=== PATIENT | male | born 1960 | race African-American/Black ===

== ENCOUNTER 2024-06-22 15:53 | Emergency (ER) | payer MEDICARE, SELFPAY ==
--- NOTE | ~2024-06-22 | XR_ITS ---
EXAMINATION: XR knee RT 3V DATE: 06/22/2024 18:17 INDICATION: Right knee swelling. TECHNIQUE: 3 views of right knee were obtained. COMPARISON: None. FINDINGS: Bone alignment is normal. No acute fracture. There is an old healed fracture of the fibular neck. There is moderate osteoarthritis of lateral compartment and mild osteoarthritis of medial and patellofemoral compartments. There is a small knee joint effusion with loose bodies. There are loose bodies in a Merino's cyst. IMPRESSION: 1. Moderate right knee osteoarthritis. 2. Small right knee joint effusion with loose bodies. Reviewed, dictated and finalized at location A.
[2024-06-22 15:56] VITALS: BP 150/95; PULSE 90; RESP 16; TEMP 36.6; O2SAT 100
--- NOTE | 2024-06-22 16:23 | ECG_ITS ---
Test Date: 2024-06-22 16:50:17 Measurements Intervals [place] Rate: 86 P: 36 OR: 234 QRS: -8 QRSD: 109 T: 77 QT: 363 QTc: 434 Interpretive Statements SINUS RHYTHM WITH FIRST DEGREE AV BLOCK NONSPECIFIC T-WAVE ABNORMALITY No previous ECG available for comparison Electronically Signed On 06-23-2024 10:07:57 CDT by Juan Jose Holguin M.D.
--- NOTE | 2024-06-22 16:45 | ED.PSYCH ---
HPI - Psych General Chief Complaint: Psychiatric Symptoms <Williams Walters APRN - Last Filed: 06/22/24 16:46> Stated Complaint: psych eval <Williams Walters APRN - Last Filed: 06/22/24 16:46> Time Seen by Provider: 06/22/24 17:18 <Williams Walters APRN - Last Filed: 06/22/24 16:46> 63-year-old male presents with increased depression and suicidal ideations. Patient states she has also his brother and his mother of this year. Patient has a history of schizophrenia. Patient has a plan to jump off a parking garage. <Williams Walters APRN - Last Filed: 06/22/24 16:46> History of Present Illness HPI Narrative: I agree with the assessment and note written by Williams Juarez NP. <Roxana Diaz APRN - Last Filed: 06/23/24 01:58> Review of Systems Review of Systems: All systems reviewed & are unremarkable except as noted in HPI and below <Roxana Diaz APRN - Last Filed: 06/23/24 01:58> PMFSH Social History Social History: Social History Substance use type: marijuana and crack/cocaine <Williams Walters APRN - Last Filed: 06/22/24 16:46> Exam Narrative: GENERAL: Well appearing, well-nourished, non-toxic, in no acute distress. HEAD: Normocephalic, atraumatic. NECK: Supple. No adenopathy, no masses. RESPIRATORY: Airway patent, respirations nonlabored. Clear to auscultation bilaterally, no rales, rhonchi, wheezing. CARDIOVASCULAR: Regular rate and rhythm without murmurs, rubs, or gallops. Peripheral pulses 2+ and equal bilaterally. Mild bilateral lower extremity edema. ABDOMINAL: Soft, nontender, nondistended, no hepatosplenomegaly. Normoactive BS. MUSCULOSKELETAL: Moves all extremities. Strength/ROM intact without gross deformities. SKIN: Warm, dry, normal color. No rashes. NEURO: A&O X3. Speech clear. Cranial nerves II-XII grossly intact. Steady gait. No ataxic movements. PSYCHIATRIC: Appropriate mood and flat affect. Normal interaction. <Roxana Diaz APRN - Last Filed: 06/23/24 01:58> Course Course Emergency Course: patient was signed out to me at 7:00 a.m. I am aware that patient has been accepted at a psychiatric facility and is awaiting EMS transportation which is anticipated at approximately 1:00 p.m.. Patient was calm and appropriate throughout the morning and early afternoon. I did assess him from the door he was resting comfortably. He did not require any medications. EMS arrived to transport patient. Patient ate meal without emesis or complication. <Sahara Mendoza MD - Last Filed: 06/23/24 13:20> DESKTOP SUPPORT TECHNICIAN/PA Physician Supervision For this patient encounter, I reviewed the DESKTOP SUPPORT TECHNICIAN or PA documentation, treatment plan, and medical decision making and had ifdg-ln-uewn time with this patient. I performed all aspects of the MDM as documented. <Adryan Caballero MD - Last Filed: 06/23/24 05:07> Vital Signs Vital signs: Vital Signs Temperature 97.9 F 06/22/24 15:56 Pulse Rate 90 06/22/24 15:56 Respiratory Rate 16 06/22/24 15:56 Blood Pressure 150/95 H 06/22/24 15:56 Pulse Oximetry 100 06/22/24 15:56 Oxygen Delivery Room Air 06/22/24 15:56 Temperature 97.9 F 06/23/24 01:03 Pulse Rate 80 06/23/24 01:03 Respiratory Rate 16 06/23/24 01:03 Blood Pressure 138/97 H 06/23/24 01:03 Pulse Oximetry 99 06/23/24 01:03 Oxygen Delivery Room Air 06/22/24 15:56 <Williams Walters APRN - Last Filed: 06/22/24 16:46> Vital Signs Temperature 97.9 F 06/22/24 15:56 Pulse Rate 90 06/22/24 15:56 Respiratory Rate 16 06/22/24 15:56 Blood Pressure 150/95 H 06/22/24 15:56 Pulse Oximetry 100 06/22/24 15:56 Oxygen Delivery Room Air 06/22/24 15:56 Temperature 97.9 F 06/23/24 01:03 Pulse Rate 80 06/23/24 01:03 Respiratory Rate 16 06/23/24 01:03 Blood Pressure 138/97 H 06/23/24 01:03 Pulse Oximetry 99 06/23/24 01:03 Oxygen Delivery Room Air 10
[2024-06-22 17:06] LABS: Basophils Percent Auto 0.3 % (0.2-1.2); Eosinophils Absolute Auto 0.4 K/mm3 (0-0.3); Eosinophils Percent Auto 3.9 % (0-4.4); Hematocrit 33.4 % (42.0-52.0); Hemoglobin 10.3 g/dL (14.0-18.0); Immature Granulocyte Absolute 0.02 K/mm3 (0.00-0.031); Immature Granulocyte Percent A 0.2 % (0-0.5); Lymphocytes Absolute Auto 1.62 K/mm3 (0.9-3.2); Lymphocytes Percent Auto 15.2 % (18.3-44.2); Mean Corpuscular HGB Conc 30.8 g/dl (32-36); Mean Corpuscular Hemoglobin 25.6 pg (26-34); Mean Corpuscular Volume 83.1 fl (80-100); Monocytes Absolute Auto 0.5 K/mm3 (0.1-0.6); Monocytes Percent Auto 4.6 % (2.6-8.5); Neutrophils Absolute Auto 8.1 K/mm3 (1.3-6.7); Neutrophils Percent Auto 75.8 % (45.5-73.1); Platelet Count Result 267 k/mm3 (150-375); Red Blood Count 4.02 M/mm3 (4.6-6.20); Red Cell Distribution Width 21.7 % (11.5-14.5); White Blood Count 10.6 K/mm3 (4.5-10.0)
[2024-06-22 17:07] LABS: Add Urine Microscopic? NO; Appearance Urine Clear (Clear); Bilirubin Urine Negative (Negative); Blood Urine Negative (Negative); Color Urine Yellow (Yellow); Glucose Urine UA Negative (Negative); Ketones Urine Trace mg/dL (Negative); Leukocyte Esterase Ur Negative LEU/UL (Negative); Nitrate Urine Negative (Negative); Protein Urine Negative (Negative); Specific Grav Ur 1.024 (1.001-1.035)
[2024-06-22 17:16] LABS: Acetaminophen < 10 ug/mL (10-30); Ethanol < 10 mg/dL (<10); Salicylate < 1.0 mg/dL (2-20)
[2024-06-22 17:17] LABS: Alanine Aminotransferase 13 U/L (6-50); Albumin Level 4.5 g/dL (3.5-5.1); Alkaline Phosphatase 114 U/L (38-126); Anion Gap 11 mmol/L (4-12); Aspartate Amino Transferase 25 U/L (17-59); Bilirubin,Total 0.3 mg/dL (0.2-1.3); Blood Urea Nitrogen 16 mg/dL (9-20); Calcium 9.7 mg/dL (8.4-10.2); Carbon Dioxide 27 mmol/L (22-30); Chloride 103 mmol/L (98-107); Estimated CRCL calculation 73 ml/min; Estimated Glomerular Filt Rate > 60; Glucose 166 mg/dL (65-110); Potassium 3.5 mmol/L (3.4-5.0); Sodium 141 mmol/L (137-145)
[2024-06-22 18:12] LABS: Barbiturate Screen Urine Negative (Negative); Benzodiazepines Screen Urine Negative (Negative)
[2024-06-22 18:14] LABS: Amphetamine Screen Urine Negative (Negative); Cannabinoid Screen Urine Negative (Negative); Cocaine Screen Urine Positive (Negative); Methadone Screen Urine Negative (Negative); Opiate Screen Urine Negative (Negative); Phencyclidine Screen Urine Negative (Negative)
[2024-06-22 18:18] LABS: SARS-CoV-2 RNA PCR Negative (Negative)
--- NOTE | 2024-06-22 22:58 | PC.NURSE ---
spoke with Mariam with [facility] transfer center, they are going to run information by the psychiatrist and call back with an answer about acceptance.
--- NOTE | 2024-06-22 23:44 | PC.NURSE ---
Pt has been accepted at [facility] in [place]. They will call back with a bed number and for report.
[2024-06-23 00:56] VITALS: BP 138/97; PULSE 80; RESP 16; TEMP 36.6; O2SAT 99
--- NOTE | 2024-06-23 01:00 | PC.NURSE ---
RN to [facility]ON[facility] Moya for report [facility] . This rn verified address [address] [place] [address] room 112 bed 1
[2024-06-23 01:03] VITALS: BP 138/97; PULSE 80; RESP 16; TEMP 36.6; O2SAT 99
[2024-06-23 08:00] VITALS: BP 138/80; PULSE 80; RESP 16; TEMP 36.4; O2SAT 97
[2024-06-23 12:00] VITALS: BP 142/88; PULSE 80; RESP 16; TEMP 36.6; O2SAT 98
--- NOTE | 2024-06-23 13:27 | PC.NURSE ---
leaving ED with Contreras at this time
== END 2024-06-23 13:28 ==
PROVIDERS: Nurse Practitioner Family; Emergency Provider Registered Nurse
DX: R45.851 Suicidal ideations (principal); Z11.52 Encounter for screening for COVID-19; I10 Essential (primary) hypertension; E11.9 Type 2 diabetes mellitus without complications; F20.9 Schizophrenia, unspecified; M17.11 Unilateral primary osteoarthritis, right knee; I44.0 Atrioventricular block, first degree; R94.31 Abnormal electrocardiogram [ECG] [EKG]
CPT/HCPCS: 36415; 73562; 80053; 80143; 80179; 80307; 81003; 82077; 84443; 85025; 87635; 93005; 99285

== ENCOUNTER 2025-03-22 22:38 | Emergency (ER) | payer OTHER, SELFPAY ==
[2025-03-22 22:50] VITALS: BP 108/78; PULSE 83; RESP 14; TEMP 36.6; O2SAT 100
[2025-03-22 23:23] LABS: Hematocrit 34.2 % (42.0-52.0); Hemoglobin 10.7 g/dL (14.0-18.0); Immature Granulocyte Percent A 0.3 % (0-0.5); Lymphocytes Absolute Auto 1.98 K/mm3 (0.9-3.2); Mean Corpuscular HGB Conc 31.3 g/dl (32-36); Mean Corpuscular Hemoglobin 25.7 pg (26-34); Mean Corpuscular Volume 82.2 fl (80-100); Nucleated Red Blood Cells Absolute Auto 0.000 K/mm3 (0.0-0.012); Nucleated Red Blood Cells Perc 0.0 % (0.0-0.2); Platelet Count Result 251 k/mm3 (150-375); Red Blood Count 4.16 M/mm3 (4.6-6.20); White Blood Count 9.4 K/mm3 (4.5-10.0)
[2025-03-22 23:27] LABS: Add Urine Microscopic? YES; Appearance Urine Clear (Clear); Glucose Urine UA Negative (Negative); Leukocyte Esterase Ur Negative LEU/UL (Negative); Nitrate Urine Negative (Negative); Non Pathogenic Casts 0-2; Specific Grav Ur 1.026 (1.001-1.035)
[2025-03-22 23:36] LABS: Alanine Aminotransferase 13 U/L (6-50); Albumin Level 4.5 g/dL (3.5-5.1); Alkaline Phosphatase 92 U/L (38-126); Anion Gap 11 mmol/L (4-12); Aspartate Amino Transferase 28 U/L (17-59); Bilirubin,Total 0.3 mg/dL (0.2-1.3); Blood Urea Nitrogen 23 mg/dL (9-20); Calcium 9.8 mg/dL (8.4-10.2); Carbon Dioxide 23 mmol/L (22-30); Chloride 108 mmol/L (98-107); Estimated CRCL calculation 66 ml/min; Estimated Glomerular Filt Rate > 60; Glucose 82 mg/dL (65-110); Potassium 4.0 mmol/L (3.4-5.0); Sodium 142 mmol/L (137-145); Total Protein 8.1 g/dL (6.3-8.2)
--- OUTSIDE RECORDS SUMMARY | 2025-03-22 23:48 | XMS_ITS ---
Author Organization [facility] Address [address] [place], [place] [phone] Care Team Providers Care Hr Recruiter Name Role Phone Fadia Lyle Primary Care Provider [phone] DIANE PERERA [phone] REASON FOR VISIT anxiety with stress disorders Social History Sex Assigned At : Social History Observation Description Sex Assigned At Female Encounters Encounter Location Date Provider Diagnosis [facility] [address] [place], [place] [phone] 12/14/2024 DIANE PERERA Plan Of Treatment No Information Progress Notes * Bob HOLLIS JrDOB:[birth year] (64 yo M)Acc No.[id number]:12/14/2024 Health & Behavioral Intake Patient: Kameron WINCHESTERBob Jr Provider: Lee PERERA LPC :1960 A ge:64 Y S ex:Male Date:12/14/2024 Address:[address] [place] [address], [address], [place], [phone] Pcp:Fadia Lyle Subjective: * Chief Complaints: * 1 . Anxiety with stress disorders. * Medical History: Objective: * Vitals: Assessment: Plan: * Treatment: * Billing Information: * Visit Code: * Procedure Codes: Care Plan Details* * Electronic signature of SARITA PERERA LPC on 03/22/2025 at 11:48 PM CDT Sign off status: Pending * Provider: Lee PERERA LPC Date: 0 12/14/2024 Generated for Rajendra juares/Valentina/Rosemarie on: 0 03/22/2025 11:48 PM CDT
--- OUTSIDE RECORDS SUMMARY | 2025-03-22 23:48 | XMS_ITS | Encounter Summary ---
Author Organization [facility] Address [address] [place] [address] Care Team Providers Care Day Care Attendant Name Role Phone Rory Moore MD Unavailable Fadia Lyle MD Primary Care Provid er Reason for Visit * Reason Comments SUICIDAL PT BIBEMS for SI, to EMS he thought about jumping off a building. PT recently lost his brother. PT states he tried calling a friend to bring him a firearm to kill himself * Auth/Cert (Routine) Specialty Diagnoses / Procedures Referred By Ruddy forrester Referred To Contact Referral ID Status Reason Start Date Expiration Date Visits Re quested Visits Authorized [id number] 1 1 Encounter Details Date Type Department Care Team (Late st Contact Info) Description 03/21/2025 2:41 AM CDT - 03/21/2025 8:03 AM CDT Emergency ER at [facility] [address] [place] [id number] Sondra Mays DO [address] [place] [phone] Anton Radford MD [address] [place] [id number] Adjustment disorder, unspecified type (Primary Dx); Current severe episode of major depressive disorder without psychotic features, unspecified whether recurrent (HCC); Substance abuse (HCC) Discharge Disposition: Home or Self Care Social History Tobacco Use Types Packs/Day Years Used Date Smoking Tobacco: Former Cigarettes Smokeless Tobacco: Never Comments:Patient states he h as never smoked Alcohol Use Standard Drinks/Week Comments Not Currently 0 (1 standard drink = 0.6 oz pur e alcohol) never was much on alcohol AUDIT-C Answer Date Recorded Q1: How often do you have a drink containing alcohol? Never 03/21/2025 Q2: How many drinks containi ng alcohol do you have on a typical day when you are drinking? Patient does not drink Q3: How often do you have si x or more drinks on one occasion? Never 03/21/2025 Overall Financial Resource Strain (CARDIA) Answe r Date Recorded How hard is it for you to pa y for the very basics like food, housing, medical care, and heating? Not hard at all 02/23/2025 PHQ-2 Answer Date Recorded Patient Health Questionnaire-2 Score 1 03/21/2025 [facility] - Occupational Stress Questionnaire Answer Date Recorded Do you feel stress - tense, restless, nervous, or anxious, or unable to sleep at night because your mind is troubled all the time - these days? Not at all 02/23/2025 Hunger Vital Sign Answer Date Recorded Within the past 12 months, y ou worried that your food would run out before you got the money to buy more. Never true 02/24/20 25 Within the past 12 months, t he food you bought just didn't last and you didn't have money to get more. Never true 02/23/2025 PRAPARE - Transportation Answer Date Re corded In the past 12 months, has l ack of transportation kept you from medical appointments or from getting medications? No 02/05 In the past 12 months, has l ack of transportation kept you from meetings, work, or from getting things needed for daily living? No 02/23/2025 Housing Stability Vital Sign Answer Chuck e Recorded In the last 12 months, was t here a time when you were not able to pay the mortgage or rent on time? Yes 12/23/2023 In the last 12 months, how many places have you lived? 5 12/23/2023 In the last 12 months, was t here a time when you did not have a steady place to sleep or slept in a fdc (including now)? No 12/23/2023 Housing Stability Vital Sign Answer Chuck e Recorded In the last 12 months, was t here a time when you were not able to pay the mortgage or rent on time? No 02/23/2025 In the past 12 months, how m any times have you moved where you were living? 0 02/23/2025 At any time in the past 12 m [facility], were you homeless or living in a fdc (including now)? 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 SAL[employer] Sexual Orientation Not on file Occupation Industry Job Start Date Job End Date retired [employer] Not on file Not on file Not on file documented as of this encounter Last Filed Vital Signs Vital Sign Reading Time Taken Comments Blood Pressure 135/83 03/21/2025 2:58 AM CDT Pulse 83 03/21/2025 2:58 AM CDT Temperature 36.4 C (97.5 F) 03/21/2025 2:58 AM CDT Respiratory Rate 19 03/21/2025 2:58 AM CDT Oxygen Saturation 100% 03/21/2025 2:58 AM CDT Inhaled Oxygen Concentration - - Weight - - Height - - Body Mass Index - - documented in this encounter Functional Status * Question Answer Date of Assessment Author Q1: How often do you have a drink containing alcohol? Never 03/21/2025 3:58 AM CDT Kiarra Nuñez Q2: How many drinks containing alcohol do you have on a typical day when you are drinking? Patient does not drink 03/21/2025 3:58 AM CDT Estella Nuñez Q3: How often do you have six or more drinks on one occasion? Never 03/21/2025 3:58 AM CDT Kiarra Nuñez * Audit-C Score Answer Date of Assessment Author 0 03/21/2025 3:58 AM CDT Estella Nuñez * Is person deaf or have serious hearing difficulty? Answer Date of Assessment Author No 02/23/2025 3:38 PM CDT Antoni Brown RN * Is person blind or have serious difficulty seeing? Answer Date of Assessment Author No 02/23/2025 3:38 PM CDT Antoni Brown RN * Does person have serious difficulty walking/climbing stairs? Answer Date of Assessment Author No 02/23/2025 3:38 PM CDT Antoni Brown, RN * Does person have difficulty dressing/bathing? Answer Date of Assessment Author No 02/23/2025 3:38 PM CDT Antoni Brown, RN * Does person have difficulty doing errands alone? Answer Date of Assessment Author No 02/23/2025 3:38 PM CDT Antoni Brown, RN * Over the past 2 weeks, how often have you been bothered by any of the following problems? Question Answer Date of Assessment Author Little interest or pleasure in doing things Not at all 03/21/2025 4:15 AM Kiarra [place] Feeling down, depressed, or hopeless Several days 03/21/2025 4:15 AM Kiarra [place] Patient Health Questionnaire-2 Score 1 03/21/2025 4:15 AM Fuad [place] * Question Answer Date of Assessment Author Trouble falling or staying asleep, or sleeping too much Not at all 03/21/2025 4:15 AM Estella [place] Feeling tired or having little energy Not at all 03/21/2025 4:15 AM Kiarra [place] Poor appetite or overeating Not at all 03/21/2025 4: 15 AM Estella [place] Feeling bad about yourself - or that you are a failure or have let yourself or your family down Not at all 03/21/2025 4:15 AM Kiarra [place] Trouble concentrating on things, such as reading the newspaper or watching television Not at all 03/21/2025 4:15 AM Kiarra [place] Moving or speaking so slowly that other people could have noticed? Or the opposite - being so fidgety or restless that you have been moving around a lot more than usual. Not at all 03/21/2025 4:15 AM Kiarra [place] Thoughts that you would be better off or hurting yourself in some way Several days 03/21/2025 4:15 AM Geno [place] Patient Health Questionnaire-9 Score 2 03/21/2025 4:15 AM CDFuad Laurent * Actual/Potential Lethality (Most Lethal Attempt) Question Answer Date of Assessment Author Actual Lethality/Medical Dam age Code (Most Lethal Attempt) 3 03/21/2025 3:39 AM CDT Moses Nuñez hrsevena Ching Potential Lethality Code (Mo st Lethal Attempt) 2 03/21/2025 3:39 AM CDT Kiarra Nuñez R * Actual/Potential Lethality (Most Recent Attempt) Question Answer Date of Assessment Author Actual Lethality/Medical Dam age Code (Most Recent Attempt) 3 03/21/2025 3:39 AM CDT Moses Nuñez hristina Ching Potential Lethality Code (Mo st Recent Attempt) 0 03/21/2025 3:39 AM CDT Kiarra Nuñez R * Actual/Potential Lethality (Initial/First Attempt) Question Answer Date of Assessment Author Actual Lethality/Medical Dam age Code (Initial/First Attempt) 3 03/21/2025 3:39 AM Estella [place] Potential Lethality Code (Initial/First Attempt) 1 03/21/2025 3:39 AM CDT Yehuda Nuñez R * Calculated C-SSRS Risk Score (Lifetime/Recent) Answer Date of Assessment Author High Risk 03/21/2025 3:39 AM Estella [place] * How difficult have these problems made it for you to do your work, take care of things at home, or get along with other people? Answer Date of Assessment Author Not difficult at all 03/21/2025 4:15 AM CDT Estella Macias * Suicidal Ideation Question Answer Date of Assessment Author 1. Wish to be (Lifetime) No 03/21/2025 3:39 AM Estella [place] 2. Non-Specific Active Suici jodi Thoughts (Lifetime) Yes 03/21/2025 3:39 AM CDT Kiarra Nuñez R 3. Active Suicidal Ideation with any Methods (Not Plan) Without Intent to Act (Lifetime) No 03/21/2025 3:39 AM CDT Nuñez, Chr istina R 4. Active Suicidal Ideation with Some Intent to Act, Without Specific Plan (Lifetime) No 03/21/2025 3:39 AM CDT Nuñez, Chr istina R 5. Active Suicidal Ideation with Specific Plan and Intent (Lifetime) No 03/21/2025 3:39 AM CDT Fuad Nuñezin a R 2. Non-Specific Active Suici jodi Thoughts (Past 1 Month) Yes 03/21/2025 3:39 AM CDT Nuñez, Chri humera R 3. Active Suicidal Ideation with any Methods (Not Plan) Without Intent to Act (Past 1 Month) Yes 03/21/2025 3:39 AM CDT Fuad Nuñezina R 4. Active Suicidal Ideation with Some Intent to Act, Without Specific Plan (Past 1 Month) Yes 03/21/2025 3:39 AM CDT Joaquin Estella R 5. Active Suicidal Ideation with Specific Plan and Intent (Past 1 Month) Yes 03/21/2025 3:39 AM CDT Fuad Nuñezin a R * Intensity of Ideation Question Answer Date of Assessment Author Frequency (Lifetime) 1 03/21/2025 3:39 AM CDT Estella Nuñez R Reasons for Ideation (Lifetime) 0 03/21/2025 3:39 AM CDT Joaquin Estella R Description of Most Severe Ideation (Past 1 Month) Sister moved out of town to follow her job, 03/21/2025 3:39 AM CDT Joaquin Estella R Frequency (Past 1 Month) 4 025 3:39 AM CDT Joaquin Estella R Duration (Past 1 Month) 5 03/21/20 25 3:39 AM CDT Fuad Nuñezina R Controllability (Past 1 Month) 2 03/21/2025 3:39 AM CDT Joaquin Estella R Deterrents (Past 1 Month) 3 2024 3:39 AM CDT Joaquin Estella R Reasons for Ideation (Past 1 Month) 5 03/21/2025 3:39 AM CDT Joaquin Estella R * Suicidal Behavior Question Answer Date of Assessment Author Actual Attempt (Lifetime) Yes 03/21/2025 3:39 AM CDT Joaquin Estella R Has subject engaged in non-suicidal self-injurious behavior? (Lifetime) No 03/21/2025 3:39 AM CDT Geno Nuñez na R Interrupted Attempts (Lifetime) No 3:39 AM CDT Estella Nuñez R Aborted or Self-Interrupted Attempt (Lifetime) No 03/21/2025 3:39 AM CDT Kiarra Nuñez a R Preparatory Acts or Behavior (Lifetime) Yes 03/21/2025 3:39 AM CDT Fuad Nuñezin a R Total Number of Preparatory Acts (Lifetime) 1 03/21/2025 3:39 AM CDT Kiarra Nuñez a R Actual Attempt (Past 3 Months) No 03/21/2025 3:39 AM CDT Estella Nuñez R Preparatory Acts or Behavior (Past 3 Months) No 03/21/2025 3:39 AM CDT Kiarra Nuñez documented as of this encounter Mental Status * Does person have difficulty concentrating/remembering/making decisions? Answer Entry Date Author No 02/23/2025 3:38 PM CDT Antoni Brown RN documented in this encounter Discharge Instructions * Discharge Instructions* Anton Radford MD - 03/21/2025 7:48 AM CDT DRUG AND ALCOHOL REFERRALS Inpatient [facility] [phone] Inpatient Medical Detox, Residential, Outpatient Services, Anti-Craving Medications, Aftercare (Adult and Adolescent Programs) Locations: [facility], [facility] Insurance(s): Most major insurances, Medicaid, State-Funding [facility] [phone] Inpatient Medical Detox, Residential, Outpatient Services, Anti-Craving Medications, Aftercare (Adults 18+) Main Location: [facility] Locations: [facility], [facility], [place], [place] Insurance(s): Most major insurances (no , Medicare, or Medicaid) [facility] [phone] Residential, Outpatient Services, Anti-Craving Medications, Aftercare (Adult and Adolescent Programs) Locations: [place] ([facility], [place], [place], [place]) Insurance(s): Most major insurances, [place] Medicaid, [place] State-Funding (no [place] Medicaid or Medicare) Tang Tebbetts [phone] Inpatient Medical Detox, Short/Long-Term Residential, Outpatient Services, Transitional Housing (Adults 18+) Location: [facility] Insurance(s): [place], Anastasia, BCBS, [place], Joaquina, [employer] [phone] Inpatient Medical Detox, Short-Term Hospitalization, Typically 3 Day, 4 Night detox (Adults 18+) Locations: [place] ([place], [place], [place]); [place] ([place]) Insurance(s): Most major insurances, Medicare and Medicaid [facility] * [phone] Residential Services, Outpatient Services, Early Intervention (Adolescents; Adult Programs) Locations: [facility] Insurance(s): Most major insurances, Medicare and Medicaid [facility] [phone] Inpatient Medical Detox, Residential, Outpatient Services, Aftercare (Adult and Adolescent Programs) Locations: [place], [place], [place], [facility], [facility], [facility], [place] (more online) Insurance(s): Most major insurances, Medicare and Medicaid [facility] (Women Only) [phone] Residential, Outpatient Services, [employer] Services Location: [facility] Insurance(s): State-Funding, Medicare and Medicaid [facility] (Men Only) [phone] Inpatient Medical Detox, Short-Term Residential, Outpatient Services, Transitional Housing Location: [facility] Insurance(s): State-Funding [facility] Stabilization Service [phone] Inpatient Medical Detox, Short-Term Hospitalization, Typically 3 Day, 4 Night detox (Adults 18+) Locations: [place] Insurance(s): Most major insurances, Medicare and Medicaid [facility] ([facility]) * [phone] Inpatient Medical Detox, Residential, Outpatient Services, Anti-Craving Medications, Community Supports (Adult and Adolescents) Locations: [place], [place], [place], [place], [place], [place], [place], [place], [place], [place], [place] (more online) Insurance(s): Most major insurances, Medicare and Medicaid, [place], State-Funding [facility] [phone] Inpatient Medical Detox, Residential, Outpatient Services, Anti-Craving Medications, Aftercare, Family Program (Ages 16+) Inpatient Location: [place] Outpatient Location: Florentino Andrews Insurance(s): Most major insurances (No Medicare or Medicaid) [facility] Mgr Cathryn: [phone] Inpatient Medical Detox, Residential, Partial Hospitalization, Intensive Outpatient Programming, Locations: [place], [place]; [place], [place]; [facility]; [place], [place] Insurance(s): Most major insurances [facility] [phone] Outpatient Detox, Aftercare, Anti-Craving Medications (Adult and Adolescent Programs) Location: [place] Insurance(s): Most major insurances and Managed Medicaids (No Medicare) [facility] ([facility]isted [facility]) [phone] Residential, Outpatient Services, Anti-Craving Medications, Transitional Housing, Aftercare (Dknvkt18+) Locations: [facility] Insurance(s): Most major insurances (no Medicare, Medicaid, or HealthCare [place]) Monique [phone] Outpatient Services, Day Treatment Program, Counseling Services (Adult and Adolescent Programs) Locations: Yusuf Tobar Insurance(s): Most major insurances, including Medicare and Medicaid [facility] on Alcoholism and Drug Abuse [facility] [phone] Substance Abuse assessments (9:30am - 3pm Thursday - Thursday; Appointment Only), Referrals, General Substance Abuse Help/Information Line (9am - 5pm Thursday - Thursday); Adult and Adolescent Assessments Location: [place] Insurance(s): None, Adult Appointments: $50, Adolescent (19 and under): Free [facility] * [phone] Outpatient Services, Day Treatment Program, Short/Long-Term Residential (Adults Only) Location: [facility] Insurance(s): Medicaid Only [place] [facility], [facility] [phone] Outpatient Services, Individual/Family/Group Counseling (Adults Only) Location: [place] Insurance(s): Self pay, Private Insurance [facility] [phone] Intensive Outpatient Programming (Adults Only) Location: [place] Insurance(s): Self pay, Private Insurance [facility] [phone] Assessments, Individual Counseling, Intensive Outpatient Program, After-Care, Support Groups (Ages 13-25 Only) Location: [place] Insurance(s): Self pay, Private Insurance Suicide Prevention/Crisis Hotlines [facility] ([place]) - Behavioral Health Intake Department: [phone] [facility] Behavioral Health Intake Department is professionally staffed and offers free, confidential evaluations for anyone needing assistance with psychiatric and behavioral issues. Evaluations are available 24 hours a day, 7 days a week. [facility]: 638-414-IZMA (6446) [facility] is one of the nation's oldest suicide prevention and crisis hotlines. [facility] operates 24 hours a day Behavioral Health Response: [phone] or 835-765-5990 [facility] Response ([facility]) is a professionally staffed crisis response service. R provides expert behavioral health, crisis response, and outreach services /[facility] Suicide Hotline: 2-588-173-TALK (9145) Press 1 National Suicide Prevention Hotline: 9-262-592-TALK (8193) 30/03 hotline available to anyone in suicidal crisis or emotional distress. Call's will be routed [facility] to you National Hope-Line Network: 9-382-KZYUAVC (922-0912) 30/03 hotline that connects people who are depressed or suicidal, or those who are concerned about someone they love, automatically to a [facility] or [facility] certified crisis center. Crisis Text Line: Just send a text message to 108421 Live, trained crisis counselors available 30/03 via text message; You'll receive an automated text asking you what your crisis is and within minutes , a live trained crisis counselor will answer your text. They will help you out of a moment of crisis and work with you to create a plan to continue tofeel better. documented in this encounter Medications at Time of Discharge amLODIPine (Norvasc) 10 MG tabletIndicatio ns:Hypertension Take 1 (one) tablet by mouth once daily Reasons: High Blood Pressure 15 tablet 1 5 aspirin (Aspirin) 81 MG chew tabletIndicatio ns:Atherosclero tic Disease Take 1 (one) tablet by mouth once daily Reasons: Disease involving Lipid Deposits in the Arteries 15 tablet 1 5 buPROPion SR 12hr (Wellbutrin-SR) 150 MG tabletIndicatio ns:Major Depressive Disorder Take 1 (one) tablet by mouth once daily Reasons: Major Depressive Disorder 15 tablet 1 5 ferrous sulfate 325 (65 FE) MG tabletIndicatio ns:Iron Deficiency Anemia Take 1 (one) tablet by mouth 2 times daily with morning and evening meal Reasons: Anemia From Inadequate Iron in the Body 15 tablet 5 FLUoxetine (PROzac) 20 MG capsuleIndicati ons:Major Depressive Disorder Take 1 (one) capsule by mouth once daily Reasons: Major Depressive Disorder 15 capsule 1 5 hydrOXYzine HCl (Atarax) 25 MG tabletIndicatio ns:Anxiety Take 1 (one) tablet by mouth every 6 hours as needed Reasons: Feeling Anxious 30 tablet 1 5 losartan (Cozaar) 25 MG tabletIndicatio ns:Hypertension Take 3 (three) tablets by mouth every evening Reasons: High Blood Pressure 45 tablet 5 metFORMIN (Glucophage) 500 MG tabletIndicatio ns:Type 2 Diabetes Mellitus Take 1 (one) tablet by mouth 2 times daily with morning and evening meal Reasons: Type 2 Diabetes 30 tablet 5 OLANZapine, disintegrating, (ZyPREXA Zydis) 5 MG tabletIndicatio ns:Major Depressive Disorder,Psycho tic Depression Take 1 (one) tablet by mouth at bedtime Reasons: Major Depressive Disorder, Psychotic Depressive Illness 15 tablet 5 pantoprazole EC (Protonix) 40 MG tabletIndicatio ns:Gastroesopha geal Reflux Disease Take 1 (one) tablet by mouth once daily Reasons: Gastroesophageal Reflux Disease 15 tablet 1 5 pregabalin (Lyrica) 50 MG capsuleIndicati ons:Neuropathic Pain Take 1 (one) capsule by mouth 2 times daily Reasons: Neuropathic Pain 30 capsule 1 5 documented as of this encounter Progress Notes * Laxmi Fong, TOMÁS - 03/21/2025 7:44 AM CDT Behavioral Health Referrals The patient was evaluated by Dr. Sanderson, (Psychiatric Provider) and it was determined that patient does not meet criteria for Inpatient psychiatric treatment. The following referrals are recommended for outpatient treatment and follow up care: follow up withestablished provider(s) and CI resources. Adult Substance Use Outpatient Name Number [facility] [phone] Tang Tebbetts [phone] [facility] [phone] [facility] [phone] [facility]) [phone] [facility]isted [facility] ([facility]) [phone] [facility] [phone] [facility] ([facility]) [phone] [employer] Directory List Mir[facility] [place] [phone] Inpatient Substance Use Treatment Name Number [facility] (detox) [phone] [facility] (age 18 and up) [phone] [facility] (age 18 and up) [phone] [facility] (Detox & Residential) [phone] [facility] [phone] [facility] [phone] [facility] (adults and adolescents) [phone] [facility] [phone] [facility] (Detox) (age 18 and up) [phone] [place] ([facility]) [phone] [facility] [phone] Behavioral Health Clinics Name Number [facility] Behavioral Health Urgent Care [phone] Psych[facility] at [facility] [phone] [facility] Psychiatric Clinic [phone] Community Mental Health Centers Name Number [facility] ([facility]) [phone] [facility] ([facility]) [phone] [facility] ([facility]) [phone] [facility] [phone] [facility] [phone] [facility] [phone] [facility] [phone] Adult Psychiatric Hospitals Name Number [facility] [phone] [facility] [phone] [facility] [phone] [facility] [phone] [facility] [phone] [facility] [phone] [facility] [phone] [facility]) [phone] [facility] [phone] [facility] [phone] [facility] ([facility]) [phone] Radford, Medical Provider at 0751. * Laxmi Fong LMSW - 03/21/2025 7:39 AM CDT Received disposition from Dr. Sanderson at 0731, 03/21/25 that patient is to be discharged with Dx of Adjustment disorder (F43.2) and Cocaine Use Disorder (F14.10). The patient is to receive substance use resources prior to discharge. Spoke with Dr. Radford at 0751, providing new disposition, CSSRS and PHQ-2 and PHQ-9 numbers. CI will provide resources as requested. * Estella Nuñez - 03/21/2025 5:17 AM CDT Patient Consent Status for Behavioral Health Admission Verbal consent for admission obtained from the patient by Estella and witnessed by Laxmi PATIÑO. thepatient consented for admission at the following [facility] [facility] location(s): [facility] ([place]). If beds are located outside of [facility] they have provided consent for transfer to the following locations: NONE * Yandy Toro APRN-[employer] OPERATOR - 03/21/2025 4:37 AM CDT Admission Recommendation Bob Hollis Jr. chart was reviewed and discussed case with MOE Soria; MOE assessment note incomplete and unavailable in Epic to be reviewed at this time. Based on information relayed to this provider by MOE, patient does meet the following criteria for IP admission- suicide ideation Admit once patient is medically cleared and appropriate bed placement becomes available. Please see below for disposition; if status change and/or discharge needs to be discussed, please reach out to on-call psychiatric provider (see Tara). Affidavit: no Criteria for involuntary met? N/a Diagnosis: Major depressive disorder, recurrent, severe, without psychosis (F33.2) Legal Status: voluntary Medication/Treatment Recommendations: Contact psychiatry for admission orders - please provide your ascom phone number Admit to psychiatry Electronically signed by: FREDDY Rollins March 21, 2025 4:38 AM Cosigned by Reji James MD at 03/21/2025 2:29 PM CDT * New Giraldo RN - 03/21/2025 2:52 AM CDT Pt presents to ER wanting to kill himself. He stated he had a family member recently passed and he's been feeling upset and depressed. He stated he went onto his roof with a gun and heard his neighbor to which he dropped is gun so his neighbor would find it. He's currently alert, oriented, and cooperative. There is no affidavit. Will continue to monitor. documented in this encounter Consult Notes * Rory Sanderson MD - 03/21/2025 7:44 AM CDT [facility] ER Initial Evaluation/Consultation Note PATIENT NAME: BOB HOLLIS MR#: [id number] AGE: 64 CSN: [id number] DATE OF ADMISSION: 03/21/2025 : 1960 DATE OF CONSULTATION: 03/21/2025 ROOM#: [id number] CHIEF COMPLAINT/HISTORY OF PRESENT ILLNESS: Bob Hollis is a 64-year-old gentleman, very well known to me, who presented with a vague complaint of wanting to jump off a fixed structure. The patient states that he is upset because his brother several days ago and he has been feeling very depressed. He said that he has had thoughts of wanting to either jump off a building or shoot himself though he admits he does not have access to a firearm. I tried to borrow from a friend, but he would not lend it to me. The patient's symptoms come within the context of dozens of emergency room visits throughout the area over the last few months over virtually identical circumstances. I myself saw him in December and February of this year at which time he also noted that he had lost various family members. MENTAL STATUS EXAM: The patient was alert and oriented to person, place, and time. His mood is fair. His affect is somewhat irritable. His speech is elicitable, directable, though somewhat limited. He denied current hallucinations or delusions. He admitted to vague suicidal ideations though no real plan. He denied current drug use, but he again became quite defensive when asked about it admitting to intermittent cocaine use later. He denied current feelings of hopelessness, helplessness, or guilt. There were no suicidal or homicidal ideations at this time and he talks convincingly of future plans. ASSESSMENT: 1. Polysubstance use disorder (cocaine predominant). 2. Rule out personality disorder; antisocial. 3. Adjustment disorder with mixed emotional features. 4. Malingering RECOMMENDATIONS: 1. At this time, the patient does not in our opinion meet inpatient psychiatric criteria and can be discharged to outpatient care. 2. I have again advised the patient in no uncertain terms that he needs to desist from the use of alcoholic spirits or illicit narcotics. I have also advised as have multiple other people here that he needs to follow up with the mental health provider of his choice. He has been provided with resources. 3. I have advised the patient that he needs to return to the emergency room or call 911 should his symptoms truly worsen. 4. A dynamic suicide risk assessment including [place] suicide scale score was done and is noted in the chart. NAME: BOB HOLLIS DICTATOR: RORY SANDERSON M.D. DICTATED FOR: SUZANNE/JUVENTINO JOB ID: [id number] Consultation Note * Rory Sanderson MD - 03/21/2025 7:31 AM CDT Patient seen, chart reviewed, full note dictated, to follow. [id number]. Diagnosis consistent with: Adjustment Disorder, Cocaine Use Disorder, R/O Personality Disorder Recommendations: Does not meet inpt acuity criteria, may transition to out-pt care Discussed with ER MD, Central Intake, and ER staff. Suicide Risk Assessment: Dynamic risk factors were addressed as above. The acute crisis and symptoms leading to ER presentation have adequately resolved. Chronic and non-modifiable risk factors (with inpatient admission) arelimited coping skills, ongoing psychosocial stressors, male gender. General protective factors are female gender, good reality testing, denial of feeling hopeless or helpless, denial of thoughts of self harm or violence toward others, denial of feeling like a burden to others, stated sense of belonging, social support, presence of community mental health resources, and lack of access to highly lethal means of suicide. The patients overall lifetime risk of suicide or violence toward others is moises vated due to chronic non-modifiable risk factors, though the patient is felt to be at low risk in the near future. The patient can continue to mitigate risk by adhering to medications, remaining sober from illicit drugs and alcoholic spirits and engaging with outpatient community mental health resources. [place] Suicide Scale Risk Score is Low Will follow with you while the patient is here in ER. Thank you, AJS * Estella Nuñez - 03/21/2025 4:48 AM CDTAssociated Order(s): IP CONSULT TO TELE PSYCH CENTRAL INTAKE [facility] Health - Behavioral Health Intake Evaluation: Guardian and Contact Information: Current Residence of Patient:[address] [place] [address] Guardian name and relationship: Patient is their own guardian. Was guardianship verified Yes If so how? Patient (Adult/Senior Only) ([place] Patients only) Patient name reviewed in [place] Case Net Yes Guardianship found and reviewed in [place] Case Net? No Affidavit completed: No Is the patient a current victim of violence? No REASON FOR ASSESSMENT: Bob Hollis Jr. is a 64 year old male who presents to the ED with the initial chief complaint(s) per triage note of: Chief Complaint Patient presents with SUICIDAL PT BIBEMS for SI, told EMS he thought about jumping off a building. PT recently lost his brother. PT states he tried calling a friend to bring him a firearm to kill himself The above was entered during triage and not by author of this note. The following information was provided by: The patient PRESENTING PROBLEM: The patient is a 64 year old male presenting to the Emergency Department via EMS with a complaint (s) of SI. The precipitating event is PT suicidal. Attempting to jump off building Pt has 13 prior IP admission with last dates 02/22/25-03/02/25. Chart reflect hx oif depression dx. Pt does not currently follow a psychiatrist or community counselor. Pt is currently prescribed Zyprexa, Wellbutrin, and Prozac and report medication compliance. Pt denies alcohol/substance usage. Pthas diabetes and high blood pressure as medical conditions,but no special needs. Pt denies hx of any type of abuse. Pt denies hx SI,SA, and SIB. Pt presented to ED with complaints of SI. Pt stated these complaints are current and ongoing. Pt reported SI with plan and intent to jump off building to break his neck or shoot himself with a firearm. Pt denied Hi, paranoia, delusions, and hallucinations. Pt currently stressed about the of his brother who 3 days ago. Pt denied depressive symptoms. Pt is currently retired, he lives [place], never been and reports God as his support system. Pt reported leisure as outdoor sports and recreations. Pt A&Ox2 with no orientation to time or place. He had fair insight and calm butguarded. During the assessment the pt was cooperative with good eye contact. The patient is not able to contract for safety outside of the hospital, and plans to harm himself The patient is not able to show forward thinking by Not thinking or looking forward to anything TAL I/TAL II: No FYI record: Yes Elopement and High Risk Behavior Intellectual disability/autism/DD: none indicated Suicidal Ideation 1. Wish to be (Lifetime): No 2. Non-Specific Active Suicidal Thoughts (Lifetime): Yes Non-Specific Active Suicidal Thought Description (Lifetime): Just wanting to ( Close family members) 2. Non-Specific Active Suicidal Thoughts (Past 1 Month): Yes Non-Specific Active Suicidal Thought Description (Past 1 Month): dont want to live anymore ( [facility]) 3. Active Suicidal Ideation with any Methods (Not Plan) Without Intent to Act (Lifetime): No 3. Active Suicidal Ideation with any Methods (Not Plan) Without Intent to Act (Past 1 Month): Yes Active Suicidal Ideation with any Methods (Not Plan) Description (Past 1 Month): jumpping off building or using firearm 4. Active Suicidal Ideation with Some Intent to Act, Without Specific Plan (Lifetime): No 4. Active Suicidal Ideation with Some Intent to Act, Without Specific Plan (Past 1 Month): Yes 5. Active Suicidal Ideation with Specific Plan and Intent (Lifetime): No 5. Active Suicidal Ideation with Specific Plan and Intent (Past 1 Month): Yes Active Suicidal Ideation with Specific Plan and Intent Description (Past 1 Month): Yes wanted to jump off building onto his neck Intensity of Ideation Most Severe Ideation Rating (Lifetime): (Does not apply) Description of Most Severe Ideation (Past 1 Month): Sister moved out of town to follow her job, Frequency (Lifetime): Less than once a week Frequency (Past 1 Month): Daily or almost daily Duration (Lifetime): (Does not apply) Duration (Past 1 Month): More than 8 hours/persistent or continuous Controllability (Past 1 Month): Can control thoughts with little difficulty Deterrents (Past 1 Month): Uncertain that deterrents stopped you Reasons for Ideation (Lifetime): Does not apply Reasons for Ideation (Past 1 Month): Completely to end or stop the pain (You couldn't go on living with the pain or how you were feeling) Suicidal Behavior Actual Attempt (Lifetime): Yes Actual Attempt (Past 3 Months): No Has subject engaged in non-suicidal self-injurious behavior? (Lifetime): No Interrupted Attempts (Lifetime): No Aborted or Self-Interrupted Attempt (Lifetime): No Preparatory Acts or Behavior (Lifetime): Yes Total Number of Preparatory Acts (Lifetime): 1 Preparatory Acts or Behavior Description (Lifetime): trying to get agun from a friend Preparatory Acts or Behavior (Past 3 Months): No Actual/Potential Lethality (Most Recent Attempt) Actual Lethality/Medical Damage Code (Most Recent Attempt): Moderately severe physical damage, medical hospitalization and likely intensive care required Potential Lethality Code (Most Recent Attempt): Behavior not likely to result in injury Actual/Potential Lethality (Most Lethal Attempt) Actual Lethality/Medical Damage Code (Most Lethal Attempt): Moderately severe physical damage, medical hospitalization and likely intensive care required Potential Lethality Code (Most Lethal Attempt): Behavior likely to result in despite available medical care Actual/Potential Lethality (Initial/First Attempt) Actual Lethality/Medical Damage Code (Initial/First Attempt): Moderately severe physical damage, medical hospitalization and likely intensive care required Potential Lethality Code (Initial/First Attempt): Behavior likely to result in injury but not likely to cause C-SSRS Risk (Lifetime/Recent) Calculated C-SSRS Risk Score (Lifetime/Recent): High Risk Aggressive Behaviors Physical aggression: No Verbal aggression: No Homicidal Thoughts or Behaviors Thoughts of harming or killing others?: No Have you acted on these thoughts in the past?: No Have you worked out details on how you would harm others?: No Mental Status Symptoms Delusions: Denies Hallucinations: Denies Alcohol Use Screening: Alcohol Use Screening (AUDIT-C) Q1: How often do you have a drink containing alcohol?: Never Q2: How many drinks containing alcohol do you have on a typical day when you are drinking?: Patientdoes not drink Q3: How often do you have six or more drinks on one occasion?: Never Total Score: 0 Substance Use Screening: Substance Use Drug/Alcohol History in the last 12 months?: None Addictive Behaviors: None List family member relationship and addictive behaviors : None What impact does spirituality and/or jew have on your life including recovery?: Believes in God Past Addiction Treatment: Past Addiction Treatment Past Addiction Treatment: No Mental Status Exam: Mental Status Orientation: Not oriented to time;Not oriented to place Insight: Fair Mood/Affect: Guarded;Calm Behavior: Cooperative;Good eye contact Mental Health: Mental Health Stressors: Recent Loss Symptoms most bothersome to patient:: Low Moods;Anxiety;Loneliness Past psychiatric hospitalizations: Yes Most recent discharge?: 03/03/25 Trauma History: Abuse/Neglect/Safety Assessment Do you feel safe at home?: Yes, feel safe Have you ever been hit/hurt or feel threatened by someone? : No, have not been hit/hurt or feel threatened Abuse History: None Are there signs/clinical indicators of abuse/neglect?: No signs of abuse/neglect Perpetrator of physical or sexual abuse?: Denies Do you have a history of self-injury?: No Are you currently having thoughts of self-injury?: No Do you have guns/weapons available to you?: No [facility] assessment of medications, sleep, appetite, and treatment: [facility] Work Assessment meds, sleep, appetite, tx Do you currently have an outpatient psychiatric provider?: No Have you been prescribed medication for mental health in the past?: No Are you currently being prescribed medication for mental health?: Yes If yes, what current medications?: Wellbutrin, Prozac, Zyprexa Are you taking your mental health medications as prescribed?: Yes Do you have any concerns about your medications?: No Is it hard to get a good night's sleep, are you tired and sleeping too much?: Not at all Have you lost your appetite or do you overeat compulsively?: Not at all Social Support: Social Support Marriages or other committed relationships:: Never Who is the primary acute care clinical nurse specialist?: Self Is the patient currently caring for or responsible for the care of someone else?: No Pets: None Cultural and Orthodoxy Beliefs Impacting Healthcare: Cultural and Orthodoxy Beliefs Impacting Healthcare Are there cultural, yazdanism, spiritual, emotional, financial and/or special needs that may affectyour care?: No Does anyone help support you in making healthcare decisions?: No Housing & Transportation: Housing/Transportation Type of Residence: Private Residence Residence/Facility Name: [address] [place] [address] Living arrangement: Alone Prior to Admission Requires assistance with:: None Prior to Admission Physical Limitations:: None Community Resources: Community Resources Community Resources currently in use?: No Leisure Activities: Leisure Activities What type of leisure activity do you engage in &/or enjoy?: Outdoor recreation activities What is the duration of your leisure activities?: 1 hour What is the frequency of your leisure activites?: 2-3 times per week Employment, Finances, and Insurance: Employment/Finances/Insurance Employment Status: Retired Source of income/Benefits?: Alf Benefits;Social Security PHQ-2: Over the past 2 weeks, how often have you been bothered by any of the following problems? Little interest or pleasure in doing things: Not at all Feeling down, depressed, or hopeless: Several days Patient Health Questionnaire-2 Score: 1 PHQ-9: (If applicable) Over the past 2 weeks, how often have you been bothered by any of the following problems? Trouble falling or staying asleep, or sleeping too much: Not at all Feeling tired or having little energy: Not at all Poor appetite or overeating: Not at all Feeling bad about yourself - or that you are a failure or have let yourself or your family down: Not at all Trouble concentrating on things, such as reading the newspaper or watching television: Not at all Moving or speaking so slowly that other people could have noticed? Or the opposite - being so fidgety or restless that you have been moving around a lot more than usual.: Not at all Thoughts that you would be better off or hurting yourself in some way: Several days Patient Health Questionnaire-9 Score: 2 Provisional Diagnosis:Major depressive disorder, recurrent, severe, without psychosis (F33.2) Patient was evaluated by Estella Britt Behavioral Health Intake Therapist via [employer]. TheBehavioral Health Evaluation and the C-SSRS Score of High Risk, and most recent Behavioral Health Emergency Department visit or admission on 02/22/25-03/02/25 at [facility], was presented to Yandy Toro NP (Psychiatric Provider) at 0428(time). The disposition, Guardianship Status, and C-SSRS Risk Score waspresented to Dr. Mays via [employer] (ED Provider) at 0440(time). Yandy Toro NP (Psychiatric Provider) determined the patient does meet Inpatient criteria for [facility], due toSuicidal Ideation Yandy Toro NP (Psychiatric Provider) recommends that the patient be admitted voluntarily pending medical clearance. Notes: Time of Initial contact attempt with Psychiatric Provider: [phone] Time disposition was received from Psychiatric Provider: [phone] documented in this encounter ED Notes * Anton Radford MD - 03/21/2025 7:47 AM CDT OBSERVATION DISCHARGE SUMMARY The patient has been discharged from the ED Observation at: 03/21/25 7:47 AM. Admit Date: 03/21/25 Admitting Physician: Davon Discharge Physician: Prabhakar Consultations: Psychiatry Procedures: Time spent during discharge: More than 30 minutes was spent on discussing the discharge and upcoming plan of care with nursing staff, behavioral health navigator, physician consultants, and the patient. Admitting Diagnosis: Major depressive disorder Discharge Diagnosis: 1. Adjustment disorder, unspecified type 2. Current severe episode of major depressive disorder without psychotic features, unspecified whether recurrent (HCC) 3. Substance abuse (HCC) DISPO: Patient re-evaluated by Dr. Sanderson, recommended transitioned to outpatient behavioral health treatment. Anton Radford MD * Sondra Mays DO - 03/21/2025 2:34 AM CDT Chief Complaint Patient presents with SUICIDAL PT BIBEMS for SI, told EMS he thought about jumping off a building. PT recently lost his brother. PT states he tried calling a friend to bring him a firearm to kill himself S History Provided by: patient Bob Hollis Jr. is a 64 year old male with h/o PSUD, etoh abuse, here for SI with plan to jump offa building. Brother 3 days ago. Denies smoking, etoh or drugs. No physical complaints. ROS All other systems reviewed and are negative except as noted in the HPI O BP 121/85 Pulse 78 Temp 97 ??F (36.1 ??C) Resp 16 SpO2 98% Physical Exam GEN: Alert, well-developed, well-nourished, no distress. HENT: NCAT. Moist mucous membranes. EYES: PERRLA. EOMI. NECK: Supple. FROM. CV: RRR. No murmurs. RESP: Effort normal. No respiratory distress. Clear to ausc bilat. ABD: Soft, non-distended, non-tender. /RECTAL: deferred MSK: No peripheral edema. Moving all present extremities. NEURO: A&Ox3. Speech clear. SKIN: Warm, dry, cap refill <2 seconds. PSYCH: Normal mood and affect. Calm and cooperative. A DDX: KATHERINE, MDD, bipolar d/o, schizophrenia/schizoaffective d/o, and substance induced mood d/o P Central intake consult MDM EKG ED Course as of 03/21/253 Tue Mar 21, 2025 044 Psychiatry recommends admission MDD without Psychosi [SH] ED Course User Index [SH] Sondra Mays DO Clinical Impressions as of 03/21/25442 Current severe episode of major depressive disorder without psychotic features, unspecified whetherrecurrent (HCC) . Disposition ED observation, stable PRESCRIPTIONS New Prescriptions No medications on file FOLLOW UP/REFERRALS No follow-up provider specified. Patient Vitals for the past 24 hrs: Temp Pulse Resp BP SpO2 03/21/25 0258 97.5 ??F (36.4 ??C) 83 19 135/83 100 % 03/21/25 0234 97 ??F (36.1 ??C) 78 16 121/85 98 % - Critical Care: n/a PROCEDURES None ORDERS & RESULTS Orders Placed This Encounter IP CONSULT TO TELE PSYCH CENTRAL INTAKE Medications - No data to display No results found for this visit on 03/21/25. Imaging Studies: Imaging studies were ordered. Radiologist's interpretation includes: No orders to display Dictation was used creating this document. Please excuse any typos related to dictation error. BEHAVIORAL HEALTH OBSERVATION START The patient has been transitioned to observation status at: 03/21/25 4:43 AM for the evaluation andmanagement of below. Patient is medically appropriate for behavioral care at this time. Admitting Diagnosis: 1. Current severe episode of major depressive disorder without psychotic features, unspecified whether recurrent (HCC) VS: Q Shift Diet: No orders of the defined types were placed in this encounter. Medications: Medications - No data to display Consultations: Psychiatry Direct Observation: [Sitter] yes Restraints: no documented in this encounter Plan of Treatment Not on file documented as of this encounter Visit Diagnoses Diagnosis Adjustment disorder, unspecified type- Primary Current severe episode of major depressive disorder without psychotic features, unspecified whether recurrent (HCC) Substance abuse (HCC) Other, mixed, or unspecified nondependent drug abuse, unspecified documented in this encounter Care Teams Day Care Attendant Relationship Specialty Start Date End Date Fadia Lyle MD [address] [place] [id number] PCP - General Family Medicine 01/12/24 [place] [id number] [address] [facility] 10/14/16 documented as of this encounter
--- OUTSIDE RECORDS SUMMARY | 2025-03-22 23:48 | XMS_ITS | Patient Health Record ---
Author Organization [facility] Address [address] [place] [address] Care Team Providers Care Cnc Operator Programmer Name Role Phone Viji Zhang Unavailable [phone] Reason For Referral No Information Medications Medication SIG (Take, Route, Frequency, Duration) Notes Start Date End Date Status Glucose 40 % 30 gm Orally as needed Active Norvasc 10 MG 1 tablet Orally Once a day Active Insulin Lispro 100 UNIT/ML as directed I njection sliding scale Active Losartan Potassium 25 MG 1 tablet Orally at bedtime Active Tamsulosin HCl 0.4 MG 1 capsule Orally a fter dinner Active Acetaminophen 325 MG 2 tablet as needed Orally every 4 hours Active Alum & Mag Hydroxide-Simeth 200-200-20 MG/5ML 30 mL Orally every 4 hours as needed Active Magnesium Hydroxide 2400 MG/10ML 30 mL as needed Orally at bedtime Active Glucagon (rDNA) 1 MG as directed Injecti on 1 mg as needed Active Dextrose 50 % 12.5 GM inj prefill 25 gm/50mL as needed Active Dextrose 50 % 25 gm inj prefill 25gm/50mL as needed Active Glucose 40 % 15 gm oral as needed Active metFORMIN HCl 500 MG 1 tablet with a oliver l Orally twice a day Active Encounters Encounter Location Date Provider Diagnosis [address] [place] [address] 12/01/2024 Zhang Hallman Plan Of Treatment No Information
--- OUTSIDE RECORDS SUMMARY | 2025-03-22 23:49 | XMS_ITS | Clinical Summary ---
Author Organization [facility] Address [address] [place] [address] Phone Care Team Providers Care Countersinker Balance Screw Hole Name Role Phone Unavailable Primary Care Provider Unavailabl e Social History Tobacco Use Types Packs/Day Years Used Date Smoking Tobacco: Never Assessed Sex and Gender Information Value Date Recorded Sex Assigned at Not on file Legal Sex Male 1:47 PM CDT Gender Identity Not on file Sexual Orientation Not on file Plan of Treatment Not on file Insurance [address] [place] [address] MEDICARE C [employer]IG[employer]
--- OUTSIDE RECORDS SUMMARY | 2025-03-22 23:49 | XMS_ITS | Encounter Summary ---
Author Organization [facility] Address [address] [place] [address] Care Team Providers Care Candy Waffle Assembler Name Role Phone Rory Moore MD Unavailable Fadia Lyle MD Primary Care Provid er Reason for Visit * Auth/Cert (Routine) Specialty Diagnoses / Procedures Referred By Ruddy t Referred To Contact Diagnoses Unspecified Mood Disorder Referral ID Status Reason Start Date Expiration Date Visits Re quested Visits Authorized [id number] 1 1 Encounter Details Date Type Department Care Team (Late st Contact Info) Description 06/22/2024 11:53 PM CDT Hospital Encounter [facility] [address] [place] [address] Ranjan Seaman DO [address] [place] [address] Rayray Cespedes MD [address] [place] [id number] Behavioral Health Social History Tobacco Use Types Packs/Day Years Used Date Smoking Tobacco: Never Assessed AUDIT-C Answer Date Recorded Q1: How often [...] Recorded Patient Health Questionnaire-2 Score 1 03/21/2025 [facility] [place] [facility] - Occupational Stress [...] place to sleep or slept in a prison (including now)? No 12/23/2023 Housing Stability Vital Sign Answer Chuck e Recorded In the last 12 months, was t here a time when you were not able to pay the mortgage or rent on time? No 02/23/2025 In the past 12 months, how m any times have you moved where you were living? 0 02/23/2025 At any time in the past 12 m [facility], were you homeless or living in a prison (including now)? 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 Never 03/21/2025 3:58 AM CDT Kiarra Nuñez Q2: How many drinks containing alcohol do you have on a typical day when you are drinking? Patient does not drink 03/21/2025 3:58 AM Estella Atkinson Q3: How often do you have six or more drinks on one occasion? Never 03/21/2025 3:58 AM Kiarra Atkinson * Audit-C Score Answer Date of Assessment Author 0 03/21/2025 3:58 AM MARLYNT Estella Nuñez * Is person deaf or have serious hearing difficulty? Answer Date of Assessment Author No 06/23/2024 2:55 PM CDT Genevieve Muller RN * Is person blind or have serious difficulty seeing? Answer Date of Assessment Author No 06/23/2024 2:55 PM CDT Genevieve Muller RN * Does person have serious difficulty walking/climbing stairs? Answer Date of Assessment Author No 06/23/2024 2:55 PM CDT Genevieve Muller RN * Does person have difficulty dressing/bathing? Answer Date of Assessment Author No 06/23/2024 2:55 PM T Genevieve Muller RN * Does person have difficulty doing errands alone? Answer Date of Assessment Author No 06/23/2024 2:55 PM CDT Genevieve Muller RN * Over the past 2 weeks, [...] Health Questionnaire-9 Score 2 03/21/2025 4:15 AM Fuad Atkinson R * Actual/Potential Lethality (Most Lethal Attempt) Question Answer Date of Assessment Author Actual Lethality/Medical Dam age Code (Most Lethal Attempt) 3 03/21/2025 3:39 AM Moses Atkinsona Ching Potential Lethality Code (Mo st Lethal Attempt) 2 03/21/2025 3:39 AM Kiarra Atkinson R * Actual/Potential Lethality (Most Recent Attempt) Question Answer Date of Assessment Author Actual Lethality/Medical Dam age Code (Most Recent Attempt) 3 03/21/2025 3:39 AM Moses Atkinsona Ching Potential Lethality Code (Mo st Recent Attempt) 0 03/21/2025 3:39 AM Kiarar Atkinson * Actual/Potential Lethality (Initial/First Attempt) Question Answer Date of Assessment Author Actual Lethality/Medical Dam age Code (Initial/First Attempt) 3 03/21/2025 3:39 AM Estella Atkinson Potential Lethality Code (Initial/First Attempt) 1 03/21/2025 3:39 AM Yehuda Atkinson R * Calculated C-SSRS Risk Score (Lifetime/Recent) Answer Date of Assessment Author High Risk 03/21/2025 3:39 AM CDT Estella Nuñez R * If you checked off any problems on this questionnaire so far, Question Answer Date of Assessment Author How difficult have these problems made it for you to do your work, take care of things at home, or get along with other people? Very difficult 03/02/2025 10:00 PM CDT Blessing Siddiqui * How difficult have these problems made it for you to do your work, take care of things at home, or get along with other people? Answer Date of Assessment Author Not difficult at all 03/21/2025 4:15 AM CDT Estella Macias * Suicidal Ideation Question Answer Date of Assessment Author 1. Wish to be (Lifetime) No 03/21/2025 3:39 AM CDT Estella Nuñez R 2. Non-Specific Active Suici jodi Thoughts (Lifetime) Yes 03/21/2025 3:39 AM CDT Fuad Nuñezin a R 3. Active Suicidal Ideation with any Methods (Not Plan) Without Intent to Act (Lifetime) No 03/21/2025 3:39 AM CDT Joaquin, Chr istina R 4. Active Suicidal Ideation with Some Intent to Act, Without Specific Plan (Lifetime) No 03/21/2025 3:39 AM CDT Joaquin Chr istina R 5. Active Suicidal Ideation with Specific Plan and Intent (Lifetime) No 03/21/2025 3:39 AM CDT Fuad Nuñezin a R 1. Wish to be (Past 1 Month) Yes 025 9:29 PM CDT Blessing Siddiqui 2. Non-Specific Active Suici jodi Thoughts (Past 1 Month) Yes 03/21/2025 3:39 AM CDT Eder Nuñezi humera R 3. Active Suicidal Ideation with any Methods (Not Plan) Without Intent to Act (Past 1 Month) Yes 03/21/2025 3:39 AM CDT Estella Nuñez R 4. Active Suicidal Ideation with Some Intent to Act, Without Specific Plan (Past 1 Month) Yes 03/21/2025 3:39 AM CDT Estella Nuñez R 5. Active Suicidal Ideation with Specific Plan and Intent (Past 1 Month) Yes 03/21/2025 3:39 AM CDT Kiarra Nuñez R * Intensity of Ideation Question Answer Date of Assessment Author Most Severe Ideation Rating (Lifetime) 5 03/02/2025 9:29 PM CDT Blessing Siddiqui A Description of Most Severe Ideation (Lifetime) PT admits to having continued, on-going SI throughtout his life with ED visits since 2019. PT has had SI thoughts with plans to jump off a high building, jump off a bridge, or shoot himself. Claims he has attempted (initerrupted) before by going to jump off a roof-top w/in this past year but someone stopped him & records noted an attempted hanging that was unsuccessful. 03/02/2025 9:29 PM MARLYNT Blessing Siddiqui Frequency (Lifetime) 1 03/21/2025 3:39 AM CDT Estella Nuñez Duration (Lifetime) 4 03/02/2025 9 :29 PM CDT Blessing Siddiqui Controllability (Lifetime) 4 03/02/2025 9:29 PM CDT Blessing Siddiqui Deterrents (Lifetime) 2 03/02/2025 9:29 PM MARLYNT Blessing Siddiqui Reasons for Ideation (Lifetime) 0 03/21/2025 3:39 AM CDT Estella Nuñez Most Severe Ideation Rating (Past 1 Month) 5 03/02/2025 9:29 PM CDT Blessing Siddiqui Description of Most Severe Ideation (Past 1 Month) Sister moved out of town to follow her job, 03/21/2025 3:39 AM CDT Fuad Nuñezina R Frequency (Past 1 Month) 4 025 3:39 AM CDT Joaquin Estella R Duration (Past 1 Month) 5 03/21/20 3:39 AM CDT Fuad Nuñezina R Controllability (Past 1 Month) 2 03/21/2025 3:39 AM CDT Joaquin Estella R Deterrents (Past 1 Month) 3 2024 3:39 AM CDT Joaquin Estella R Reasons for Ideation (Past 1 Month) 5 03/21/2025 3:39 AM CDT Nuñez, Estella R * Suicidal Behavior Question Answer Date of Assessment Author Actual Attempt (Lifetime) Yes 03/21/2025 3:39 AM CDT Estella Nuñez Total Number of Actual Attem pts (Lifetime) 2 03/02/2025 9:29 PM CDT Blessing Siddiqui Has subject engaged in non-suicidal self-injurious behavior? (Lifetime) No 03/21/2025 3:39 AM CDT Geno Nuñez R Interrupted Attempts (Lifetime) No 3:39 AM CDT Estella Nuñez Total Number of Interrupted Attempts (Lifetime) 1 03/02/2025 9:29 PM CDT Blessing Siddiqui Aborted or Self-Interrupted Attempt (Lifetime) No 03/21/2025 3:39 AM CDT Kiarra Nuñez Preparatory Acts or Behavior (Lifetime) Yes 03/21/2025 3:39 AM CDT Kiarra Nuñez R Total Number of Preparatory Acts (Lifetime) 1 03/21/2025 3:39 AM CDT Kiarra Nuñez Actual Attempt (Past 3 Months) No 03/21/2025 3:39 AM CDT Estella Nuñez Interrupted Attempts (Past 3 Months) No 03/02/2025 9:29 PM CDT Blessing Siddiqui Preparatory Acts or Behavior (Past 3 Months) No 03/21/2025 3:39 AM CDT Kiarra Nuñez documented as of this encounter Mental Status * Does person have difficulty concentrating/remembering/making decisions? 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 This patient request must be documented in the MAR. If both oral and IV options are ordered for the same pain severity, give oral first unless patient cannot tolerate oral intake $ Given 06/24/2024 9:08 AM CDT 650 mg documented in this encounter Additional Health Concerns Infection Onset Date Last Indicated Resolved Time COVID-19 Under Investigation 03/03/2025 03/03/2025 03/05/2025 3:24 AM CDT documented as of this encounter Care Teams Candy Waffle Assembler Relationship Specialty Start Date End Date Fadia Lyle MD [address] [place] [address] PCP - General Family Medicine 01/12/24 [place] [id number] [address] [id number] [address] Light Repairer Rheumatology 10/14/16 documented as of this encounter
--- OUTSIDE RECORDS SUMMARY | 2025-03-22 23:49 | XMS_ITS | Clinical Summary ---
Author Organization [facility] [employer] Address [address] [place] [address] Care Team Providers Care Orthotic Fitter Name Role Phone Rory Moore MD [facility] Fadia Lyle MD Primary Care Provid er Source Comments [facility] [employer],non-owned Affiliates and Associated Physician Practices is amultiple site organization consisting of ambulatory clinics and hospital sitesin [place], [place], [place] and [place]. This disclosure is being madepursuant to the Care Everywhere program and may not contain all information available regarding this patient. Last updated 18.[facility] [employer] Allergies No known active allergies Medications * This document contains information received from the source organization and may not represent a complete record from that organization. * Be aware that medications may not be up to date on this document. Alwaysverify current medications with the patient. aspirin (Aspirin) 81 MG chew tabletIndicati ons:Atheroscle rotic Disease Take 1 (one) tablet by mouth once daily Reasons: Disease involving Lipid Deposits in the Arteries 15 tablet 1 025 Active hydrOXYzine HCl (Atarax) 25 MG tabletIndicati ons:Anxiety Take 1 (one) tablet by mouth every 6 hours as needed Reasons: Feeling Anxious 30 tablet 1 025 Active pregabalin (Lyrica) 50 MG capsuleIndicat ions:Neuropath ic Pain Take 1 (one) capsule by mouth 2 times daily Reasons: Neuropathic Pain 30 capsule 1 025 Active buPROPion SR 12hr (Wellbutrin-SR ) 150 MG tabletIndicati ons:Major Depressive Disorder Take 1 (one) tablet by mouth once daily Reasons: Major Depressive Disorder 15 tablet 1 025 Active FLUoxetine (PROzac) 20 MG capsuleIndicat ions:Major Depressive Disorder Take 1 (one) capsule by mouth once daily Reasons: Major Depressive Disorder 15 capsule 1 025 Active metFORMIN (Glucophage) 500 MG tabletIndicati ons:Type 2 Diabetes Mellitus Take 1 (one) tablet by mouth 2 times daily with morning and evening meal Reasons: Type 2 Diabetes 30 tablet 1 025 Active losartan (Cozaar) 25 MG tabletIndicati ons:Hypertensi on Take 3 (three) tablets by mouth every evening Reasons: High Blood Pressure 45 tablet 1 025 Active OLANZapine, disintegrating , (ZyPREXA Zydis) 5 MG tabletIndicati ons:Major Depressive Disorder,Psych otic Depression Take 1 (one) tablet by mouth at bedtime Reasons: Major Depressive Disorder, Psychotic Depressive Illness 15 tablet 1 025 Active amLODIPine (Norvasc) 10 MG tabletIndicati ons:Hypertensi on Take 1 (one) tablet by mouth once daily Reasons: High Blood Pressure 15 tablet 1 025 Active ferrous sulfate 325 (65 FE) MG tabletIndicati ons:Iron Deficiency Anemia Take 1 (one) tablet by mouth 2 times daily with morning and evening meal Reasons: Anemia From Inadequate Iron in the Body 15 tablet 1 025 Active pantoprazole EC (Protonix) 40 MG tabletIndicati ons:Gastroesop hageal Reflux Disease Take 1 (one) tablet by mouth once daily Reasons: Gastroesophageal Reflux Disease 15 tablet 1 025 Active aspirin (Aspirin) 81 MG chew tabletIndicati ons:Atheroscle rotic Disease Take 1 (one) tablet by mouth once daily Reasons: Disease involving Lipid Deposits in the Arteries 30 tablet 2024 Discontinued pregabalin (Lyrica) 50 MG capsuleIndicat ions:Neuropath ic Pain Take 1 (one) capsule by mouth 2 times daily Reasons: Neuropathic Pain 60 capsule 2024 Discontinued citalopram (CeleXA) 10 MG tabletIndicati ons:Major Depressive Disorder Take 1 (one) tablet by mouth at bedtime Reasons: Major Depressive Disorder 30 tablet 2024 Discontinued(L ist Clean-Up) metFORMIN (Glucophage) 500 MG tabletIndicati ons:Type 2 Diabetes Mellitus Take 1 (one) tablet by mouth 2 times daily with morning and evening meal Reasons: Type 2 Diabetes 60 tablet 024 2024 Discontinued losartan (Cozaar) 50 MG tabletIndicati ons:Hypertensi on Take 1 (one) tablet by mouth every evening Reasons: High Blood Pressure 30 tablet 2024 Discontinued(L ist Clean-Up) amLODIPine (Norvasc) 10 MG tabletIndicati ons:Hypertensi on Take 1 (one) tablet by mouth once daily Reasons: High Blood Pressure 30 tablet 2024 Discontinued ferrous sulfate 325 (65 FE) MG tabletIndicati ons:Iron Deficiency Anemia Take 1 (one) tablet by mouth 2 times daily with morning and evening meal Reasons: Anemia From Inadequate Iron in the Body 60 tablet 024 2024 Discontinued(L ist Clean-Up) pantoprazole EC (Protonix) 40 MG tabletIndicati ons:Gastroesop hageal Reflux Disease Take 1 (one) tablet by mouth once daily Reasons: Gastroesophageal Reflux Disease 30 tablet 2024 Discontinued tolterodine ER 24hr (Detrol LA) 2 MG capsuleIndicat ions:Urinary Incontinence Take 1 (one) capsule by mouth once daily Reasons: Urinary Incontinence 30 capsule 2024 Discontinued(L ist Clean-Up) Active Problems Problem Noted Date Diagnosed Date Severe episode of recurrent major depressive disorder, without psychotic features 06/24/2024 Sciatic leg pain 06/24/2024 Vitamin D deficiency 06/24/2024 Pain of left hip 12/11/2023 Antisocial personality disorder 12/08/2023 Malingering 12/08/2023 Type 2 diabetes mellitus 11/22/2023 Substance induced mood disorder 08/29/2020 COVID-19 08/19/2020 Alcohol dependence with withdrawal 03/31/2018 Cocaine use disorder, severe, dependence 018 Benign essential HTN 09/19/2016 Arthritis 09/19/2016 Resolved Problems Problem Noted Date Diagnosed Date Resolved Date Substance-induced psychotic disorder 03/31/2018 06/24/2024 Encounters * This document contains information received from the source organization and may not represent a complete record from that organization. Date Type Department Care Team Description 03/21/2025 2:41 AM CDT - 03/21/2025 8:03 AM CDT Emergency ER at [facility] [address] [place] [id number] Sondra Mays, Anton Romero MD Adjustment disorder, unspecified type (Primary Dx); Current severe episode of major depressive disorder without psychotic features, unspecified whether recurrent (HCC); Substance abuse (HCC) Discharge Disposition: Home or Self Care 03/03/2025 4:45 PM CDT - 03/03/2025 5:15 PM CDT Emergency ER at [facility] [address] [place] [address] Unhoused person Discharge Disposition: Home or Self Care 03/03/2025 3:24 PM CDT - 03/03/2025 4:37 PM CDT Emergency ER at [address] [address] Magdalena Lopez MD Substance induced mood disorder (HCC); Malingering Discharge Disposition: Home or Self Care 03/03/2025 11:23 AM CDT - 03/03/2025 1:40 PM CDT Emergency ER at [address] [address] Rei Rodriguez MD Substance induced mood disorder (HCC) Discharge Disposition: Home or Self Care 03/02/2025 8:25 PM CDT - 03/03/2025 10:49 AM CDT Emergency ER at [address] [address] Jazlyn Mata, Rei Niño MD Severe episode of recurrent major depressive disorder, with psychotic features (HCC); Malingering Discharge Disposition: Home or Self Care 03/02/2025 Travel 02/22/2025 Travel 01/17/2025 1:36 PM CDT - 01/17/2025 2:37 PM CDT Emergency ER at [facility] [address] [address] Ed Pérez MD Suicidal ideation Discharge Disposition: Home or Self Care 01/17/2025 Travel from Last 3 Months Immunizations Immunization Administration Dates Next Due COVID VITOR PRIMARY 18+YR 01/17/2021 COVID MODERNA BIVALENT 12Y+ 50MCG/0.5ML 10/28/19 COVID PFIZER 12+YR 30MCG/0.3mL 07/17/2023 INFLUENZA VACCINE 06/09/2016 INFLUENZA VACCINE, CELL CULT URE, QUADR. (FLUCELVAX QUADRIVALENT; 6MO+) (CCIIV4) 07/17/2023 INFLUENZA VACCINE, HIGH-DOSE , TRIV. (FLUZONE HIGH-DOSE TRIVALENT; 65Y+) (HD-IIV3) 12/03/2024 INFLUENZA VACCINE, QUADR. (F LUZONE; FLULAVAL; FLUARIX; AFLURIA QUADRIVALENT; 6MO+), 0.5 ML (IIV4) 10/28/2022,08/27/2020,08/23/2020 Family History Medical History Relation Name Comments Arthritis Mother Relation Name Status Comments Mother Social History Tobacco Use Types Packs/Day Years Used Date Smoking Tobacco: Former Cigarettes Smokeless Tobacco: Never Tobacco Cessation:Counseling Given: Not Answered Comments:Patient states he has never smoked Alcohol Use Standard Drinks/Week Comments [...] Recorded Patient Health Questionnaire-2 Score 1 03/21/2025 [facility] Occupat ional Health - Occupational Stress [...] place to sleep or slept in a half-way (including now)? No 12/23/2023 Housing Stability Vital Sign Answer Chuck e Recorded In the last 12 months, was t here a time when you were not able to pay the mortgage or rent on time? No 02/23/2025 In the past 12 months, how m any times have you moved where you were living? 0 02/23/2025 At any time in the past [facility], were you homeless or living in a half-way (including now)? 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 Not on file Not on file Last Filed Vital Signs Vital Sign Reading Time Taken Comments Blood Pressure 135/83 03/21/2025 2:58 AM CDT Pulse 83 03/21/2025 2:58 AM CDT Temperature 36.4 C (97.5 F) 03/21/2025 2:58 AM CDT Respiratory Rate 19 03/21/2025 2:58 AM CDT Oxygen Saturation 100% 03/21/2025 2:58 AM CDT Inhaled Oxygen Concentration - - Weight 90.7 kg (200 lb) 02/27/2025 9:20 PM CDT Height 177.8 cm (5' 10) 02/22/2025 7:00 PM CDT Body Mass Index 28.7 02/22/2025 7:00 PM CDT Plan of Treatment Health Maintenance Due Date Last Done Comments ZECHARIAHUARD (AGES 45-75) - COLON CA SCREENING 1959 COLON MONITORING 1959 COLONOSCOPY - COLON CA SCREENING 1959 CT COLONOGRAPHY - COLON CA SCREENING 1959 FLEX SIG - COLON CA SCREENING 1959 DTAP/TDAP/TD VACCINES (1 - Tdap) 1978 PNEUMOCOCCAL VACCINE 50+ (1 of 2 - PCV) 1978 DIABETES-STATIN 1999 ZOSTER VACCINE (1 of 2) 2009 Colorectal Cancer Screening 04/03/2023 FIT - COLON CA SCREENING 04/03/2023 04/03/2022 COVID-19 VACCINE ( season) 2024 07/17/2023, 12/05/2022, 10/28/2022, Additional history exists DIABETES RETINOPATHY SCREENING 06/24/2024 DIABETES-FOOT EXAM WITH MONOFILAMENT 06/24/2024 DEPRESSION SCREENING 09/07/2024 01/12/2024, 06/04/2022, 10/21/2021 DIABETES - URINE PROTEIN SCREENING 09/07/2024 MEDICARE AWV CALENDAR YEAR 2024 AAA SCREENING 2024 INFLUENZA VACCINE (#1) 2025 , 07/17/2023, 10/28/2022, Additional history exists DIABETES-HGB A1C 06/06/2025 12/04/2024, , 12/09/2023, Additional history exists DIABETES-SERUM CREATININE 03/03/20262024, 12/28/2024, 12/28/2024, Additional history exists Respiratory Syncytial Virus (RSV) Vaccine Pt: or over 60 yrs (1 - 1-dose 75+ series) 2034 HEPATITIS C SCREENING Completed 11/05/2018 HIV SCREENING Completed 08/19/2020 HEPATITIS B VACCINE Aged Out No longe r eligible based on patient's age to complete this topic HIB VACCINE Aged Out No longer eligi ble based on patient's age to complete this topic HPV VACCINE Aged Out No longer eligi ble based on patient's age to complete this topic MENINGOCOCCAL (Group B) VACCINE SHARED DECISION-MAKING Aged Out No longer eligible based on patient's age to complete this topic MENINGOCOCCAL GROUPS A/C/Y/W VACCINE Aged Out No longer eligible based on patient's age to complete this topic Procedures Procedure Name Priority Date/Time Associated Diagnosis Comments DRUG SCREEN TOX LIMITED BLD PNL 3 INHOUSE STAT 03/03/2025 12:27 AM CDT BASIC METABOLIC PANEL (CALCIUM TOTAL) STAT 03/03/2025 12:27 AM CDT CBC W AUTO DIFFERENTIAL STAT 03/03/2025 12:27 AM CDT GLUCOSE - POINT OF CARE Routine 03/02/2025 7:43 AM CDT GLUCOSE - POINT OF CARE Routine 03/01/2025 7:27 AM CDT GLUCOSE - POINT OF CARE Routine 02/28/2025 7:55 AM CDT GLUCOSE - POINT OF CARE Routine 02/27/2025 7:53 AM CDT GLUCOSE - POINT OF CARE Routine 02/26/2025 7:48 AM CDT GLUCOSE - POINT OF CARE Routine 02/25/2025 4:51 PM CDT GLUCOSE - POINT OF CARE Routine 02/24/2025 12:08 PM CDT GLUCOSE - POINT OF CARE Routine 02/23/2025 9:22 AM CDT HEMOGLOBIN A1C Routine 06/25/2024 6:25 AM CDT OCCULT BLOOD FECES FIT SCREEN 04/03/2022 HIV-1 HIV-2 ANTIBODY + HIV P24 AG PANEL STAT 08/19/2020 4:29 PM ENGRAVING OPERATOR COVID-19 HEPATITIS C ANTIBODY Routine 11/05/2018 1:58 PM ENGRAVING OPERATOR Wellness examination from Last 3 Months or Most Recently Relevant to Health Maintenance Results * (ABNORMAL) DRUG SCREEN TOX LIMITED BLD PNL 3 INHOUSE (03/03/2025 12:27 AM CDT) Acetaminophen <3.0(L) 10.0 - 30.0 ug/mL 03/03/2025 12:50 AM CDT [facility] Ethanol <10.0 <10 mg/dL 03/03/2025 12:50 AM CDT [facility] Salicylate <5.0(L) 15.0 - 30.0 mg/dL 03/03/2025 12:50 AM CDT [facility] Blood BLOOD SPECIMEN / Unknown Venipuncture / Unknown 03/03/2025 12:27 AM CDT 03/03/2025 12:33 AM CDT Narrative [facility] - 03/03/2025 12:50 AM CDT [facility] ACETAMINOPHEN COMMENT Critical values: 4 Hours Post Ingestion: Critical value > 200 g/mL 12 Hours Post Ingestion: Critical value > 50 g/mL For acute ingestion, please refer to Acetaminophen nomogram to determine the risk of toxicity based on time since ingestion and acetaminophen level (see link provided). Note the nomogram disclaimer. WARNING: Assessing the potential toxicity of an acetaminophen level on a standard risk nomogram must take into consideration many factors including any uncertainty of the time since ingestion or the possibility of other medications that may alter the peak level. Contact the [place] [facility] at or reserved for healthcare professionals to assist you in evaluating potentially toxic acetaminophen levels. Anish Cooley MD LAB - CHEMISTRY ORDERABLES Fi nal Result [facility] [address] [id number] * (ABNORMAL) CBC W AUTO DIFFERENTIAL (03/03/2025 12:27 AM CDT) WBC 6.7 4.0 - 10.7 x10E9/L 03/03/2025 12:37 AM CDT [facility] RBC Count 4.49 4.30 - 5.80 x10E12/L 03/03/2025 12:37 AM CDT [facility] Hemoglobin 11.5(L) 13.3 - 17.5 g/dL 03/03/2025 12:37 AM CDT [facility] Hematocrit 36.7(L) 38.7 - 51.1 % 03/03/2025 12:37 AM CDT [facility] MCV 81.7 80.0 - 98.0 fL 03/03/2025 12:37 AM CDT [facility] MCH 25.6(L) 26.7 - 33.6 pg 03/03/2025 12:37 AM CDT [facility] MCHC 31.3(L) 31.7 - 36.3 g/dL 03/03/2025 12:37 AM CDT [facility] RDW-CV 16.2(H) 11.3 - 14.8 % 03/03/2025 12:37 AM CDT [facility] Platelet Count 354 150 - 420 x10E9/L 03/03/2025 12:37 AM CDT [facility] MPV 9.8 7.8 - 11.4 fL 03/03/2025 12:37 AM CDT [facility] Neutrophil % 59.1 41.0 - 74.0 % 03/03/2025 12:37 AM CDT [facility] Lymphocyte % 28.5 17.0 - 47.0 % 03/03/2025 12:37 AM CDT [facility] Monocyte % 9.3 3.0 - 11.0 % 03/03/2025 12:37 AM CDT [facility] Eosinophil % 2.1 0.0 - 7.0 % 03/03/2025 12:37 AM CDT [facility] Basophil % 0.8 0.0 - 1.6 % 03/03/2025 12:37 AM CDT [facility] Immature Granulocytes % 0.2 0.0 - 1.0 % 03/03/2025 12:37 AM CDT [facility] Neutrophil Absolute 3.94 1.60 - 7.50 x10E9/L 03/03/2025 12:37 AM CDT [facility] Lymphocyte Absolute 1.90 1.00 - 4.40 x10E9/L 03/03/2025 12:37 AM CDT [facility] Monocyte Absolute 0.62 0.15 - 1.00 x10E9/L 03/03/2025 12:37 AM CDT [facility] Eosinophil Absolute 0.14 0.00 - 0.60 x10E9/L 03/03/2025 12:37 AM CDT [facility] Basophil Absolute 0.05 0.00 - 0.13 x10E9/L 03/03/2025 12:37 AM CDT [facility] Blood BLOOD SPECIMEN / Unknown Venipuncture / Unknown 03/03/2025 12:27 AM CDT 03/03/2025 12:33 AM CDT us Anish Cooley MD LAB - HEMATOLOGY ORDERABLES F inal Result [facility] [address] [place] [address] * (ABNORMAL) BASIC METABOLIC PANEL (CALCIUM TOTAL) (03/03/2025 12:27 AM CDT) Glucose 107(H) 70 - 99 mg/dL 03/03/2025 12:50 AM CDT [facility] Sodium 141 136 - 145 mmol/L 03/03/2025 12:50 AM CDT [facility] Potassium 4.4 3.5 - 5.1 mmol/L 03/03/2025 12:50 AM CDT [facility] Chloride 106 98 - 107 mmol/L 03/03/2025 12:50 AM CDT [facility] CO2 25 22 - 29 mmol/L 03/03/2025 12:50 AM CDT [facility] Calcium 9.7 8.4 - 10.4 mg/dL 03/03/2025 12:50 AM CDT [facility] Anion Gap 10 6 - 16 mmol/L 03/03/2025 12:50 AM CDT [facility] BUN 21 7 - 26 mg/dL 03/03/2025 12:50 AM CDT [facility] Creatinine 0.91 0.72 - 1.25 mg/dL 03/03/2025 12:50 AM CDT [facility] eGFR by CKD-EPI >90 >=90 mL/min/1.7 3 m2 03/03/2025 12:50 AM CDT [facility] Blood BLOOD SPECIMEN / Unknown Venipuncture / Unknown 03/03/2025 12:27 AM CDT 03/03/2025 12:33 AM CDT Anish Cooley MD LAB - CHEMISTRY ORDERABLES Fi nal Result [facility] [address] [place] [address] * (ABNORMAL) GLUCOSE - POINT OF CARE (03/02/2025 7:43 AM CDT) Only the most recent of8 resultswithin the time period is included. Glucose WB/POC 110(H) 70 - 99 mg/dL 03/02/2025 8:09 PM CDT [facility] Specimen Type Arterial/C apillary 03/02/2025 8:09 PM CDT [facility] Blood BLOOD SPECIMEN / Unknown 03/02/2025 7:43 AM CDT 03/02/2025 8:09 PM CDT us Bob Holguin MD LAB - POINT OF CARE ORDERABL ES Final Result [facility] [address] [place] [address] * (ABNORMAL) HEMOGLOBIN A1C (06/25/2024 6:25 AM CDT) Hemoglobin A1c 6.3(H) 4.2 - 5.6 % 06/25/2024 7:01 AM CDT [facility] Estimated Average Glucose 134 mg/dL 06/25/2024 7:01 AM CDT [facility] Blood BLOOD SPECIMEN / Unknown Lab Venipuncture / Unknown 06/25/2024 6:25 AM CDT 06/25/2024 6:31 AM CDT Narrative [facility] - 06/25/2024 7:01 AM CDT HbA1c Interpretation: Normal: < 5.7% Pre-diabetes: 5.7-6.4% Diabetes: Equal to or greater than 6.5% Test results diagnostic of diabetes should be repeated for confirmation. Treatment target values recommended by ADA and other clinical organizations should be used to evaluate metabolic control in patients. This test should not replace glucose testing for patients with Type 1 diabetes, pediatric patients, or women. Falsely low HbA1c results may be observed in patients with clinical conditions that shorten erythrocyte life span or decrease mean erythrocyte age such as the presence of unstable hemoglobin variants, elevated hemoglobin F level or other causes of hemolytic anemia. HbA1c may not accurately reflect glycemic control when clinical conditions that affect erythrocyte survival are present. Severe Iron deficiency anemia may yield falsely high results. Hemoglobin A1c assay should not be used to diagnose or monitor diabetes in patients with malignancy, recent blood transfusion, chronic kidney or liver disease. This method may yield falsely low results when hemoglobin (HbF) exceeds 5% in the specimen. The Contreras Alinity assay for the measurement of HbA1c is a National Glycohemoglobin Standardization Program (NGSP) certified method. us Racquel Lewis ATOMIC FUEL ASSEMBLER-BUILDING CONTRACTOR LAB - CHEMISTRY ORD ERABLES Final Result Performing Organization Address City/State/[facility] Co de Phone Number [facility] [address] * OCCULT BLOOD FECES FIT SCREEN (04/03/2022) 04/03/2022 Narrative 04/03/2022 Ordered by an unspecified provider. us Scanned Document LAB - BODY FLUID ORDERABLES Fin al Result * HIV-1 HIV-2 ANTIBODY + HIV P24 AG PANEL (08/19/2020 4:29 PM ENGRAVING OPERATOR) [facility] HIV1/2 Ab + P24 Ag Non Reactive Non Reactive 08/19/2020 5:32 PM ENGRAVING OPERATOR [facility] Blood BLOOD SPECIMEN / Unknown Venipuncture / Unknown 08/19/2020 4:29 PM ENGRAVING OPERATOR 08/19/2020 4:38 PM ENGRAVING OPERATOR Narrative [facility] - 08/19/2020 5:32 PM ENGRAVING OPERATOR No Laboratory evidence of HIV infection. Samm Gregg MD LAB - CHEMISTRY ORDERABLES Final Result [facility] [address] [id number] * HEPATITIS C ANTIBODY (11/05/2018 1:58 PM ENGRAVING OPERATOR) Hepatitis C Antibody Non Reactive Non Reactive [facility] INSURANCE BILL Comment: Non Reactive - Antibodies to Hepatitis C virus (HCV) were no t detected, result does not exclude early acute HCV infection. Blood BLOOD SPECIMEN / Unknown 11/05/2018 1:58 PM ENGRAVING OPERATOR 11/05/2018 Narrative Resulting Agency Comment [facility] [address] [facility] [phone] us Gerri Newsome MD LAB - CHEMISTRY ORDERABLES F inal Result [facility] INSURANCE BILL [address] [place] [address] from Last 3 Months or Most Recently Relevant to Health Maintenance Insurance MEDICARE ADVANTAGE [employer] MEDICARE ADVANTAGE Advance Directives * Full Code (Latest Code Status on File) Date Activated Date Inactivated Comments 02/23/2025 4:20 PM 03/02/2025 2:32 PM * Full Code Date Activated Date Inactivated Comments 06/24/2024 9:08 AM 12/11/2024 4:46 AM * Full Code Date Activated Date Inactivated Comments 06/23/2024 4:40 PM 07/04/2024 11:53 AM * Full Code Date Activated Date Inactivated Comments 12/23/2023 6:06 PM 01/01/2024 10:13 AM * Full Code Date Activated Date Inactivated Comments 12/08/2023 4:33 PM 12/16/2023 2:06 PM Care Teams Orthotic Fitter Relationship Specialty Start Date End Date Fadia Lyle MD [address] [place] [address] PCP - General Family Medicine 01/12/24 [place] [address] [place] [id number] Sustainable Development Policy Analyst Rheumatology 10/14/16
--- OUTSIDE RECORDS SUMMARY | 2025-03-22 23:49 | XMS_ITS ---
Author Organization [facility] Address [address] [place], [place] [id number] Care Team Providers Care Clay Press Operator Name Role Phone Fadia Lyle Primary Care Provider REASON FOR VISIT routine check up Social History Sex Assigned At : Social History Observation Description Sex Assigned At Female Encounters Encounter Location Date Provider Diagnosis [facility] [address] [place], [place] [id number] 02/08/2025 Fadia Lyle Plan Of Treatment No Information Progress Notes * Bob HOLLIS JrDOB:[birth year] (64 yo M)Acc No.[id number]:02/08/2025 Progress Notes Patient: Bob XAVIER Provider: Sudha Lyle MD :1960 A ge:64 Y S ex:Male Date:02/08/2025 Address:[address] [place] [address], [address], [place], [id number] Subjective: * Chief Complaints: * 1 . Routine check up. * Medical History: * Ocular Surgical History: Objective: * Vitals: Vision: Spectacle Rx: Contact Lens: Eye Examination: Special Tests: Assessment: Plan: * Treatment: Care Plan: * Problems: * Billing Information: * Visit Code: * Procedure Codes: * Electronic signature of Ara Lyle MD on 03/22/2025 at 11:49 PM CDT Sign off status: Pending * Provider: Sudha Lyle MD Date: 0 02/08/2025 Generated for Rajendra juares/Valentina/Rosemarie on: 0 03/22/2025 11:49 PM CDT
--- OUTSIDE RECORDS SUMMARY | 2025-03-22 23:49 | XMS_ITS | Encounter Summary ---
Author Organization [facility] Healthcare Address [address] [place] [address] Care Team Providers Care Stunt Person Name Role Phone Fadia Lyle MD Primary Care Provid er No, Physician Primary Care Provider [phone] Encounter Details Date Type Department Care Team (Latest Contact Info) Description 11/27/2023 Documentation Psychiatry Jhonny Lopez Social History Tobacco Use Types Packs/Day Years Used Date Smoking Tobacco: Former Smokeless Tobacco: Never Alcohol Use Standard Drinks/Week Comments No 0 (1 standard drink = 0.6 oz pur e alcohol) [facility] Utilities Answer Date Recorded In the past 12 months has e electric, gas, oil, or water company threatened to shut off services in your home? No 11/23/2023 Humiliation, Afraid, Rape, and Kick questionnair e Answer Date Recorded Within the last year, have y ou been afraid of your partner or ex-partner? No 11/23/2023 Within the last year, have y ou been humiliated or emotionally abused in other ways by your partner or ex-partner? No Within the last year, have y ou been kicked, hit, slapped, or otherwise physically hurt by your partner or ex-partner? No 11/23/2023 Within the last year, have y ou been raped or forced to have any kind of sexual activity by your partner or ex-partner? No 11/23/2023 Social Connection and Isolation Panel [NHANES] A nswer Date Recorded In a typical week, how many times do you talk on the phone with family, friends, or neighbors? Once a week 11/23/19 How often do you get togethe r with friends or relatives? Never 11/23/2023 How often do you attend chur ch or pentecostal services? 1 to 4 times per year 11/23/2023 Do you belong to any clubs o r organizations such as sabianist groups, unions, fraternal or athletic groups, or school groups? No 11/23/2023 How often do you attend meet ings of the clubs or organizations you belong to? Never 11/23/2023 Are you , , di vorced, , never , or living with a partner? Never 11/23/2023 AUDIT-C Answer Date Recorded Q1: How often do you have a drink containing alc ohol? Monthly or less 11/23/2023 Q2: How many drinks containi ng alcohol do you have on a typical day when you are drinking? 1 or 2 11/23/2023 Q3: How often do you have si x or more drinks on one occasion? Never 11/23/2023 Overall Financial Resource Strain (CARDIA) Answe r Date Recorded How hard is it for you to pa y for the very basics like food, housing, medical care, and heating? Hard 11/23/2023 PHQ-2 Answer Date Recorded PHQ-2 Total Score 3 10/24/2021 [facility] - Occupational Stress Questionnaire Answer Date Recorded Do you feel stress - tense, restless, nervous, or anxious, or unable to sleep at night because your mind is troubled all the time - these days? To some extent 11/23/2023 Exercise Vital Sign Answer Date Recorde d On average, how many days pe r week do you engage in moderate to strenuous exercise (like a brisk walk)? 0 days 11/23/2023 On average, how many minutes do you engage in exercise at this level? 0 min 11/23/2023 Hunger Vital Sign Answer Date Recorded Within the past 12 months, y ou worried that your food would run out before you got the money to buy more. Never true 11/23/19 24 Within the past 12 months, t he food you bought just didn't last and you didn't have money to get more. Never true 11/23/2023 PRAPARE - Transportation Answer Date Re corded In the past 12 months, has l ack of transportation kept you from medical appointments or from getting medications? No 11/05 In the past 12 months, has l ack of transportation kept you from meetings, work, or from getting things needed for daily living? No 11/23/2023 Housing Stability Vital Sign Answer Chuck e Recorded In the last 12 months, was t here a time when you were not able to pay the mortgage or rent on time? Yes 11/23/2023 In the last 12 months, how many places have you lived? 1 11/23/2023 In the last 12 months, was t here a time when you did not have a steady place to sleep or slept in a long term (including now)? Yes 11/23/2023 Housing Stability Vital Sign Answer Chuck e Recorded In the last 12 months, was t here a time when you were not able to pay the mortgage or rent on time? Yes 11/23/2023 Number of Times Moved in the Last Year Not on fi le 11/23/2023 Homeless in the Last Year Not on file 2023 Personal Safety Answer Date Recorded Have you ever been in or are you currently in a harmful physical or emotional relationship or is someone making you feel afraid or unsafe? Denies 11/22/2023 Education Answer Date Recorded What is the highest level of school you have completed or the highest degree you have received? Some college, no degree 11/23/2023 Sex and Gender Information Value Date Recorded Sex Assigned at Not on file Legal Sex Male 9:36 AM FINGERER Gender Identity Not on file Sexual Orientation Not on file documented as of this encounter Functional Status * Are you deaf or do you have serious difficulty hearing? Answer Date of Assessment Author No 11/23/2023 3:08 PM Joe Buitrago LCSW * Are you blind or do you have serious difficulty seeing, even when wearing glasses? Answer Date of Assessment Author No 11/23/2023 3:08 PM Joe Buitrago LCSW * Do you have serious difficulty walking or climbing stairs? Answer Date of Assessment Author Yes 11/23/2023 3:08 PM Joe Buitrago LCSW * Do you have serious difficulty dressing or bathing? Answer Date of Assessment Author No 11/23/2023 3:08 PM CDT Naidu, J effrey, SHUTTLE DRIVER * Because of a physical, mental, or emotional condition, do you have serious difficulty doing errandsalone such as visiting the doctor? Answer Date of Assessment Author Yes 11/23/2023 3:08 PM Joe Buitrago LCSW documented as of this encounter Mental Status * Because of a physical, mental, or emotional condition, do you have serious difficulty concentrating, remembering, or making decisions? (5 years old or older) Answer Entry Date Author Yes 11/23/2023 3:08 PM Joe Buitrago LCSW documented in this encounter Plan of Treatment Scheduled Procedures Name Priority Associated Diagnoses Date/Ti me COLONOSCOPY Open Access Healthcare maintenance documented as of this encounter Visit Diagnoses Not on filedocumented in this encounter Care Teams Stunt Person Relationship Specialty Start Date End Date Fadia Lyle MD [facility] [place] [address] PCP - General Family Medicine 02/25/23 03/02/25 No, Physician PCP - General 03/03/25 documented as of this encounter
--- OUTSIDE RECORDS SUMMARY | 2025-03-22 23:49 | XMS_ITS | Patient Health Record ---
Author Organization [facility] Address [address] [place], [place] [id number] Care Team Providers Care German Tutor Name Role Phone ChristianoFadia Zhou Primary Care Provider Patricio Kyle Unavailable [phone] DIANE PERERA Unavailable [phone] Allergies No Known Allergies Reason For Referral No Information Medications Medication SIG (Take, Route, Frequency, Duration) Notes Start Date End Date Status Losartan Potassium 50 MG 1 tablet Orally Once a day; Duration: 30 day(s) STOP LISINOPRIL 03/17/2023 Unknown metFORMIN HCl 500 MG 1 tablet with a meal orally once a day; Duration: 90 days Unknown Lyrica 50 MG 1 capsule Orally Twice a day; Duration: 30 days 02/09/2023 Unknown metFORMIN HCl 500 MG TAKE 1 TABLET ONE TIME DAILY WITH A MEAL; Duration: 90 Unknown Pregabalin 100 MG 1 capsule Orally twice a day. STOP 50 mg dosing; Duration: 30 days 02/20/2023 Unknown amLODIPine Besylate 10 MG TAKE 1 TABLET ONE TIME DAILY FOR BLOOD PRESSURE; Duration: 90 Active Lisinopril 20 MG Oral; Duration: 60 Unknown Atorvastatin Calcium 10 MG TAKE 1 TABLET EVERY DAY AT BEDTIME; Duration: 90 Unknown Sildenafil Citrate 100 MG TAKE 1 TABLET ONE TIME DAILY NEEDED. NO MORE THAN 1 TABLET IN 24 HOURS; Duration: 90 Unknown Immunizations Vaccine Route Administration Date Status Comme nts COVID VAC BOOSTER - MODERNA IM Intramuscular 02/20/2022 Administered Influenza, seasonal, injectable (split), for 3 yrs and up IM Intramuscular 06/26/2021 Administered SARS-COV-2 (COVID-19) Vaccine 100mcg/0.5mL IM Intramuscular 07/01/2021 Administered Social History Tobacco Use: Social History Observation Description Date Details (start date - stop date) Current Smoker 09/07/1984 - NA Sex Assigned At : Social History Observation Description Sex Assigned At Female Tobacco Use/Smoking Question Answer Notes Are you a: current smoker When did you start smoking? 09/07/1984 How often do you smoke cigarettes? some days, bu t not every day How many cigarettes a day do you smoke? 5 or les s How soon after you wake up d o you smoke your first cigarette? after 60 minutes Are you interested in quitting? Not ready to constantino t Alcohol Screen (Audit-C) Question Answer Notes Did you have a drink containing alcohol in the p ast year? No Points 0 Interpretation Negative SBIRT (2018 Edition) Question Answer Notes Patient refused/declined SBIRT screening at this time? No 1. How often do you have a drink containing alco hol? Monthly or less 3. How often do you have five or more drinks on one occasion? Less than monthly SCORE 2 Interpretation Negative How many times in the past y ear have you used an illegal drug or used a prescription medication for non-medical reasons? 0 Total Count 0 Interpretation Negative Problems Problem Type SNOMED Code ICD Code Onset Dates Problem Status W/U Status Risk Notes Problem Diabetic peripheral neuropathy associated with type 2 diabetes mellitus (9327445985693) Type 2 diabetes mellitus with diabetic neuropathy, unspecified (E11.40) Active confirmed Problem Disorder due to type 2 diabetes mellitus (972198973) Type 2 diabetes mellitus with unspecified complications (E11.8) Active confirmed Problem Obesity due to excess calories (403259904) Other obesity due to excess calories (E66.09) Active confirmed Problem Mixed hyperlipidemia (625535413) Mixed hyperlipidemia (E78.2) Active confirmed Problem Male erectile disorder (310266352) Male erectile disorder (F52.21) Active confirmed Problem Essential hypertension (58044225) Essential (primary) hypertension (I10) Active confirmed Problem Onychogryphosis (28083326) Onychogryphosis (L60.2) Active confirmed Problem Acquired hallux valgus (03959845) Hallux valgus (acquired), left foot (M20.12) Active confirmed Problem Pes planus (74798908) Flat foot [pes planus] (acquired), unspecified foot (M21.40) Active confirmed Problem Sciatica (01376214) Sciatic leg pain (M54.30) Active confirmed Problem Sciatica (72904852) Sciatica of left side (M54.32) Active confirmed Problem Vitamin D deficiency (87207692) Vitamin D deficiency (E55.9) Active confirmed Encounters Encounter Location Date Provider Diagnosis [facility] [address] [place], [place] [id number] [facility] [address] [place] [id number] [facility] [facility] [address] [place], [place] [id number] 01/10/2025 Fadia AlvaradoCharisse Plan Of Treatment Pending Test Test Name Order Date Fecal Globin by Immunochemistry (IFOBT) [id number] 01/31/2021 Fecal Globin by Immunochemistry (IFOBT) [id number] 07/29/2021 CBC W/AUTO DIFF 01/31/2021 CMP 01/31/2021 Hemoglobin A1C 01/31/2021 Gonorrhoea /Chlamydia 02/20/2022 MICROALBUMIN, RANDOM URINE (W/CREA) 01/06 Lipid Profile 01/31/2021 PSA, TOTAL 01/31/2021 CBC (H/H, RBC, INDICES, WBC, PLT) 2021 URINALYSIS MICROSCOPIC 02/20/2022 Hemoglobin A1C 12/25/2022 Lipid Panel 02/20/2022 Insurance Providers Payer Name Payer Address Payer Phone Subscriber Number Group Number Insured Name Patient Relationship to Insured Coverage Start Date Coverage End Date [employer] [address] [address] [place] [address] [id number] Bob Frank Self - patient is the insured NOT ACCEPTED DENTAL [employer] [address] [address] [place] [address] [phone] [id number] Bob Frank Self - patient is the insured Medicare Part A NGS [address] [place] [phone] [id number] Bob Frank Self - patient is the insured Slide Fee C $80 Medical/ $90 Dental Bob Frank Self - patient is the insured Medical (General) History Medical History History ICD Code hypertension Surgical History Surgery Date(Month/Year) right hip replacement 2002 Hospitalization History Reason Date(Month/Year) hip replacement 2002
--- OUTSIDE RECORDS SUMMARY | 2025-03-22 23:49 | XMS_ITS | Encounter Summary ---
Author Organization [facility] Healthcare Address [address] [place] [address] Care Team Providers Care Campaign Associate Name Role Phone No, Physician Primary Care Provider [phone] Reason for Visit * Reason Comments Abdominal Pain Encounter Details Date Type Department Care Team (Late st Contact Info) Description 03/21/2025 9:22 AM CDT - 03/21/2025 2:47 PM CDT Emergency [facility] Emergency Department [address] [place] [address] Zhang Lang MD [address] [place] [address] Depression, unspecified depression type (Primary Dx); Malingering Discharge Disposition: Discharge to home or self care Social History Tobacco Use Types Packs/Day Years Used Date Smoking Tobacco: Former Smokeless Tobacco: Never Alcohol Use Standard Drinks/Week Comments No 0 (1 standard drink = 0.6 oz pur e alcohol) [facility] Utilities Answer Date Recorded In the past 12 months has [facility] [place]in, oil, or water [employer] threatened to shut off services in your home? No 03/04/2025 Humiliation, Afraid, Rape, and Kick questionnair e Answer Date Recorded Within the last year, have y ou been afraid of your partner or ex-partner? No 02/29/2024 Within the last year, have y ou been humiliated or emotionally abused in other ways by your partner or ex-partner? No Within the last year, have y ou been kicked, hit, slapped, or otherwise physically hurt by your partner or ex-partner? No 02/29/2024 Within the last year, have y ou been raped or forced to have any kind of sexual activity by your partner or ex-partner? No 02/29/2024 Social Connection and Isolation Panel [NHANES] A nswer Date Recorded In a typical week, how many times do you talk on the phone with family, friends, or neighbors? Twice a week 03/04/20 How often do you get togethe r with friends or relatives? Twice a week 03/04/2025 How often do you attend chur or [place] services? 1 to 4 times per year 03/04/2025 Do you belong to any clubs o r organizations such as amish groups, unions, fraternal or athletic groups, or school groups? No 03/04/2025 How often do you attend meet ings of the clubs or organizations you belong to? Never 03/04/2025 Are you , , di vorced, , never , or living with a partner? Never 03/04/2025 AUDIT-C Answer Date Recorded Q1: How often do you have a drink containing alc ohol? 2-4 times a month 02/29/2024 Q2: How many drinks containi ng alcohol do you have on a typical day when you are drinking? 1 or 2 02/29/2024 Q3: How often do you have si x or more drinks on one occasion? Monthly 02/29/2024 Overall Financial Resource Strain (CARDIA) Answe r Date Recorded How hard is it for you to pa y for the very basics like food, housing, medical care, and heating? Not very hard 03/04/2025 PHQ-2 Answer Date Recorded PHQ-2 Total Score (If total score is 3 or more points, staff should administer the PHQ-9) 2 03/04/2025 [facility] - Occupational Stress Questionnaire Answer Date Recorded Do you feel stress - tense, restless, nervous, or anxious, or unable to sleep at night because your mind is troubled all the time - these days? Very much 02/29/2024 Exercise Vital Sign Answer Date Recorde d On average, how many days pe r week do you engage in moderate to strenuous exercise (like a brisk walk)? 0 days 02/29/2024 On average, how many minutes do you engage in exercise at this level? 0 min 02/29/2024 Hunger Vital Sign Answer Date Recorded Within the past 12 months, y ou worried that your food would run out before you got the money to buy more. Never true 03/04/20 25 Within the past 12 months, t he food you bought just didn't last and you didn't have money to get more. Never true 03/04/2025 PRAPARE - Transportation Answer Date Re corded In the past 12 months, has l ack of transportation kept you from medical appointments or from getting medications? No 02/06 In the past 12 months, has l ack of transportation kept you from meetings, work, or from getting things needed for daily living? No 03/04/2025 Housing Stability Vital Sign Answer Chuck e [...] place to sleep or slept in a senior living (including now)? Yes 11/23/2023 PHQ-9 Answer Date Recorded PHQ-9 Total Score 3 03/04/2025 Housing Stability Vital Sign Answer Chuck e Recorded In the last 12 months, was t here a time when you were not able to pay the mortgage or rent on time? No 03/04/2025 Number of Times Moved in the Last Year Not on fi le 03/04/2025 At any time in the past 12 [facility], were you homeless or living in a senior living (including now)? No 03/04/2025 Personal Safety Answer Date Recorded Have you ever been in or are you currently in a harmful physical or emotional relationship or is someone making you feel afraid or unsafe? Denies 03/21/2025 Education Answer Date Recorded What is the highest level of school you have completed or the highest degree you have received? Some college, no degree 11/23/2023 Sex and Gender Information Value Date Recorded Sex Assigned at Not on file Legal Sex Male 9:36 AM [employer]IE [employer] Gender Identity Not on file Sexual Orientation Not on file documented as of this encounter Last Filed Vital Signs Vital Sign Reading Time Taken Comments Blood Pressure 139/85 03/21/2025 2:05 PM CDT Pulse 96 03/21/2025 2:05 PM CDT Temperature 36.6 C (97.9 F) 03/21/2025 2:05 PM CDT Respiratory Rate 20 03/21/2025 2:05 PM CDT Oxygen Saturation 100% 03/21/2025 2:05 PM CDT Inhaled Oxygen Concentration - - Weight - - Height - - Body Mass Index - - documented in this encounter Functional Status * Are you deaf or do you have serious difficulty hearing? Answer Date of Assessment Author No 03/04/2025 9:09 AM CDT Kerrie Morales LCSW * Are you blind or do you have serious difficulty seeing, even when wearing glasses? Answer Date of Assessment Author No 03/04/2025 9:09 AM CDT Kerrie Morales LCSW * Do you have serious difficulty walking or climbing stairs? Answer Date of Assessment Author No 03/04/2025 9:09 AM CDT Kerrie Morales LCSW * Do you have serious difficulty dressing or bathing? Answer Date of Assessment Author No 03/04/2025 9:09 AM CDT Kerrie Morales LCSW * Because of a physical, mental, or emotional condition, do you have serious difficulty doing errandsalone such as visiting the doctor? Answer Date of Assessment Author No 03/04/2025 9:09 AM CDT Kerrie Morales LCSW documented as of this encounter Mental Status * Because of a physical, mental, or emotional condition, do you have serious difficulty concentrating, remembering, or making decisions? (5 years old or older) Answer Entry Date Author No 03/04/2025 9:09 AM CDT Kerrie Morales LCSW documented in this encounter Discharge Instructions * Discharge Instructions* Mary Lou Toro, MANAGER GROCERY - 03/21/2025 1:43 PM CDT MENTAL HEALTH CRISIS/URGENT CARE SERVICES National Suicide Prevention Hotline (Available by calling or texting 988 to speak with a counselor for support or additional resources) Behavioral Health Response [phone] or [phone] (Crisis hotline or additional resources) [facility] [phone] (Crisis hotline) [facility] Behavioral Health Urgent Care [phone] ([facility]) (walk in urgent care for mental health) [address], [address], [place] [address] Thursday - Thursday 9am- 7 pm [facility] Behavioral Health Urgent Care [phone] ([facility]) [address] [facility] [place] [address] Thursday- Thursday 9 am- 7 pm [facility] [phone] [place] [address] [facility] [address] [place] [address] OPEN 30/03 (Can stay at the Crisis Center for up to 23 hours and receive crisis assessments and referrals and links to services including tele health . Also clothes, shower and other ERE services [facility] Walk in services for adults. [facility] M-F 9am- 11am and 1pm-3pm [address] [place] [address] for info call [phone] [facility] TO ASSIST IN LOCATING OUTPATIENT CARE FOR MENTAL HEALTH Behavioral Health Response [phone] (Contact and request a mobile outreach to establish community mental health care for [facility] and [facility]) Disaster Hotline (Contact to request assistance in establishing community mental health care in [facility]) COMMUN[facility] CENTERS FOR UNINSURED OR MEDICAID [facility] Behavioral Health [phone] ([facility], [facility], [facility], [facility], and [facility]) [facility]'s [facility] [phone] ([facility]) [facility] [phone] ([facility]) [facility] [phone] ([facility]) [place] [phone] ([place] [facility]) SUBSTANCE USE TREATMENT [facility] [phone] (opioid response project for [facility] residents)- contact to get connected to treatment services [facility] (drug and alcohol treatment) [facility] [phone] (inpatient and outpatient rehabilitation services) [place] ([place] option for treatment) [facility] ([place] option for treatment) [facility] Off- [phone]- ([place] option for assistance in locating treatment) [facility] - [phone] ([place] option for treatment) A WORD ABOUT RECOVERY Recovery from substance use disorders is hard, but it is possible. Many people find it difficult toget through detox and become stabilized before they can begin to maintain a durable recovery. This is where treatment comes into the picture. Treatment can be extremely beneficial in helping someone get sober. However, at best, treatment is the means by which one can receive the detoxification and counseling services necessary to achieve the initial stability that allows for ongoing, sustained recovery. While many who suffer from substance use disorders will find treatment necessary to achieve detoxification and stabilization, others are able to achieve this via participation in support groups. For these individuals, treatment may not be necessary; sometimes, self-help is enough. Of all the support groups available, Alcoholics Anonymous (A. A.) is the oldest and best known. For A. A. the only requirement for membership is ???a desire to stop drinking.?? In meetings, A. A. members share their ???experience, strength and hope.?? By engaging in this fellowship, countlessnumbers of individuals have found the help they needed without having to obtain professional or medically- based care. There are several hundred A. A. meetings available weekly in the [facility] area. Information regarding these meetings can be found by accessing the Alcoholics Anonymous [place] [facility] website www.aastl.org. When attending a meeting, there are generally Where & When listings available to newcomers that show the day, time, and location of local meetings. In addition to A. A., there are numerous other twelve-step groups. These groups include: Narcotics Anonymous, Cocaine Anonymous, Marijuana Anonymous, Heroin Anonymous, Nicotine Anonymous, etc. Additionally, there are other support groups that are not ahwtzt-pfjh-ldwvl but still employ a model of mutual help. SIGNS OF SUBSTANCE USE DISORDERS This self-test is designed to help determine if you may have a substance use disorder: Yes No ___ ___ Do you lose time from work due to your substance use? ___ ___ Is substance use making your home life unhappy? ___ ___ Do you use drugs or alcohol because you are shy with other people? ___ ___ Is substance use affecting your reputation? ___ ___ Have you ever felt remorse after substance use? ___ ___ Have you gotten into financial trouble as a result of substance use? ___ ___ Do you turn to lower companions & inferior environment when using substances? ___ ___ Does your substance use make you careless of your family's welfare? ___ ___ Has your ambition decreased since beginning your substance use? ___ ___ Do you crave drugs or alcohol at a definite time daily? ___ ___ Do you want a drugs or alcohol the next morning? ___ ___ Does substance use cause you to have difficulty in sleeping? ___ ___ Has your efficiency decreased since beginning your substance use? ___ ___ Is substance use jeopardizing your job or business? ___ ___ Do you use substances to escape from worries or troubles? ___ ___ Do you use substances alone? ___ ___ Have you ever had a complete memory loss as a result of substance use? ___ ___ Has your physician ever treated you for substance use? ___ ___ Do you use drugs or alcohol to build up your self-confidence? ___ ___ Have you ever been to a hospital or institution on account of substance use? Scoring: If you answered yes to any 2, it is likely you have a substance use disorder. If you answered yes to 3 or more, indications are you do have a substance use disorder. This self-test is designed to help determine if a substance use disorder is in your family: Yes No ___ ___ Does someone in your family undergo personality changes when s/he uses substances? ___ ___ Do you feel that substance use is more important to this person than you are? ___ ___ Has excessive substance use ruined special occasions? ___ ___ Do you cover up for someone else's substance use? ___ ___ Have you ever tried to control the amount consumed by the user by joining in the substance use? ___ ___ Is your family having financial or legal difficulties due to substance use? ___ ___ Have you ever tried to control the substance user's behavior by hiding car keys, pouring the liquor down the drain, throwing out the drugs, etc? ___ ___ Do you find yourself doing things that are out of character for you? Scoring: A yes to any one question indicates a strong possibility of a substance use disorder in your family. * Attachments The following attachments cannot be sent through Care Everywhere. * Depression (AfterCare(R) Instructions(ER/ED)) (Faroese) documented in this encounter Medications at Time of Discharge amLODIPine (NORVASC) 10 mg tabletIndications :hypertension Take 1 tablet (10 mg total) by mouth daily 30 tablet 03/06/2025 04/05/2025 atorvastatin (LIPITOR) 20 mg tabletIndications :hyperlipidemia Take 1 tablet (20 mg total) by mouth nightly 30 tablet 03/06/2025 04/05/2025 losartan (COZAAR) 50 mg tabletIndications :hypertension Take 1 tablet (50 mg total) by mouth daily 30 tablet 03/06/2025 04/05/2025 metFORMIN (GLUCOPHAGE) 500 mg tabletIndications :type 2 diabetes mellitus Take 1 tablet (500 mg total) by mouth 2 (two) times a day with meals 60 tablet 03/06/2025 04/05/2025 oxyBUTYnin XL (DITROPAN-XL) 5 mg 24 hr tabletIndications :Increased Urinary Frequency Take 1 tablet (5 mg total) by mouth daily 30 tablet 03/06/2025 04/05/2025 pregabalin (LYRICA) 50 mg capsuleIndication s:neuropathy Take 1 capsule (50 mg total) by mouth 2 (two) times a day 60 capsule 03/06/2025 04/05/2025 documented as of this encounter Discharge Disposition Disposition Code Departure Means Destination Comment s Discharge to home or self care documented in this encounter Consult Notes * Max Richmond MD - 03/21/2025 1:41 PM CDTAssociated Order(s): IP CONSULT TO PSYCHIATRY Images from the original note were not included. Telepsychiatry Consult Note Note entered at: 1:41 PM Patient Name: Bob Frank Date of : 1960 Medical Record: [id number] PSYCHIATRY CONSULT NOTE: INITIAL EVALUATION Date/Time: 03/21/2025 2:41:01 PM Name: Bob Frank : 1960 Location of the patient: [facility] ED Consulting Array Clinician: Max Richmond Location of the clinician: [facility] Length of Consult: 35 Minutes SUMMARY 64-year-old male, with history of mood disorder, cluster B personality disorder, antisocial personality disorder, malingering, current cocaine use, history of suicidal ideation, history of psychiatric hospitalization, with no history of violent behavior, arrived via EMS for suicidal ideation. Patient has presented for SI in context of depression and grief for several years. Of note, mother passed in 2002 but often will report she recently passed. Has had multiple inpatient hospitalizations, without following up with outpatient care, and shifting inconsistent narrative. He was dischargedon 03/06 without psychotropics. Discussed with patient about establishing with outpatient care, or if he is interested in longer term care, can follow-up for rehab/residential care. I asked if he needed refills for his psychotropics and he stated he already has his medications. Patient presentation consistent with malingering and personality disorder. He has not benefited from inpatient psychiatric admission. He would be appropriate for discharge with outpatient resources. Working Diagnoses: F14.10 Cocaine abuse, uncomplicated; F39 Unspecified mood [affective] disorder; Z76.5 Malingering CPT Codes: 89879 - Psychiatric Diagnostic Evaluation with Medical Services PLAN Disposition: Discharge type: Discharge to community resource Safety planning: Agencies/Help lines provided Resource information to be provided by site: senior living resources, outpatient mental health treatment,outpatient drug/alcohol treatment, information about patient's diagnosis, treatment recommendations, including dosage and side effects of any prescribed medications Observation level - Psychiatric 1:1 needed? No psych 1:1 needed Pharmacological: No psychiatric medication recommendations at this time Is patient psychotic? - No; Follow up needed while in the hospital? As needed for management of behavior or change in mental status Other: If questions arise about the psychiatric care of this patient, please call the [facility] to request a follow-up consult. Please do not contact me individually through the EMR chat as I am not regularly logged on to this system. The psychiatrist for the follow-up visit may be a different psychiatrist Discussed plan with onsite grocery team member: Yes - Spoke with Zhang Lang MD and Mary Lou Toro [facility] HISTORY This evaluation was conducted remotely with the assistance of onsite staff via HIPAA-compliant video call. Patient consented to proceed with the telehealth visit. Requested by: Zhang Lang MD Sources of information: Patient, medical record History of Present Illness: 64-year-old male, living alone, single, with history of mood disorder, cluster B personality disorder, antisocial personality disorder, malingering, current cocaine use, history of suicidal ideation,history of psychiatric hospitalization, with no history of violent behavior, arrived via EMS for isa cidal ideation. Patient has past high utilization of hospital services and has demonstrated signs of seeking secondary gain. UDS positive for cocaine, Alcohol undetectable. In the hospital, patient has been in behavioral control with no reported issues. Depressed mood. Endorses ongoing suicidal ideations with plan to jump off building. States he was discharged on 03/06 with psychotropics (discharge summary states antidepressants were stopped). He states he does not follow-up with outpatient care because he just needs to stay longer at inpatient facilities. Asked about how inpatient would be different this time, and he became defensive and stated again he needs to stay longer and that he never stays more than 2-3 days. I discussed he has had psychiatric hospitalizations in the past that have been over a week, but he states that did not happen.. Collateral Contacted No-- . PSYCHIATRIC REVIEW OF SYSTEMS (symptoms in past two weeks) Pertinent Positives: depressed mood/anhedonia/hopelessness/negative ruminations/insomnia/irritability/anxiety/impulsivity Pertinent Negatives: no aggressive behavior/no agitation/no command hallucinations/no panic attacks PSYCHIATRIC HISTORY Past Psychiatric Diagnoses/Problems: mood disorder, cluster B personality disorder, antisocial personality disorder, malingering Psychiatric Treatment: Hospitalizations: recent discharge from psychiatric hospital Current excessive drug/alcohol use: cocaine Past excessive drug/alcohol use: none UDS results: UDS positive for cocaine BAL results: undetectable Stressors: social isolation HEALTH HISTORY Patient Active Problem List Diagnosis Superficial foreign body of right upper arm Malingering HTN (hypertension) Lumbar radiculopathy Unspecified depressive disorder Abnormal finding on imaging NAHID (acute kidney injury) T2DM (type 2 diabetes mellitus) (HCC) Microcytic anemia Cocaine use disorder, moderate, dependence (HCC) Depression with suicidal ideation Healthcare maintenance Overweight (BMI 25.0-29.9) 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 Current Outpatient Medications Medication Sig Dispense Refill amLODIPine (NORVASC) 10 mg tablet Take 1 tablet (10 mg total) by mouth daily 30 tablet 0 atorvastatin (LIPITOR) 20 mg tablet Take 1 tablet (20 mg total) by mouth nightly 30 tablet 0 losartan (COZAAR) 50 mg tablet Take 1 tablet (50 mg total) by mouth daily 30 tablet 0 metFORMIN (GLUCOPHAGE) 500 mg tablet Take 1 tablet (500 mg total) by mouth 2 (two) times a day withmeals 60 tablet 0 oxyBUTYnin XL (DITROPAN-XL) 5 mg 24 hr tablet Take 1 tablet (5 mg total) by mouth daily 30 tablet 0 pregabalin (LYRICA) 50 mg capsule Take 1 capsule (50 mg total) by mouth 2 (two) times a day 60 capsule 0 Allergies: Patient has no known allergies. DEMOGRAPHICS/SOCIAL HISTORY Gender: male Living Situation: living alone, or may be unhoused Relationship Status: single RISK EVALUATION Suicidality/self-injury: Yes suicidal ideation No suicide attempts Primary Suicide Screening (PSS-3) 1. In the past two weeks, have you felt down, depressed, or hopeless? YES 2. In the past two weeks, have you had thoughts of killing yourself? YES 3. In your lifetime, have you ever attempted to kill yourself? NO 3a. Within the past 6 months? NO ESS-6 Secondary Screen ( If #2 is yes or #3a is yes within the past 6 months, then complete secondary screen) 1. Positive on PSS-3 questions 2 & 3 - active suicidal ideation with a past attempt? NO 2. Have you been thinking about how you might kill yourself? YES 3. Have you had some intention of acting on your thoughts? YES 4. Lifetime psychiatric hospitalization? YES 5. Has drinking or substance abuse ever been a problem for you? YES 6. Current irritability, agitation, or aggression? YES PSS-3/ESS-6 Secondary Screen Scoring: Severe PSS-3/ESS-6 Scoring Interpretation Legend PSS-3 screen incomplete [Blank PSS-3 questions #2 OR #3a] PSS-3 screen unable to assess [Unable to Assess responses on PSS-3 questions #2 AND #3a] Mild [No current attempt AND No suicide plan or intent AND Score (0-2)] Moderate [No current attempt AND Active suicidal ideation with plan or intent (not both) OR Score (3-4)] Severe [Current attempt OR Suicide plan and intent OR Score (5-6)] HI/Violence/Property Destruction: no history of violent/aggressive behavior Access to Firearms: none Grave disability/Poor self-care: Psychosis: No Protective Factors: High Utilization Criteria: >=3 inpatient psych admissions in the past 12 months, >=10 ED visits in the past 12 months Signs of Secondary Gain: documented history of secondary gain stated or implied need for senior living, food, avoidance of legal/other serious consequences, or other secondary benefit multiple short inpatient psychiatric hospitalizations without mental health follow-up vague, inconsistent, or shifting reports MENTAL STATUS EXAM Appearance and Attire: Good eye contact Psychomotor agitation: No abnormality Attitude and behavior: Uncooperative, Guarded Speech: No abnormality Mood: Euthymic Affect: Full range of affect Thought Process: Linear, Vague Thought content: Suicidal ideation Perception: No hallucinations Sensorium: Normal Knowledge: Appropriate for education and socioeconomic status Insight: Appropriate Judgment: Appropriate SUMMARY RISK ASSESSMENT Current Suicide Risk Elevated? PSS-3/ESS-6 Scoring: Severe Current Violence Risk Elevated? No Issues with ability to care for self. No SAFE-T Risk Factors Suicidal Behavior: [] History of prior suicide attempts [] Aborted suicide attempt [x] History of prior SI [] Self-injurious behavior Current/Past Psychiatric Disorders: [x]Mood disorders [] Psychotic Disorders [x] History of inpatient hospitalization [] ADHD [] TBI [] PTSD [] Cluster B personality disorders [] Conduct disorders [] Medical comorbidity [] Recent onset of illness Current/Past Substance Use: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 Gastrointestinal: Positive for abdominal pain (Since resolved). Negative for diarrhea, nausea and vomiting. Genitourinary: Negative. Musculoskeletal: Negative. Negative for back pain. Skin: Negative. Neurological: Negative. Negative for dizziness, weakness, light-headedness and headaches. Psychiatric/Behavioral: Positive for dysphoric mood and suicidal ideas. Negative for agitation, confusion, decreased concentration and self-injury. All other systems reviewed and are negative. Physical Exam ED Triage Vitals Temp Pulse Resp BP SpO2 03/21/25 1036 03/21/25 0927 03/21/25 0927 03/21/25 1000 03/21/25 0927 36.6 ??C (97.8 ??F) 81 16 (!) 132/104 98 % Temp src Heart Rate Source Patient Position BP Location FiO2 (%) 03/21/25 1036 03/21/25 1405 03/21/25 1405 03/21/25 1405 -- Oral Pulse Oximetry Sitting Right arm Height Height Method Weight Weight Method -- -- -- -- Physical Exam Vitals and nursing note reviewed. Constitutional: General: He is not in acute distress. Appearance: He is well-developed and normal weight. He is not ill-appearing, toxic-appearing or diaphoretic. HENT: Head: Normocephalic and atraumatic. Eyes: Extraocular Movements: Extraocular movements intact. Pupils: Pupils are equal, round, and reactive to light. Cardiovascular: Rate and Rhythm: Normal rate and regular rhythm. Heart sounds: Normal heart sounds. No murmur heard. Abdominal: General: Abdomen is flat. Bowel sounds are normal. Palpations: Abdomen is soft. Tenderness: There is no abdominal tenderness (No significant tenderness to palpation). Skin: General: Skin is warm and dry. Neurological: General: No focal deficit present. Mental Status: He is alert and oriented to person, place, and time. Psychiatric: Mood and Affect: Mood normal. Behavior: Behavior normal. MDM Results for orders placed or performed during the hospital encounter of 03/21/25 CBC with auto differential Collection Time: 03/21/25 9:32 AM Result Value Ref Range WBC 8.77 3.80 - 9.90 K/cumm Hgb 11.5 (L) 13.0 - 17.5 g/dL Hct 35.9 (L) 38.9 - 50.3 % Plt 274 150 - 400 K/cumm MPV 10.1 9.1 - 12.3 fL RBC 4.34 4.30 - 5.80 M/cumm MCV 82.7 81.3 - 96.4 fL MCH 26.5 (L) 27.1 - 33.3 pg MCHC 32.0 (L) 32.3 - 35.7 g/dL RDW CV 16.7 (H) 11.1 - 14.9 % RDW SD 50.3 (H) 35.7 - 48.1 fL NRBC abs 0.02 (H) 0.00 - 0.01 K/cumm Comprehensive metabolic panel Collection Time: 03/21/25 9:32 AM Result Value Ref Range Sodium 141 135 - 145 mmol/L Potassium, pl 4.4 3.3 - 4.9 mmol/L Chloride 105 97 - 110 mmol/L CO2 23 22 - 32 mmol/L Anion gap 13 2 - 15 mmol/L BUN 12 6 - 25 mg/dL Creatinine 0.90 0.80 - 1.30 mg/dL Glucose 136 70 - 199 mg/dL Calcium 9.4 8.5 - 10.3 mg/dL Bilirubin, total 0.2 0.1 - 1.2 mg/dL Protein, pl 7.1 6.5 - 8.5 g/dL Albumin 4.1 3.5 - 5.0 g/dL Alk phos 109 40 - 130 Units/L ALT 9 7 - 55 Units/L AST 19 10 - 50 Units/L Lipase Collection Time: 03/21/25 9:32 AM Result Value Ref Range Lipase 47 10 - 99 Units/L Troponin T high-sensitivity series (baseline, 2hr, 4hr, 6hr) Collection Time: 03/21/25 9:32 AM Result Value Ref Range Trop T hs 13 <=22 ng/L Differential, auto Collection Time: 03/21/25 9:32 AM Result Value Ref Range Neutrophil abs 6.26 1.50 - 6.50 K/cumm Imm gran abs 0.02 0.00 - 0.10 K/cumm Lymphocyte abs 1.68 0.80 - 3.30 K/cumm Monocyte abs 0.62 0.20 - 0.80 K/cumm Eosinophil abs 0.13 0.00 - 0.50 K/cumm Basophil abs 0.06 0.00 - 0.10 K/cumm Neutrophil pct 71.3 % Imm gran pct 0.2 % Lymphocyte pct 19.2 % Monocyte pct 7.1 % Eosinophil pct 1.5 % Basophil pct 0.7 % eGFR Collection Time: 03/21/25 9:32 AM Result Value Ref Range eGFR >90 >=60 mL/min/1.73 m2 Ethanol Collection Time: 03/21/25 9:44 AM Result Value Ref Range Ethanol <10 <=10 mg/dL Urinalysis reflex to microscopic and culture Urine Collection Time: 03/21/25 9:47 AM Specimen: Urine Result Value Ref Range Color, ur Yellow Yellow Clarity, ur Clear Clear Specific gravity, ur 1.024 1.003 - 1.030 pH, urine 7.0 Protein, ur ql Trace Negative Glucose, ur ql Negative Negative Ketones, ur Negative Negative Bilirubin, ur Negative Negative Blood, ur Negative Negative Urobilinogen, ur <2.0 <2.0 mg/dL Nitrite, ur Negative Negative Leukocyte esterase, ur Negative Negative UA reflex comment Reflex conditions for microscopic UA and culture not met. Drugs of Abuse Screen, Urine without Confirmation Collection Time: 03/21/25 9:47 AM Result Value Ref Range Amphetamine, ur Not Detected CutOff 500ng/mL Barbiturates, ur Not Detected CutOff 200ng/mL Benzodiazepines, ur Not Detected CutOff 100ng/mL Cannabinoids, ur Not Detected CutOff 50 ng/mL Cocaine, ur Screen Positive, presumptive (A) CutOff 150ng/mL Fentanyl, Ur Not Detected CutOff 5 ng/mL Methadone, ur Not Detected CutOff 300ng/mL Opiates, ur Not Detected CutOff 300ng/mL Oxycodone, ur Not Detected CutOff 100ng/mL Phencyclidine, ur Not Detected CutOff 25 ng/mL Urine Creatinine 154 mg/dL Influenza A/B, RSV, and COVID-19 PCR Nasopharyngeal Collection Time: 03/21/25 12:10 PM Specimen: Nasopharyngeal Result Value Ref Range COVID-19 RNA Negative Negative Influenza A RNA Negative Negative Influenza B RNA Negative Negative RSV RNA Negative Negative Medical Decision Making Differential diagnosis includes biliary disease, pancreatitis, UTI, pyelonephritis, dehydration, electrolyte disorder, suicidal ideation, homicidal ideation, malingering The patient was comfortable in the emergency department. I have personally reviewed and interpretedthe patient's EKG and labs. I do not find anything that appears medically significant or that needsany intervention. His abdomen is benign and nontender. No need for imaging at this time. The patient did voice depression and potential suicidal ideation. He was subsequently evaluated by the psychiatrist, Dr. Richmond via video consultation. Dr. Richmond has reviewed the patient's numerous other presentations to various emergency departments, and he does not feel that admission is warranted at this time. I feel that this is reasonable. The patient has a long history of malingering. Plan for discharge home with return precautions. Amount and/or Complexity of Data Reviewed Labs: ordered. ECG/medicine tests: ordered. ED Course as of 03/21/251753 Time: 03/21 105 Comment: The patient is medically cleared for psychiatric evaluation. By: Zhang Lang MD Final diagnoses: Depression, unspecified depression type Malingering Zhang Lang MD 03/21/251753 * Ranjan Kate III, RN - 03/21/2025 9:23 AM CDT Pt to ED via EMS c/o upper mid abdominal pain x 2030 last night. * Melinda Parks RN - 03/21/2025 9:22 AM CDT Bed: [id number] Expected date: Expected time: Means of arrival: Comments: [id number] Melinda Parks RN 03/21/25 09 documented in this encounter Plan of Treatment Scheduled Procedures Name Priority Associated Diagnoses Date/Ti me COLONOSCOPY Open Access Healthcare maintenance documented as of this encounter Procedures Procedure Name Priority Date/Time Associated Diagnosis Comments INFLUENZA A/B, RSV, AND COVID-19 PCR STAT 03/21/2025 12:10 PM CDT URINALYSIS AND REFLEX TO MICROSCOPIC AND CULTURE STAT 03/21/2025 9:47 AM CDT DRUGS OF ABUSE SCREEN, URINE WITHOUT CONFIRMATION STAT 03/21/2025 9:47 AM CDT ETHANOL STAT 03/21/2025 9:44 AM CDT TROPONIN T HIGH-SENSITIVITY SERIES (BASELINE, 2HR, 4HR, 6HR) STAT 03/21/2025 9:32 AM CDT EGFR STAT 03/21/2025 9:32 AM CDT DIFFERENTIAL AUTO STAT 03/21/2025 9:3 2 AM CDT CBC WITH AUTO DIFFERENTIAL STAT 03/21/2025 9:32 AM CDT LIPASE STAT 03/21/2025 9:32 AM CDT COMPREHENSIVE METABOLIC PANEL STAT 03/21/2025 9:32 AM CDT ECG 12-LEAD STAT 03/21/2025 9:29 AM CDT documented in this encounter Results * Influenza A/B, RSV, and COVID-19 PCR Nasopharyngeal (03/21/2025 12:10 PM CDT) Pathologist [facility], [place] COVID-19 RNA Negative Negative Influenza A RNA Negative Negative [facility] Influenza B RNA Negative Negative [facility] RSV RNA Negative Negative [facility] Comment: Interpretive data: Testing performed by [facility]. This test is performed using the Senexx Xpert Xpress CoV-2/Flu/RSV plus assay. This is a multiplex, real-time reverse transcriptase PCR assay intended for the qualitative detection of nucleic acid from SARS-CoV-2, influenza A, influenza B, and respiratory syncytial virus. This assay has been cleared by the [place] Food and Drug administration. The performance characteristics have been verified by the [facility]. Results must be considered in the clinical context, and a negative result does not rule out infection. Interpretive Data last revised 2023 Nasopharyngeal 03/21/2025 12 :10 PM CDT 03/21/2025 1:01 PM CDT Narrative [facility] - 03/21/2025 1:44 PM CDT Is the Patient experiencing symptoms consistent with COVID?->No Zhang Lang MD LAB MICROBIOLOGY - GENERAL ORDERABLES Final Result [facility] [address] [place] [address] * (ABNORMAL) Drugs of Abuse Screen, Urine without Confirmation (03/21/2025 9:47 AM CDT) Pathologist [facility] [place] Amphetamine, ur Not Detected CutOff 500ng/mL Comment: Interpretive Data - Amphetamines: Samples containing greater than 500 ng/mL d-methamphetamine or other cross-reacting amphetamine compounds are reported as positive. Amphetamine immunoassays are subject to significant false positive rates due to cross-reactivity of non-amphetamine drugs. Confirmatory testing required for definitive results. Current Interpretive Data was last reviewed 2023. Barbiturates, ur Not Detected CutOff 200ng/mL [facility] Comment: Interpretive Data - Barbiturates: Samples containing greater than 200 ng/mL secobarbital or other cross-reacting barbiturate compounds are reported as positive. False positive and false negative results are possible. Confirmatory testing required for definitive results. Current Interpretive Data was last reviewed 2023. Benzodiazepines, ur Not Detected CutOff 100ng/mL [facility] Comment: Interpretive Data - Benzodiazepines: Samples containing greater than 100 ng/mL nordiazepam or other cross-reacting compounds are reported as positive. False positive and false negative results are possible. Confirmatory testing required for definitive results. Current Interpretive Data was last reviewed 2023. Cannabinoids, ur Not Detected CutOff 50 ng/mL [facility] Comment: Interpretive Data - Cannabinoids: Samples containing greater than 50 ng/mL delta-9 THC -COOH or other cross- reacting compounds are reported as positive. False positive and false negative results are possible. Confirmatory testing required for definitive results. Current Interpretive Data was last reviewed 2023. Cocaine, ur Screen Positive, presumptive (A) CutOff 150ng/mL [facility] Comment: Interpretive Data - Cocaine: Samples containing greater than 150 ng/mL benzoylecgonine or other cross- reacting compounds are reported as positive. False positive and false negative results are possible. Confirmatory testing required for definitive results. Current Interpretive Data was last reviewed 2023. Fentanyl, Ur Not Detected CutOff 5 ng/mL [facility] Comment: Interpretive Data - Fentanyl: Samples containing greater than 5 ng/mL norfentanyl, fentanyl, or other cross-reacting fentanyl compounds are reported as positive. False positive and false negative results are possible. Confirmatory testing required for definitive results. Current Interpretive Data was last reviewed 2023. Methadone, ur Not Detected CutOff 300ng/mL [facility] Comment: Interpretive Data - Methadone: Samples containing greater than 300 ng/mL d,l-methadone or other cross-reacting compounds are reported as positive. False positive and false negative results are possible. Confirmatory testing required for definitive results. Current Interpretive Data was last reviewed 2023. Opiates, ur Not Detected CutOff 300ng/mL [facility] Comment: Interpretive Data - Opiates: Samples containing greater than 300 ng/mL morphine or other cross-reacting compounds are reported as positive. False positive and false negative results are possible. Confirmatory testing required for definitive results. Current Interpretive Data was last reviewed 2023. Oxycodone, ur Not Detected CutOff 100ng/mL [facility] Comment: Interpretive Data - Oxycodone: Samples containing greater than 100 ng/mL oxycodone or other cross-reacting compounds are reported as positive. False positive and false negative results are possible. Confirmatory testing required for definitive results. Current Interpretive Data was last reviewed 2023. Phencyclidine, ur Not Detected CutOff 25 ng/mL [facility] Comment: Interpretive Data - Phencyclidine: Samples containing greater than 25 ng/mL phencyclidine or other cross-reacting compounds are reported as positive. False positive and false negative results are possible. Confirmatory testing required for definitive results. Current Interpretive Data was last reviewed 2023. Urine Creatinine 154 mg/dL [facility] Comment: Interpretive Data Urine Creatinine: < 10 mg/dL is extremely dilute = or > 10 but < 20 mg/dL is dilute = or > 20 mg/dL is normal Current Interpretive Data was last revised on 2017. Urine 03/21/2025 9:47 AM CDT 03/21/2025 10:23 AM CDT Narrative [facility] - 03/21/2025 10:54 AM CDT Drug of Abuse screening is performed by immunoassay for medical purposes only. This is not to be used for Pain Management purposes. Zhang Lang MD LAB URINE ORDERABLES Final Result [facility] [address] [place] [address] * Urinalysis reflex to microscopic and culture Urine (03/21/2025 9:47 AM CDT) Color, ur Yellow Yellow Clarity, ur Clear Clear [facility] Specific gravity, ur 1.024 1.003 - 1.030 [facility] pH, urine 7.0 [facility] Comment: Interpretive Data U rine pH is affected by diet, medications, systemic acid-base disturbances, and renal tubular function. pH may affect urinary stone formation. For example, urine pH below 6.0 may help reduce the tendency for calcium phosphate stones and pH greater than 6.0 may reduce the tendency for uric acid stone formation. Source: [facility] Current Interpretive Data was last revised on 2017 Protein, ur ql Trace Negative [facility] Glucose, ur ql Negative Negative [facility] Ketones, ur Negative Negative [facility] Bilirubin, ur Negative Negative [facility] Blood, ur Negative Negative [facility] Urobilinogen, ur <2.0 <2.0 mg/dL [facility] Nitrite, ur Negative Negative [facility] Leukocyte esterase, ur Negative Negative [facility] UA reflex comment Reflex conditions for microscopic UA and culture not met. [facility] Urine 03/21/2025 9:47 AM CDT 03/21/2025 9:47 AM CDT Zhang Lang MD LAB MICROBIOLOGY - GENERAL ORDERABLES Final Result Performing Organization Address [facility] Co de Phone Number [facility] [address] [employer] [place], [place] [id number] * Ethanol (03/21/2025 9:44 AM CDT) Ethanol <10 <=10 mg/dL Comment: Interpretive Data Legal limit of intoxication > or = 80 mg/dL Levels > or = 400 mg/dL are potentially TOXIC. Current interpretive data was last revised on 2018. Blood 03/21/2025 9:44 AM CDT 03/21/2025 10:08 AM CDT Zhang Lang MD LAB BLOOD ORDERABLES Final Result Performing Organization Address [facility] Co de Phone Number [facility] [address] [facility] [place] [address] * eGFR (03/21/2025 9:32 AM CDT) eGFR >90 >=60 mL/min/1. 73 m2 Comment: Interpretive Data Reference Interval Normal >/= 90 mL/min/1.73m2 Mildly decreased* 60 - 89 mL/min/1.73m2 Mildly to moderately decreased 45 - 59 mL/min/1.73m2 Moderately to severely decreased 30 - 44 mL/min/1.73m2 Severely decreased 15 - 29 mL/min/1.73m2 Kidney Failure < 15 mL/min/1.73m2 *Relative to young adult level Estimated glomerular filtration rate is determined by the 2020 CKD-EPI equation recommended by the National Kidney [employer] (A Unifying Approach to GFR Estimation: Recommendations of the NKF-ASK Task Force on Reassessing the Inclusion of Race in Diagnosing Kidney Disease, JASN 2020). The CKD-EPI equation should not be used for patients with unstable renal function and has not been validated in children and those over 70. Current interpretive data was last reviewed 2021. Blood 03/21/2025 9:32 AM CDT 03/21/2025 9:42 AM CDT Zhang Lang MD LAB BLOOD ORDERABLES Final Result [facility] [address] [place] [address] * Differential, auto (03/21/2025 9:32 AM CDT) Neutrophil abs 6.26 1.50 - 6.50 K/cumm Imm gran abs 0.02 0.00 - 0.10 K/cumm [facility] Lymphocyte abs 1.68 0.80 - 3.30 K/cumm [facility] Monocyte abs 0.62 0.20 - 0.80 K/cumm [facility] Eosinophil abs 0.13 0.00 - 0.50 K/cumm [facility] Basophil abs 0.06 0.00 - 0.10 K/cumm [facility] Neutrophil pct 71.3 % [facility] Comment: Interpretive Data Percent cell count reference ranges are not reported, since discordance with absolute values may lead to misinterpretation of CBC data. Current Interpretive Data was last revised on 2017. Imm gran pct 0.2 % [facility] Comment: Interpretive Data Percent cell count reference ranges are not reported, since discordance with absolute values may lead to misinterpretation of CBC data. Current Interpretive Data was last revised on 2017. Lymphocyte pct 19.2 % [facility] Comment: Interpretive Data Percent cell count reference ranges are not reported, since discordance with absolute values may lead to misinterpretation of CBC data. Current Interpretive Data was last revised on 2017. Monocyte pct 7.1 % [facility] Comment: Interpretive Data Percent cell count reference ranges are not reported, since discordance with absolute values may lead to misinterpretation of CBC data. Current Interpretive Data was last revised on 2017. Eosinophil pct 1.5 % [facility] Comment: Interpretive Data Percent cell count reference ranges are not reported, since discordance with absolute values may lead to misinterpretation of CBC data. Current Interpretive Data was last revised on 2017. Basophil pct 0.7 % [facility] Comment: Interpretive Data Percent cell count reference ranges are not reported, since discordance with absolute values may lead to misinterpretation of CBC data. Current Interpretive Data was last revised on 2017. Blood 03/21/2025 9:32 AM CDT 03/21/2025 9:42 AM CDT Zhang Lang MD LAB BLOOD ORDERABLES Final Result [facility] [address] [place] [address] * Troponin T high-sensitivity series (baseline, 2hr, 4hr, 6hr) (03/21/2025 9:32 AM CDT) Trop T hs 13 <=22 ng/L Comment: Interpretive Data For further hscTnT resources including the diagnostic algorithm and an aid in interpretation, copy and paste this link: [email or web address].testcatalog.org/[email or web address] Current Interpretive Data last revised 2020. Blood 03/21/2025 9:32 AM CDT 03/21/2025 9:42 AM CDT us Zhang Lang MD LAB BLOOD ORDERABLES Final Result Performing Organization Address City/[facility]/ZIP Co de Phone Number [facility] [address] [facility] [place] [employer] [place] [address] * Lipase (03/21/2025 9:32 AM CDT) [facility] Lipase 47 10 - 99 Units/L Blood Venous blood specimen / Unknown 03/21/2025 9:32 AM CDT 03/21/2025 9:42 AM CDT Zhang Lang MD LAB BLOOD ORDERABLES Final Result Performing Organization Address [facility] de Phone Number [facility] [address] [place] [place] [address] * Comprehensive metabolic panel (03/21/2025 9:32 AM CDT) [facility] Sodium 141 135 - 145 mmol/L Potassium, pl 4.4 3.3 - 4.9 mmol/L [facility] Chloride 105 97 - 110 mmol/L [facility] CO2 23 22 - 32 mmol/L [facility] Anion gap 13 2 - 15 mmol/L [facility] BUN 12 6 - 25 mg/dL [facility] Creatinine 0.90 0.80 - 1.30 mg/dL [facility] Glucose 136 70 - 199 mg/dL [facility] Comment: Interpretive Data Fasting glucose >/= 126 mg/dl is diagnostic for diabetes. Fasting is defined as no caloric intake for at least 8 hours. Fasting glucose between 100 mg/dl to 125 mg/dl is diagnostic of prediabetes. In a patient with classic symptoms of hyperglycemia or hyperglycemic crisis, a random glucose >/= 200 mg/dl is diagnostic for diabetes. In the absence of unequivocal hyperglycemia, results should be confirmed by repeat testing. The classification and Diagnosis of Diabetes Diabetes Care 2021; 46: S19-S40. Current interpretive data was last revised 2022. Calcium 9.4 8.5 - 10.3 mg/dL [facility] Bilirubin, total 0.2 0.1 - 1.2 mg/dL [facility] Protein, pl 7.1 6.5 - 8.5 g/dL [facility] Albumin 4.1 3.5 - 5.0 g/dL [facility] Alk phos 109 40 - 130 Units/L [facility] ALT 9 7 - 55 Units/L [facility] AST 19 10 - 50 Units/L [facility] Blood 03/21/2025 9:32 AM CDT 03/21/2025 9:42 AM CDT Zhang Lang MD LAB BLOOD ORDERABLES Final Result [facility] [address] [place] [place] [address] * (ABNORMAL) CBC with auto differential (03/21/2025 9:32 AM CDT) WBC 8.77 3.80 - 9.90 K/cumm Hgb 11.5(L) 13.0 - 17.5 g/dL [facility] Hct 35.9(L) 38.9 - 50.3 % [facility] Plt 274 150 - 400 K/cumm [facility] MPV 10.1 9.1 - 12.3 fL [facility] RBC 4.34 4.30 - 5.80 M/cumm [facility] MCV 82.7 81.3 - 96.4 fL [facility] MCH 26.5(L) 27.1 - 33.3 pg [facility] MCHC 32.0(L) 32.3 - 35.7 g/dL [facility] RDW CV 16.7(H) 11.1 - 14.9 % [facility] RDW SD 50.3(H) 35.7 - 48.1 fL [facility] NRBC abs 0.02(H) 0.00 - 0.01 K/cumm [facility] Blood Venous blood specimen / Unknown 03/21/2025 9:32 AM CDT 03/21/2025 9:42 AM CDT Zhang Lang MD LAB BLOOD ORDERABLES Final Result Performing Organization Address [facility] Co de Phone Number [facility] [address] [place] [address] * ECG 12 lead (03/21/2025 9:29 AM CDT) 03/21/2025 9:29 AM CDT Narrative [facility] - 03/21/2025 8:40 PM CDT Vent Rate: 77 bpm RR Interval: 773 msec OK Interval: 241 msec QRS Duration: 96 msec QT Interval: 364 msec QTC Interval: 396 msec P-R-T [place]: 28 - -11 - 54 degrees IMPRESSION: SINUS RHYTHM WITH FIRST DEGREE AV BLOCK Possible SEPTAL MYOCARDIAL INFARCTION , PROBABLY OLD [40+ ms Q WAVE IN V1/V2] ABNORMAL ECG Electronically Signed By: Ed Sutton MD us Zhang Lang MD ECG ORDERABLES Final Resu lt Performing Organization Address [facility] Co de Phone Number [facility] Resident Research [facility] documented in this encounter Visit Diagnoses Diagnosis Depression, unspecified depression type- Primary Malingering Person feigning illness documented in this encounter Orders Consult Count Last Ordered Date First Orde red Date CONSULT TO BEHAVIORAL HEALTH QMHP 025 IP CONSULT TO PSYCHIATRY 1 03/21/2025 IV Count Last Ordered Date First Orde red Date SALINE LOCK IV 1 03/21/2025 documented in this encounter Care Teams Campaign Associate Relationship Specialty Start Date End Date No, Physician PCP - General 03/03/25 documented as of this encounter
--- OUTSIDE RECORDS SUMMARY | 2025-03-22 23:49 | XMS_ITS | Encounter Summary ---
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 normal. Behavior: Behavior normal. Behavior is not agitated, slowed, aggressive, withdrawn, hyperactive or combative. Behavior is cooperative. Thought Content: Thought content includes suicidal ideation. Thought content includes suicidal plan. Cognition and Memory: Cognition normal. Judgment: Judgment normal. MDM Medical Decision Making SI appears chronic, ddx includes malingering, depression, anxiety, personality disorder. Amount and/or Complexity of Data Reviewed Labs: ordered. ED Course as of 03/22/25216 Time: 03/20 2313 Comment: Attending signout: 64 yo M with hx of depression, recent dc from psych service 2 weeks ago. Dx with malingering after his stay. Persistent sx with recent psychosocial stressors, plan to shoot himself. Psych consultation. By: Cathryn Starr MD Time: 03/21 50 Comment: I have reviewed the psychiatry note and have reassessed the patient. Based on prior ED visits, patient continues to make threats of suicide without acting on the plan - including a visit to an outside ED on 03/04 with a similar history and patient was discharged then with dx of malingering and did not engage in care. Psychiatry does not believe patient would benefit from inpatient admission given his documented history and pattern of presentation. Will prepare discharge and SW constultation. By: Cathryn Starr MD Final diagnoses: Suicidal thoughts Malingering Francis Kruger MD 03/22/25218 * Maggi Wright RN - 03/20/2025 6:51 PM CDT Pt BIBEMS with SI and plan to jump off bridge or use a gun to shoot himself. Pt mother recently which has led to these thoughts. GCS 15. VSS. Pt ambulatory. documented in this encounter Miscellaneous Notes * ED Pre-Arrival Note - Nelly Fink RN - 03/20/2025 5:55 PM CDT Pre-Arrival Note Pt BIBEMS SI with plans to jump off bridge or buy a gun to shoot himself in the head. Pt calm and cooperative. Nelly Fink RN documented in this encounter Plan of Treatment Scheduled Procedures Name Priority Associated Diagnoses Date/Ti me COLONOSCOPY Open Access Healthcare maintenance documented as of this encounter Procedures Procedure Name Priority Date/Time Associated Diagnosis Comments POCT RAPID HIV ANTIBODY COMMUNITY SCREENING-ZAC ELIGIBLE Routine 03/20/2025 7:19 PM CDT URINALYSIS AND REFLEX TO MICROSCOPIC STAT 03/20/2025 7:16 PM CDT DRUGS OF ABUSE SCREEN, URINE WITHOUT CONFIRMATION STAT 03/20/2025 7:16 PM CDT EGFR STAT 03/20/2025 7:02 PM CDT DIFFERENTIAL AUTO STAT 03/20/2025 7:0 2 PM CDT THYROID FUNCTION CASCADE STAT 03/20/2025 7:02 PM CDT CBC WITH AUTO DIFFERENTIAL STAT 03/20/2025 7:02 PM CDT ETHANOL STAT 03/20/2025 7:02 PM CDT COMPREHENSIVE METABOLIC PANEL STAT 03/20/2025 7:02 PM CDT documented in this encounter Results * POCT Rapid HIV Antibody Community Screening-Zac Eligible (03/20/2025 7:19 PM CDT) Rapid HIV, POC Negative Negative Lot Number [id number] QC Control Line Acceptable Blood 03/20/2025 7:19 PM CDT Francis Kruger MD POINT OF CARE TEST ORD ERABLES Final Result * Urinalysis reflex to microscopic (03/20/2025 7:16 PM CDT) Color, ur Straw Yellow Clarity, ur Clear Clear [facility] Specific gravity, ur 1.017 1.003 - 1.030 [facility] pH, urine 7.0 [facility] Comment: Interpretive Data U rine pH is affected by diet, medications, systemic acid-base disturbances, and renal tubular function. pH may affect urinary stone formation. For example, urine pH below 6.0 may help reduce the tendency for calcium phosphate stones and pH greater than 6.0 may reduce the tendency for uric acid stone formation. Source: [facility] [employer] Current Interpretive Data was last revised on 2017 Protein, ur ql Negative Negative [facility] Glucose, ur ql Negative Negative [facility] Ketones, ur Negative Negative [facility] Bilirubin, ur Negative Negative [facility] Blood, ur Negative Negative [facility] Urobilinogen, ur <2.0 <2.0 mg/dL [facility] Nitrite, ur Negative Negative [facility] Leukocyte esterase, ur Negative Negative [facility] UA reflex comment Reflex conditions for microscopic UA not met. [facility] Urine 03/20/2025 7:16 PM CDT 03/20/2025 7:21 PM CDT Francis Kruger MD LAB URINE ORDERABLES F inal Result [facility] Department [place] [address] * (ABNORMAL) Drugs of Abuse Screen, Urine without Confirmation (03/20/2025 7:16 PM CDT) Amphetamine, ur Not Detected CutOff 500ng/mL Comment: Interpretive Data - Amphetamines: Samples containing greater than 500 ng/mL d-methamphetamine or other cross-reacting amphetamine compounds are reported as positive. Amphetamine immunoassays are subject to significant false positive rates due to cross-reactivity of non-amphetamine drugs. Confirmatory testing required for definitive results. Current Interpretive Data was last reviewed 2023. Barbiturates, ur Not Detected CutOff 200ng/mL [facility] Comment: Interpretive Data - Barbiturates: Samples containing greater than 200 ng/mL secobarbital or other cross-reacting barbiturate compounds are reported as positive. False positive and false negative results are possible. Confirmatory testing required for definitive results. Current Interpretive Data was last reviewed 2023. Benzodiazepines, ur Not Detected CutOff 100ng/mL [facility] Comment: Interpretive Data - Benzodiazepines: Samples containing greater than 100 ng/mL nordiazepam or other cross-reacting compounds are reported as positive. False positive and false negative results are possible. Confirmatory testing required for definitive results. Current Interpretive Data was last reviewed 2023. Cannabinoids, ur Not Detected CutOff 50 ng/mL [facility] Comment: Interpretive Data - Cannabinoids: Samples containing greater than 50 ng/mL delta-9 THC -COOH or other cross- reacting compounds are reported as positive. False positive and false negative results are possible. Confirmatory testing required for definitive results. Current Interpretive Data was last reviewed 2023. Cocaine, ur Screen Positive, presumptive (A) CutOff 150ng/mL [facility] Comment: Interpretive Data - Cocaine: Samples containing greater than 150 ng/mL benzoylecgonine or other cross- reacting compounds are reported as positive. False positive and false negative results are possible. Confirmatory testing required for definitive results. Current Interpretive Data was last reviewed 2023. Fentanyl, Ur Not Detected CutOff 5 ng/mL [facility] Comment: Interpretive Data - Fentanyl: Samples containing greater than 5 ng/mL norfentanyl, fentanyl, or other cross-reacting fentanyl compounds are reported as positive. False positive and false negative results are possible. Confirmatory testing required for definitive results. Current Interpretive Data was last reviewed 2023. Methadone, ur Not Detected CutOff 300ng/mL [facility] Comment: Interpretive Data - Methadone: Samples containing greater than 300 ng/mL d,l-methadone or other cross-reacting compounds are reported as positive. False positive and false negative results are possible. Confirmatory testing required for definitive results. Current Interpretive Data was last reviewed 2023. Opiates, ur Not Detected CutOff 300ng/mL [facility] Comment: Interpretive Data - Opiates: Samples containing greater than 300 ng/mL morphine or other cross-reacting compounds are reported as positive. False positive and false negative results are possible. Confirmatory testing required for definitive results. Current Interpretive Data was last reviewed 2023. Oxycodone, ur Not Detected CutOff 100ng/mL [facility] Comment: Interpretive Data - Oxycodone: Samples containing greater than 100 ng/mL oxycodone or other cross-reacting compounds are reported as positive. False positive and false negative results are possible. Confirmatory testing required for definitive results. Current Interpretive Data was last reviewed 2023. Phencyclidine, ur Not Detected CutOff 25 ng/mL [facility] Comment: Interpretive Data - Phencyclidine: Samples containing greater than 25 ng/mL phencyclidine or other cross-reacting compounds are reported as positive. False positive and false negative results are possible. Confirmatory testing required for definitive results. Current Interpretive Data was last reviewed 2023. Urine Creatinine 91 mg/dL [facility] Comment: Interpretive Data Urine Creatinine: < 10 mg/dL is extremely dilute = or > 10 but < 20 mg/dL is dilute = or > 20 mg/dL is normal Current Interpretive Data was last revised on 2017. Urine 03/20/2025 7:16 PM CDT 03/20/2025 7:30 PM CDT Narrative [facility] - 03/20/2025 8:00 PM CDT Drug of Abuse screening is performed by immunoassay for medical purposes only. This is not to be used for Pain Management purposes. Francis Kruger MD LAB URINE ORDERABLES F inal Result [facility] Department [place] [address] * eGFR (03/20/2025 7:02 PM CDT) eGFR 83 >=60 mL/min/1. 73 m2 Comment: Interpretive Data [...] of Race in Diagnosing Kidney Disease, JASN 202). The CKD-EPI equation should not be used for patients with unstable renal function and has not been validated in children and those over 70. Current interpretive data was last reviewed 2021. Blood 03/20/2025 7:02 PM CDT 03/20/2025 7:29 PM CDT us Francis Kruger MD LAB BLOOD ORDERABLES F inal Result [facility] Department [place] [address] * Differential, auto (03/20/2025 7:02 PM CDT) Neutrophil abs 5.92 1.50 - 6.50 K/cumm Imm gran abs 0.03 0.00 - 0.10 K/cumm [facility] Lymphocyte abs 1.55 0.80 - 3.30 K/cumm [facility] Monocyte abs 0.52 0.20 - 0.80 K/cumm [facility] Eosinophil abs 0.09 0.00 - 0.50 K/cumm [facility] Basophil abs 0.08 0.00 - 0.10 K/cumm [facility] Neutrophil pct 72.3 % [facility] Comment: Interpretive Data Percent cell count reference ranges are not reported, since discordance with absolute values may lead to misinterpretation of CBC data. Current Interpretive Data was last revised on 2017. Imm gran pct 0.4 % [facility] Comment: Interpretive Data Percent cell count reference ranges are not reported, since discordance with absolute values may lead to misinterpretation of CBC data. Current Interpretive Data was last revised on 2017. Lymphocyte pct 18.9 % [facility] Comment: Interpretive Data Percent cell count reference ranges are not reported, since discordance with absolute values may lead to misinterpretation of CBC data. Current Interpretive Data was last revised on 2017. Monocyte pct 6.3 % [facility] Comment: Interpretive Data Percent cell count reference ranges are not reported, since discordance with absolute values may lead to misinterpretation of CBC data. Current Interpretive Data was last revised on 2017. Eosinophil pct 1.1 % [facility] Comment: Interpretive Data Percent cell count reference ranges are not reported, since discordance with absolute values may lead to misinterpretation of CBC data. Current Interpretive Data was last revised on 2017. Basophil pct 1.0 % [facility] Comment: Interpretive Data Percent cell count reference ranges are not reported, since discordance with absolute values may lead to misinterpretation of CBC data. Current Interpretive Data was last revised on 2017. Blood 03/20/2025 7:02 PM CDT 03/20/2025 7:29 PM CDT Francis Kruger MD LAB BLOOD ORDERABLES F inal Result [facility] Department [place] [address] * Ethanol (03/20/2025 7:02 PM CDT) Ethanol <10 <=10 mg/dL Comment: Interpretive Data Legal limit of intoxication > or = 80 mg/dL Levels > or = 400 mg/dL are potentially TOXIC. Current interpretive data was last revised on 2018. Blood 03/20/2025 7:02 PM CDT 03/20/2025 7:29 PM CDT Francis Kruger MD LAB BLOOD ORDERABLES F inal Result Performing Organization Address City/[facility]/ZIP Co de Phone Number [facility] Jani [facility] Department [place] [address] * Thyroid Function [place] (03/20/2025 7:02 PM CDT) [facility] TSH 1.51 0.30 - 4.20 mcIUnit/mL Blood 03/20/2025 7:02 PM CDT 03/20/2025 7:29 PM CDT Francis Kruger MD LAB BLOOD ORDERABLES F inal Result Performing Organization Address [facility] Co de Phone Number [facility] Jan[facility] Department [place] [address] * (ABNORMAL) Comprehensive metabolic panel (03/20/2025 7:02 PM CDT) [facility] Sodium 141 135 - 145 mmol/L Potassium, pl 4.8 3.3 - 4.9 mmol/L [facility] Chloride 105 97 - 110 mmol/L [facility] CO2 28 22 - 32 mmol/L [facility] Anion gap 8 2 - 15 mmol/L [facility] BUN 11 6 - 25 mg/dL [facility] Creatinine 1.01 0.80 - 1.30 mg/dL [facility] Glucose 105 70 - 199 mg/dL [facility] Comment: Interpretive Data Fasting glucose >/= 126 [...] interpretive data was last revised 2022. Calcium 10.4(H) 8.5 - 10.3 mg/dL [facility] Bilirubin, total <0.2 0.1 - 1.2 mg/dL [facility] Protein, pl 8.2 6.5 - 8.5 g/dL [facility] Albumin 4.5 3.5 - 5.0 g/dL [facility] Alk phos 113 40 - 130 Units/L [facility] ALT 10 7 - 55 Units/L [facility] AST 22 10 - 50 Units/L [facility] Blood 03/20/2025 7:02 PM CDT 03/20/2025 7:29 PM CDT us Francis Kruger MD LAB BLOOD ORDERABLES F inal Result [facility] Department [place] [address] * (ABNORMAL) CBC with auto differential (03/20/2025 7:02 PM CDT) Pathologist [facility] WBC 8.19 3.80 - 9.90 K/cumm Hgb 11.5(L) 13.0 - 17.5 g/dL [facility] Hct 36.7(L) 38.9 - 50.3 % [facility] Plt 289 150 - 400 K/cumm [facility] MPV 10.9 9.1 - 12.3 fL [facility] RBC 4.49 4.30 - 5.80 M/cumm [facility] MCV 81.7 81.3 - 96.4 fL [facility] MCH 25.6(L) 27.1 - 33.3 pg [facility] MCHC 31.3(L) 32.3 - 35.7 g/dL [facility] RDW CV 17.1(H) 11.1 - 14.9 % [facility] RDW SD 50.2(H) 35.7 - 48.1 fL [facility] NRBC abs 0.00 0.00 - 0.01 K/cumm [facility] Blood Venous blood specimen / Unknown 03/20/2025 7:02 PM CDT 03/20/2025 7:29 PM CDT us Francis Kruger MD LAB BLOOD ORDERABLES F inal Result [facility] Department [place] [address] documented in this encounter Visit Diagnoses Diagnosis Suicidal thoughts- Primary Suicidal ideation Malingering Person feigning illness documented in this encounter Orders Consult Count Last Ordered Date First Orde red Date IP CONSULT TO PSYCHIATRY 1 03/20/2025 documented in this encounter Care Teams Seal Mix[employer] Operator Relationship Specialty Start Date End Date No, Physician PCP - General 03/03/25 documented as of this encounter
--- OUTSIDE RECORDS SUMMARY | 2025-03-22 23:50 | XMS_ITS | Clinical Summary ---
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 delirium/dementia given otherwise intact sensorium and cognition, less likely Korsakoff syndrome given no ophthalmoplegia/gait impairment. - start seroquel 100 mg qhs - patient declined to offer collateral names/contacts - continue to monitor for depressive signs or signs of psychosis Sprain of tarsal ligament of left foot 04/22/2018 11/22/2023 Assessment & Plan (04/22/2018 3:18 PM CDT): Patient has a sprain of the dorsal tarsal metatarsal ligaments. He is nontender the plantar aspect of the foot and would likely be sufficiently protected with a postop shoe were hard thick soled boot. Closed nondisplaced fracture of head of right radius 04/22/2018 11/22/2023 Assessment & Plan (04/22/2018 3:18 PM CDT): Patient has a nondisplaced fracture of the radial head. A long-arm cast should protect the ulna as well as a radial head but would ideally like to get him out of a long-arm immobilization as soon as possible to prevent ankylosis at the elbow Closed displaced comminuted fracture of shaft of right ulna 04/22/2018 11/22/2023 Assessment & Plan (04/22/2018 3:19 PM CDT): Patient has a displaced comminuted fracture of the ulnar shaft that appears to be healing with some angulation and displacement. Closed reduction in the unlikely be successful. Patient would be increased risks of wound healing problems with multiple skin disruptions AC separation, right, initial encounter 04/22/2018 11/22/2023 Assessment & Plan (04/22/2018 5:45 PM CDT): Patient has grade 2 AC separation. He should avoid heavy lifting pushing or pulling with the arm. We will be in a cast for the lower arm injuries Encounters Date Type Department Care Team Description 03/21/2025 9:22 AM CDT - 03/21/2025 2:47 PM CDT Emergency [facility] [address] [place] [address] Zhang Lang MD Depression, unspecified depression type (Primary Dx); Malingering Discharge Disposition: Discharge to home or self care 03/20/2025 6:48 PM CDT - 03/21/2025 1:46 AM CDT Emergency [facility] Emergency Department [address] [place] [address] Francis Kruger MD Suicidal thoughts (Primary Dx); Malingering Discharge Disposition: Discharge to home or self care 03/04/2025 5:50 AM CDT - 03/06/2025 6:45 PM CDT Hospital Encounter [facility] [address] [place] [id number] Jarred Bernal MD de Leon, Victoria Carmen, MD Healthcare maintenance (Primary Dx); Malingering [Z76.5] Discharge Disposition: Discharge to home or self care 03/03/2025 6:09 PM CDT - 03/04/2025 5:24 AM CDT Emergency [facility] Emergency Department [address] [place] [address] Les Colorado MD Severe episode of recurrent major depressive disorder, without psychotic features (HCC) (Primary Dx); Suicidal thoughts Discharge Disposition: Discharge to a residential care hospital 01/17/2025 8:31 AM CDT - 01/17/2025 11:00 AM CDT Emergency [facility] Emergency Department [address] [place] [address] Ashley Coreas MD Suicidal ideation (Primary Dx); History of depression Discharge Disposition: Discharge to home or self care 01/17/2025 1:42 AM CDT - 01/17/2025 4:16 AM CDT Emergency [facility] Emergency Department [address] [place] [address] Acosta Tomlinson MD Acute right ankle pain (Primary Dx) Discharge Disposition: Discharge to home or self care 01/17/2025 Results Follow-Up [facility] Emergency Department [address] [place] [address] Keegan Bah RN CBC with auto differential, Comprehensive metabolic panel, Urinalysis reflex to microscopic, Additional followed-up results: 3 from Last 3 Months Immunizations Immunization Administration Dates Next Due Influenza, Trivalent, High D ose, Split, Preservative Free, Intramuscular 12/03/2024 Moodlerooms SARS-CoV-2 Monovalent Vaccination (12+ Yrs) FINE-READY TO USE 12/05/2022 Surgical History Surgery Date Site/Laterality Comments HIP SURGERY JOINT REPLACEMENT Medical History Medical History Date Comments Suicidal behavior with attempted self-injury (HC C) Pre-diabetes Hypertension Closed displaced comminuted fracture of shaft of right ulna 04/22/2018 Closed nondisplaced fracture of head of right ra dius 04/22/2018 Concussion with loss of consciousness 03/28/2022 Chalazion left upper eyelid 04/06/2022 AC separation, right, initial encounter 8 Sprain of tarsal ligament of left foot 04/22/2018 Malingering 10/09/2020 Manipulative behavior 11/29/2022 Family History Medical History Relation Name Comments Heart disease Father Family history of cardiac disorder - (Added by TW Conv) Arthritis Mother Family history of arthritis - (Added by TW Conv) Relation Name Status Comments Father Mother Social History Tobacco Use Types Packs/Day Years Used Date Smoking Tobacco: Former Smokeless Tobacco: Never Alcohol Use Standard Drinks/Week Comments No 0 (1 standard drink = 0.6 oz pur e alcohol) [facility] Utilities Answer Date Recorded In [...] 03/04/2025 How often do you attend chur ch or sabianist services? 1 to 4 times per year [...] staff should administer the PHQ-9) 2 03/04/2025 [facility] of Occupat ional [facility] - Occupational Stress Questionnaire Answer Date [...] place to sleep or slept in a group home (including now)? Yes 11/23/2023 PHQ-9 Answer Date [...] any time in the past 12 m [facility], were you homeless or living in a group home (including now)? 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 Gender Identity Not on file Sexual Orientation Not on file Obstetrics History Last Filed Vital Signs Vital Sign Reading [...] Mass Index 30.85 03/20/2025 6:52 PM CDT Plan of Treatment Scheduled Procedures Name Priority Associated Diagnoses Date/Ti me COLONOSCOPY Open Access Healthcare maintenance Health Maintenance Due Date Last Done Comments Albumin Creatinine Ratio, Urine 1959 Colon Cancer Screening-Colonoscopy 1959 Hepatitis C Screening 1959 Dilated Eye Exam 1959 DTaP/Tdap/Td Vaccine (1 - Tdap) 1970 Hepatitis B Screening 1977 Pneumococcal vaccine 65+ (1 of 2 - PCV) 1978 Zoster Vaccine (1 of 2) 2009 Covid-19 Vaccine (3 - 2023-2 5 season) 2024 12/05/2022, 01/17/2021 Abdominal Aortic Aneurysm (A AA) Screen 2024 04/20/2020, 03/28/2018 Well Visit 65+ 2024 Influenza Vaccine (#1) 2025 , 07/17/2023, 10/28/2022, Additional history exists Hemoglobin A1C 06/06/2025 12/04/2024, 06/07, 12/09/2023, Additional history exists Prostate Cancer Screening-PSA 07/14/2025, 11/25/2022, 08/06/2017 Foot Exam 12/03/2025 12/03/2024 Lipid Panel 12/04/2025 12/04/2024, 06/07, 12/09/2023, Additional history exists Depression Screening 03/04/2026 03/04/2025, 03/04/2025, 12/08/2024, Additional history exists Fall Risk Assessment 03/06/2026 03/06/2025 eGFR 03/21/2026 03/21/2025, 03/07, 03/03/2025, Additional history exists Procedures Procedure Name Priority Date/Time Associated Diagnosis Comments INFLUENZA A/B, RSV, AND COVID-19 PCR STAT 03/21/2025 12:10 PM CDT DRUGS OF ABUSE SCREEN, URINE WITHOUT CONFIRMATION STAT 03/21/2025 9:47 AM CDT URINALYSIS AND REFLEX TO MICROSCOPIC AND CULTURE STAT 03/21/2025 9:47 AM CDT ETHANOL STAT 03/21/2025 9:44 AM CDT EGFR STAT 03/21/2025 9:32 AM CDT DIFFERENTIAL AUTO STAT 03/21/2025 9:3 2 AM CDT TROPONIN T HIGH-SENSITIVITY SERIES (BASELINE, 2HR, 4HR, 6HR) STAT 03/21/2025 9:32 AM CDT LIPASE STAT 03/21/2025 9:32 AM CDT COMPREHENSIVE METABOLIC PANEL STAT 03/21/2025 9:32 AM CDT CBC WITH AUTO DIFFERENTIAL STAT 03/21/2025 9:32 AM CDT ECG 12-LEAD STAT 03/21/2025 9:29 AM CDT POCT RAPID HIV ANTIBODY COMMUNITY SCREENING-ZAC ELIGIBLE Routine 03/20/2025 7:19 PM CDT URINALYSIS AND REFLEX TO MICROSCOPIC STAT 03/20/2025 7:16 PM CDT DRUGS OF ABUSE SCREEN, URINE WITHOUT CONFIRMATION STAT 03/20/2025 7:16 PM CDT EGFR STAT 03/20/2025 7:02 PM CDT DIFFERENTIAL AUTO STAT 03/20/2025 7:0 2 PM CDT ETHANOL STAT 03/20/2025 7:02 PM CDT THYROID FUNCTION CASCADE STAT 03/20/2025 7:02 PM CDT COMPREHENSIVE METABOLIC PANEL STAT 03/20/2025 7:02 PM CDT CBC WITH AUTO DIFFERENTIAL STAT 03/20/2025 7:02 PM CDT ECG 12-LEAD STAT 03/03/2025 8:12 PM CDT DRUGS OF ABUSE SCREEN, URINE WITHOUT CONFIRMATION STAT 03/03/2025 8:11 PM CDT EGFR STAT 03/03/2025 8:08 PM CDT DIFFERENTIAL AUTO STAT 03/03/2025 8:0 8 PM CDT SALICYLATE LEVEL STAT 03/03/2025 8:08 PM CDT ETHANOL STAT 03/03/2025 8:08 PM CDT COMPREHENSIVE METABOLIC PANEL STAT 03/03/2025 8:08 PM CDT CBC WITH AUTO DIFFERENTIAL STAT 03/03/2025 8:08 PM CDT ACETAMINOPHEN LEVEL STAT 03/03/2025 8 :08 PM CDT COVID-19 CORONAVIRUS RNA STAT 03/03/2025 8:08 PM CDT URINALYSIS AND REFLEX TO MICROSCOPIC AND CULTURE STAT 03/03/2025 8:08 PM CDT EGFR STAT 01/17/2025 8:50 AM CDT URINALYSIS, MICROSCOPIC ONLY STAT 01/17/2025 8:50 AM CDT DIFFERENTIAL AUTO STAT 01/17/2025 8:5 0 AM CDT THYROID FUNCTION CASCADE STAT 01/17/2025 8:50 AM CDT DRUGS OF ABUSE SCREEN, URINE WITHOUT CONFIRMATION STAT 01/17/2025 8:50 AM CDT URINALYSIS AND REFLEX TO MICROSCOPIC STAT 01/17/2025 8:50 AM CDT ETHANOL STAT 01/17/2025 8:50 AM CDT COMPREHENSIVE METABOLIC PANEL STAT 01/17/2025 8:50 AM CDT CBC WITH AUTO DIFFERENTIAL STAT 01/17/2025 8:50 AM CDT XR ANKLE RIGHT 3 OR MORE VIEWS ED 01/17/2025 1:18 AM CDT XR ANKLE LEFT 3 OR MORE VIEWS ED 01/17/2025 1:18 AM CDT XR KNEE RIGHT 4 OR MORE VIEWS ED 01/17/2025 1:18 AM CDT XR KNEE LEFT 1 OR 2 VIEWS ED 01/17/2025 1:18 AM CDT HEMOGLOBIN A1C Routine 12/04/2024 6:18 AM CDT LIPID PANEL Routine 12/04/2024 6:18 AM CDT PSA SCREEN Routine 07/14/2023 12:18 PM 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 This test is performed using the [employer] Xpert Xpress CoV-2/Flu/RSV plus assay. This is a multiplex, real-time reverse transcriptase PCR assay intended for the qualitative detection of nucleic acid from SARS-CoV-2, influenza A, influenza B, and respiratory syncytial virus. This assay has been cleared by the [place] Food and Drug administration. The performance characteristics have been verified by the [facility]. Results must be considered in the clinical context, and a negative result does not rule out infection. Interpretive Data last revised 2023 Nasopharyngeal 03/21/2025 12 :10 PM CDT 03/21/2025 1:01 PM CDT Narrative [facility] - 03/21/2025 1:44 PM CDT Is the Patient experiencing symptoms consistent with COVID?->No us Zhang Lang MD LAB MICROBIOLOGY - GENERAL ORDERABLES Final Result [facility] [address] [place] [address] * Urinalysis reflex to microscopic and culture Urine (03/21/2025 9:47 AM CDT) Color, ur Yellow Yellow Clarity, ur Clear Clear [facility] Specific gravity, ur 1.024 1.003 - 1.030 [facility] pH, urine 7.0 [facility] Comment: Interpretive Data U rine pH is affected by diet, medications, systemic acid-base disturbances, and renal tubular function. pH may affect urinary stone formation. For example, urine pH below 6.0 may help reduce the tendency for calcium phosphate stones and pH greater than 6.0 may reduce the tendency for uric acid stone formation. Source: [facility] Current Interpretive Data was last revised on 2017 Protein, ur ql Trace Negative [facility] Glucose, ur ql Negative Negative [facility] Ketones, ur Negative Negative [facility] Bilirubin, ur Negative Negative [facility] Blood, ur Negative Negative [facility] Urobilinogen, ur <2.0 <2.0 mg/dL [facility] Nitrite, ur Negative Negative [facility] Leukocyte esterase, ur Negative Negative [facility] UA reflex comment Reflex conditions for microscopic UA and culture not met. [facility] Urine 03/21/2025 9:47 AM CDT 03/21/2025 9:47 AM CDT Zhang Lang MD LAB MICROBIOLOGY - GENERAL ORDERABLES Final Result [facility] [address] [place] [address] * (ABNORMAL) Drugs of Abuse Screen, Urine without Confirmation (03/21/2025 9:47 AM CDT) Pathologist [facility] Amphetamine, ur Not Detected CutOff 500ng/mL Comment: Interpretive Data - Amphetamines: Samples containing greater than 500 ng/mL d-methamphetamine or other cross-reacting amphetamine compounds are reported as positive. Amphetamine immunoassays are subject to significant false positive rates due to cross-reactivity of non-amphetamine drugs. Confirmatory testing required for definitive results. Current Interpretive Data was last reviewed 2023. Barbiturates, ur Not Detected CutOff 200ng/mL [facility] Comment: Interpretive Data - Barbiturates: Samples containing greater than 200 ng/mL secobarbital or other cross-reacting barbiturate compounds are reported as positive. False positive and false negative results are possible. Confirmatory testing required for definitive results. Current Interpretive Data was last reviewed 2023. Benzodiazepines, ur Not Detected CutOff 100ng/mL [facility] Comment: Interpretive Data - Benzodiazepines: Samples containing greater than 100 ng/mL nordiazepam or other cross-reacting compounds are reported as positive. False positive and false negative results are possible. Confirmatory testing required for definitive results. Current Interpretive Data was last reviewed 2023. Cannabinoids, ur Not Detected CutOff 50 ng/mL [facility] Comment: Interpretive Data - Cannabinoids: Samples containing greater than 50 ng/mL delta-9 THC -COOH or other cross- reacting compounds are reported as positive. False positive and false negative results are possible. Confirmatory testing required for definitive results. Current Interpretive Data was last reviewed 2023. Cocaine, ur Screen Positive, presumptive (A) CutOff 150ng/mL [facility] Comment: Interpretive Data - Cocaine: Samples containing greater than 150 ng/mL benzoylecgonine or other cross- reacting compounds are reported as positive. False positive and false negative results are possible. Confirmatory testing required for definitive results. Current Interpretive Data was last reviewed 2023. Fentanyl, Ur Not Detected CutOff 5 ng/mL [facility] Comment: Interpretive Data - Fentanyl: Samples containing greater than 5 ng/mL norfentanyl, fentanyl, or other cross-reacting fentanyl compounds are reported as positive. False positive and false negative results are possible. Confirmatory testing required for definitive results. Current Interpretive Data was last reviewed 2023. Methadone, ur Not Detected CutOff 300ng/mL [facility] Comment: Interpretive Data - Methadone: Samples containing greater than 300 ng/mL d,l-methadone or other cross-reacting compounds are reported as positive. False positive and false negative results are possible. Confirmatory testing required for definitive results. Current Interpretive Data was last reviewed 2023. Opiates, ur Not Detected CutOff 300ng/mL [facility] Comment: Interpretive Data - Opiates: Samples containing greater than 300 ng/mL morphine or other cross-reacting compounds are reported as positive. False positive and false negative results are possible. Confirmatory testing required for definitive results. Current Interpretive Data was last reviewed 2023. Oxycodone, ur Not Detected CutOff 100ng/mL [facility] Comment: Interpretive Data - Oxycodone: Samples containing greater than 100 ng/mL oxycodone or other cross-reacting compounds are reported as positive. False positive and false negative results are possible. Confirmatory testing required for definitive results. Current Interpretive Data was last reviewed 2023. Phencyclidine, ur Not Detected CutOff 25 ng/mL [facility] Comment: Interpretive Data - Phencyclidine: Samples containing greater than 25 ng/mL phencyclidine or other cross-reacting compounds are reported as positive. False positive and false negative results are possible. Confirmatory testing required for definitive results. Current Interpretive Data was last reviewed 2023. Urine Creatinine 154 mg/dL [facility] Comment: Interpretive Data Urine Creatinine: < 10 mg/dL is extremely dilute = or > 10 but < 20 mg/dL is dilute = or > 20 mg/dL is normal Current Interpretive Data was last revised on 2017. Urine 03/21/2025 9:47 AM CDT 03/21/2025 10:23 AM CDT Narrative [facility] - 03/21/2025 10:54 AM CDT Drug of Abuse screening is performed by immunoassay for medical purposes only. This is not to be used for Pain Management purposes. Zhang Lang MD LAB URINE ORDERABLES Final Result [facility] [address] [place] [address] * Ethanol (03/21/2025 9:44 AM CDT) Ethanol <10 <=10 mg/dL Comment: Interpretive Data Legal limit of intoxication > or = 80 mg/dL Levels > or = 400 mg/dL are potentially TOXIC. Current interpretive data was last revised on 2018. Blood 03/21/2025 9:44 AM CDT 03/21/2025 10:08 AM CDT Zhang Lang MD LAB BLOOD ORDERABLES Final Result Performing Organization Address [facility] Co de Phone Number [facility] [address] Department of Laboratories [place], [place] [phone] * Troponin T high-sensitivity series (baseline, 2hr, [...] BLOOD ORDERABLES Final Result Performing Organization Address [facility]/ZIP Co de Phone Number [facility] [address] Department of [place] [place], [place] [id number] * eGFR (03/21/2025 9:32 AM CDT) eGFR [...] Lang MD LAB BLOOD ORDERABLES Final Result [facility] [address] [place] [address] * Differential, auto (03/21/2025 9:32 AM CDT) Neutrophil abs 6.26 1.50 - 6.50 K/cumm Imm gran abs 0.02 0.00 - 0.10 K/cumm [facility] Lymphocyte abs 1.68 0.80 - 3.30 K/cumm [facility] Monocyte abs 0.62 0.20 - 0.80 K/cumm [facility] Eosinophil abs 0.13 0.00 - 0.50 K/cumm [facility] Basophil abs 0.06 0.00 - 0.10 K/cumm [facility] Neutrophil pct 71.3 % [facility] Comment: Interpretive Data Percent cell count reference ranges are not reported, since discordance with absolute values may lead to misinterpretation of CBC data. Current Interpretive Data was last revised on 2017. Imm gran pct 0.2 % [facility] Comment: Interpretive Data Percent cell count reference ranges are not reported, since discordance with absolute values may lead to misinterpretation of CBC data. Current Interpretive Data was last revised on 2017. Lymphocyte pct 19.2 % [facility] Comment: Interpretive Data Percent cell count reference ranges are not reported, since discordance with absolute values may lead to misinterpretation of CBC data. Current Interpretive Data was last revised on 2017. Monocyte pct 7.1 % [facility] Comment: Interpretive Data Percent cell count reference ranges are not reported, since discordance with absolute values may lead to misinterpretation of CBC data. Current Interpretive Data was last revised on 2017. Eosinophil pct 1.5 % [facility] Comment: Interpretive Data Percent cell count reference ranges are not reported, since discordance with absolute values may lead to misinterpretation of CBC data. Current Interpretive Data was last revised on 2017. Basophil pct 0.7 % [facility] Comment: Interpretive Data Percent cell count reference ranges are not reported, since discordance with absolute values may lead to misinterpretation of CBC data. Current Interpretive Data was last revised on 2017. Blood 03/21/2025 9:32 AM CDT 03/21/2025 9:42 AM CDT us Zhang Lang MD LAB BLOOD ORDERABLES Final Result [facility] [address] Department [place] [address] * (ABNORMAL) CBC with auto differential (03/21/2025 9:32 AM CDT) WBC 8.77 3.80 - 9.90 K/cumm Hgb 11.5(L) 13.0 - 17.5 g/dL [facility] Hct 35.9(L) 38.9 - 50.3 % [facility] Plt 274 150 - 400 K/cumm [facility] MPV 10.1 9.1 - 12.3 fL [facility] RBC 4.34 4.30 - 5.80 M/cumm [facility] MCV 82.7 81.3 - 96.4 fL [facility] MCH 26.5(L) 27.1 - 33.3 pg [facility] MCHC 32.0(L) 32.3 - 35.7 g/dL [facility] RDW CV 16.7(H) 11.1 - 14.9 % [facility] RDW SD 50.3(H) 35.7 - 48.1 fL [facility] NRBC abs 0.02(H) 0.00 - 0.01 K/cumm [facility] Blood Venous blood specimen / Unknown 03/21/2025 9:32 AM CDT 03/21/2025 9:42 AM CDT us Zhang Lang MD LAB BLOOD ORDERABLES Final Result [facility] [address] [place] [address] * Lipase (03/21/2025 9:32 AM CDT) [facility] Lipase 47 10 - 99 Units/L Blood Venous blood specimen / Unknown 03/21/2025 9:32 AM CDT 03/21/2025 9:42 AM CDT Zhang Lang MD LAB BLOOD ORDERABLES Final Result Performing Organization Address [facility] de Phone Number [facility] [address] [place] [address] * Comprehensive metabolic panel (03/21/2025 9:32 AM CDT) [facility] Sodium 141 135 - 145 mmol/L Potassium, pl 4.4 3.3 - 4.9 mmol/L [facility] Chloride 105 97 - 110 mmol/L [facility] CO2 23 22 - 32 mmol/L [facility] Anion gap 13 2 - 15 mmol/L [facility] BUN 12 6 - 25 mg/dL [facility] Creatinine 0.90 0.80 - 1.30 mg/dL [facility] Glucose 136 70 - 199 mg/dL [facility] Comment: Interpretive Data Fasting glucose [...] 2022. Calcium 9.4 8.5 - 10.3 mg/dL [facility] Bilirubin, total 0.2 0.1 - 1.2 mg/dL [facility] Protein, pl 7.1 6.5 - 8.5 g/dL [facility] Albumin 4.1 3.5 - 5.0 g/dL [facility] Alk phos 109 40 - 130 Units/L [facility] ALT 9 7 - 55 Units/L [facility] AST 19 10 - 50 Units/L [facility] Blood 03/21/2025 9:32 AM CDT 03/21/2025 9:42 AM CDT Zhang Lang MD LAB BLOOD ORDERABLES Final Result Performing Organization Address [facility] Co de Phone Number [facility] [address] [place] [address] * ECG 12 lead (03/21/2025 9:29 AM CDT) 03/21/2025 9:29 AM CDT Narrative [facility] - 03/21/2025 8:40 PM CDT Vent Rate: 77 bpm RR Interval: 773 msec [place] Interval: 241 msec QRS Duration: 96 msec QT Interval: 364 msec QTC Interval: 396 msec P-R-T Huger: 28 - -11 - 54 degrees IMPRESSION: SINUS RHYTHM WITH FIRST DEGREE AV BLOCK Possible SEPTAL MYOCARDIAL INFARCTION , PROBABLY OLD [40+ ms Q WAVE IN V1/V2] ABNORMAL ECG Electronically Signed By: Ed Sutton MD Zhang Lang MD ECG ORDERABLES Final Resu lt [facility] [employer] [facility] * POCT Rapid HIV Antibody Community Screening-Zac Eligible (03/20/2025 7:19 PM CDT) [facility] Rapid HIV, POC Negative Negative Lot Number [id number] QC Control Line Acceptable Blood 03/20/2025 7:19 PM CDT Francis Kruger MD POINT OF CARE TEST ORD ERABLES Final Result * Urinalysis reflex to microscopic (03/20/2025 7:16 PM CDT) Color, ur Straw Yellow Clarity, ur Clear Clear [facility] [facility] Specific gravity, ur 1.017 1.003 - 1.030 [facility] pH, urine 7.0 [facility] Comment: Interpretive Data U rine pH is affected by diet, medications, systemic acid-base disturbances, and renal tubular function. pH may affect urinary stone formation. For example, urine pH below 6.0 may help reduce the tendency for calcium phosphate stones and pH greater than 6.0 may reduce the tendency for uric acid stone formation. Source: [facility] Pfenex Current Interpretive Data was last revised on 2017 Protein, ur ql Negative Negative [facility] Glucose, ur ql Negative Negative [facility] Ketones, ur Negative Negative [facility] Bilirubin, ur Negative Negative [facility] Blood, ur Negative Negative [facility] Urobilinogen, ur <2.0 <2.0 mg/dL [facility] Nitrite, ur Negative Negative [facility] Leukocyte esterase, ur Negative Negative [facility] UA reflex comment Reflex conditions for microscopic UA not met. [facility] Urine 03/20/2025 7:16 PM CDT 03/20/2025 7:21 PM CDT Francis Kruger MD LAB URINE ORDERABLES F inal Result [facility] [place] [address] * (ABNORMAL) Drugs of Abuse Screen, Urine [...] Barbiturates, ur Not Detected CutOff 200ng/mL [facility] Comment: Interpretive Data - Barbiturates: Samples containing greater than 200 ng/mL secobarbital or other cross-reacting barbiturate compounds are reported as positive. False positive and false negative results are possible. Confirmatory testing required for definitive results. Current Interpretive Data was last reviewed 2023. Benzodiazepines, ur Not Detected CutOff 100ng/mL [facility] Comment: Interpretive Data - Benzodiazepines: Samples containing greater than 100 ng/mL nordiazepam or other cross-reacting compounds are reported as positive. False positive and false negative results are possible. Confirmatory testing required for definitive results. Current Interpretive Data was last reviewed 2023. Cannabinoids, ur Not Detected CutOff 50 ng/mL [facility] Comment: Interpretive Data - Cannabinoids: Samples containing greater than 50 ng/mL delta-9 THC -COOH or other cross- reacting compounds are reported as positive. False positive and false negative results are possible. Confirmatory testing required for definitive results. Current Interpretive Data was last reviewed 2023. Cocaine, ur Screen Positive, presumptive (A) CutOff 150ng/mL [facility] Comment: Interpretive Data - Cocaine: Samples containing greater than 150 ng/mL benzoylecgonine or other cross- reacting compounds are reported as positive. False positive and false negative results are possible. Confirmatory testing required for definitive results. Current Interpretive Data was last reviewed 2023. Fentanyl, Ur Not Detected CutOff 5 ng/mL [facility] Comment: Interpretive Data - Fentanyl: Samples containing greater than 5 ng/mL norfentanyl, fentanyl, or other cross-reacting fentanyl compounds are reported as positive. False positive and false negative results are possible. Confirmatory testing required for definitive results. Current Interpretive Data was last reviewed 2023. Methadone, ur Not Detected CutOff 300ng/mL [facility] Comment: Interpretive Data - Methadone: Samples containing greater than 300 ng/mL d,l-methadone or other cross-reacting compounds are reported as positive. False positive and false negative results are possible. Confirmatory testing required for definitive results. Current Interpretive Data was last reviewed 2023. Opiates, ur Not Detected CutOff 300ng/mL [facility] Comment: Interpretive Data - Opiates: Samples containing greater than 300 ng/mL morphine or other cross-reacting compounds are reported as positive. False positive and false negative results are possible. Confirmatory testing required for definitive results. Current Interpretive Data was last reviewed 2023. Oxycodone, ur Not Detected CutOff 100ng/mL [facility] Comment: Interpretive Data - Oxycodone: Samples containing greater than 100 ng/mL oxycodone or other cross-reacting compounds are reported as positive. False positive and false negative results are possible. Confirmatory testing required for definitive results. Current Interpretive Data was last reviewed 2023. Phencyclidine, ur Not Detected CutOff 25 ng/mL [facility] Comment: Interpretive Data - Phencyclidine: Samples containing greater than 25 ng/mL phencyclidine or other cross-reacting compounds are reported as positive. False positive and false negative results are possible. Confirmatory testing required for definitive results. Current Interpretive Data was last reviewed 2023. Urine Creatinine 91 mg/dL [facility] Comment: Interpretive Data Urine Creatinine: < 10 mg/dL is extremely dilute = or > 10 but < 20 mg/dL is dilute = or > 20 mg/dL is normal Current Interpretive Data was last revised on 2017. Urine 03/20/2025 7:16 PM CDT 03/20/2025 7:30 PM CDT [facility]ative [facility] - 03/20/2025 8:00 PM CDT Drug of Abuse screening is performed by immunoassay for medical purposes only. This is not to be used for Pain Management purposes. Francis Kruger MD LAB URINE ORDERABLES F inal Result [facility] [place] [address] * eGFR (03/20/2025 7:02 PM CDT) eGFR [...] MD LAB BLOOD ORDERABLES F inal Result [facility] [place] [address] * Differential, auto (03/20/2025 7:02 PM CDT) Neutrophil abs 5.92 1.50 - 6.50 K/cumm Imm gran abs 0.03 0.00 - 0.10 K/cumm [facility] Lymphocyte abs 1.55 0.80 - 3.30 K/cumm [facility] Monocyte abs 0.52 0.20 - 0.80 K/cumm [facility] Eosinophil abs 0.09 0.00 - 0.50 K/cumm [facility] Basophil abs 0.08 0.00 - 0.10 K/cumm [facility] Neutrophil pct 72.3 % [facility] Comment: Interpretive Data Percent cell count reference ranges are not reported, since discordance with absolute values may lead to misinterpretation of CBC data. Current Interpretive Data was last revised on 2017. Imm gran pct 0.4 % [facility] Comment: Interpretive Data Percent cell count reference ranges are not reported, since discordance with absolute values may lead to misinterpretation of CBC data. Current Interpretive Data was last revised on 2017. Lymphocyte pct 18.9 % [facility] Comment: Interpretive Data Percent cell count reference ranges are not reported, since discordance with absolute values may lead to misinterpretation of CBC data. Current Interpretive Data was last revised on 2017. Monocyte pct 6.3 % [facility] Comment: Interpretive Data Percent cell count reference ranges are not reported, since discordance with absolute values may lead to misinterpretation of CBC data. Current Interpretive Data was last revised on 2017. Eosinophil pct 1.1 % [facility] Comment: Interpretive Data Percent cell count reference ranges are not reported, since discordance with absolute values may lead to misinterpretation of CBC data. Current Interpretive Data was last revised on 2017. Basophil pct 1.0 % [facility] Comment: Interpretive Data Percent cell count reference ranges are not reported, since discordance with absolute values may lead to misinterpretation of CBC data. Current Interpretive Data was last revised on 2017. Blood 03/20/2025 7:02 PM CDT 03/20/2025 7:29 PM CDT Francis Kruger MD LAB BLOOD ORDERABLES F inal Result Performing Organization Address [facility] Co de Phone Number [facility] [place] [address] * Thyroid Function Coles (03/20/2025 7:02 PM CDT) TSH 1.51 0.30 - 4.20 mcIUnit/mL Blood 03/20/2025 7:02 PM CDT 03/20/2025 7:29 PM CDT Francis Kruger MD LAB BLOOD ORDERABLES F inal Result Performing Organization Address [facility] Co de Phone Number [facility] Department [place] [address] * (ABNORMAL) CBC with auto differential (03/20/2025 7:02 PM CDT) Pathologist [facility] WBC 8.19 3.80 - 9.90 K/cumm Hgb 11.5(L) 13.0 - 17.5 g/dL [facility] Hct 36.7(L) 38.9 - 50.3 % [facility] Plt 289 150 - 400 K/cumm [facility] MPV 10.9 9.1 - 12.3 fL [facility] RBC 4.49 4.30 - 5.80 M/cumm [facility] MCV 81.7 81.3 - 96.4 fL [facility] MCH 25.6(L) 27.1 - 33.3 pg [facility] MCHC 31.3(L) 32.3 - 35.7 g/dL [facility] RDW CV 17.1(H) 11.1 - 14.9 % [facility] RDW SD 50.2(H) 35.7 - 48.1 fL [facility] NRBC abs 0.00 0.00 - 0.01 K/cumm [facility] Blood Venous blood specimen / Unknown 03/20/2025 7:02 PM CDT 03/20/2025 7:29 PM CDT us Francis Kruger MD LAB BLOOD ORDERABLES F inal Result [facility] [place] [address] * Ethanol (03/20/2025 7:02 PM CDT) Pathologist [facility] Ethanol <10 <=10 mg/dL Comment: Interpretive Data Legal limit of intoxication > or = 80 mg/dL Levels > or = 400 mg/dL are potentially TOXIC. Current interpretive data was last revised on 2018. Blood 03/20/2025 7:02 PM CDT 03/20/2025 7:29 PM CDT us Francis Kruger MD LAB BLOOD ORDERABLES F inal Result [facility] [place] [address] * (ABNORMAL) Comprehensive metabolic panel (03/20/2025 7:02 PM CDT) Sodium 141 135 - 145 mmol/L Potassium, pl 4.8 3.3 - 4.9 mmol/L [facility] Chloride 105 97 - 110 mmol/L [facility] CO2 28 22 - 32 mmol/L [facility] Anion gap 8 2 - 15 mmol/L [facility] BUN 11 6 - 25 mg/dL [facility] Creatinine 1.01 0.80 - 1.30 mg/dL [facility] Glucose 105 70 - 199 mg/dL [facility] Comment: Interpretive Data Fasting glucose >/= [...] classification and Diagnosis of Diabetes Diabetes Care 202; 46: S19-S40. Current interpretive data was last revised 2022. Calcium 10.4(H) 8.5 - 10.3 mg/dL [facility] Bilirubin, total <0.2 0.1 - 1.2 mg/dL [facility] Protein, pl 8.2 6.5 - 8.5 g/dL [facility] Albumin 4.5 3.5 - 5.0 g/dL [facility] Alk phos 113 40 - 130 Units/L [facility] ALT 10 7 - 55 Units/L [facility] AST 22 10 - 50 Units/L [facility] Blood 03/20/2025 7:02 PM CDT 03/20/2025 7:29 PM CDT Francis Kruger MD LAB BLOOD ORDERABLES F inal Result Performing Organization Address City/[facility] Co de Phone Number [facility] [place] [address] * ECG 12 lead (03/03/2025 8:12 PM CDT) 03/03/2025 8:12 PM CDT Narrative [facility] - 03/05/2025 6:51 PM CDT Vent Rate: 79 bpm RR Interval: 751 msec [place] Interval: 213 msec QRS Duration: 91 msec QT Interval: 365 msec QTC Interval: 400 msec P-R-T Huger: 232 - -30 - 46 degrees IMPRESSION: SINUS RHYTHM WITH FIRST DEGREE AV BLOCK POSSIBLE LEFT ATRIAL ENLARGEMENT [-0.1mV P-WAVE IN V1/V2] POSSIBLE ANTERIOR MYOCARDIAL INFARCTION , OF INDETERMINATE AGE [30 ms Q WAVE IN V3/V4, OR R < 0.2 mV IN V4] ABNORMAL ECG Electronically Signed By: Kevyn Gramajo DO, [facility] us Les Colorado MD ECG ORDERABLES Final Resul t Performing Organization Address [facility] Co de Phone Number [facility] * Drugs of Abuse Screen, Urine without Confirmation (03/03/2025 8:11 PM CDT) Pathologist [facility] Amphetamine, ur Not Detected CutOff 500ng/mL Comment: Interpretive Data - Amphetamines: Samples containing greater than 500 ng/mL d-methamphetamine or other cross-reacting amphetamine compounds are reported as positive. Amphetamine immunoassays are subject to significant false positive rates due to cross-reactivity of non-amphetamine drugs. Confirmatory testing required for definitive results. Current Interpretive Data was last reviewed 2023. Barbiturates, ur Not Detected CutOff 200ng/mL [facility] Comment: Interpretive Data - Barbiturates: Samples containing greater than 200 ng/mL secobarbital or other cross-reacting barbiturate compounds are reported as positive. False positive and false negative results are possible. Confirmatory testing required for definitive results. Current Interpretive Data was last reviewed 2023. Benzodiazepines, ur Not Detected CutOff 100ng/mL [facility] Comment: Interpretive Data - Benzodiazepines: Samples containing greater than 100 ng/mL nordiazepam or other cross-reacting compounds are reported as positive. False positive and false negative results are possible. Confirmatory testing required for definitive results. Current Interpretive Data was last reviewed 2023. Cannabinoids, ur Not Detected CutOff 50 ng/mL [facility] Comment: Interpretive Data - Cannabinoids: Samples containing greater than 50 ng/mL delta-9 THC -COOH or other cross- reacting compounds are reported as positive. False positive and false negative results are possible. Confirmatory testing required for definitive results. Current Interpretive Data was last reviewed 2023. Cocaine, ur Not Detected CutOff 150ng/mL [facility] Comment: Interpretive Data - Cocaine: Samples containing greater than 150 ng/mL benzoylecgonine or other cross- reacting compounds are reported as positive. False positive and false negative results are possible. Confirmatory testing required for definitive results. Current Interpretive Data was last reviewed 2023. Fentanyl, Ur Not Detected Cutoff 1 ng/mL [facility] Comment: Interpretive Data - Fentanyl: Samples containing greater than 1 ng/mL fentanyl or other cross-reacting fentanyl compounds are reported as positive. False positive and false negative results are possible. Confirmatory testing required for definitive results. Current Interpretive Data was last reviewed 2023. Methadone, ur Not Detected CutOff 300ng/mL [facility] Comment: Interpretive Data - Methadone: Samples containing greater than 300 ng/mL d,l-methadone or other cross-reacting compounds are reported as positive. False positive and false negative results are possible. Confirmatory testing required for definitive results. Current Interpretive Data was last reviewed 2023. Opiates, ur Not Detected CutOff 300ng/mL [facility] Comment: Interpretive Data - Opiates: Samples containing greater than 300 ng/mL morphine or other cross-reacting compounds are reported as positive. False positive and false negative results are possible. Confirmatory testing required for definitive results. Current Interpretive Data was last reviewed 2023. Oxycodone, ur Not Detected CutOff 100ng/mL [facility] Comment: Interpretive Data - Oxycodone: Samples containing greater than 100 ng/mL oxycodone or other cross-reacting compounds are reported as positive. False positive and false negative results are possible. Confirmatory testing required for definitive results. Current Interpretive Data was last reviewed 2023. Phencyclidine, ur Not Detected CutOff 25 ng/mL [facility] Comment: Interpretive Data - Phencyclidine: Samples containing greater than 25 ng/mL phencyclidine or other cross-reacting compounds are reported as positive. False positive and false negative results are possible. Confirmatory testing required for definitive results. Current Interpretive Data was last reviewed 2023. Urine Creatinine 115 mg/dL [facility] Comment: Interpretive Data Urine Creatinine: < 10 mg/dL is extremely dilute = or > 10 but < 20 mg/dL is dilute = or > 20 mg/dL is normal Current Interpretive Data was last revised on 2017. Urine 03/03/2025 8:11 PM CDT 03/03/2025 8:25 PM CDT Narrative [facility] - 03/03/2025 9:05 PM CDT Drug of Abuse screening is performed by immunoassay for medical purposes only. This is not to be used for Pain Management purposes. Les Colorado MD LAB URINE ORDERABLES Final Result [facility] [address] [facility] Department [place] [address] * COVID-19 Coronavirus RNA Nasopharyngeal (03/03/2025 8:08 PM CDT) Pathologist [facility] COVID-19 RNA Negative Negative Nasopharyngeal 03/03/2025 8: 08 PM CDT 03/03/2025 8:25 PM CDT Narrative [facility] - 03/03/2025 9:36 PM CDT Is the patient experiencing any symptoms consistent with COVID (eg. Fever, cough, shortness of breath)?->No What is the reason for testing?->Screening prior to Behavioral health admission Interpretive data Testing performed by [facility]. This test is performed using the [employer] Xpert Xpress CoV-2 plus assay. This is a real-time RT-PCR test intended for the qualitative detection of nucleic acid from the SARS-CoV-2. This assay has been cleared by the [place] Food and Drug administration. The performance characteristics have been verified by the [facility]. Results must be considered in the clinical context, and a negative result does not rule out infection. Interpretive data last revised 2024. Interpretive data Testing performed by [facility]. This test is performed using the [employer] Xpert Xpress CoV-2 plus assay. This is a real-time RT-PCR test intended for the qualitative detection of nucleic acid from the SARS-CoV-2. This assay has been cleared by the [place] Food and Drug administration. The performance characteristics have been verified by the [facility]. Results must be considered in the clinical context, and a negative result does not rule out infection. Interpretive data last revised 2024. Les Colorado MD LAB MICROBIOLOGY - GENERAL ORDERABLES Final Result Performing Organization Address City/State/[facility] Co de Phone Number [address] Department [place] [address] * eGFR (03/03/2025 8:08 PM CDT) eGFR 74 >=60 mL/min/1. 73 m2 Comment: Interpretive Data [...] interpretive data was last reviewed 2021. Blood 03/03/2025 8:08 PM CDT 03/03/2025 8:25 PM CDT us Les Colorado MD LAB BLOOD ORDERABLES Final Result [address] Department [place] [address] * Differential, auto (03/03/2025 8:08 PM CDT) Pathologist [facility] Neutrophil abs 4.45 1.50 - 6.50 K/cumm Imm gran abs 0.01 0.00 - 0.10 K/cumm [facility] Lymphocyte abs 1.23 0.80 - 3.30 K/cumm [facility] Monocyte abs 0.43 0.20 - 0.80 K/cumm [facility] Eosinophil abs 0.14 0.00 - 0.50 K/cumm [facility] Basophil abs 0.05 0.00 - 0.10 K/cumm [facility] Neutrophil pct 70.5 % [facility] Comment: Interpretive Data Percent cell count reference ranges are not reported, since discordance with absolute values may lead to misinterpretation of CBC data. Current Interpretive Data was last revised on 2017. Imm gran pct 0.2 % [facility] Comment: Interpretive Data Percent cell count reference ranges are not reported, since discordance with absolute values may lead to misinterpretation of CBC data. Current Interpretive Data was last revised on 2017. Lymphocyte pct 19.5 % [facility] Comment: Interpretive Data Percent cell count reference ranges are not reported, since discordance with absolute values may lead to misinterpretation of CBC data. Current Interpretive Data was last revised on 2017. Monocyte pct 6.8 % [facility] Comment: Interpretive Data Percent cell count reference ranges are not reported, since discordance with absolute values may lead to misinterpretation of CBC data. Current Interpretive Data was last revised on 2017. Eosinophil pct 2.2 % [facility] Comment: Interpretive Data Percent cell count reference ranges are not reported, since discordance with absolute values may lead to misinterpretation of CBC data. Current Interpretive Data was last revised on 2017. Basophil pct 0.8 % [facility] Comment: Interpretive Data Percent cell count reference ranges are not reported, since discordance with absolute values may lead to misinterpretation of CBC data. Current Interpretive Data was last revised on 2017. Blood 03/03/2025 8:08 PM CDT 03/03/2025 8:25 PM CDT us Les Colorado MD LAB BLOOD ORDERABLES Final Result [address] Department of Laboratories [place] [id number] * Urinalysis reflex to microscopic and culture Urine (03/03/2025 8:08 PM CDT) Color, ur Yellow Yellow Clarity, ur Clear Clear [facility] Specific gravity, ur 1.019 1.003 - 1.030 [facility] pH, urine 7.0 [facility] Comment: Interpretive Data U rine pH is affected by diet, medications, systemic acid-base disturbances, and renal tubular function. pH may affect urinary stone formation. For example, urine pH below 6.0 may help reduce the tendency for calcium phosphate stones and pH greater than 6.0 may reduce the tendency for uric acid stone formation. Source: [facility] Current Interpretive Data was last revised on 2017 Protein, ur ql Negative Negative [facility] Glucose, ur ql Negative Negative [facility] Ketones, ur Negative Negative [facility] Bilirubin, ur Negative Negative [facility] Blood, ur Negative Negative [facility] Urobilinogen, ur <2.0 <2.0 mg/dL [facility] Nitrite, ur Negative Negative [facility] Leukocyte esterase, ur Negative Negative [facility] UA reflex comment Reflex conditions for microscopic UA and culture not met. [facility] Urine 03/03/2025 8:08 PM CDT 03/03/2025 8:25 PM CDT us Les Colorado MD LAB MICROBIOLOGY - GENERAL ORDERABLES Final Result [facility] Department [place] [address] * (ABNORMAL) CBC with auto differential (03/03/2025 8:08 PM CDT) Pathologist [facility] WBC 6.31 3.80 - 9.90 K/cumm Hgb 11.3(L) 13.0 - 17.5 g/dL [facility] Hct 37.2(L) 38.9 - 50.3 % [facility] Plt 384 150 - 400 K/cumm [facility] MPV 10.1 9.1 - 12.3 fL [facility] RBC 4.36 4.30 - 5.80 M/cumm [facility] MCV 85.3 81.3 - 96.4 fL [facility] MCH 25.9(L) 27.1 - 33.3 pg [facility] MCHC 30.4(L) 32.3 - 35.7 g/dL [facility] RDW CV 16.2(H) 11.1 - 14.9 % [facility] RDW SD 50.3(H) 35.7 - 48.1 fL [facility] NRBC abs 0.00 0.00 - 0.01 K/cumm [facility] Blood 03/03/2025 8:08 PM CDT 03/03/2025 8:25 PM CDT Les Colorado MD LAB BLOOD ORDERABLES Final Result [facility] [address] [place] [address] * Ethanol (03/03/2025 8:08 PM CDT) Pathologist [facility] Ethanol <10 <=10 mg/dL Comment: Interpretive Data Legal limit of intoxication > or = 80 mg/dL Levels > or = 400 mg/dL are potentially TOXIC. Current interpretive data was last revised on 2018. Blood 03/03/2025 8:08 PM CDT 03/03/2025 8:25 PM CDT Les Colorado MD LAB BLOOD ORDERABLES Final Result Performing Organization Address [facility] Co de Phone Number [id number] [address] * Acetaminophen level (03/03/2025 8:08 PM CDT) Acetaminophen <5 <=5 mcg/mL Comment: Interpretive Data Significant hepatic injury may occur and treatment with n-acetyl cysteine is generally recommended if the acetaminophen level exceeds: 150 mcg/mL at 4 hours after ingestion 75 mcg/mL at 8 hours after ingestion 38 mcg/mL at 12 hours after ingestion 19 mcg/mL at 16 hours after ingestion Consult toxicology or poison control ([phone]) for unknown ingestion time. Current interpretive data was last revised 2023. Blood 03/03/2025 8:08 PM CDT 03/03/2025 8:25 PM CDT Les Colorado MD LAB BLOOD ORDERABLES Final Result Performing Organization Address [facility] Co de Phone Number [address] [address] * Salicylate level (03/03/2025 8:08 PM CDT) Salicylate <0.5 <=0.5 mg/dL Comment: Interpretive Data Toxic: 30 mg/dL or greater. Current interpretive data was last revised 2023. Blood 03/03/2025 8:08 PM CDT 03/03/2025 8:25 PM CDT Les Colorado MD LAB BLOOD ORDERABLES Final Result Performing Organization Address City/[facility] Co de Phone Number [address] [address] * (ABNORMAL) Comprehensive metabolic panel (03/03/2025 8:08 PM CDT) Sodium 141 135 - 145 mmol/L Potassium, pl 4.7 3.3 - 4.9 mmol/L [facility] Chloride 104 97 - 110 mmol/L [facility] CO2 24 22 - 32 mmol/L [facility] Anion gap 13 2 - 15 mmol/L [facility] BUN 20 6 - 25 mg/dL [facility] Creatinine 1.11 0.80 - 1.30 mg/dL [facility] Glucose 105 70 - 199 mg/dL [facility] Comment: Interpretive Data Fasting glucose >/= 126 [...] classification and Diagnosis of Diabetes Diabetes Care 202; 46: S19-S40. Current interpretive data was last revised 2022. Calcium 9.6 8.5 - 10.3 mg/dL [facility] Bilirubin, total <0.1 0.1 - 1.2 mg/dL [facility] Protein, pl 7.8 6.5 - 8.5 g/dL [facility] Albumin 4.5 3.5 - 5.0 g/dL [facility] Alk phos 114 40 - 130 Units/L [facility] ALT 6(L) 7 - 55 Units/L [facility] AST <5(L) 10 - 50 Units/L [facility] Blood 03/03/2025 8:08 PM CDT 03/03/2025 8:25 PM CDT us Les Colorado MD LAB BLOOD ORDERABLES Final Result [facility] [address] [facility] [place] [address] * eGFR (01/17/2025 8:50 AM CDT) eGFR 79 >=60 mL/min/1. 73 m2 Comment: Interpretive Data [...] interpretive data was last reviewed 2021. Blood 01/17/2025 8:50 AM CDT 01/17/2025 9:49 AM CDT us Ashley Coreas MD LAB BLOOD ORDERABLES Brenda albarran Result [facility] Department [place] [address] * (ABNORMAL) Differential, auto (01/17/2025 8:50 AM CDT) Neutrophil abs 7.08(H) 1.50 - 6.50 K/cumm Imm gran abs 0.03 0.00 - 0.10 K/cumm [facility] Lymphocyte abs 1.56 0.80 - 3.30 K/cumm [facility] Monocyte abs 0.72 0.20 - 0.80 K/cumm [facility] Eosinophil abs 0.09 0.00 - 0.50 K/cumm [facility] Basophil abs 0.04 0.00 - 0.10 K/cumm [facility] Neutrophil pct 74.4 % [facility] Comment: Interpretive Data Percent cell count reference ranges are not reported, since discordance with absolute values may lead to misinterpretation of CBC data. Current Interpretive Data was last revised on 2017. Imm gran pct 0.3 % [facility] Comment: Interpretive Data Percent cell count reference ranges are not reported, since discordance with absolute values may lead to misinterpretation of CBC data. Current Interpretive Data was last revised on 2017. Lymphocyte pct 16.4 % [facility] Comment: Interpretive Data Percent cell count reference ranges are not reported, since discordance with absolute values may lead to misinterpretation of CBC data. Current Interpretive Data was last revised on 2017. Monocyte pct 7.6 % [facility] Comment: Interpretive Data Percent cell count reference ranges are not reported, since discordance with absolute values may lead to misinterpretation of CBC data. Current Interpretive Data was last revised on 2017. Eosinophil pct 0.9 % [facility] Comment: Interpretive Data Percent cell count reference ranges are not reported, since discordance with absolute values may lead to misinterpretation of CBC data. Current Interpretive Data was last revised on 2017. Basophil pct 0.4 % [facility] Comment: Interpretive Data Percent cell count reference ranges are not reported, since discordance with absolute values may lead to misinterpretation of CBC data. Current Interpretive Data was last revised on 2017. Blood 01/17/2025 8:50 AM CDT 01/17/2025 9:51 AM CDT us Ashley Coreas MD LAB BLOOD ORDERABLES Brenda l Result [facility] [place] [address] * Thyroid Function Coles (01/17/2025 8:50 AM CDT) TSH 0.85 0.30 - 4.20 mcIUnit/mL Blood 01/17/2025 8:50 AM CDT 01/17/2025 9:49 AM CDT Ashley Coreas MD LAB BLOOD ORDERABLES Brenda l Result Performing Organization Address City/[facility]/ZIP Co de Phone Number [facility] Department [place] [address] * (ABNORMAL) Urinalysis reflex to microscopic (01/17/2025 8:50 AM CDT) Color, ur Yellow Yellow Clarity, ur Clear Clear [facility] Specific gravity, ur 1.036(H) 1.003 - 1.030 [facility] pH, urine 6.0 [facility] Comment: Interpretive Data U rine pH is affected by diet, medications, systemic acid-base disturbances, and renal tubular function. pH may affect urinary stone formation. For example, urine pH below 6.0 may help reduce the tendency for calcium phosphate stones and pH greater than 6.0 may reduce the tendency for uric acid stone formation. Source: [facility] Current Interpretive Data was last revised on 2017 Protein, ur ql 1+(A) Negative [facility] Glucose, ur ql Negative Negative [facility] Ketones, ur 1+(A) Negative [facility] Bilirubin, ur 1+(A) Negative [facility] Blood, ur Negative Negative [facility] Urobilinogen, ur 4.0(A) <2.0 mg/dL [facility] Nitrite, ur Negative Negative [facility] Leukocyte esterase, ur Negative Negative [facility] UA reflex comment Reflex to microscopic UA will be performed. [facility] Urine 01/17/2025 8:50 AM CDT 01/17/2025 9:43 AM CDT Ashley Coreas MD LAB URINE ORDERABLES Brenda l Result Performing Organization Address City/[facility]/ZIP Co de Phone Number [facility] Department [place] [address] * (ABNORMAL) CBC with auto differential (01/17/2025 8:50 AM CDT) WBC 9.52 3.80 - 9.90 K/cumm Hgb 10.9(L) 13.0 - 17.5 g/dL [facility] Hct 33.7(L) 38.9 - 50.3 % [facility] Plt 217 150 - 400 K/cumm [facility] MPV 11.1 9.1 - 12.3 fL [facility] RBC 4.10(L) 4.30 - 5.80 M/cumm [facility] MCV 82.2 81.3 - 96.4 fL [facility] MCH 26.6(L) 27.1 - 33.3 pg [facility] MCHC 32.3 32.3 - 35.7 g/dL [facility] RDW CV 15.7(H) 11.1 - 14.9 % [facility] RDW SD 46.7 35.7 - 48.1 fL [facility] NRBC abs 0.00 0.00 - 0.01 K/cumm [facility] Blood 01/17/2025 8:50 AM CDT 01/17/2025 9:51 AM CDT us Ashley Coreas MD LAB BLOOD ORDERABLES Brenda albarran Result [facility] [place] [address] * (ABNORMAL) Drugs of Abuse Screen, Urine without Confirmation (01/17/2025 8:50 AM CDT) [facility] Amphetamine, ur Not Detected CutOff 500ng/mL Comment: Interpretive Data - Amphetamines: Samples containing greater than 500 ng/mL d-methamphetamine or other cross-reacting amphetamine compounds are reported as positive. Amphetamine immunoassays are subject to significant false positive rates due to cross-reactivity of non-amphetamine drugs. Confirmatory testing required for definitive results. Current Interpretive Data was last reviewed 2023. Barbiturates, ur Not Detected CutOff 200ng/mL [facility] Comment: Interpretive Data - Barbiturates: Samples containing greater than 200 ng/mL secobarbital or other cross-reacting barbiturate compounds are reported as positive. False positive and false negative results are possible. Confirmatory testing required for definitive results. Current Interpretive Data was last reviewed 2023. Benzodiazepines, ur Not Detected CutOff 100ng/mL [facility] Comment: Interpretive Data - Benzodiazepines: Samples containing greater than 100 ng/mL nordiazepam or other cross-reacting compounds are reported as positive. False positive and false negative results are possible. Confirmatory testing required for definitive results. Current Interpretive Data was last reviewed 2023. Cannabinoids, ur Not Detected CutOff 50 ng/mL [facility] Comment: Interpretive Data - Cannabinoids: Samples containing greater than 50 ng/mL delta-9 THC -COOH or other cross- reacting compounds are reported as positive. False positive and false negative results are possible. Confirmatory testing required for definitive results. Current Interpretive Data was last reviewed 2023. Cocaine, ur Screen Positive, presumptive (A) CutOff 150ng/mL [facility] Comment: Interpretive Data - Cocaine: Samples containing greater than 150 ng/mL benzoylecgonine or other cross- reacting compounds are reported as positive. False positive and false negative results are possible. Confirmatory testing required for definitive results. Current Interpretive Data was last reviewed 2023. Fentanyl, Ur Not Detected CutOff 5 ng/mL [facility] Comment: Interpretive Data - Fentanyl: Samples containing greater than 5 ng/mL norfentanyl, fentanyl, or other cross-reacting fentanyl compounds are reported as positive. False positive and false negative results are possible. Confirmatory testing required for definitive results. Current Interpretive Data was last reviewed 2023. Methadone, ur Not Detected CutOff 300ng/mL [facility] Comment: Interpretive Data - Methadone: Samples containing greater than 300 ng/mL d,l-methadone or other cross-reacting compounds are reported as positive. False positive and false negative results are possible. Confirmatory testing required for definitive results. Current Interpretive Data was last reviewed 2023. Opiates, ur Not Detected CutOff 300ng/mL [facility] Comment: Interpretive Data - Opiates: Samples containing greater than 300 ng/mL morphine or other cross-reacting compounds are reported as positive. False positive and false negative results are possible. Confirmatory testing required for definitive results. Current Interpretive Data was last reviewed 2023. Oxycodone, ur Not Detected CutOff 100ng/mL [facility] Comment: Interpretive Data - Oxycodone: Samples containing greater than 100 ng/mL oxycodone or other cross-reacting compounds are reported as positive. False positive and false negative results are possible. Confirmatory testing required for definitive results. Current Interpretive Data was last reviewed 2023. Phencyclidine, ur Not Detected CutOff 25 ng/mL [facility] Comment: Interpretive Data - Phencyclidine: Samples containing greater than 25 ng/mL phencyclidine or other cross-reacting compounds are reported as positive. False positive and false negative results are possible. Confirmatory testing required for definitive results. Current Interpretive Data was last reviewed 2023. Urine Creatinine 304 mg/dL [facility] Comment: Interpretive Data Urine Creatinine: < 10 mg/dL is extremely dilute = or > 10 but < 20 mg/dL is dilute = or > 20 mg/dL is normal Current Interpretive Data was last revised on 2017. Urine 01/17/2025 8:50 AM CDT 01/17/2025 9:49 AM CDT Narrative [facility] - 01/17/2025 10:18 AM CDT Drug of Abuse screening is performed by immunoassay for medical purposes only. This is not to be used for Pain Management purposes. Ashley Coreas MD LAB URINE ORDERABLES Brenda albarran Result [facility] [place] [address] * (ABNORMAL) Urinalysis, microscopic only (01/17/2025 8:50 AM CDT) WBC, ur 0-5 0 - 5 /HPF RBC, ur 6-10(A) 0 - 2 /HPF [facility] Epithelial cells, squamous, ur 1-5 0 - 5 /HPF [facility] Bacteria, ur Trace(A) [facility] Mucous, ur Present(A) [facility] Hyaline casts, ur 6-10 0 - 10 /LPF [facility] Urine 01/17/2025 8:50 AM CDT 01/17/2025 9:43 AM CDT Ashley Coreas MD LAB URINE ORDERABLES Brenda l Result Performing Organization Address [facility] de Phone Number [facility] Department [place] [address] * Ethanol (01/17/2025 8:50 AM CDT) Pathologist [facility] Ethanol <10 <=10 mg/dL Comment: Interpretive Data Legal limit of intoxication > or = 80 mg/dL Levels > or = 400 mg/dL are potentially TOXIC. Current interpretive data was last revised on 2018. Blood 01/17/2025 8:50 AM CDT 01/17/2025 9:49 AM CDT Ashley Coreas MD LAB BLOOD ORDERABLES Brenda l Result Performing Organization Address [facility] de Phone Number [facility] Department [place] [address] * (ABNORMAL) Comprehensive metabolic panel (01/17/2025 8:50 AM CDT) [facility] Sodium 146(H) 135 - 145 mmol/L Potassium, pl 3.4 3.3 - 4.9 mmol/L [facility] Chloride 107 97 - 110 mmol/L [facility] CO2 27 22 - 32 mmol/L [facility] Anion gap 12 2 - 15 mmol/L [facility] BUN 19 6 - 25 mg/dL [facility] Creatinine 1.05 0.80 - 1.30 mg/dL [facility] Glucose 106 70 - 199 mg/dL [facility] Comment: Interpretive Data Fasting glucose >/= [...] interpretive data was last revised 2022. Calcium 9.6 8.5 - 10.3 mg/dL [facility] Bilirubin, total 0.3 0.1 - 1.2 mg/dL [facility] Protein, pl 8.1 6.5 - 8.5 g/dL [facility] Albumin 4.2 3.5 - 5.0 g/dL [facility] Alk phos 133(H) 40 - 130 Units/L [facility] ALT 13 7 - 55 Units/L [facility] AST 36 10 - 50 Units/L [facility] Blood 01/17/2025 8:50 AM CDT 01/17/2025 9:49 AM CDT us Ashley Coreas MD LAB BLOOD ORDERABLES Brenda l Result [facility] [place] [address] * XR Ankle Right 3 or More Views (01/17/2025 1:18 AM CDT) Anatomical Region Laterality Modality Lower Extremities, Ankle Right Compute d Radiography 01/17/2025 1:27 AM CDT Impressions 01/18/2025 10:48 AM CDT Right knee: No acute fracture. There is a healed proximal fibular fracture. There is moderate to severe tricompartmental knee osteoarthritis. 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 There are vascular calcifications. Small knee joint effusion. Left knee: No acute fracture. Moderate medial compartment and patellofemoral compartment osteoarthritis. Small knee joint effusion. Right ankle: No acute fracture. The talar dome is intact. Ankle mortise is congruent. 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 Vascular calcifications are noted. Soft tissue swelling. Left ankle: Old distal fibular fracture. No acute fracture. The ankle mortise is congruent. The talar dome is intact. There is mild hindfoot osteoarthritis. Vascular calcifications are noted. Dictated by: Dhaval Yang MD The radiology attending physician has personally reviewed this study, and had reviewed and/or edited this written report and agrees with it. Electronically signed by: Tanvir Crowe M.D. Narrative 01/18/2025 10:48 AM CDT EXAMINATION: XR KNEE LEFT 1 OR 2 VIEWS, XR ANKLE LEFT 3 OR MORE VIEWS, XR ANKLE RIGHT 3 OR MORE VIEWS, XR KNEE RIGHT 4 OR MORE VIEWS HISTORY: Bilateral knee and ankle pain Procedure Note Tanvir Crowe MD - 01/18/2025 EXAMINATION: XR KNEE LEFT 1 OR 2 VIEWS, XR ANKLE LEFT 3 OR MORE VIEWS, XR ANKLE RIGHT 3 OR MORE VIEWS, XR KNEE RIGHT 4 OR MORE VIEWS HISTORY: Bilateral knee and ankle pain IMPRESSION: Right knee: No acute fracture. There is a healed proximal fibular fracture. There is moderate to severe tricompartmental knee osteoarthritis. 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 There are vascular calcifications. Small knee joint effusion. Left knee: No acute fracture. Moderate medial compartment and patellofemoral compartment osteoarthritis. Small knee joint effusion. Right ankle: No acute fracture. The talar dome is intact. Ankle mortise is congruent. 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 Vascular calcifications are noted. Soft tissue swelling. Left ankle: Old distal fibular fracture. No acute fracture. The ankle mortise is congruent. The talar dome is intact. There is mild hindfoot osteoarthritis. Vascular calcifications are noted. Dictated by: Dhaval Yang MD The radiology attending physician has personally reviewed this study, and had reviewed and/or edited this written report and agrees with it. Electronically signed by: Tanvir Crowe M.D. us Acosta Tomlinson MD IMG XR PROCEDURES Fin al Result * XR Ankle Left 3 or More Views (01/17/2025 1:18 AM CDT) Anatomical Region Laterality Modality Lower Extremities, Ankle Left Compute d Radiography 01/17/2025 1:27 AM CDT Impressions 01/18/2025 10:48 AM CDT Right knee: No acute fracture. There is a healed proximal fibular fracture. There is moderate to severe tricompartmental knee osteoarthritis. 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 There are vascular calcifications. Small knee joint effusion. Left knee: No acute fracture. Moderate medial compartment and patellofemoral compartment osteoarthritis. Small knee joint effusion. Right ankle: No acute fracture. The talar dome is intact. Ankle mortise is congruent. 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 Vascular calcifications are noted. Soft tissue swelling. Left ankle: Old distal fibular fracture. No acute fracture. The ankle mortise is congruent. The talar dome is intact. There is mild hindfoot osteoarthritis. Vascular calcifications are noted. Dictated by: Dhaval Yang MD The radiology attending physician has personally reviewed this study, and had reviewed and/or edited this written report and agrees with it. Electronically signed by: Tanvir Crowe M.D. Narrative 01/18/2025 10:48 AM CDT EXAMINATION: XR KNEE LEFT 1 OR 2 VIEWS, XR ANKLE LEFT 3 OR MORE VIEWS, XR ANKLE RIGHT 3 OR MORE VIEWS, XR KNEE RIGHT 4 OR MORE VIEWS HISTORY: Bilateral knee and ankle pain Procedure Note Tanvir Crowe MD - 01/18/2025 EXAMINATION: XR KNEE LEFT 1 OR 2 VIEWS, XR ANKLE LEFT 3 OR MORE VIEWS, XR ANKLE RIGHT 3 OR MORE VIEWS, XR KNEE RIGHT 4 OR MORE VIEWS HISTORY: Bilateral knee and ankle pain IMPRESSION: Right knee: No acute fracture. There is a healed proximal fibular fracture. There is moderate to severe tricompartmental knee osteoarthritis. 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 There are vascular calcifications. Small knee joint effusion. Left knee: No acute fracture. Moderate medial compartment and patellofemoral compartment osteoarthritis. Small knee joint effusion. Right ankle: No acute fracture. The talar dome is intact. Ankle mortise is congruent. 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 Vascular calcifications are noted. Soft tissue swelling. Left ankle: Old distal fibular fracture. No acute fracture. The ankle mortise is congruent. The talar dome is intact. There is mild hindfoot osteoarthritis. Vascular calcifications are noted. Dictated by: Dhaval Yang MD The radiology attending physician has personally reviewed this study, and had reviewed and/or edited this written report and agrees with it. Electronically signed by: Tanvir Crowe M.D. Acosta Tomlinson MD IMG XR PROCEDURES Fin al Result * XR Knee Right 4 or More Views (01/17/2025 1:18 AM CDT) Anatomical Region Laterality Modality Lower Extremities, Knee Right Computed Radiography 01/17/2025 1:27 AM CDT Impressions 01/18/2025 10:48 AM CDT Right knee: No acute fracture. There is a healed proximal fibular fracture. There is moderate to severe tricompartmental knee osteoarthritis. 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 There are vascular calcifications. Small knee joint effusion. Left knee: No acute fracture. Moderate medial compartment and patellofemoral compartment osteoarthritis. Small knee joint effusion. Right ankle: No acute fracture. The talar dome is intact. Ankle mortise is congruent. 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 Vascular calcifications are noted. Soft tissue swelling. Left ankle: Old distal fibular fracture. No acute fracture. The ankle mortise is congruent. The talar dome is intact. There is mild hindfoot osteoarthritis. Vascular calcifications are noted. Dictated by: Dhaval Yang MD The radiology attending physician has personally reviewed this study, and had reviewed and/or edited this written report and agrees with it. Electronically signed by: Tanvir Crowe M.D. Narrative 01/18/2025 10:48 AM CDT EXAMINATION: XR KNEE LEFT 1 OR 2 VIEWS, XR ANKLE LEFT 3 OR MORE VIEWS, XR ANKLE RIGHT 3 OR MORE VIEWS, XR KNEE RIGHT 4 OR MORE VIEWS HISTORY: Bilateral knee and ankle pain Procedure Note Tanvir Crowe MD - 01/18/2025 EXAMINATION: XR KNEE LEFT 1 OR 2 VIEWS, XR ANKLE LEFT 3 OR MORE VIEWS, XR ANKLE RIGHT 3 OR MORE VIEWS, XR KNEE RIGHT 4 OR MORE VIEWS HISTORY: Bilateral knee and ankle pain IMPRESSION: Right knee: No acute fracture. There is a healed proximal fibular fracture. There is moderate to severe tricompartmental knee osteoarthritis. 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 There are vascular calcifications. Small knee joint effusion. Left knee: No acute fracture. Moderate medial compartment and patellofemoral compartment osteoarthritis. Small knee joint effusion. Right ankle: No acute fracture. The talar dome is intact. Ankle mortise is congruent. 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 Vascular calcifications are noted. Soft tissue swelling. Left ankle: Old distal fibular fracture. No acute fracture. The ankle mortise is congruent. The talar dome is intact. There is mild hindfoot osteoarthritis. Vascular calcifications are noted. Dictated by: Dhaval Yang MD The radiology attending physician has personally reviewed this study, and had reviewed and/or edited this written report and agrees with it. Electronically signed by: Tanvir Crowe M.D. us Acosta Tomlinson MD IMG XR PROCEDURES Fin al Result * XR Knee Left 1 or 2 Views (01/17/2025 1:18 AM CDT) Anatomical Region Laterality Modality Lower Extremities, Knee Left Computed Radiography 01/17/2025 1:27 AM CDT Impressions 01/18/2025 10:48 AM CDT Right knee: No acute fracture. There is a healed proximal fibular fracture. There is moderate to severe tricompartmental knee osteoarthritis. 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 There are vascular calcifications. Small knee joint effusion. Left knee: No acute fracture. Moderate medial compartment and patellofemoral compartment osteoarthritis. Small knee joint effusion. Right ankle: No acute fracture. The talar dome is intact. Ankle mortise is congruent. 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 Vascular calcifications are noted. Soft tissue swelling. Left ankle: Old distal fibular fracture. No acute fracture. The ankle mortise is congruent. The talar dome is intact. There is mild hindfoot osteoarthritis. Vascular calcifications are noted. Dictated by: Dhaval Yang MD The radiology attending physician has personally reviewed this study, and had reviewed and/or edited this written report and agrees with it. Electronically signed by: Tanvir Crowe M.D. Narrative 01/18/2025 10:48 AM CDT EXAMINATION: XR KNEE LEFT 1 OR 2 VIEWS, XR ANKLE LEFT 3 OR MORE VIEWS, XR ANKLE RIGHT 3 OR MORE VIEWS, XR KNEE RIGHT 4 OR MORE VIEWS HISTORY: Bilateral knee and ankle pain Procedure Note Tanvir Crowe MD - 01/18/2025 EXAMINATION: XR KNEE LEFT 1 OR 2 VIEWS, XR ANKLE LEFT 3 OR MORE VIEWS, XR ANKLE RIGHT 3 OR MORE VIEWS, XR KNEE RIGHT 4 OR MORE VIEWS HISTORY: Bilateral knee and ankle pain IMPRESSION: Right knee: No acute fracture. There is a healed proximal fibular fracture. There is moderate to severe tricompartmental knee osteoarthritis. 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 There are vascular calcifications. Small knee joint effusion. Left knee: No acute fracture. Moderate medial compartment and patellofemoral compartment osteoarthritis. Small knee joint effusion. Right ankle: No acute fracture. The talar dome is intact. Ankle mortise is congruent. 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 Vascular calcifications are noted. Soft tissue swelling. Left ankle: Old distal fibular fracture. No acute fracture. The ankle mortise is congruent. The talar dome is intact. There is mild hindfoot osteoarthritis. Vascular calcifications are noted. Dictated by: Dhaval Yang MD The radiology attending physician has personally reviewed this study, and had reviewed and/or edited this written report and agrees with it. Electronically signed by: Tanvir Crowe M.D. [facility] Kevyn Tomlinson MD IMG XR PROCEDURES Fin al Result * (ABNORMAL) Hemoglobin A1c (12/04/2024 6:18 AM CDT) Hgb A1C 6.5(H) 4.0 - 5.6 % Estimated Average Glucose 140 mg/dL [facility] Comment: The ADA recommends reporting an estimated Average Glucose (eAG) with all Hemoglobin A1c results using the equation derived from a study of 507 normal and diabetic adults. Minority populations were underrepresented and children were not included. (Diabetes Care 31:9550-3205, 2008). The eAG is not equivalent to a fasting glucose. Blood 12/04/2024 6:18 AM CDT 12/04/2024 6:27 AM CDT Zack Adam MD LAB BLOOD ORDERABLES F inal Result [facility] ([place]) [address] Department of Laboratories [place] [address] * Lipid panel (12/04/2024 6:18 AM CDT) Cholesterol 182 30 - 199 mg/dL Comment: Interpretive Data Ages < or = 19 years Acceptable: <170 mg/dL Borderline high: 170-199 mg/dL High: >or= 200 mg/dL Ages > or = 20 years Desirable: <200 mg/dL Borderline high: 200-239 mg/dL High: >or= 240 mg/dL Literature References: 1. Expert Panel on Integrated Guidelines for Cardiovascular Health and Risk Reduction in Children and Adolescents. Pediatrics 2011;128:S213 2. NCEP Expert Panel. Circulation 2004;110:227 Current Interpretive Data was last revised on 2018. Triglycerides 83 <=149 mg/dL [facility]) Comment: Interpretive Data Ages < or = 9 years Acceptable: <75 mg/dL Borderline high: 75-99 mg/dL High: >or= 100 mg/dL Ages 10 to 20 years Acceptable: <90 mg/dL Borderline high: 90-129 mg/dL High: >or= 130 mg/dL Ages > or = 20 years Desirable: <150 mg/dL Borderline high: 150-199 mg/dL High: 200-499 mg/dL Very high: >or= 499 mg/dL Literature References: 1. Expert Panel on Integrated Guidelines for Cardiovascular Health and Risk Reduction in Children and Adolescents. Pediatrics 2011;128:S213 2. NCEP Expert Panel. Circulation 2004;110:227 Current Interpretive Data was last revised on 2018. HDL 61 >=40 mg/dL [facility] ([place]) Comment: Interpretive Data Ages < or = 19 years Acceptable: >45 mg/dL Borderline low: 40-45 mg/dL Low: <40 mg/dL Ages > or = 20 years Desirable: >or= 60 mg/dL Low: <40 mg/dL Literature References: 1. Expert Panel on Integrated Guidelines for Cardiovascular Health and Risk Reduction in Children and Adolescents. Pediatrics 2011;128:S213 2. NCEP Expert Panel. Circulation 2004;110:227 Current Interpretive Data was last revised on 2018. LDL, calculated 106 <=129 mg/dL [facility] ([place]) Comment: Interpretive Data Ages < or = 19 years Acceptable: <110 mg/dL Borderline high: 110-129 mg/dL High: >or= 130 mg/dL Ages > or = 20 years Optimal: <100 mg/dL Near optimal: 100-129 mg/dL Borderline high: 130-159 mg/dL High: >160 mg/dL Calculated using the Gino LDL-C estimating equation. This equation was implemented on 2024. Prior to this date LDL-C was estimated using the Friedewald equation. Literature References: 1. Expert Panel on Integrated Guidelines for Cardiovascular Health and Risk Reduction in Children and Adolescents. Pediatrics 2011;128:S213 2. NCEP Expert Panel. Circulation 2004;110:227 3. Gino Melo et al. SOTO Cardiol. 2020 January 05;5(5):540-548. doi: 10.1001/[email or web address] Current Interpretive Data was last revised on 2024. Non-HDL Cholesterol 121 mg/dL [facility] ([place]) Comment: Interpretive Data Ages < or = 19 years Acceptable: <120 mg/dL Borderline high: 120-144 mg/dL High: >145 mg/dL Ages > or = 20 years When triglycerides are >200 mg/dL, Non-HDL cholesterol is a secondary target of therapy with treatment goals that are 30 mg/dL greater than the LDL cholesterol target. Literature References: 1. Expert Panel on Integrated Guidelines for Cardiovascular Health and Risk Reduction in Children and Adolescents. Pediatrics 2011;128:S213 2. NCEP Expert Panel. Circulation 2004;110:227 Current Interpretive Data was last revised on 2018. Chol/HDL ratio 3 JOHN PAUL [facility] [place]) Blood 12/04/2024 6:18 AM CDT 12/04/2024 6:27 AM CDT Zack Adam MD LAB BLOOD ORDERABLES F inal Result [facility] ([place]) [address] [place] [address] * PSA screen (07/14/2023 12:18 PM STOCKROOM COORDINATOR) PSA-Total 4.92 <=5.40 ng/mL [facility] Comment: Interpretive Data AGE SEX REFERENCE INTERVAL 0 minutes-150 years Female None 0 minutes-49 years Male None 50-59 years Male 0-3.90 60-69 years Male 0-5.40 70-79 years Male 0-6.20 80-150 years Male 0-6.20 The Reji PSA Total assay procedure was used. Results from different manufacturers or methods may not be comparable. Serial testing should be performed using the same method. Current interpretive data last revised 22. Blood 07/14/2023 12:1 8 PM STOCKROOM COORDINATOR 07/14/2023 12:55 PM STOCKROOM COORDINATOR Magdiel Marin NP LAB BLOOD ORDERABLES F inal Result Performing Organization Address City/[facility] Co de Phone Number [facility] Department [place] [address] from Last 3 Months or Most Recently Relevant to Health Maintenance Insurance [employer] MEDICARE ADV C[employer] MEDICARE ADV Advance Directives For more information, please contact: [phone] * Full Code (Latest Code Status on File) Date Activated Date Inactivated Comments 03/04/2025 6:03 AM 03/06/2025 10:59 PM * Full Code Date Activated Date Inactivated Comments 12/03/2024 11:46 AM 12/08/2024 5:51 PM * Full Code Date Activated Date Inactivated Comments 02/29/2024 12:17 AM 03/04/2024 6:19 PM * Full Code Date Activated Date Inactivated Comments 11/22/2023 4:20 PM 11/26/2023 8:21 PM * Full Code Date Activated Date Inactivated Comments 11/25/2022 9:58 AM 12/07/2022 5:47 PM Care Teams Bartacker Relationship Specialty Start Date End Date No, Physician PCP - General 03/03/25
--- OUTSIDE RECORDS SUMMARY | 2025-03-22 23:50 | XMS_ITS | Referral Summary ---
Author Organization [facility] Physician Office Building [address] [place] [id number] Care Team Providers Care Fund Accountant Name Role Phone No, Physician Primary Care Provider [phone] Encounters Date Type Department Care Team Description 03/21/2025 9:22 AM CDT - 03/21/2025 2:47 PM CDT Emergency [facility] Emergency Department [address] [place] [address] Zhang Lang MD Depression, unspecified depression type (Primary Dx); Malingering Discharge Disposition: Discharge to home or self care 03/20/2025 6:48 PM CDT - 03/21/2025 1:46 AM CDT Emergency [facility] Emergency Department [address] [place] [address] Francis Kruger MD Suicidal thoughts (Primary Dx); Malingering Discharge Disposition: Discharge to home or self care 03/04/2025 5:50 AM CDT - 03/06/2025 6:45 PM CDT Hospital Encounter [facility] [address] [place] [phone] Jarred Bernal MD de Leon, Victoria Carmen, MD Healthcare maintenance (Primary Dx); Malingering [Z76.5] Discharge Disposition: Discharge to home or self care 03/03/2025 6:09 PM CDT - 03/04/2025 5:24 AM CDT Emergency [facility] Emergency Department [address] [place] [address] Les Colorado MD Severe episode of recurrent major depressive disorder, without psychotic features (HCC) (Primary Dx); Suicidal thoughts Discharge Disposition: Discharge to a group home care hospital 01/17/2025 Results Follow-Up [facility] Emergency Department [address] [place] [address] Keegan Bah RN CBC with auto differential, Comprehensive metabolic panel, Urinalysis reflex to microscopic, Additional followed-up results: 3 01/17/2025 8:31 AM CDT - 01/17/2025 11:00 AM CDT Emergency [facility] Emergency Department [address] [place] [address] Ashley Coreas MD Suicidal ideation (Primary Dx); History of depression Discharge Disposition: Discharge to home or self care 01/17/2025 1:42 AM CDT - 01/17/2025 4:16 AM CDT Emergency [facility] Emergency Department [address] [place] [phone] Acosta Tomlinson MD Acute right ankle pain (Primary Dx) Discharge Disposition: Discharge to home or self care from Last 3 Months Allergies No known active allergies Medications amLODIPine [...] 30 tablet 1 03/03/20 24 025 Discontinued atorvastatin (LIPITOR) 20 mg tabletIndicati ons:hyperlipid emia Take 1 tablet (20 mg total) by mouth nightly 30 tablet 1 03/03/20 24 025 Discontinued losartan (COZAAR) 50 mg tabletIndicati ons:hypertensi on Take 1 tablet (50 mg total) by mouth daily 30 tablet 1 03/03/20 24 025 Discontinued metFORMIN (GLUCOPHAGE) 500 mg tabletIndicati ons:type 2 diabetes mellitus Take 1 tablet (500 mg total) by mouth 2 (two) times a day with meals 60 tablet 1 03/03/20 24 025 Discontinued pregabalin (LYRICA) 50 mg capsuleIndicat ions:neuropath y Take 1 capsule (50 mg total) by mouth 2 (two) times a day 60 capsule 1 03/03/20 24 025 Discontinued oxyBUTYnin XL (DITROPAN-XL) 5 mg 24 hr tabletIndicati ons:Increased Urinary Frequency Take 1 tablet (5 mg total) by mouth daily 30 tablet 1 03/04/20 24 025 Discontinued traZODone (DESYREL) 100 mg tabletIndicati ons:insomnia associated with depression Take 1 tablet (100 mg total) by mouth nightly as needed for sleep 30 tablet 03/03/20 24 025 Discontinued(St op Taking at Discharge) diclofenac sodium (VOLTAREN) 1 % gel Apply 2 g topically 3 (three) times a day as needed (117) 117 g 12/09/19 025 Discontinued(St op Taking at Discharge) lidocaine (LIDODERM) 5 % Place 1 patch on the skin daily for 12 hours Remove & discard patch within 12 hours or as directed by MD. 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 - resources for substance use cessation Assessment & Plan (11/25/2023 9:46 AM CDT): UDS +cocaine on admission. Previously documented group home use of cocaine and alcohol w/ unclear [...] work on dispo for today, possibly to snf. Plan: - continue sertraline 50 mg daily [...] Most recent iron profile revealed Iron 25, [id number], TIBC 311, and iron saturation of 8%and [...] daily Assessment & Plan (10/28/2021 9:38 AM RESERVATION AGENT): BP 168/114 on admission. Given lisinopril 20 mg in ED (on home meds list). Gave an additional 10 mg hydralazine for spot control of high DBP. Loose amlodipine tablets found in patients belongings (appear to be 10 mg). - c/w amlodipine 10 mg daily Assessment & Plan (10/24/2021 2:08 PM RESERVATION AGENT): BP 168/114 on admission. Given lisinopril 20 mg in ED (on home meds list). Gave an additional 10 mg hydralazine for spot control of high DBP. Loose amlodipine tablets found in patients belongings (appear to be 10 mg). - start amlodipine 10 mg daily Malingering 10/09/2020 Assessment & Plan (10/09/2020 7:59 AM RESERVATION AGENT): 59 y.o. single, Black or , disabled, [...] which he has had 3 in the [facility] system since mid August. There is high [...] future planning, social support (family and children), evangelical/spirituality and abstinence from alcohol, cocaine and narcotics [...] 2. Swer to help with dispo 3. [facility] recs apprec Assessment & Plan (12/02/2022 9:42 AM [...] 3. Med recs apprec Assessment & Plan (12/01/2022 1:27 PM [...] apprec Assessment & Plan (10/31/2021 8:02 AM RESERVATION AGENT): Pt was accepting of discharge and seems [...] psychiatry Assessment & Plan (10/24/2021 2:09 PM RESERVATION AGENT): Mr. Bob Hollsi is a 61-year-old man with a reported [...] a cast for the lower arm injuries Immunizations Immunization Administration Dates Next Due Influenza, Trivalent, High D ose, Split, Preservative Free, Intramuscular 12/03/2024 Pfizer SARS-CoV-2 Monovalent Vaccination (12+ Yrs) FINE-READY TO USE 12/05/2022 Social History Tobacco Use Types Packs/Day Years Used Date Smoking Tobacco: Former Smokeless Tobacco: Never Alcohol Use Standard Drinks/Week Comments No 0 (1 standard drink = 0.6 oz pur e alcohol) [facility] Utilities Answer Date Recorded In the past 12 months has e [employer], or water [employer] threatened to shut off services in your [...] often do you attend chur ch or mosque services? 1 to 4 times per year 03/04/2025 Do you belong to any clubs o r organizations such as judaism groups, unions, fraternal or athletic groups, or [...] staff should administer the PHQ-9) 2 03/04/2025 [facility] [employer] of Occupat ional Health - Occupational Stress [...] place to sleep or slept in a snf (including now)? Yes 11/23/2023 PHQ-9 Answer Date [...] any time in the past 12 m [facility], were you homeless or living in a snf (including now)? No 03/04/2025 Personal Safety Answer [...] on file Legal Sex Male 9:36 AM RESERVATION AGENT Gender Identity Not on file Sexual Orientation Not on file Last Filed Vital Signs [...] Mass Index 30.85 03/20/2025 6:52 PM CDT Functional Status * Are you deaf or [...] 03/04/2025 9:09 AM CDT Kerrie Morales LCSW Mental Status * Because of a physical, mental, or emotional condition, do you have serious difficulty concentrating, remembering, or making decisions? (5 years old or older) Answer Entry Date Author No 03/04/2025 9:09 AM CDT Kerrie Morales LCSW Plan of Treatment Scheduled Procedures Name Priority Associated Diagnoses Date/Ti me COLONOSCOPY Open Access Healthcare maintenance Procedures Procedure Name Priority Date/Time Associated Diagnosis [...] CDT PSA SCREEN Routine 07/14/2023 12:18 PM RESERVATION AGENT Urinary incontinence, unspecified type from Last 3 Months or Most Recently Relevant to Health Maintenance Results * Influenza A/B, RSV, and COVID-19 PCR Nasopharyngeal (03/21/2025 12:10 PM CDT) COVID-19 RNA Negative Negative Influenza A RNA Negative Negative [facility] Influenza B RNA Negative Negative [facility] RSV RNA Negative Negative [facility] Comment: Interpretive data: Testing performed by [facility]. This test is performed using the Cepheid Xpert Xpress CoV-2/Flu/RSV plus assay. This is a multiplex, real-time reverse transcriptase PCR assay intended for the qualitative detection of nucleic acid from SARS-CoV-2, influenza A, influenza B, and respiratory syncytial virus. This assay has been cleared by the [place] Food and Drug administration. The performance characteristics have been verified by the [facility]. Results must be considered in [...] GENERAL ORDERABLES Final Result [facility] [address] [place] [address] * Urinalysis reflex to microscopic and culture [...] tendency for uric acid stone formation. Source: [facility] Current Interpretive Data was last revised on [...] HOSPITAL [address] [place] [address] * (ABNORMAL) Drugs of Abuse Screen, Urine without Confirmation (03/21/2025 9:47 AM CDT) Amphetamine, ur Not Detected CutOff 500ng/mL [...] Lang MD LAB URINE ORDERABLES Final Result Performing Organization Address [facility] Co de Phone Number [facility] [address] [place] [address] * Ethanol (03/21/2025 9:44 AM CDT) Pathologist [facility] Ethanol <10 <=10 mg/dL Comment: Interpretive Data Legal limit of intoxication > or = 80 mg/dL Levels > or = 400 mg/dL are potentially TOXIC. Current interpretive data was last revised on 2018. Blood 03/21/2025 9:44 AM CDT 03/21/2025 10:08 AM CDT Zhang Lang MD LAB BLOOD ORDERABLES Final Result Performing Organization Address [facility] Co de Phone Number [facility] [address] [facility] [place] [address] * Troponin T high-sensitivity series (baseline, 2hr, 4hr, 6hr) (03/21/2025 9:32 AM CDT) Pathologist [facility] Trop T hs 13 <=22 ng/L Comment: Interpretive Data For further hscTnT resources including the diagnostic algorithm and an aid in interpretation, copy and paste this link: https://nrl.testcatalog.org/show/hsTrop Current Interpretive Data last revised 2020. Blood 03/21/2025 9:32 AM CDT 03/21/2025 9:42 AM CDT Zhang Lang MD LAB BLOOD ORDERABLES Final Result Performing Organization Address City/[facility]/ZIP Co de Phone Number [facility] [address] [place] [address] * eGFR (03/21/2025 9:32 AM CDT) eGFR [...] BLOOD ORDERABLES Final Result Performing Organization Address City/[facility]/ZIP Co de Phone Number [facility] [address] [place] [address] * Differential, auto (03/21/2025 9:32 AM CDT) Pathologist [facility] Neutrophil abs 6.26 1.50 - 6.50 K/cumm [...] BLOOD ORDERABLES Final Result [facility] [address] [place] [address] * (ABNORMAL) CBC with auto [...] BLOOD ORDERABLES Final Result Performing Organization Address City/[facility]/ZIP Co de Phone Number [facility] [address] [employer] [place], [place] [id number] * Lipase (03/21/2025 9:32 AM CDT) Pathologist [facility] Lipase 47 10 - 99 Units/L Blood Venous blood specimen / Unknown 03/21/2025 9:32 AM CDT 03/21/2025 9:42 AM CDT Zhang Lang MD LAB BLOOD ORDERABLES Final Result Performing Organization Address City/[facility]/ZIP Co de Phone Number [facility] [address] Department [place] [address] * Comprehensive metabolic panel (03/21/2025 9:32 AM CDT) Pathologist [facility] Sodium 141 135 - 145 mmol/L Potassium, [...] BLOOD ORDERABLES Final Result [facility] [address] Department [place] [address] * ECG 12 lead (03/21/2025 9:29 AM CDT) 03/21/2025 9:[address] [facility] - 03/21/2025 8:40 PM CDT Vent Rate: 77 bpm RR Interval: 773 msec [place] Interval: 241 msec QRS Duration: 96 msec QT Interval: 364 msec QTC Interval: 396 msec P-R-T [place]: 28 - -11 - 54 degrees IMPRESSION: SINUS RHYTHM WITH FIRST DEGREE AV BLOCK Possible SEPTAL MYOCARDIAL INFARCTION , PROBABLY OLD [40+ ms Q WAVE IN V1/V2] ABNORMAL ECG Electronically Signed By: Ed Sutton MD Zhang Lang MD ECG ORDERABLES Final Resu lt [facility] * POCT Rapid HIV Antibody Community Screening-Zac Eligible (03/20/2025 7:19 PM CDT) Pathologist [facility] Rapid HIV, POC Negative Negative Lot Number [id number] QC Control Line Acceptable Blood 03/20/2025 7:19 PM CDT Francis Kruger MD POINT OF CARE TEST ORD ERABLES Final Result * Urinalysis reflex to microscopic (03/20/2025 7:16 PM CDT) Color, ur Straw Yellow Clarity, ur Clear Clear [facility] Specific gravity, ur 1.017 1.003 - 1.030 [facility] pH, urine 7.0 [facility] Comment: Interpretive Data U rine pH is affected by diet, medications, systemic acid-base disturbances, and renal tubular function. pH may affect urinary stone formation. For example, urine pH below 6.0 may help reduce the tendency for calcium phosphate stones and pH greater than 6.0 may reduce the tendency for uric acid stone formation. Source: [employer] Current Interpretive Data was last revised on 2017 Protein, ur ql Negative Negative [facility] Glucose, ur ql Negative Negative [facility] Ketones, ur Negative Negative [facility] Bilirubin, ur Negative Negative [facility] Blood, ur Negative Negative [facility] Urobilinogen, ur <2.0 <2.0 mg/dL [facility] Nitrite, ur Negative Negative [facility] Leukocyte esterase, ur Negative Negative [facility] UA reflex comment Reflex conditions for microscopic UA not met. [facility] Urine 03/20/2025 7:16 PM CDT 03/20/2025 7:21 PM CDT Francis Kruger MD LAB URINE ORDERABLES F inal Result [facility] [place] [address] * (ABNORMAL) Drugs of Abuse Screen, Urine [...] Barbiturates, ur Not Detected CutOff 200ng/mL [facility] Comment: Interpretive Data - Barbiturates: Samples containing greater than 200 ng/mL secobarbital or other cross-reacting barbiturate compounds are reported as positive. False positive and false negative results are possible. Confirmatory testing required for definitive results. Current Interpretive Data was last reviewed 2023. Benzodiazepines, ur Not Detected CutOff 100ng/mL [facility] Comment: Interpretive Data - Benzodiazepines: Samples containing greater than 100 ng/mL nordiazepam or other cross-reacting compounds are reported as positive. False positive and false negative results are possible. Confirmatory testing required for definitive results. Current Interpretive Data was last reviewed 2023. Cannabinoids, ur Not Detected CutOff 50 ng/mL [facility] Comment: Interpretive Data - Cannabinoids: Samples containing greater than 50 ng/mL delta-9 THC -COOH or other cross- reacting compounds are reported as positive. False positive and false negative results are possible. Confirmatory testing required for definitive results. Current Interpretive Data was last reviewed 2023. Cocaine, ur Screen Positive, presumptive (A) CutOff 150ng/mL [facility] Comment: Interpretive Data - Cocaine: Samples containing greater than 150 ng/mL benzoylecgonine or other cross- reacting compounds are reported as positive. False positive and false negative results are possible. Confirmatory testing required for definitive results. Current Interpretive Data was last reviewed 2023. Fentanyl, Ur Not Detected CutOff 5 ng/mL [facility] Comment: Interpretive Data - Fentanyl: Samples containing greater than 5 ng/mL norfentanyl, fentanyl, or other cross-reacting fentanyl compounds are reported as positive. False positive and false negative results are possible. Confirmatory testing required for definitive results. Current Interpretive Data was last reviewed 2023. Methadone, ur Not Detected CutOff 300ng/mL [facility] Comment: Interpretive Data - Methadone: Samples containing greater than 300 ng/mL d,l-methadone or other cross-reacting compounds are reported as positive. False positive and false negative results are possible. Confirmatory testing required for definitive results. Current Interpretive Data was last reviewed 2023. Opiates, ur Not Detected CutOff 300ng/mL [facility] Comment: Interpretive Data - Opiates: Samples containing greater than 300 ng/mL morphine or other cross-reacting compounds are reported as positive. False positive and false negative results are possible. Confirmatory testing required for definitive results. Current Interpretive Data was last reviewed 2023. Oxycodone, ur Not Detected CutOff 100ng/mL [facility] Comment: Interpretive Data - Oxycodone: Samples containing greater than 100 ng/mL oxycodone or other cross-reacting compounds are reported as positive. False positive and false negative results are possible. Confirmatory testing required for definitive results. Current Interpretive Data was last reviewed 2023. Phencyclidine, ur Not Detected CutOff 25 ng/mL [facility] Comment: Interpretive Data - Phencyclidine: Samples containing greater than 25 ng/mL phencyclidine or other cross-reacting compounds are reported as positive. False positive and false negative results are possible. Confirmatory testing required for definitive results. Current Interpretive Data was last reviewed 2023. Urine Creatinine 91 mg/dL [facility] Comment: Interpretive Data Urine Creatinine: < 10 mg/dL is extremely dilute = or > 10 but < 20 mg/dL is dilute = or > 20 mg/dL is normal Current Interpretive Data was last revised on 2017. Urine 03/20/2025 7:16 PM CDT 03/20/2025 7:30 PM CDT Narrative [facility] - 03/20/2025 8:00 PM CDT Drug of Abuse screening is performed by immunoassay for medical purposes only. This is not to be used for Pain Management purposes. Francis Kruger MD LAB URINE ORDERABLES F inal Result Performing Organization Address [facility] Co de Phone Number [facility] [place] [address] * eGFR (03/20/2025 7:02 PM CDT) eGFR [...] ORDERABLES F inal Result Performing Organization Address [facility] Co de Phone Number [facility] Department [place] [address] * Differential, auto (03/20/2025 7:02 PM CDT) Neutrophil abs 5.92 1.50 - 6.50 K/cumm Imm gran abs 0.03 0.00 - 0.10 K/cumm [facility] Lymphocyte abs 1.55 0.80 - 3.30 K/cumm [facility] Monocyte abs 0.52 0.20 - 0.80 K/cumm [facility] Eosinophil abs 0.09 0.00 - 0.50 K/cumm [facility] Basophil abs 0.08 0.00 - 0.10 K/cumm [facility] Neutrophil pct 72.3 % [facility] Comment: Interpretive Data Percent cell count reference ranges are not reported, since discordance with absolute values may lead to misinterpretation of CBC data. Current Interpretive Data was last revised on 2017. Imm gran pct 0.4 % [facility] Comment: Interpretive Data Percent cell count reference ranges are not reported, since discordance with absolute values may lead to misinterpretation of CBC data. Current Interpretive Data was last revised on 2017. Lymphocyte pct 18.9 % [facility] Comment: Interpretive Data Percent cell count reference ranges are not reported, since discordance with absolute values may lead to misinterpretation of CBC data. Current Interpretive Data was last revised on 2017. Monocyte pct 6.3 % [facility] Comment: Interpretive Data Percent cell count reference ranges are not reported, since discordance with absolute values may lead to misinterpretation of CBC data. Current Interpretive Data was last revised on 2017. Eosinophil pct 1.1 % [facility] Comment: Interpretive Data Percent cell count reference ranges are not reported, since discordance with absolute values may lead to misinterpretation of CBC data. Current Interpretive Data was last revised on 2017. Basophil pct 1.0 % [facility] Comment: Interpretive Data Percent cell count reference ranges are not reported, since discordance with absolute values may lead to misinterpretation of CBC data. Current Interpretive Data was last revised on 2017. Blood 03/20/2025 7:02 PM CDT 03/20/2025 7:29 PM CDT Francis Kruger MD LAB BLOOD ORDERABLES F inal Result [facility] [place] [address] * Thyroid Function [place] (03/20/2025 7:02 PM CDT) [facility] TSH 1.51 0.30 - 4.20 mcIUnit/mL Blood 03/20/2025 7:02 PM CDT 03/20/2025 7:29 PM CDT Francis Kruger MD LAB BLOOD ORDERABLES F inal Result Performing Organization Address [facility] Co de Phone Number [facility] Department [place] [address] * (ABNORMAL) CBC with auto differential (03/20/2025 7:02 PM CDT) [facility] WBC 8.19 3.80 - 9.90 K/cumm Hgb 11.5(L) 13.0 - 17.5 g/dL [facility] Hct 36.7(L) 38.9 - 50.3 % [facility] Plt 289 150 - 400 K/cumm [facility] MPV 10.9 9.1 - 12.3 fL [facility] RBC 4.49 4.30 - 5.80 M/cumm [facility] MCV 81.7 81.3 - 96.4 fL [facility] MCH 25.6(L) 27.1 - 33.3 pg [facility] MCHC 31.3(L) 32.3 - 35.7 g/dL [facility] RDW CV 17.1(H) 11.1 - 14.9 % [facility] RDW SD 50.2(H) 35.7 - 48.1 fL [facility] NRBC abs 0.00 0.00 - 0.01 K/cumm [facility] Blood Venous blood specimen / Unknown 03/20/2025 7:02 PM CDT 03/20/2025 7:29 PM CDT Francis Kruger MD LAB BLOOD ORDERABLES F inal Result Performing Organization Address [facility] de Phone Number [facility] [place] [address] * Ethanol (03/20/2025 7:02 PM CDT) Pathologist [facility] Ethanol <10 <=10 mg/dL Comment: Interpretive Data Legal limit of intoxication > or = 80 mg/dL Levels > or = 400 mg/dL are potentially TOXIC. Current interpretive data was last revised on 2018. Blood 03/20/2025 7:02 PM CDT 03/20/2025 7:29 PM CDT Francis Kruger MD LAB BLOOD ORDERABLES F inal Result Performing Organization Address [facility] de Phone Number [facility] [place] [address] * (ABNORMAL) Comprehensive metabolic panel (03/20/2025 7:02 PM CDT) [facility] Sodium 141 135 - 145 mmol/L Potassium, pl 4.8 3.3 - 4.9 mmol/L [facility] Chloride 105 97 - 110 mmol/L [facility] CO2 28 22 - 32 mmol/L [facility] Anion gap 8 2 - 15 mmol/L [facility] BUN 11 6 - 25 mg/dL [facility] Creatinine 1.01 0.80 - 1.30 mg/dL [facility] Glucose 105 70 - 199 mg/dL [facility] Comment: Interpretive Data Fasting glucose [...] Calcium 10.4(H) 8.5 - 10.3 mg/dL [facility] Bilirubin, total <0.2 0.1 - 1.2 mg/dL [facility] Protein, pl 8.2 6.5 - 8.5 g/dL [facility] Albumin 4.5 3.5 - 5.0 g/dL [facility] Alk phos 113 40 - 130 Units/L [facility] ALT 10 7 - 55 Units/L [facility] AST 22 10 - 50 Units/L [facility] Blood 03/20/2025 7:02 PM CDT 03/20/2025 7:29 PM CDT Francis Kruger MD LAB BLOOD ORDERABLES F inal Result Performing Organization Address [facility] de Phone Number [facility] [place] [address] * ECG 12 lead (03/03/2025 8:12 PM CDT) 03/03/2025 8:12 PM CDT Narrative [facility] - 03/05/2025 6:51 PM CDT Vent Rate: 79 bpm RR Interval: 751 msec [place] Interval: 213 msec QRS Duration: 91 msec QT Interval: 365 msec QTC Interval: 400 msec P-R-T [place]: 232 - -30 - 46 degrees IMPRESSION: SINUS RHYTHM WITH FIRST DEGREE AV BLOCK POSSIBLE LEFT ATRIAL ENLARGEMENT [-0.1mV P-WAVE IN V1/V2] POSSIBLE ANTERIOR MYOCARDIAL INFARCTION , OF INDETERMINATE AGE [30 ms Q WAVE IN V3/V4, OR R < 0.2 mV IN V4] ABNORMAL ECG Electronically Signed By: Kevyn Gramajo DO, [facility] Les Colordao MD ECG ORDERABLES Final Resul t Performing Organization Address [facility] Co de Phone Number [facility] * Drugs of Abuse Screen, Urine without Confirmation (03/03/2025 8:11 PM CDT) Pathologist [facility] Amphetamine, ur Not Detected CutOff 500ng/mL Comment: Interpretive Data - Amphetamines: Samples containing greater than 500 ng/mL d-methamphetamine or other cross-reacting amphetamine compounds are reported as positive. Amphetamine immunoassays are subject to significant false positive rates due to cross-reactivity of non-amphetamine drugs. Confirmatory testing required for definitive results. Current Interpretive Data was last reviewed 2023. Barbiturates, ur Not Detected CutOff 200ng/mL [facility] Comment: Interpretive Data - Barbiturates: Samples containing greater than 200 ng/mL secobarbital or other cross-reacting barbiturate compounds are reported as positive. False positive and false negative results are possible. Confirmatory testing required for definitive results. Current Interpretive Data was last reviewed 2023. Benzodiazepines, ur Not Detected CutOff 100ng/mL [facility] Comment: Interpretive Data - Benzodiazepines: Samples containing greater than 100 ng/mL nordiazepam or other cross-reacting compounds are reported as positive. False positive and false negative results are possible. Confirmatory testing required for definitive results. Current Interpretive Data was last reviewed 2023. Cannabinoids, ur Not Detected CutOff 50 ng/mL [facility] Comment: Interpretive Data - Cannabinoids: Samples containing greater than 50 ng/mL delta-9 THC -COOH or other cross- reacting compounds are reported as positive. False positive and false negative results are possible. Confirmatory testing required for definitive results. Current Interpretive Data was last reviewed 2023. Cocaine, ur Not Detected CutOff 150ng/mL [facility] Comment: Interpretive Data - Cocaine: Samples containing greater than 150 ng/mL benzoylecgonine or other cross- reacting compounds are reported as positive. False positive and false negative results are possible. Confirmatory testing required for definitive results. Current Interpretive Data was last reviewed 2023. Fentanyl, Ur Not Detected Cutoff 1 ng/mL [facility] Comment: Interpretive Data - Fentanyl: Samples containing greater than 1 ng/mL fentanyl or other cross-reacting fentanyl compounds are reported as positive. False positive and false negative results are possible. Confirmatory testing required for definitive results. Current Interpretive Data was last reviewed 2023. Methadone, ur Not Detected CutOff 300ng/mL [facility] Comment: Interpretive Data - Methadone: Samples containing greater than 300 ng/mL d,l-methadone or other cross-reacting compounds are reported as positive. False positive and false negative results are possible. Confirmatory testing required for definitive results. Current Interpretive Data was last reviewed 2023. Opiates, ur Not Detected CutOff 300ng/mL [facility] Comment: Interpretive Data - Opiates: Samples containing greater than 300 ng/mL morphine or other cross-reacting compounds are reported as positive. False positive and false negative results are possible. Confirmatory testing required for definitive results. Current Interpretive Data was last reviewed 2023. Oxycodone, ur Not Detected CutOff 100ng/mL [facility] Comment: Interpretive Data - Oxycodone: Samples containing greater than 100 ng/mL oxycodone or other cross-reacting compounds are reported as positive. False positive and false negative results are possible. Confirmatory testing required for definitive results. Current Interpretive Data was last reviewed 2023. Phencyclidine, ur Not Detected CutOff 25 ng/mL [facility] Comment: Interpretive Data - Phencyclidine: Samples containing greater than 25 ng/mL phencyclidine or other cross-reacting compounds are reported as positive. False positive and false negative results are possible. Confirmatory testing required for definitive results. Current Interpretive Data was last reviewed 2023. Urine Creatinine 115 mg/dL [facility] Comment: Interpretive Data Urine Creatinine: < 10 mg/dL is extremely dilute = or > 10 but < 20 mg/dL is dilute = or > 20 mg/dL is normal Current Interpretive Data was last revised on 2017. Urine 03/03/2025 8:11 PM CDT 03/03/2025 8:25 PM CDT Narrative [facility] - 03/03/2025 9:05 PM CDT Drug of Abuse screening is performed by immunoassay for medical purposes only. This is not to be used for Pain Management purposes. Les Colorado MD LAB URINE ORDERABLES Final Result [facility] [address] [place] [address] * COVID-19 Coronavirus RNA Nasopharyngeal (03/03/2025 8:08 PM CDT) [facility] COVID-19 RNA Negative Negative Nasopharyngeal 03/03/2025 8: 08 PM CDT 03/03/2025 8:25 PM CDT [facility] 03/03/2025 9:36 PM CDT Is the patient experiencing any symptoms consistent with COVID (eg. Fever, cough, shortness of breath)?->No What is the reason for testing?->Screening prior to Behavioral health admission Interpretive data Testing performed by [facility]. This test is performed using the [employer] Xpert Xpress CoV-2 plus assay. This is a real-time RT-PCR test intended for the qualitative detection of nucleic acid from the SARS-CoV-2. This assay has been cleared by the [place] Food and Drug administration. The performance characteristics have been verified by the [facility]. Results must be considered in the clinical context, and a negative result does not rule out infection. Interpretive data last revised 2024. Interpretive data Testing performed by [facility]. This test is performed using the [employer] Xpert Xpress CoV-2 plus assay. This is a real-time RT-PCR test intended for the qualitative detection of nucleic acid from the SARS-CoV-2. This assay has been cleared by the [place] Food and Drug administration. The performance characteristics have been verified by the [facility]. Results must be considered in the clinical context, and a negative result does not rule out infection. Interpretive data last revised 2024. Les Colorado MD LAB MICROBIOLOGY - GENERAL ORDERABLES Final Result [facility] [address] [place] [address] * eGFR (03/03/2025 8:08 PM CDT) Pathologist [facility] eGFR 74 >=60 mL/min/1. 73 m2 Comment: [...] Colorado MD LAB BLOOD ORDERABLES Final Result [address] Department [place] [address] * Differential, auto (03/03/2025 8:08 PM CDT) Pathologist [facility] Neutrophil abs 4.45 1.50 - 6.50 K/cumm Imm gran abs 0.01 0.00 - 0.10 K/cumm [facility] Lymphocyte abs 1.23 0.80 - 3.30 K/cumm [facility] Monocyte abs 0.43 0.20 - 0.80 K/cumm [facility] Eosinophil abs 0.14 0.00 - 0.50 K/cumm [facility] Basophil abs 0.05 0.00 - 0.10 K/cumm [facility] Neutrophil pct 70.5 % [facility] Comment: Interpretive Data Percent cell count reference ranges are not reported, since discordance with absolute values may lead to misinterpretation of CBC data. Current Interpretive Data was last revised on 2017. Imm gran pct 0.2 % [facility] Comment: Interpretive Data Percent cell count reference ranges are not reported, since discordance with absolute values may lead to misinterpretation of CBC data. Current Interpretive Data was last revised on 2017. Lymphocyte pct 19.5 % [facility] Comment: Interpretive Data Percent cell count reference ranges are not reported, since discordance with absolute values may lead to misinterpretation of CBC data. Current Interpretive Data was last revised on 2017. Monocyte pct 6.8 % [facility] Comment: Interpretive Data Percent cell count reference ranges are not reported, since discordance with absolute values may lead to misinterpretation of CBC data. Current Interpretive Data was last revised on 2017. Eosinophil pct 2.2 % [facility] Comment: Interpretive Data Percent cell count reference ranges are not reported, since discordance with absolute values may lead to misinterpretation of CBC data. Current Interpretive Data was last revised on 2017. Basophil pct 0.8 % [facility] Comment: Interpretive Data Percent cell count reference ranges are not reported, since discordance with absolute values may lead to misinterpretation of CBC data. Current Interpretive Data was last revised on 2017. Blood 03/03/2025 8:08 PM CDT 03/03/2025 8:25 PM CDT Les Colorado MD LAB BLOOD ORDERABLES Final Result [address] Department [place] [address] * Urinalysis reflex to microscopic and culture Urine (03/03/2025 8:08 PM CDT) Color, ur Yellow Yellow Clarity, ur Clear Clear [facility] Specific gravity, ur 1.019 1.003 - 1.030 [facility] pH, urine 7.0 [facility] Comment: Interpretive Data U rine pH is affected by diet, medications, systemic acid-base disturbances, and renal tubular function. pH may affect urinary stone formation. For example, urine pH below 6.0 may help reduce the tendency for calcium phosphate stones and pH greater than 6.0 may reduce the tendency for uric acid stone formation. Source: [facility] Current Interpretive Data was last revised on 2017 Protein, ur ql Negative Negative [facility] Glucose, ur ql Negative Negative [facility] Ketones, ur Negative Negative [facility] Bilirubin, ur Negative Negative [facility] Blood, ur Negative [facility] Urobilinogen, ur <2.0 <2.0 mg/dL [facility] Nitrite, ur Negative Negative [facility] Leukocyte esterase, ur Negative Negative [facility] UA reflex comment Reflex conditions for microscopic UA and culture not met. [facility] Urine 03/03/2025 8:08 PM CDT 03/03/2025 8:25 PM CDT Les Colorado MD LAB MICROBIOLOGY - GENERAL ORDERABLES Final Result [facility] [address] [facility] Department [place] [address] * (ABNORMAL) CBC with auto differential (03/03/2025 8:08 PM CDT) WBC 6.31 3.80 - 9.90 K/cumm Hgb 11.3(L) 13.0 - 17.5 g/dL [facility] Hct 37.2(L) 38.9 - 50.3 % [facility] Plt 384 150 - 400 K/cumm [facility] MPV 10.1 9.1 - 12.3 fL [facility] RBC 4.36 4.30 - 5.80 M/cumm [facility] MCV 85.3 81.3 - 96.4 fL [facility] MCH 25.9(L) 27.1 - 33.3 pg [facility] MCHC 30.4(L) 32.3 - 35.7 g/dL [facility] RDW CV 16.2(H) 11.1 - 14.9 % [facility] RDW SD 50.3(H) 35.7 - 48.1 fL [facility] NRBC abs 0.00 0.00 - 0.01 K/cumm [facility] Blood 03/03/2025 8:08 PM CDT 03/03/2025 8:25 PM CDT Les Colorado MD LAB BLOOD ORDERABLES Final Result Performing Organization Address [facility] Co de Phone Number [address] [address] * Ethanol (03/03/2025 8:08 PM CDT) Ethanol <10 <=10 mg/dL Comment: Interpretive Data Legal limit of intoxication > or = 80 mg/dL Levels > or = 400 mg/dL are potentially TOXIC. Current interpretive data was last revised on 2018. Blood 03/03/2025 8:08 PM CDT 03/03/2025 8:25 PM CDT us Les Colorado MD LAB BLOOD ORDERABLES Final Result Performing Organization Address [facility] de Phone Number [address] [address] * Acetaminophen level (03/03/2025 8:08 PM CDT) [...] after ingestion Consult toxicology or poison control ([phone]) for unknown ingestion time. Current interpretive data was last revised 2023. Blood 03/03/2025 8:08 PM CDT 03/03/2025 8:25 PM CDT Les Colorado MD LAB BLOOD ORDERABLES Final Result Performing Organization Address City/[facility] Co de Phone Number [address] [address] * Salicylate level (03/03/2025 8:08 PM CDT) Salicylate <0.5 <=0.5 mg/dL Comment: Interpretive Data Toxic: 30 mg/dL or greater. Current interpretive data was last revised 2023. Blood 03/03/2025 8:08 PM CDT 03/03/2025 8:25 PM CDT Les Colorado MD LAB BLOOD ORDERABLES Final Result Performing Organization Address [facility] Co de Phone Number [address] [address] * (ABNORMAL) Comprehensive metabolic panel (03/03/2025 8:08 PM CDT) Sodium 141 135 - 145 mmol/L Potassium, pl 4.7 3.3 - 4.9 mmol/L [facility] Chloride 104 97 - 110 mmol/L [facility] CO2 24 22 - 32 mmol/L [facility] Anion gap 13 2 - 15 mmol/L [facility] BUN 20 6 - 25 mg/dL [facility] Creatinine 1.11 0.80 - 1.30 mg/dL [facility] Glucose 105 70 - 199 mg/dL [facility] Comment: Interpretive Data Fasting glucose >/= [...] 2022. Calcium 9.6 8.5 - 10.3 mg/dL [facility] Bilirubin, total <0.1 0.1 - 1.2 mg/dL [facility] Protein, pl 7.8 6.5 - 8.5 g/dL [facility] Albumin 4.5 3.5 - 5.0 g/dL [facility] Alk phos 114 40 - 130 Units/L [facility] ALT 6(L) 7 - 55 Units/L [facility] AST <5(L) 10 - 50 Units/L [facility] Blood 03/03/2025 8:08 PM CDT 03/03/2025 8:25 PM CDT Les Colorado MD LAB BLOOD ORDERABLES Final Result [facility] [address] [facility] Department [place] [address] * eGFR (01/17/2025 8:50 AM CDT) eGFR [...] LAB BLOOD ORDERABLES Brenda albarran Result [facility] [place] [address] * (ABNORMAL) Differential, auto (01/17/2025 8:50 AM CDT) Neutrophil abs 7.08(H) 1.50 - 6.50 K/cumm Imm gran abs 0.03 0.00 - 0.10 K/cumm [facility] Lymphocyte abs 1.56 0.80 - 3.30 K/cumm [facility] Monocyte abs 0.72 0.20 - 0.80 K/cumm [facility] Eosinophil abs 0.09 0.00 - 0.50 K/cumm [facility] Basophil abs 0.04 0.00 - 0.10 K/cumm [facility] Neutrophil pct 74.4 % [facility] Comment: Interpretive Data Percent cell count reference ranges are not reported, since discordance with absolute values may lead to misinterpretation of CBC data. Current Interpretive Data was last revised on 2017. Imm gran pct 0.3 % [facility] Comment: Interpretive Data Percent cell count reference ranges are not reported, since discordance with absolute values may lead to misinterpretation of CBC data. Current Interpretive Data was last revised on 2017. Lymphocyte pct 16.4 % [facility] Comment: Interpretive Data Percent cell count reference ranges are not reported, since discordance with absolute values may lead to misinterpretation of CBC data. Current Interpretive Data was last revised on 2017. Monocyte pct 7.6 % [facility] Comment: Interpretive Data Percent cell count reference ranges are not reported, since discordance with absolute values may lead to misinterpretation of CBC data. Current Interpretive Data was last revised on 2017. Eosinophil pct 0.9 % [facility] Comment: Interpretive Data Percent cell count reference ranges are not reported, since discordance with absolute values may lead to misinterpretation of CBC data. Current Interpretive Data was last revised on 2017. Basophil pct 0.4 % [facility] Comment: Interpretive Data Percent cell count reference ranges are not reported, since discordance with absolute values may lead to misinterpretation of CBC data. Current Interpretive Data was last revised on 2017. Blood 01/17/2025 8:50 AM CDT 01/17/2025 9:51 AM CDT Ashley Coreas MD LAB BLOOD ORDERABLES Brenda l Result Performing Organization Address City/[facility] Co de Phone Number [facility] [place] [address] * Thyroid Function [place] (01/17/2025 8:50 AM CDT) TSH 0.85 0.30 - 4.20 mcIUnit/mL Blood 01/17/2025 8:50 AM CDT 01/17/2025 9:49 AM CDT Ashley Coreas MD LAB BLOOD ORDERABLES Brenda l Result Performing Organization Address [facility] de Phone Number [facility] [place] [address] * (ABNORMAL) Urinalysis reflex to microscopic (01/17/2025 8:50 AM CDT) Color, ur Yellow Yellow Clarity, ur Clear Clear [facility] Specific gravity, ur 1.036(H) 1.003 - 1.030 [facility] pH, urine 6.0 [facility] Comment: Interpretive Data U rine pH is affected by diet, medications, systemic acid-base disturbances, and renal tubular function. pH may affect urinary stone formation. For example, urine pH below 6.0 may help reduce the tendency for calcium phosphate stones and pH greater than 6.0 may reduce the tendency for uric acid stone formation. Source: [facility] Current Interpretive Data was last revised on 2017 Protein, ur ql 1+(A) Negative [facility] Glucose, ur ql Negative Negative [facility] Ketones, ur 1+(A) Negative [facility] Bilirubin, ur 1+(A) Negative [facility] Blood, ur Negative Negative [facility] Urobilinogen, ur 4.0(A) <2.0 mg/dL [facility] Nitrite, ur Negative Negative [facility] Leukocyte esterase, ur Negative Negative [facility] UA reflex comment Reflex to microscopic UA will be performed. [facility] Urine 01/17/2025 8:50 AM CDT 01/17/2025 9:43 AM CDT Ashley Coreas MD LAB URINE ORDERABLES Brenda albarran Result [facility] [address] [facility] [place] [address] * (ABNORMAL) CBC with auto differential (01/17/2025 8:50 AM CDT) WBC 9.52 3.80 - 9.90 K/cumm Hgb 10.9(L) 13.0 - 17.5 g/dL [facility] Hct 33.7(L) 38.9 - 50.3 % [facility] Plt 217 150 - 400 K/cumm [facility] MPV 11.1 9.1 - 12.3 fL [facility] RBC 4.10(L) 4.30 - 5.80 M/cumm [facility] MCV 82.2 81.3 - 96.4 fL [facility] MCH 26.6(L) 27.1 - 33.3 pg [facility] MCHC 32.3 32.3 - 35.7 g/dL [facility] RDW CV 15.7(H) 11.1 - 14.9 % [facility] RDW SD 46.7 35.7 - 48.1 fL [facility] NRBC abs 0.00 0.00 - 0.01 K/cumm [facility] Blood 01/17/2025 8:50 AM CDT 01/17/2025 9:51 AM CDT Ashley Coreas MD LAB BLOOD ORDERABLES Brenda albarran Result [facility] [address] [facility] [place] [address] * (ABNORMAL) Drugs of Abuse Screen, Urine without Confirmation (01/17/2025 8:50 AM CDT) Amphetamine, ur Not Detected CutOff 500ng/mL Comment: Interpretive Data - Amphetamines: Samples containing greater than 500 ng/mL d-methamphetamine or other cross-reacting amphetamine compounds are reported as positive. Amphetamine immunoassays are subject to significant false positive rates due to cross-reactivity of non-amphetamine drugs. Confirmatory testing required for definitive results. Current Interpretive Data was last reviewed 2023. Barbiturates, ur Not Detected CutOff 200ng/mL [facility] Comment: Interpretive Data - Barbiturates: Samples containing greater than 200 ng/mL secobarbital or other cross-reacting barbiturate compounds are reported as positive. False positive and false negative results are possible. Confirmatory testing required for definitive results. Current Interpretive Data was last reviewed 2023. Benzodiazepines, ur Not Detected CutOff 100ng/mL [facility] Comment: Interpretive Data - Benzodiazepines: Samples containing greater than 100 ng/mL nordiazepam or other cross-reacting compounds are reported as positive. False positive and false negative results are possible. Confirmatory testing required for definitive results. Current Interpretive Data was last reviewed 2023. Cannabinoids, ur Not Detected CutOff 50 ng/mL [facility] Comment: Interpretive Data - Cannabinoids: Samples containing greater than 50 ng/mL delta-9 THC -COOH or other cross- reacting compounds are reported as positive. False positive and false negative results are possible. Confirmatory testing required for definitive results. Current Interpretive Data was last reviewed 2023. Cocaine, ur Screen Positive, presumptive (A) CutOff 150ng/mL [facility] Comment: Interpretive Data - Cocaine: Samples containing greater than 150 ng/mL benzoylecgonine or other cross- reacting compounds are reported as positive. False positive and false negative results are possible. Confirmatory testing required for definitive results. Current Interpretive Data was last reviewed 2023. Fentanyl, Ur Not Detected CutOff 5 ng/mL [facility] Comment: Interpretive Data - Fentanyl: Samples containing greater than 5 ng/mL norfentanyl, fentanyl, or other cross-reacting fentanyl compounds are reported as positive. False positive and false negative results are possible. Confirmatory testing required for definitive results. Current Interpretive Data was last reviewed 2023. Methadone, ur Not Detected CutOff 300ng/mL [facility] Comment: Interpretive Data - Methadone: Samples containing greater than 300 ng/mL d,l-methadone or other cross-reacting compounds are reported as positive. False positive and false negative results are possible. Confirmatory testing required for definitive results. Current Interpretive Data was last reviewed 2023. Opiates, ur Not Detected CutOff 300ng/mL [facility] Comment: Interpretive Data - Opiates: Samples containing greater than 300 ng/mL morphine or other cross-reacting compounds are reported as positive. False positive and false negative results are possible. Confirmatory testing required for definitive results. Current Interpretive Data was last reviewed 2023. Oxycodone, ur Not Detected CutOff 100ng/mL [facility] Comment: Interpretive Data - Oxycodone: Samples containing greater than 100 ng/mL oxycodone or other cross-reacting compounds are reported as positive. False positive and false negative results are possible. Confirmatory testing required for definitive results. Current Interpretive Data was last reviewed 2023. Phencyclidine, ur Not Detected CutOff 25 ng/mL [facility] Comment: Interpretive Data - Phencyclidine: Samples containing greater than 25 ng/mL phencyclidine or other cross-reacting compounds are reported as positive. False positive and false negative results are possible. Confirmatory testing required for definitive results. Current Interpretive Data was last reviewed 2023. Urine Creatinine 304 mg/dL [facility] Comment: Interpretive Data Urine Creatinine: < 10 mg/dL is extremely dilute = or > 10 but < 20 mg/dL is dilute = or > 20 mg/dL is normal Current Interpretive Data was last revised on 2017. Urine 01/17/2025 8:50 AM CDT 01/17/2025 9:49 AM CDT Narrative [facility] - 01/17/2025 10:18 AM CDT Drug of Abuse screening is performed by immunoassay for medical purposes only. This is not to be used for Pain Management purposes. us Ashley Coreas MD LAB URINE ORDERABLES Brenda l Result Performing Organization Address [facility] Co de Phone Number [facility] [place] [address] * (ABNORMAL) Urinalysis, microscopic only (01/17/2025 8:50 AM CDT) WBC, ur 0-5 0 - 5 /HPF RBC, ur 6-10(A) 0 - 2 /HPF [facility] Epithelial cells, squamous, ur 1-5 0 - 5 /HPF [facility] Bacteria, ur Trace(A) [facility] Mucous, ur Present(A) [facility] Hyaline casts, ur 6-10 0 - 10 /LPF [facility] Urine 01/17/2025 8:50 AM CDT 01/17/2025 9:43 AM CDT Ashley Coreas MD LAB URINE ORDERABLES Brenda l Result Performing Organization Address [facility] [place] [address] * Ethanol (01/17/2025 8:50 AM CDT) Ethanol <10 <=10 mg/dL Comment: Interpretive Data Legal limit of intoxication > or = 80 mg/dL Levels > or = 400 mg/dL are potentially TOXIC. Current interpretive data was last revised on 2018. Blood 01/17/2025 8:50 AM CDT 01/17/2025 9:49 AM CDT Ashley Coreas MD LAB BLOOD ORDERABLES Brenda l Result Performing Organization Address [facility] Co de Phone Number [facility] [place] [address] * (ABNORMAL) Comprehensive metabolic panel (01/17/2025 8:50 AM CDT) Sodium 146(H) 135 - 145 mmol/L Potassium, pl 3.4 3.3 - 4.9 mmol/L [facility] Chloride 107 97 - 110 mmol/L [facility] CO2 27 22 - 32 mmol/L [facility] Anion gap 12 2 - 15 mmol/L [facility] BUN 19 6 - 25 mg/dL [facility] Creatinine 1.05 0.80 - 1.30 mg/dL [facility] Glucose 106 70 - 199 mg/dL [facility] Comment: Interpretive Data Fasting glucose [...] 2022. Calcium 9.6 8.5 - 10.3 mg/dL [facility] Bilirubin, total 0.3 0.1 - 1.2 mg/dL [facility] Protein, pl 8.1 6.5 - 8.5 g/dL [facility] Albumin 4.2 3.5 - 5.0 g/dL [facility] Alk phos 133(H) 40 - 130 Units/L [facility] ALT 13 7 - 55 Units/L [facility] AST 36 10 - 50 Units/L [facility] Blood 01/17/2025 8:50 AM CDT 01/17/2025 9:49 AM CDT us Ashley Coreas MD LAB BLOOD ORDERABLES Brenda l Result [facility] Department [place] [address] * XR Ankle Right 3 or More [...] 5.6 % Estimated Average Glucose 140 mg/dL [facility] Comment: The ADA recommends reporting an estimated Average Glucose (eAG) with all Hemoglobin A1c results using the equation derived from a study of 507 normal and diabetic adults. Minority populations were underrepresented and children were not included. (Diabetes Care 31:5847-5500, 2008). The eAG is not equivalent to a fasting glucose. Blood 12/04/2024 6:18 AM CDT 12/04/2024 6:27 AM CDT Zack Adam MD LAB BLOOD ORDERABLES F inal Result [facility] [address] [facility] Department [place] [address] * Lipid panel (12/04/2024 6:18 AM CDT) [facility] Cholesterol 182 30 - 199 mg/dL Comment: [...] revised on 2018. Triglycerides 83 <=149 mg/dL [facility] Comment: Interpretive Data Ages < or [...] revised on 2018. HDL 61 >=40 mg/dL [facility] ([place]) Comment: Interpretive Data Ages < or [...] on 2018. LDL, calculated 106 <=129 mg/dL [facility] ([place]) Comment: Interpretive Data Ages < or [...] revised on 2024. Non-HDL Cholesterol 121 mg/dL [facility] ([place]) Comment: Interpretive Data Ages < or = [...] on 2018. Chol/HDL ratio 3 JOHN PAUL Flower [facility] ([place]) Blood 12/04/2024 6:18 AM CDT 12/04/2024 6:27 AM CDT Zack Adam MD LAB BLOOD ORDERABLES F inal Result [facility] [address] [facility] Department of Laboratories [place], [place] [id number] * PSA screen (07/14/2023 12:18 PM RESERVATION AGENT) PSA-Total 4.92 <=5.40 ng/mL [facility] Comment: Interpretive Data AGE SEX REFERENCE INTERVAL [...] revised 22. Blood 07/14/2023 12:1 8 PM RESERVATION AGENT 07/14/2023 12:55 PM RESERVATION AGENT Magdiel Marin DEPUTY ASSESSOR LAB BLOOD ORDERABLES F inal Result [facility] [place] [address] from Last 3 Months or Most Recently Relevant to Health Maintenance Insurance [employer] Advance Directives For more information, please contact: [phone] * Full Code (Latest Code Status on [...] 9:58 AM 12/07/2022 5:47 PM Care Teams Fund Accountant Relationship Specialty Start Date End Date No, Physician PCP - General 03/03/25
[2025-03-23 00:01] LABS: Influenza A QL RT-PCR Negative (Negative); Influenza B QL RT-PCR Negative (Negative); RSV RNA, RT-PCR Negative (Negative); SARS-CoV-2 RNA PCR Negative (Negative)
[2025-03-23 00:07] LABS: Thyroid Stimulating Hormone Reflex 2.160 uIU/mL (0.465-4.68)
[2025-03-23 00:14] LABS: Cannabinoid Screen Urine Negative (Negative)
--- NOTE | 2025-03-23 00:17 | ED_ITS ---
HPI - Psych General Chief Complaint: Psychiatric Symptoms <Roxana Diaz APRN - Last Filed: 03/23/25 03:15> Stated Complaint: SI with plan <Roxana Diaz APRN - Last Filed: 03/23/25 03:15> Time Seen by Provider: 03/22/25 22:43 <Roxana Diaz APRN - Last Filed: 03/23/25 03:15> History of Present Illness HPI Narrative: Patient is a 64-year-old male who presents to the ER with suicidal ideation. He reports ?I go to the hospital, they admit me for a few days, then they discharged me, but the problem is still there. Patient reports he is actively suicidal and plans to use a gun to kill himself. He reports he takes medication for his mental health but he is unsure of his diagnoses. Patient sources a history of high blood pressure, prediabetes, and bilateral lower extremity nerve pain. He denies any chest pain, shortness of breath, recent fevers, abdominal pain, or headaches. <Roxana Diaz APRN - Last Filed: 03/23/25 03:15> Review of Systems 2 Review of Systems: All systems reviewed & are unremarkable except as noted in HPI and below <Roxana Diaz APRN - Last Filed: 03/23/25 03:15> PMFSH Social History Social History: Social History Substance use type: marijuana and crack/cocaine <Roxana Diaz APRN - Last Filed: 03/23/25 03:15> Exam 2 Narrative: GENERAL: Well appearing, well-nourished, non-toxic, in no acute distress. HEAD: Normocephalic, atraumatic. NECK: Supple. No adenopathy, no masses. RESPIRATORY: Airway patent, respirations nonlabored. Clear to auscultation bilaterally, no rales, rhonchi, wheezing. CARDIOVASCULAR: Regular rate and rhythm without murmurs, rubs, or gallops. Peripheral pulses 2+ and equal bilaterally. ABDOMINAL: Soft, nontender, nondistended, no hepatosplenomegaly. Normoactive BS. MUSCULOSKELETAL: Moves all extremities. Strength/ROM intact without gross deformities. SKIN: Warm, dry, normal color. No rashes. NEURO: A&O X3. Speech clear. Cranial nerves II-XII intact. No ataxic movements. PSYCHIATRIC: Appropriate mood and affect. Normal interaction. <Roxana Diaz APRN - Last Filed: 03/23/25 03:15> Course DATA ANALYTICS DEVELOPER/PA Physician Supervision This visit was performed by both a physician and an APC. I performed all aspects of the MDM as documented. Patient is medically cleared for psychiatric evaluation, admission and transportation at this time. Awaiting accepting facility in bed assignment. < Wayne Lang MD - Last Filed: 03/23/25 07:29> Vital Signs Vital signs: Vital Signs Temperature 36.6 C 03/22/25 22:50 Pulse Rate 83 03/22/25 22:50 Respiratory Rate 14 03/22/25 22:50 Blood Pressure 108/78 03/22/25 22:50 Pulse Oximetry 100 03/22/25 22:50 Oxygen Delivery Room Air 03/22/25 22:50 Temperature 36.6 C 03/22/25 22:50 Pulse Rate 83 03/22/25 22:50 Respiratory Rate 14 03/22/25 22:50 Blood Pressure 108/78 03/22/25 22:50 Pulse Oximetry 100 03/22/25 22:50 Oxygen Delivery Room Air 03/22/25 22:50 <Roxana Diaz, LIFE INSURANCE UNDERWRITER - Last Filed: 03/23/25 03:15> Vital Signs Temperature 36.6 C 03/22/25 22:50 Pulse Rate 83 03/22/25 22:50 Respiratory Rate 14 03/22/25 22:50 Blood Pressure 108/78 03/22/25 22:50 Pulse Oximetry 100 03/22/25 22:50 Oxygen Delivery Room Air 03/22/25 22:50 Temperature 36.6 C 03/22/25 22:50 Pulse Rate 83 03/22/25 22:50 Respiratory Rate 14 03/22/25 22:50 Blood Pressure 108/78 03/22/25 22:50 Pulse Oximetry 100 03/22/25 22:50 Oxygen Delivery Room Air 03/22/25 22:50 <Wayne Lang MD - Last Filed: 03/23/25 07:29> MDM - Psych MDM Narrative Medical decision making narrative: Patient is a 64-year-old male who presents to the ER with suicidal ideation. He reports ?I go to the hospital, they admit me for a few days, then they discharged me, but the problem is still there. Patient reports he is actively suicidal and plans to use a gun to kill himself. He reports he takes medication for his mental health but he is unsure of his diagnoses. Patient sources a history of high blood pressure, prediabetes, and bilateral lower extremity nerve pain. He denies any chest pain, shortness of breath, recent fevers, abdominal pain, or headaches. Patient reports he uses cocaine to ?treat my a nerve pain in my legs. Labs Ordered: CBC, CMP, ethanol, UDS, UA, TSH, COVID/flu/RSV swab Imaging Ordered: None necessary Medications Ordered: None necessary Results: Patient's CBC results were consistent with previous blood draw results at this facility. His CMP indicates a chloride of 108, and BUN of 23. Patient's TSH was within normal limits. His urinalysis was unremarkable. Patient's UDS was positive for cocaine. Diagnosis: Suicidal ideation Consults: Psychiatric intake 2415- Pt is medically cleared for psychiatric intake to evaluate pt. Patient Education/Shared MDM: Results of lab work shared with patient. After evaluation by psychiatric intake it was advised patient be admitted to a psychiatric hospital for further evaluation and treatment. Patient verbalized understanding and is in agreement with plan. 0230-Patient is appropriate for psychiatric treatment and stable for transfer to a psychiatric facility. 0315- Care signed out to Dr. Lang. <Roxana Diaz APRN - Last Filed: 03/23/25 03:15> Patient is a 64-year-old male who presents to the ER with suicidal ideation. He reports ?I go to the hospital, they admit me for a few days, then they discharged me, but the problem is still there. Patient reports he is actively suicidal and plans to use a gun to kill himself. He reports he takes medication for his mental health but he is unsure of his diagnoses. Patient sources a history of high blood pressure, prediabetes, and bilateral lower extremity nerve pain. He denies any chest pain, shortness of breath, recent fevers, abdominal pain, or headaches. Patient reports he uses cocaine to ?treat my a nerve pain in my legs. Labs Ordered: CBC, CMP, ethanol, UDS, UA, TSH, COVID/flu/RSV swab Imaging Ordered: None necessary Medications Ordered: None necessary Results: Patient's CBC results were consistent with previous blood draw results at this facility. His CMP indicates a chloride of 108, and BUN of 23. Patient's TSH was within normal limits. His urinalysis was unremarkable. Patient's UDS was positive for cocaine. Diagnosis: Suicidal ideation Consults: Psychiatric intake 2415- Pt is medically cleared for psychiatric intake to evaluate pt. Patient Education/Shared MDM: Results of lab work shared with patient. After evaluation by psychiatric intake it was advised patient be admitted to a psychiatric hospital for further evaluation and treatment. Patient verbalized understanding and is in agreement with plan. 0230-Patient is appropriate for psychiatric treatment and stable for transfer to a psychiatric facility. 0315- Care signed out to Dr. Lang. Patient accepted to psychiatric hospitalization under Dr. Terrazas, transport services arranged and patient care endorsed to oncoming ER physician pending accepting completion of transfer process. <Wayne Lang MD - Last Filed: 03/23/25 07:29> Differential Diagnosis Differential diagnosis: Likely acute psychosis, chronic schizophrenia, suicidal ideation, depression, drug-induced psychotic disorder and acute anxiety <Roxana Diaz APRN - Last Filed: 03/23/25 03:15> Medical Records Attestation: I reviewed the patient's medical records. <Wayne Lang MD - Last Filed: 03/23/25 07:29> Lab Data Attestation: I reviewed the patient's lab results. <Roxana Diaz APRN - Last Filed: 03/23/25 03:15> I reviewed the patient's lab results. <Wayne Lang MD - Last Filed: 03/23/25 07:29> Result diagrams: 03/22/25 23:17 03/22/25 23:17 <Roxana Diaz APRN - Last Filed: 03/23/25 03:15> Labs: Lab Results 03/22/25 03/22/25 Range/Units 23:16 23:17 WBC 9.4 (4.5-10.0) K/mm3 RBC 4.16 L (4.6-6.20) M/mm3 Hgb 10.7 L (14.0-18.0) g/dL Hct 34.2 L (42.0-52.0) % MCV 82.2 (80-100) fl MCH 25.7 L (26-34) pg MCHC 31.3 L (32-36) g/dl RDW 17.2 H (11.5-14.5) % Plt Count 251 (150-375) k/mm3 MPV 9.9 (7.4-10.4) fl Immature Gran % (Auto) 0.3 (0-0.5) % Neut % (Auto) 67.1 (45.5-73.1) % Lymph % (Auto) 21.2 (18.3-44.2) % [place] % (Auto) 9.2 H (2.6-8.5) % Eos % (Auto) 1.6 (0-4.4) % Baso % (Auto) 0.6 (0.2-1.2) % Lymph # (Auto) 1.98 (0.9-3.2) K/mm3 [place] # (Auto) 0.9 H (0.1-0.6) K/mm3 Eos # (Auto) 0.2 (0-0.3) K/mm3 Baso # (Auto) 0.1 (0.0-0.1) K/mm3 Abs Immat Gran (auto) 0.03 (0.00-0.031) K/mm3 Absolute Neuts (auto) 6.3 (1.3-6.7) K/mm3 Absolute Nucleated RBC 0.000 (0.0-0.012) K/mm3 Nucleated RBC % 0.0 (0.0-0.2) % Sodium 142 (137-145) mmol/L Potassium 4.0 (3.4-5.0) mmol/L Chloride 108 H (98-107) mmol/L Carbon Dioxide 23 (22-30) mmol/L Anion Gap 11 (4-12) mmol/L BUN 23 H (9-20) mg/dL Creatinine 1.18 (0.7-1.3) mg/dL Estim Creat Clear Calc 66 ml/min Estimated GFR > 60 (59 - ) Glucose 82 (65-110) mg/dL Calcium 9.8 (8.4-10.2) mg/dL Total Bilirubin 0.3 (0.2-1.3) mg/dL AST 28 (17-59) U/L ALT 13 (6-50) U/L Alkaline Phosphatase 92 (38-126) U/L Total Protein 8.1 (6.3-8.2) g/dL Albumin 4.5 (3.5-5.1) g/dL TSH (Reflex) 2.160 (0.465-4.68) uIU/mL Urine Color Yellow (Yellow) Urine Appearance Clear (Clear) Urine pH 5.5 (5.0-9.0) Ur Specific [place] 1.026 (1.001-1.035) Urine Protein Trace (Negative) mg/dL Urine Glucose (UA) Negative (Negative) mg/dL Urine Ketones Trace H (Negative) mg/dL Ur Blood (Man) Negative (Negative) Urine Nitrate Negative (Negative) Urine Bilirubin Negative (Negative) Urine Urobilinogen 1.0 (<2.0) mg/dL Leukocyte Esterase Rfl Negative (Negative) MARIE/UL Urine RBC 0-2 (0-2) /hpf Urine WBC 0-5 (0-3) /hpf Ur Squamous Epith Cells None seen (Few) /hpf Urine Bacteria None seen /hpf Urine Casts 0-2 Salicylates < 1.0 L (2-20) mg/dL Urine Opiates Screen Negative (Negative) Urine Methadone Screen Negative (Negative) Acetaminophen < 10 L (10-30) ug/mL Ur Barbiturates Screen Negative (Negative) Ur Phencyclidine Scrn Negative (Negative) Ur Amphetamine Screen Negative (Negative) U Benzodiazepines Scrn Negative (Negative) Urine Cocaine Screen Positive A (Negative) U Cannabinoids Screen Negative (Negative) Ethyl Alcohol < 10 (<10) mg/dL Influenza A (RT-PCR) Negative (Negative) Influenza B (RT-PCR) Negative (Negative) RSV (RT-PCR) Negative (Negative) SARS-CoV-2 RNA (RT-PCR) Negative (Negative) <Roxana Diaz, LIFE INSURANCE UNDERWRITER - Last Filed: 03/23/25 03:15> Lab Results 07/16/25 07/16/25 Range/Units 23:16 23:17 WBC 9.4 (4.5-10.0) K/mm3 RBC 4.16 L (4.6-6.20) M/mm3 Hgb 10.7 L (14.0-18.0) g/dL Hct 34.2 L (42.0-52.0) % MCV 82.2 (80-100) fl MCH 25.7 L (26-34) pg MCHC 31.3 L (32-36) g/dl RDW 17.2 H (11.5-14.5) % Plt Count 251 (150-375) k/mm3 MPV 9.9 (7.4-10.4) fl Immature Gran % (Auto) 0.3 (0-0.5) % Neut % (Auto) 67.1 (45.5-73.1) % Lymph % (Auto) 21.2 (18.3-44.2) % [place] % (Auto) 9.2 H (2.6-8.5) % Eos % (Auto) 1.6 (0-4.4) % Baso % (Auto) 0.6 (0.2-1.2) % Lymph # (Auto) 1.98 (0.9-3.2) K/mm3 [place] # (Auto) 0.9 H (0.1-0.6) K/mm3 Eos # (Auto) 0.2 (0-0.3) K/mm3 Baso # (Auto) 0.1 (0.0-0.1) K/mm3 Abs Immat Gran (auto) 0.03 (0.00-0.031) K/mm3 Absolute Neuts (auto) 6.3 (1.3-6.7) K/mm3 Absolute Nucleated RBC 0.000 (0.0-0.012) K/mm3 Nucleated RBC % 0.0 (0.0-0.2) % Sodium 142 (137-145) mmol/L Potassium 4.0 (3.4-5.0) mmol/L Chloride 108 H (98-107) mmol/L Carbon Dioxide 23 (22-30) mmol/L Anion Gap 11 (4-12) mmol/L BUN 23 H (9-20) mg/dL Creatinine 1.18 (0.7-1.3) mg/dL Estim Creat Clear Calc 66 ml/min Estimated GFR > 60 (59 - ) Glucose 82 (65-110) mg/dL Calcium 9.8 (8.4-10.2) mg/dL Total Bilirubin 0.3 (0.2-1.3) mg/dL AST 28 (17-59) U/L ALT 13 (6-50) U/L Alkaline Phosphatase 92 (38-126) U/L Total Protein 8.1 (6.3-8.2) g/dL Albumin 4.5 (3.5-5.1) g/dL TSH (Reflex) 2.160 (0.465-4.68) uIU/mL Urine Color Yellow (Yellow) Urine Appearance Clear (Clear) Urine pH 5.5 (5.0-9.0) Ur Specific [place] 1.026 (1.001-1.035) Urine Protein Trace (Negative) mg/dL Urine Glucose (UA) Negative (Negative) mg/dL Urine Ketones Trace H (Negative) mg/dL Ur Blood (Man) Negative (Negative) Urine Nitrate Negative (Negative) Urine Bilirubin Negative (Negative) Urine Urobilinogen 1.0 (<2.0) mg/dL Leukocyte Esterase Rfl Negative (Negative) MARIE/UL Urine RBC 0-2 (0-2) /hpf Urine WBC 0-5 (0-3) /hpf Ur Squamous Epith Cells None seen (Few) /hpf Urine Bacteria None seen /hpf Urine Casts 0-2 Salicylates < 1.0 L (2-20) mg/dL Urine Opiates Screen Negative (Negative) Urine Methadone Screen Negative (Negative) Acetaminophen < 10 L (10-30) ug/mL Ur Barbiturates Screen Negative (Negative) Ur Phencyclidine Scrn Negative (Negative) Ur Amphetamine Screen Negative (Negative) U Benzodiazepines Scrn Negative (Negative) Urine Cocaine Screen Positive A (Negative) U Cannabinoids Screen Negative (Negative) Ethyl Alcohol < 10 (<10) mg/dL Influenza A (RT-PCR) Negative (Negative) Influenza B (RT-PCR) Negative (Negative) RSV (RT-PCR) Negative (Negative) SARS-CoV-2 RNA (RT-PCR) Negative (Negative) <Wayne Lang MD - Last Filed: 03/23/25 07:29> Discharge Plan Discharge Clinical Impression: Suicidal ideation, Cocaine abuse <Roxana Diaz APRN - Last Filed: 03/23/25 03:15> Patient Disposition: Psychiatric Hosp <Roxana Diaz APRN - Last Filed: 03/23/25 03:15> Condition: Stable <Roxana Diaz APRN - Last Filed: 03/23/25 03:15> Patient Language: Montenegrin <Roxana Diaz APRN - Last Filed: 03/23/25 03:15> Follow-up/Referrals: UNKNOWN,DOCTOR [Primary Care Provider] - <Roxana Diaz APRN - Last Filed: 03/23/25 03:15>
--- NOTE | 2025-03-23 03:23 | PC.NURSE ---
This RN spoke with Grisel LEA at [facility]. RN faxed pts chart
[2025-03-23 04:50] LABS: Acetaminophen < 10 ug/mL (10-30); Salicylate < 1.0 mg/dL (2-20)
[2025-03-23 06:30] VITALS: BP 112/76; PULSE 86; RESP 15; TEMP 36.7; O2SAT 99
--- NOTE | 2025-03-23 08:33 | PC.NURSE ---
[facility] made aware that pts belongings are at bedside.
== END 2025-03-23 08:33 ==
PROVIDERS: Student in an Organized Health Care Education/Training Program; Emergency Provider Registered Nurse
DX: R45.851 Suicidal ideations (principal); F14.10 Cocaine abuse, uncomplicated; Z11.52 Encounter for screening for COVID-19; I10 Essential (primary) hypertension; G62.9 Polyneuropathy, unspecified; R73.03 Prediabetes; Z79.899 Other long term (current) drug therapy
CPT/HCPCS: 36415; 80053; 80143; 80179; 80307; 81001; 82077; 84443; 85025; 87637; 99284

== ENCOUNTER 2025-04-24 15:37 | Emergency (ER) | payer MEDICARE, SELFPAY ==
[2025-04-24 15:41] VITALS: BP 132/91; PULSE 81; RESP 18; TEMP 37.1; O2SAT 100
--- OUTSIDE RECORDS SUMMARY | 2025-04-24 16:05 | XMS_ITS | Clinical Summary ---
Author Organization [facility] Physician Office Building [address] [place] [id number] Care Team Providers Care Personal Injury Paralegal Name Role Phone No, Physician Primary Care Provider [phone] Allergies No known active allergies Medications amLODIPine (NORVASC) 10 mg tabletIndicatio ns:hypertension Take 1 tablet (10 mg total) by mouth daily 30 tablet 03/06/2025 Active atorvastatin (LIPITOR) 20 mg tabletIndicatio ns:hyperlipidem ia Take 1 tablet (20 mg total) by mouth nightly 30 tablet 03/06/2025 Active losartan (COZAAR) 50 mg tabletIndicatio ns:hypertension Take 1 tablet (50 mg total) by mouth daily 30 tablet 03/06/2025 Active metFORMIN (GLUCOPHAGE) 500 mg tabletIndicatio ns:type 2 diabetes mellitus Take 1 tablet (500 mg total) by mouth 2 (two) times a day with meals 60 tablet 03/06/2025 Active oxyBUTYnin XL (DITROPAN-XL) 5 mg 24 hr tabletIndicatio ns:Increased Urinary Frequency Take 1 tablet (5 mg total) by mouth daily 30 tablet 03/06/2025 Active pregabalin (LYRICA) 50 mg capsuleIndicati ons:neuropathy Take 1 capsule (50 mg total) by mouth 2 (two) times a day 60 capsule 03/06/2025 Active Active Problems Problem Noted Date Diagnosed Date [...] 8:47 AM CDT): UDS+ for cocaine - [employer] 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 - SW resources for substance use cessation Assessment & Plan (11/25/2023 9:46 AM CDT): UDS +cocaine on admission. Previously documented director long term care use of cocaine and alcohol w/ unclear [...] work on dispo for today, possibly to chcf. Plan: - continue sertraline 50 mg daily [...] Most recent iron profile revealed Iron 25, [id number], TIBC 311, and iron saturation of 8%and [...] daily Assessment & Plan (10/28/2021 9:38 AM BIGHT MAKER): BP 168/114 on admission. Given lisinopril 20 mg in ED (on home meds list). Gave an additional 10 mg hydralazine for spot control of high DBP. Loose amlodipine tablets found in patients belongings (appear to be 10 mg). - c/w amlodipine 10 mg daily Assessment & Plan (10/24/2021 2:08 PM BIGHT MAKER): BP 168/114 on admission. Given lisinopril 20 mg in ED (on home meds list). Gave an additional 10 mg hydralazine for spot control of high DBP. Loose amlodipine tablets found in patients belongings (appear to be 10 mg). - start amlodipine 10 mg daily Malingering 10/09/2020 Assessment & Plan (10/09/2020 7:59 AM BIGHT MAKER): 59 y.o. single, Black or , disabled, [...] which he has had 3 in the [facility] system since mid August. There is high [...] future planning, social support (family and children), yazidi/spirituality and abstinence from alcohol, cocaine and narcotics [...] 3. Med recs apprec Assessment & Plan (12/02/2022 9:42 [...] 2. Swer to help with dispo 3. [facility] recs apprec Assessment & Plan (12/01/2022 1:27 [...] apprec Assessment & Plan (10/31/2021 8:02 AM BIGHT MAKER): Pt was accepting of discharge and seems [...] to offer collateral names/contacts - resources per SW for housing on d/c; outpatient f/u with psychiatry Assessment & Plan (10/24/2021 2:09 PM BIGHT MAKER): Mr. Bob Hollis is a 61-year-old man [...] Encounters Date Type Department Care Team Description 04/20/[address] [facility] Specialty Services [address] [place] [address] Nita Herrera RN GI Preprocedure 03/21/2025 9:22 AM CDT - 03/21/2025 2:47 PM CDT Emergency [facility] [address] [place] [id number] Zhang Lang MD Depression, unspecified depression type (Primary Dx); Malingering Discharge Disposition: Discharge to home or self care 03/20/2025 6:48 PM CDT - 03/21/2025 1:46 AM CDT Emergency [facility] Emergency Department [address] [place] [address] Francis Kruger MD Suicidal thoughts (Primary Dx); Malingering Discharge Disposition: Discharge to home or self care 03/04/2025 5:50 AM CDT - 03/06/2025 6:45 PM CDT Hospital Encounter [facility] [address] [place] [id number] Jarred Bernal MD de Leon, Victoria Carmen, MD Healthcare maintenance (Primary Dx); Malingering [Z76.5] Discharge Disposition: Discharge to home or self care 03/03/2025 6:09 PM CDT - 03/04/2025 5:24 AM CDT Emergency [facility] Emergency Department [address] [place] [address] Les Colorado MD Severe episode of recurrent major depressive disorder, without psychotic features (HCC) (Primary Dx); Suicidal thoughts Discharge Disposition: Discharge to a director long term care care hospital from Last 3 Months Immunizations Immunization Administration Dates Next Due Influenza, Trivalent, High D ose, Split, Preservative Free, Intramuscular 12/03/2024 [employer] SARS-CoV-2 Monovalent Vaccination (12+ Yrs) FINE-READY TO [...] drink = 0.6 oz pur e alcohol) [facility] Utilities Answer Date Recorded In the past 12 months has e [employer], gas, oil, or water [employer] threatened to shut off services in your [...] No 02/29/2024 Social Connection and Isolation Panel Answer Date Recorded In a typical week, how many times do you talk on the phone with family, friends, or neighbors? Twice a week 03/04/20 25 How often do you get togethe r with friends or relatives? Twice a week 03/04/2025 How often do you attend chur or rastafarian services? 1 to 4 times per year 03/04/2025 Do you belong to any clubs o r organizations such as pentecostalism groups, unions, fraternal or athletic groups, or [...] staff should administer the PHQ-9) 2 03/04/2025 [facility] Occupational Stress Questionnaire Answer Date Recorded [...] place to sleep or slept in a chcf (including now)? Yes 11/23/2023 PHQ-9 Answer Date [...] any time in the past 12 m [facility], were you homeless or living in a chcf (including now)? No 03/04/2025 Personal Safety Answer [...] on file Legal Sex Male 9:36 AM BIGHT MAKER Gender Identity Not on file Sexual Orientation [...] 8:08 PM CDT DIFFERENTIAL AUTO STAT 03/03/2025 8: 08 PM CDT SALICYLATE LEVEL STAT 03/03/2025 8:08 PM CDT ETHANOL STAT 03/03/2025 8:08 PM CDT COMPREHENSIVE METABOLIC PANEL STAT 03/03/2025 8:08 PM CDT CBC WITH AUTO DIFFERENTIAL STAT 03/03/2025 8:08 PM CDT ACETAMINOPHEN LEVEL STAT 03/03/2025 8 :08 PM CDT COVID-19 CORONAVIRUS RNA STAT 03/03/2025 8:08 PM CDT URINALYSIS AND REFLEX TO MICROSCOPIC AND CULTURE STAT 03/03/2025 8:08 PM CDT HEMOGLOBIN A1C Routine 12/04/2024 6:18 AM CDT LIPID PANEL Routine 12/04/2024 6:18 AM CDT PSA SCREEN Routine 07/14/2023 12:18 PM BIGHT MAKER Urinary incontinence, unspecified type from Last 3 Months or Most Recently Relevant to Health Maintenance Results * Influenza A/B, RSV, and COVID-19 PCR Nasopharyngeal (03/21/2025 12:10 PM CDT) Pathologist [facility] COVID-19 RNA Negative Negative Influenza A RNA Negative Negative [facility] Influenza B RNA Negative Negative [facility] RSV RNA Negative Negative [facility] Comment: Interpretive data: Testing performed by [facility]. This test is performed using the [employer] Xpert Xpress CoV-2/Flu/RSV plus assay. This is a multiplex, real-time reverse transcriptase PCR assay intended for the qualitative detection of nucleic acid from SARS-CoV-2, influenza A, influenza B, and respiratory syncytial virus. This assay has been cleared by the [place] Food and Drug administration. The performance characteristics have been verified by the [facility]. Results must be considered in the clinical context, and a negative result does not rule out infection. Interpretive Data last revised 2023 Nasopharyngeal 03/21/2025 12 :10 PM CDT 03/21/2025 1:01 PM CDT Narrative [facility] - 03/21/2025 1:44 PM CDT Is the Patient experiencing symptoms consistent with COVID?->No Zhang Lang MD LAB MICROBIOLOGY - GENERAL ORDERABLES Final Result [facility] [address] Department [place] [address] * Urinalysis reflex to microscopic and culture Urine (03/21/2025 9:47 AM CDT) Color, ur Yellow Yellow Clarity, ur Clear Clear [facility] Specific gravity, ur 1.024 1.003 - 1.030 [facility] pH, urine 7.0 [facility] Comment: Interpretive Data U rine pH is affected by diet, medications, systemic acid-base disturbances, and renal tubular function. pH may affect urinary stone formation. For example, urine pH below 6.0 may help reduce the tendency for calcium phosphate stones and pH greater than 6.0 may reduce the tendency for uric acid stone formation. Source: [facility] Current Interpretive Data was last revised on 2017 Protein, ur ql Trace Negative [facility] Glucose, ur ql Negative Negative [facility] Ketones, ur Negative Negative [facility] Bilirubin, ur Negative Negative [facility] Blood, ur Negative Negative [facility] Urobilinogen, ur <2.0 <2.0 mg/dL [facility] Nitrite, ur Negative Negative [facility] Leukocyte esterase, ur Negative Negative [facility] UA reflex comment Reflex conditions for microscopic UA and culture not met. [facility] Urine 03/21/2025 9:47 AM CDT 03/21/2025 9:47 AM CDT Zhang Lang MD LAB MICROBIOLOGY - GENERAL ORDERABLES Final Result [facility] [address] Department [place] [address] * (ABNORMAL) Drugs of Abuse Screen, Urine [...] 2023. Barbiturates, ur Not Detected CutOff 200ng/mL [facility] Comment: Interpretive Data - Barbiturates: Samples containing greater than 200 ng/mL secobarbital or other cross-reacting barbiturate compounds are reported as positive. False positive and false negative results are possible. Confirmatory testing required for definitive results. Current Interpretive Data was last reviewed 2023. Benzodiazepines, ur Not Detected CutOff 100ng/mL [facility] Comment: Interpretive Data - Benzodiazepines: Samples containing greater than 100 ng/mL nordiazepam or other cross-reacting compounds are reported as positive. False positive and false negative results are possible. Confirmatory testing required for definitive results. Current Interpretive Data was last reviewed 2023. Cannabinoids, ur Not Detected CutOff 50 ng/mL [facility] Comment: Interpretive Data - Cannabinoids: Samples containing greater than 50 ng/mL delta-9 THC -COOH or other cross- reacting compounds are reported as positive. False positive and false negative results are possible. Confirmatory testing required for definitive results. Current Interpretive Data was last reviewed 2023. Cocaine, ur Screen Positive, presumptive (A) CutOff 150ng/mL [facility] Comment: Interpretive Data - Cocaine: Samples containing greater than 150 ng/mL benzoylecgonine or other cross- reacting compounds are reported as positive. False positive and false negative results are possible. Confirmatory testing required for definitive results. Current Interpretive Data was last reviewed 2023. Fentanyl, Ur Not Detected CutOff 5 ng/mL [facility] Comment: Interpretive Data - Fentanyl: Samples containing greater than 5 ng/mL norfentanyl, fentanyl, or other cross-reacting fentanyl compounds are reported as positive. False positive and false negative results are possible. Confirmatory testing required for definitive results. Current Interpretive Data was last reviewed 2023. Methadone, ur Not Detected CutOff 300ng/mL [facility] Comment: Interpretive Data - Methadone: Samples containing greater than 300 ng/mL d,l-methadone or other cross-reacting compounds are reported as positive. False positive and false negative results are possible. Confirmatory testing required for definitive results. Current Interpretive Data was last reviewed 2023. Opiates, ur Not Detected CutOff 300ng/mL [facility] Comment: Interpretive Data - Opiates: Samples containing greater than 300 ng/mL morphine or other cross-reacting compounds are reported as positive. False positive and false negative results are possible. Confirmatory testing required for definitive results. Current Interpretive Data was last reviewed 2023. Oxycodone, ur Not Detected CutOff 100ng/mL [facility] Comment: Interpretive Data - Oxycodone: Samples containing greater than 100 ng/mL oxycodone or other cross-reacting compounds are reported as positive. False positive and false negative results are possible. Confirmatory testing required for definitive results. Current Interpretive Data was last reviewed 2023. Phencyclidine, ur Not Detected CutOff 25 ng/mL [facility] Comment: Interpretive Data - Phencyclidine: Samples containing greater than 25 ng/mL phencyclidine or other cross-reacting compounds are reported as positive. False positive and false negative results are possible. Confirmatory testing required for definitive results. Current Interpretive Data was last reviewed 2023. Urine Creatinine 154 mg/dL [facility] Comment: Interpretive Data Urine Creatinine: < 10 mg/dL is extremely dilute = or > 10 but < 20 mg/dL is dilute = or > 20 mg/dL is normal Current Interpretive Data was last revised on 2017. Urine 03/21/2025 9:47 AM CDT 03/21/2025 10:23 AM CDT Narrative [facility] - 03/21/2025 10:54 AM CDT Drug of Abuse screening is performed by immunoassay for medical purposes only. This is not to be used for Pain Management purposes. Zhang Lang MD LAB URINE ORDERABLES Final Result Performing Organization Address [facility] Co de Phone Number [facility] [address] Department [employer] [place], [place] [id number] * Ethanol (03/21/2025 9:44 AM CDT) Ethanol <10 <=10 mg/dL Comment: Interpretive Data Legal limit of intoxication > or = 80 mg/dL Levels > or = 400 mg/dL are potentially TOXIC. Current interpretive data was last revised on 2018. Blood 03/21/2025 9:44 AM CDT 03/21/2025 10:08 AM CDT Zhang Lang MD LAB BLOOD ORDERABLES Final Result Performing Organization Address [facility] Co de Phone Number [facility] [address] [place] [place] [address] * Troponin T high-sensitivity series (baseline, 2hr, [...] Lang MD LAB BLOOD ORDERABLES Final Result [facility] [address] Department [place] [address] * eGFR (03/21/2025 9:32 AM CDT) eGFR [...] Lang MD LAB BLOOD ORDERABLES Final Result [facility] [address] Department [place] [address] * Differential, auto (03/21/2025 9:32 AM CDT) Neutrophil abs 6.26 1.50 - 6.50 K/cumm Imm gran abs 0.02 0.00 - 0.10 K/cumm [facility] Lymphocyte abs 1.68 0.80 - 3.30 K/cumm [facility] Monocyte abs 0.62 0.20 - 0.80 K/cumm [facility] Eosinophil abs 0.13 0.00 - 0.50 K/cumm [facility] Basophil abs 0.06 0.00 - 0.10 K/cumm [facility] Neutrophil pct 71.3 % [facility] Comment: Interpretive Data Percent cell count reference ranges are not reported, since discordance with absolute values may lead to misinterpretation of CBC data. Current Interpretive Data was last revised on 2017. Imm gran pct 0.2 % [facility] Comment: Interpretive Data Percent cell count reference ranges are not reported, since discordance with absolute values may lead to misinterpretation of CBC data. Current Interpretive Data was last revised on 2017. Lymphocyte pct 19.2 % [facility] Comment: Interpretive Data Percent cell count reference ranges are not reported, since discordance with absolute values may lead to misinterpretation of CBC data. Current Interpretive Data was last revised on 2017. Monocyte pct 7.1 % [facility] Comment: Interpretive Data Percent cell count reference ranges are not reported, since discordance with absolute values may lead to misinterpretation of CBC data. Current Interpretive Data was last revised on 2017. Eosinophil pct 1.5 % [facility] Comment: Interpretive Data Percent cell count reference ranges are not reported, since discordance with absolute values may lead to misinterpretation of CBC data. Current Interpretive Data was last revised on 2017. Basophil pct 0.7 % [facility] Comment: Interpretive Data Percent cell count reference ranges are not reported, since discordance with absolute values may lead to misinterpretation of CBC data. Current Interpretive Data was last revised on 2017. Blood 03/21/2025 9:32 AM CDT 03/21/2025 9:42 AM CDT Zhang Lang MD LAB BLOOD ORDERABLES Final Result Performing Organization Address [facility] Co de Phone Number [facility] [address] [place] [address] * (ABNORMAL) CBC with auto differential (03/21/2025 9:32 AM CDT) Pathologist [facility] WBC 8.77 3.80 - 9.90 K/cumm Hgb 11.5(L) 13.0 - 17.5 g/dL [facility] Hct 35.9(L) 38.9 - 50.3 % [facility] Plt 274 150 - 400 K/cumm [facility] MPV 10.1 9.1 - 12.3 fL [facility] RBC 4.34 4.30 - 5.80 M/cumm [facility] MCV 82.7 81.3 - 96.4 fL [facility] MCH 26.5(L) 27.1 - 33.3 pg [facility] MCHC 32.0(L) 32.3 - 35.7 g/dL [facility] RDW CV 16.7(H) 11.1 - 14.9 % [facility] RDW SD 50.3(H) 35.7 - 48.1 fL [facility] NRBC abs 0.02(H) 0.00 - 0.01 K/cumm [facility] Blood Venous blood specimen / Unknown 03/21/2025 9:32 AM CDT 03/21/2025 9:42 AM CDT Zhang Lang MD LAB BLOOD ORDERABLES Final Result Performing Organization Address City/[facility]/ZIP Co de Phone Number [facility] [address] Department [place] [address] * Lipase (03/21/2025 9:32 AM CDT) Pathologist [facility] Lipase 47 10 - 99 Units/L Blood Venous blood specimen / Unknown 03/21/2025 9:32 AM CDT 03/21/2025 9:42 AM CDT us Zhang Lang MD LAB BLOOD ORDERABLES Final Result [facility] [address] Department [place] [address] * Comprehensive metabolic panel (03/21/2025 9:32 AM CDT) Sodium 141 135 - 145 mmol/L Potassium, pl 4.4 3.3 - 4.9 mmol/L [facility] Chloride 105 97 - 110 mmol/L [facility] CO2 23 22 - 32 mmol/L [facility] Anion gap 13 2 - 15 mmol/L [facility] BUN 12 6 - 25 mg/dL [facility] Creatinine 0.90 0.80 - 1.30 mg/dL [facility] Glucose 136 70 - 199 mg/dL [facility] Comment: Interpretive Data Fasting glucose >/= 126 [...] 2022. Calcium 9.4 8.5 - 10.3 mg/dL [facility] Bilirubin, total 0.2 0.1 - 1.2 mg/dL [facility] Protein, pl 7.1 6.5 - 8.5 g/dL [facility] Albumin 4.1 3.5 - 5.0 g/dL [facility] Alk phos 109 40 - 130 Units/L [facility] ALT 9 7 - 55 Units/L [facility] AST 19 10 - 50 Units/L [facility] Blood 03/21/2025 9:32 AM CDT 03/21/2025 9:42 AM CDT Zhang Lang MD LAB BLOOD ORDERABLES Final Result Performing Organization Address [facility]/ZIP Co de Phone Number [facility] [address] Department [place] [address] * ECG 12 lead (03/21/2025 9:29 AM CDT) 03/21/2025 9:29 AM CDT Narrative [facility] - 03/21/2025 8:40 PM CDT Vent Rate: 77 bpm RR Interval: 773 msec UT Interval: 241 msec QRS Duration: 96 msec QT Interval: 364 msec QTC Interval: 396 msec P-R-T [place]: 28 - -11 - 54 degrees IMPRESSION: SINUS RHYTHM WITH FIRST DEGREE AV BLOCK Possible SEPTAL MYOCARDIAL INFARCTION , PROBABLY OLD [40+ ms Q WAVE IN V1/V2] ABNORMAL ECG Electronically Signed By: Ed Sutton MD Zhang Lang MD ECG ORDERABLES Final Resu lt Performing Organization Address [facility] Co de Phone Number [facility] [employer] [facility] * POCT Rapid HIV Antibody Community Screening-Zac Eligible (03/20/2025 7:19 PM CDT) Pathologist [facility] Rapid HIV, POC Negative Negative Lot Number [id number] QC Control Line Acceptable Blood 03/20/2025 7:19 PM CDT Francis Kruger MD POINT OF CARE TEST ORD ERABLES Final Result * Urinalysis reflex to microscopic (03/20/2025 7:16 PM CDT) Color, ur Straw Yellow Clarity, ur Clear Clear [facility] Specific gravity, ur 1.017 1.003 - 1.030 [facility] pH, urine 7.0 [facility] Comment: Interpretive Data U rine pH is affected by diet, medications, systemic acid-base disturbances, and renal tubular function. pH may affect urinary stone formation. For example, urine pH below 6.0 may help reduce the tendency for calcium phosphate stones and pH greater than 6.0 may reduce the tendency for uric acid stone formation. Source: [facility] Current Interpretive Data was last revised on 2017 Protein, ur ql Negative Negative [facility] Glucose, ur ql Negative Negative [facility] Ketones, ur Negative Negative [facility] Bilirubin, ur Negative Negative [facility] Blood, ur Negative Negative [facility] Urobilinogen, ur <2.0 <2.0 mg/dL [facility] Nitrite, ur Negative Negative [facility] Leukocyte esterase, ur Negative Negative [facility] UA reflex comment Reflex conditions for microscopic UA not met. [facility] Urine 03/20/2025 7:16 PM CDT 03/20/2025 7:21 PM CDT Francis Kruger MD LAB URINE ORDERABLES F inal Result [facility] [address] [facility] Department [place] [address] * (ABNORMAL) Drugs of Abuse Screen, Urine without Confirmation (03/20/2025 7:16 PM CDT) Pathologist [facility] Amphetamine, ur Not Detected CutOff 500ng/mL Comment: Interpretive Data - Amphetamines: Samples containing greater than 500 ng/mL d-methamphetamine or other cross-reacting amphetamine compounds are reported as positive. Amphetamine immunoassays are subject to significant false positive rates due to cross-reactivity of non-amphetamine drugs. Confirmatory testing required for definitive results. Current Interpretive Data was last reviewed 2023. Barbiturates, ur Not Detected CutOff 200ng/mL [facility] Comment: Interpretive Data - Barbiturates: Samples containing greater than 200 ng/mL secobarbital or other cross-reacting barbiturate compounds are reported as positive. False positive and false negative results are possible. Confirmatory testing required for definitive results. Current Interpretive Data was last reviewed 2023. Benzodiazepines, ur Not Detected CutOff 100ng/mL [facility] Comment: Interpretive Data - Benzodiazepines: Samples containing greater than 100 ng/mL nordiazepam or other cross-reacting compounds are reported as positive. False positive and false negative results are possible. Confirmatory testing required for definitive results. Current Interpretive Data was last reviewed 2023. Cannabinoids, ur Not Detected CutOff 50 ng/mL [facility] Comment: Interpretive Data - Cannabinoids: Samples containing greater than 50 ng/mL delta-9 THC -COOH or other cross- reacting compounds are reported as positive. False positive and false negative results are possible. Confirmatory testing required for definitive results. Current Interpretive Data was last reviewed 2023. Cocaine, ur Screen Positive, presumptive (A) CutOff 150ng/mL [facility] Comment: Interpretive Data - Cocaine: Samples containing greater than 150 ng/mL benzoylecgonine or other cross- reacting compounds are reported as positive. False positive and false negative results are possible. Confirmatory testing required for definitive results. Current Interpretive Data was last reviewed 2023. Fentanyl, Ur Not Detected CutOff 5 ng/mL [facility] Comment: Interpretive Data - Fentanyl: Samples containing greater than 5 ng/mL norfentanyl, fentanyl, or other cross-reacting fentanyl compounds are reported as positive. False positive and false negative results are possible. Confirmatory testing required for definitive results. Current Interpretive Data was last reviewed 2023. Methadone, ur Not Detected CutOff 300ng/mL [facility] Comment: Interpretive Data - Methadone: Samples containing greater than 300 ng/mL d,l-methadone or other cross-reacting compounds are reported as positive. False positive and false negative results are possible. Confirmatory testing required for definitive results. Current Interpretive Data was last reviewed 2023. Opiates, ur Not Detected CutOff 300ng/mL [facility] Comment: Interpretive Data - Opiates: Samples containing greater than 300 ng/mL morphine or other cross-reacting compounds are reported as positive. False positive and false negative results are possible. Confirmatory testing required for definitive results. Current Interpretive Data was last reviewed 2023. Oxycodone, ur Not Detected CutOff 100ng/mL [facility] Comment: Interpretive Data - Oxycodone: Samples containing greater than 100 ng/mL oxycodone or other cross-reacting compounds are reported as positive. False positive and false negative results are possible. Confirmatory testing required for definitive results. Current Interpretive Data was last reviewed 2023. Phencyclidine, ur Not Detected CutOff 25 ng/mL [facility] Comment: Interpretive Data - Phencyclidine: Samples containing greater than 25 ng/mL phencyclidine or other cross-reacting compounds are reported as positive. False positive and false negative results are possible. Confirmatory testing required for definitive results. Current Interpretive Data was last reviewed 2023. Urine Creatinine 91 mg/dL [facility] Comment: Interpretive Data Urine Creatinine: < 10 mg/dL is extremely dilute = or > 10 but < 20 mg/dL is dilute = or > 20 mg/dL is normal Current Interpretive Data was last revised on 2017. Urine 03/20/2025 7:16 PM CDT 03/20/2025 7:30 PM CDT Narrative [facility] - 03/20/2025 8:00 PM CDT Drug of Abuse screening is performed by immunoassay for medical purposes only. This is not to be used for Pain Management purposes. Francis Kruger MD LAB URINE ORDERABLES F inal Result [facility] Department [place] [address] * eGFR (03/20/2025 7:02 PM CDT) eGFR [...] MD LAB BLOOD ORDERABLES F inal Result [facility] Department [place] [address] * Differential, auto (03/20/2025 7:02 PM CDT) Pathologist [facility] Neutrophil abs 5.92 1.50 - 6.50 K/cumm Imm gran abs 0.03 0.00 - 0.10 K/cumm [facility] Lymphocyte abs 1.55 0.80 - 3.30 K/cumm [facility] Monocyte abs 0.52 0.20 - 0.80 K/cumm [facility] Eosinophil abs 0.09 0.00 - 0.50 K/cumm [facility] Basophil abs 0.08 0.00 - 0.10 K/cumm [facility] Neutrophil pct 72.3 % [facility] Comment: Interpretive Data Percent cell count reference ranges are not reported, since discordance with absolute values may lead to misinterpretation of CBC data. Current Interpretive Data was last revised on 2017. Imm gran pct 0.4 % [facility] Comment: Interpretive Data Percent cell count reference ranges are not reported, since discordance with absolute values may lead to misinterpretation of CBC data. Current Interpretive Data was last revised on 2017. Lymphocyte pct 18.9 % [facility] Comment: Interpretive Data Percent cell count reference ranges are not reported, since discordance with absolute values may lead to misinterpretation of CBC data. Current Interpretive Data was last revised on 2017. Monocyte pct 6.3 % [facility] Comment: Interpretive Data Percent cell count reference ranges are not reported, since discordance with absolute values may lead to misinterpretation of CBC data. Current Interpretive Data was last revised on 2017. Eosinophil pct 1.1 % [facility] Comment: Interpretive Data Percent cell count reference ranges are not reported, since discordance with absolute values may lead to misinterpretation of CBC data. Current Interpretive Data was last revised on 2017. Basophil pct 1.0 % [facility] Comment: Interpretive Data Percent cell count reference ranges are not reported, since discordance with absolute values may lead to misinterpretation of CBC data. Current Interpretive Data was last revised on 2017. Blood 03/20/2025 7:02 PM CDT 03/20/2025 7:29 PM CDT Francis Kruger MD LAB BLOOD ORDERABLES F inal Result Performing Organization Address City/[facility] Co de Phone Number [facility] Department [place] [address] * Thyroid Function [place] (03/20/2025 7:02 PM CDT) [facility] TSH 1.51 0.30 - 4.20 mcIUnit/mL Blood 03/20/2025 7:02 PM CDT 03/20/2025 7:29 PM CDT Francis Kruger MD LAB BLOOD ORDERABLES F inal Result Performing Organization Address [facility] Co de Phone Number [facility] [place] [address] * (ABNORMAL) CBC with auto differential (03/20/2025 7:02 PM CDT) [facility] WBC 8.19 3.80 - 9.90 K/cumm Hgb 11.5(L) 13.0 - 17.5 g/dL [facility] Hct 36.7(L) 38.9 - 50.3 % [facility] Plt 289 150 - 400 K/cumm [facility] MPV 10.9 9.1 - 12.3 fL [facility] RBC 4.49 4.30 - 5.80 M/cumm [facility] MCV 81.7 81.3 - 96.4 fL [facility] MCH 25.6(L) 27.1 - 33.3 pg [facility] MCHC 31.3(L) 32.3 - 35.7 g/dL [facility] RDW CV 17.1(H) 11.1 - 14.9 % [facility] RDW SD 50.2(H) 35.7 - 48.1 fL [facility] NRBC abs 0.00 0.00 - 0.01 K/cumm [facility] Blood Venous blood specimen / Unknown 03/20/2025 7:02 PM CDT 03/20/2025 7:29 PM CDT Francis Kruger MD LAB BLOOD ORDERABLES F inal Result Performing Organization Address [facility] de Phone Number [facility] [place] [employer] [place] [address] * Ethanol (03/20/2025 7:02 PM CDT) Pathologist [facility] Ethanol <10 <=10 mg/dL Comment: Interpretive Data Legal limit of intoxication > or = 80 mg/dL Levels > or = 400 mg/dL are potentially TOXIC. Current interpretive data was last revised on 2018. Blood 03/20/2025 7:02 PM CDT 03/20/2025 7:29 PM CDT Francis Kruger MD LAB BLOOD ORDERABLES F inal Result Performing Organization Address [facility] Co de Phone Number [facility] [place] [employer] [place] [address] * (ABNORMAL) Comprehensive metabolic panel (03/20/2025 7:02 PM CDT) Pathologist [facility] Sodium 141 135 - 145 mmol/L Potassium, pl 4.8 3.3 - 4.9 mmol/L [facility] Chloride 105 97 - 110 mmol/L [facility] CO2 28 22 - 32 mmol/L [facility] Anion gap 8 2 - 15 mmol/L [facility] BUN 11 6 - 25 mg/dL [facility] Creatinine 1.01 0.80 - 1.30 mg/dL [facility] Glucose 105 70 - 199 mg/dL [facility] Comment: Interpretive Data Fasting glucose [...] 2022. Calcium 10.4(H) 8.5 - 10.3 mg/dL [facility] Bilirubin, total <0.2 0.1 - 1.2 mg/dL [facility] Protein, pl 8.2 6.5 - 8.5 g/dL [facility] Albumin 4.5 3.5 - 5.0 g/dL [facility] Alk phos 113 40 - 130 Units/L [facility] ALT 10 7 - 55 Units/L [facility] AST 22 10 - 50 Units/L [facility] Blood 03/20/2025 7:02 PM CDT 03/20/2025 7:29 PM CDT Francis Kruger MD LAB BLOOD ORDERABLES F inal Result [facility] Department [place] [address] * ECG 12 lead (03/03/2025 8:12 PM CDT) 03/03/2025 8:12 PM CDT Narrative [facility] - 03/05/2025 6:51 PM CDT Vent Rate: 79 bpm RR Interval: 751 msec UT Interval: 213 msec QRS Duration: 91 msec QT Interval: 365 msec QTC Interval: 400 msec P-R-T [place]: 232 - -30 - 46 degrees IMPRESSION: SINUS RHYTHM WITH FIRST DEGREE AV BLOCK POSSIBLE LEFT ATRIAL ENLARGEMENT [-0.1mV P-WAVE IN V1/V2] POSSIBLE ANTERIOR MYOCARDIAL INFARCTION , OF INDETERMINATE AGE [30 ms Q WAVE IN V3/V4, OR R < 0.2 mV IN V4] ABNORMAL ECG Electronically Signed By: Kevyn Gramajo DO, [facility] us Les Colorado MD ECG ORDERABLES Final Resul t [facility] * Drugs of Abuse Screen, Urine without Confirmation (03/03/2025 8:11 PM CDT) Amphetamine, ur Not Detected CutOff 500ng/mL Comment: Interpretive Data - Amphetamines: Samples containing greater than 500 ng/mL d-methamphetamine or other cross-reacting amphetamine compounds are reported as positive. Amphetamine immunoassays are subject to significant false positive rates due to cross-reactivity of non-amphetamine drugs. Confirmatory testing required for definitive results. Current Interpretive Data was last reviewed 2023. Barbiturates, ur Not Detected CutOff 200ng/mL [facility] Comment: Interpretive Data - Barbiturates: Samples containing greater than 200 ng/mL secobarbital or other cross-reacting barbiturate compounds are reported as positive. False positive and false negative results are possible. Confirmatory testing required for definitive results. Current Interpretive Data was last reviewed 2023. Benzodiazepines, ur Not Detected CutOff 100ng/mL [facility] Comment: Interpretive Data - Benzodiazepines: Samples containing greater than 100 ng/mL nordiazepam or other cross-reacting compounds are reported as positive. False positive and false negative results are possible. Confirmatory testing required for definitive results. Current Interpretive Data was last reviewed 2023. Cannabinoids, ur Not Detected CutOff 50 ng/mL [facility] Comment: Interpretive Data - Cannabinoids: Samples containing greater than 50 ng/mL delta-9 THC -COOH or other cross- reacting compounds are reported as positive. False positive and false negative results are possible. Confirmatory testing required for definitive results. Current Interpretive Data was last reviewed 2023. Cocaine, ur Not Detected CutOff 150ng/mL [facility] Comment: Interpretive Data - Cocaine: Samples containing greater than 150 ng/mL benzoylecgonine or other cross- reacting compounds are reported as positive. False positive and false negative results are possible. Confirmatory testing required for definitive results. Current Interpretive Data was last reviewed 2023. Fentanyl, Ur Not Detected Cutoff 1 ng/mL [facility] Comment: Interpretive Data - Fentanyl: Samples containing greater than 1 ng/mL fentanyl or other cross-reacting fentanyl compounds are reported as positive. False positive and false negative results are possible. Confirmatory testing required for definitive results. Current Interpretive Data was last reviewed 2023. Methadone, ur Not Detected CutOff 300ng/mL [facility] Comment: Interpretive Data - Methadone: Samples containing greater than 300 ng/mL d,l-methadone or other cross-reacting compounds are reported as positive. False positive and false negative results are possible. Confirmatory testing required for definitive results. Current Interpretive Data was last reviewed 2023. Opiates, ur Not Detected CutOff 300ng/mL [facility] Comment: Interpretive Data - Opiates: Samples containing greater than 300 ng/mL morphine or other cross-reacting compounds are reported as positive. False positive and false negative results are possible. Confirmatory testing required for definitive results. Current Interpretive Data was last reviewed 2023. Oxycodone, ur Not Detected CutOff 100ng/mL [facility] Comment: Interpretive Data - Oxycodone: Samples containing greater than 100 ng/mL oxycodone or other cross-reacting compounds are reported as positive. False positive and false negative results are possible. Confirmatory testing required for definitive results. Current Interpretive Data was last reviewed 2023. Phencyclidine, ur Not Detected CutOff 25 ng/mL [facility] Comment: Interpretive Data - Phencyclidine: Samples containing greater than 25 ng/mL phencyclidine or other cross-reacting compounds are reported as positive. False positive and false negative results are possible. Confirmatory testing required for definitive results. Current Interpretive Data was last reviewed 2023. Urine Creatinine 115 mg/dL [facility] Comment: Interpretive Data Urine Creatinine: < 10 mg/dL is extremely dilute = or > 10 but < 20 mg/dL is dilute = or > 20 mg/dL is normal Current Interpretive Data was last revised on 2017. Urine 03/03/2025 8:11 PM CDT 03/03/2025 8:25 PM CDT Narrative [facility] - 03/03/2025 9:05 PM CDT Drug of Abuse screening is performed by immunoassay for medical purposes only. This is not to be used for Pain Management purposes. Les Colorado MD LAB URINE ORDERABLES Final Result [address] Department [place] [address] * COVID-19 Coronavirus RNA Nasopharyngeal (03/03/2025 8:08 PM CDT) COVID-19 RNA Negative Negative Nasopharyngeal 03/03/2025 8: 08 PM CDT 03/03/2025 8:25 PM CDT N[facility]ative [facility] - 03/03/2025 9:36 PM CDT Is the patient experiencing any symptoms consistent with COVID (eg. Fever, cough, shortness of breath)?->No What is the reason for testing?->Screening prior to Behavioral health admission Interpretive data Testing performed by [facility]. This test is performed using the [employer] Xpert Xpress CoV-2 plus assay. This is a real-time RT-PCR test intended for the qualitative detection of nucleic acid from the SARS-CoV-2. This assay has been cleared by the [place] Food and Drug administration. The performance characteristics have been verified by the [facility]. Results must be considered in the clinical context, and a negative result does not rule out infection. Interpretive data last revised 2024. Interpretive data Testing performed by [facility]. This test is performed using the [employer] Xpert Xpress CoV-2 plus assay. This is a real-time RT-PCR test intended for the qualitative detection of nucleic acid from the SARS-CoV-2. This assay has been cleared by the [place] Food and Drug administration. The performance characteristics have been verified by the [facility]. Results must be considered in the clinical context, and a negative result does not rule out infection. Interpretive data last revised 2024. Les Colorado MD LAB MICROBIOLOGY - GENERAL ORDERABLES Final Result [facility] [address] [place] [address] * eGFR (03/03/2025 8:08 PM CDT) eGFR [...] LAB BLOOD ORDERABLES Final Result [facility] [address] Department [place] [address] * Differential, auto (03/03/2025 8:08 PM CDT) Neutrophil abs 4.45 1.50 - 6.50 K/cumm Imm gran abs 0.01 0.00 - 0.10 K/cumm [facility] Lymphocyte abs 1.23 0.80 - 3.30 K/cumm [facility] Monocyte abs 0.43 0.20 - 0.80 K/cumm [facility] Eosinophil abs 0.14 0.00 - 0.50 K/cumm [facility] Basophil abs 0.05 0.00 - 0.10 K/cumm [facility] Neutrophil pct 70.5 % [facility] Comment: Interpretive Data Percent cell count reference ranges are not reported, since discordance with absolute values may lead to misinterpretation of CBC data. Current Interpretive Data was last revised on 2017. Imm gran pct 0.2 % [facility] Comment: Interpretive Data Percent cell count reference ranges are not reported, since discordance with absolute values may lead to misinterpretation of CBC data. Current Interpretive Data was last revised on 2017. Lymphocyte pct 19.5 % [facility] Comment: Interpretive Data Percent cell count reference ranges are not reported, since discordance with absolute values may lead to misinterpretation of CBC data. Current Interpretive Data was last revised on 2017. Monocyte pct 6.8 % [facility] Comment: Interpretive Data Percent cell count reference ranges are not reported, since discordance with absolute values may lead to misinterpretation of CBC data. Current Interpretive Data was last revised on 2017. Eosinophil pct 2.2 % [facility] Comment: Interpretive Data Percent cell count reference ranges are not reported, since discordance with absolute values may lead to misinterpretation of CBC data. Current Interpretive Data was last revised on 2017. Basophil pct 0.8 % [facility] Comment: Interpretive Data Percent cell count reference ranges are not reported, since discordance with absolute values may lead to misinterpretation of CBC data. Current Interpretive Data was last revised on 2017. Blood 03/03/2025 8:08 PM CDT 03/03/2025 8:25 PM CDT Les Colorado MD LAB BLOOD ORDERABLES Final Result [facility] [address] Department [place] [address] * Urinalysis reflex to microscopic and culture Urine (03/03/2025 8:08 PM CDT) Color, ur Yellow Yellow Clarity, ur Clear Clear [facility] Specific gravity, ur 1.019 1.003 - 1.030 [facility] pH, urine 7.0 [facility] Comment: Interpretive Data U rine pH is affected by diet, medications, systemic acid-base disturbances, and renal tubular function. pH may affect urinary stone formation. For example, urine pH below 6.0 may help reduce the tendency for calcium phosphate stones and pH greater than 6.0 may reduce the tendency for uric acid stone formation. Source: [facility] Current Interpretive Data was last revised on 2017 Protein, ur ql Negative Negative [facility] Glucose, ur ql Negative Negative [facility] Ketones, ur Negative Negative [facility] Bilirubin, ur Negative Negative [facility] Blood, ur Negative Negative [facility] Urobilinogen, ur <2.0 <2.0 mg/dL [facility] Nitrite, ur Negative Negative [facility] Leukocyte esterase, ur Negative Negative [facility] UA reflex comment Reflex conditions for microscopic UA and culture not met. [facility] Urine 03/03/2025 8:08 PM CDT 03/03/2025 8:25 PM CDT Les Colorado MD LAB MICROBIOLOGY - GENERAL ORDERABLES Final Result Performing Organization Address [facility]/ZIP Co de Phone Number [facility] [address] Department [place] [address] * (ABNORMAL) CBC with auto differential (03/03/2025 8:08 PM CDT) WBC 6.31 3.80 - 9.90 K/cumm Hgb 11.3(L) 13.0 - 17.5 g/dL [facility] Hct 37.2(L) 38.9 - 50.3 % [facility] Plt 384 150 - 400 K/cumm [facility] MPV 10.1 9.1 - 12.3 fL [facility] RBC 4.36 4.30 - 5.80 M/cumm [facility] MCV 85.3 81.3 - 96.4 fL [facility] MCH 25.9(L) 27.1 - 33.3 pg [facility] MCHC 30.4(L) 32.3 - 35.7 g/dL [facility] RDW CV 16.2(H) 11.1 - 14.9 % [facility] RDW SD 50.3(H) 35.7 - 48.1 fL [facility] NRBC abs 0.00 0.00 - 0.01 K/cumm [facility] Blood 03/03/2025 8:08 PM CDT 03/03/2025 8:25 PM CDT Les Colorado MD LAB BLOOD ORDERABLES Final Result Performing Organization Address City/[facility] Co de Phone Number [address] [place] [place] [address] * Ethanol (03/03/2025 8:08 PM CDT) Pathologist [facility] Ethanol <10 <=10 mg/dL Comment: Interpretive Data Legal limit of intoxication > or = 80 mg/dL Levels > or = 400 mg/dL are potentially TOXIC. Current interpretive data was last revised on 2018. Blood 03/03/2025 8:08 PM CDT 03/03/2025 8:25 PM CDT Les Colorado MD LAB BLOOD ORDERABLES Final Result Performing Organization Address City/[facility]/ZIP Co de Phone Number [address] [place] [address] * Acetaminophen level (03/03/2025 8:08 PM CDT) [...] after ingestion Consult toxicology or poison control ([phone]) for unknown ingestion time. Current interpretive data was last revised 2023. Blood 03/03/2025 8:08 PM CDT 03/03/2025 8:25 PM CDT Les Colorado MD LAB BLOOD ORDERABLES Final Result Performing Organization Address [facility]/ZIP Co de Phone Number [address] [place] [address] * Salicylate level (03/03/2025 8:08 PM CDT) Pathologist [facility] Salicylate <0.5 <=0.5 mg/dL Comment: Interpretive Data Toxic: 30 mg/dL or greater. Current interpretive data was last revised 2023. Blood 03/03/2025 8:08 PM CDT 03/03/2025 8:25 PM CDT Les Colorado MD LAB BLOOD ORDERABLES Final Result Performing Organization Address [facility] Co de Phone Number [address] [address] * (ABNORMAL) Comprehensive metabolic panel (03/03/2025 8:08 PM CDT) Sodium 141 135 - 145 mmol/L Potassium, pl 4.7 3.3 - 4.9 mmol/L [facility] Chloride 104 97 - 110 mmol/L [facility] SERVICES CO2 24 22 - 32 mmol/L [facility] Anion gap 13 2 - 15 mmol/L [facility] BUN 20 6 - 25 mg/dL [facility] Creatinine 1.11 0.80 - 1.30 mg/dL [facility] Glucose 105 70 - 199 mg/dL [facility] Comment: Interpretive Data Fasting glucose >/= 126 [...] 2022. Calcium 9.6 8.5 - 10.3 mg/dL [facility] Bilirubin, total <0.1 0.1 - 1.2 mg/dL [facility] Protein, pl 7.8 6.5 - 8.5 g/dL [facility] Albumin 4.5 3.5 - 5.0 g/dL [facility] Alk phos 114 40 - 130 Units/L [facility] ALT 6(L) 7 - 55 Units/L [facility] AST <5(L) 10 - 50 Units/L [facility] Blood 03/03/2025 8:08 PM CDT 03/03/2025 8:25 PM CDT Les Colorado MD LAB BLOOD ORDERABLES Final Result [facility] [address] [facility] Department [place] [address] * (ABNORMAL) Hemoglobin A1c (12/04/2024 6:18 AM CDT) Hgb A1C 6.5(H) 4.0 - 5.6 % Estimated Average Glucose 140 mg/dL [facility] Comment: The ADA recommends reporting an estimated Average Glucose (eAG) with all Hemoglobin A1c results using the equation derived from a study of 507 normal and diabetic adults. Minority populations were underrepresented and children were not included. (Diabetes Care 31:8666-7853, 2008). The eAG is not equivalent to a fasting glucose. Blood 12/04/2024 6:18 AM CDT 12/04/2024 6:27 AM CDT Zack Adam MD LAB BLOOD ORDERABLES F inal Result [facility] [address] Department [place] [address] * Lipid panel (12/04/2024 6:18 AM CDT) [...] on 2018. Triglycerides 83 <=149 mg/dL [facility] Comment: Interpretive Data Ages < [...] on 2018. HDL 61 >=40 mg/dL [facility] Comment: Interpretive Data Ages [...] on 2018. LDL, calculated 106 <=129 mg/dL [facility]) Comment: Interpretive Data Ages < or = [...] 3. Gino Melo et al. SOTO Cardiol. 2019January 05;5(5):540-548. doi: 10.1001/jamacardio.2020.0013 Current Interpretive Data was last revised on 2024. Non-HDL Cholesterol 121 mg/dL [facility] Comment: Interpretive Data Ages < or = [...] last revised on 2018. Chol/HDL ratio 3 MARYELLENNE Ching [facility] Blood 12/04/2024 6:18 AM CDT 12/04/2024 6:27 AM CDT Zack Adam MD LAB BLOOD ORDERABLES F inal Result [facility] [address] Department [place] [address] * PSA screen (07/14/2023 12:18 PM BIGHT MAKER) PSA-Total 4.92 <=5.40 ng/mL [facility] Comment: Interpretive Data AGE SEX REFERENCE INTERVAL [...] revised 22. Blood 07/14/2023 12:1 8 PM BIGHT MAKER 07/14/2023 12:55 PM BIGHT MAKER Magdiel Marin NP LAB BLOOD ORDERABLES F inal Result Performing Organization Address City/[facility] Co de Phone Number [facility] Department [place] [address] from Last 3 Months or Most Recently Relevant to Health Maintenance Insurance CIG[employer] MEDICARE [facility]V [facility] Advance Directives For more information, please contact: [phone] * Full Code (Latest Code Status on [...] 9:58 AM 12/07/2022 5:47 PM Care Teams Personal Injury Paralegal Relationship Specialty Start Date End Date No, Physician PCP - General 03/03/25
--- OUTSIDE RECORDS SUMMARY | 2025-04-24 16:05 | XMS_ITS | Patient Health Record ---
Author Organization [facility] Address [address] [place], [place] [address] Care Team Providers Care Invoice Classification Clerk Name Role Phone ChristianoAbelardo Fadia Primary Care Provider Patricio Kyle Unavailable [phone] DIANE PERERA Unavailable [phone] Allergies No Known Allergies Reason For Referral [...] Vaccine Route Administration Date Status Comme nts SARS-COV-2 (COVID-19) Vaccine 100mcg/0.5mL IM Intramuscular 07/01/2021 Administered Influenza, seasonal, injectable (split), for 3 yrs and up IM Intramuscular 06/26/2021 Administered COVID VAC BOOSTER - MODERNA IM Intramuscular 02/20/2022 Administered Social History Tobacco Use: Social History [...] neuropathy associated with type 2 diabetes mellitus (7425786952726) Type 2 diabetes mellitus with diabetic neuropathy, unspecified (E11.40) Active confirmed Problem Disorder due to type 2 diabetes mellitus (244105291) Type 2 diabetes mellitus with unspecified complications (E11.8) Active confirmed Problem Obesity due to excess calories (205495233) Other obesity due to excess calories (E66.09) Active confirmed Problem Mixed hyperlipidemia (704313753) Mixed hyperlipidemia (E78.2) Active confirmed Problem Male erectile disorder (761703042) Male erectile disorder (F52.21) Active confirmed Problem Essential hypertension (85280347) Essential (primary) hypertension (I10) Active confirmed Problem Onychogryphosis (17662873) Onychogryphosis (L60.2) Active confirmed Problem Acquired hallux valgus (68672566) Hallux valgus (acquired), left foot (M20.12) Active confirmed Problem Pes planus (26444326) Flat foot [pes planus] (acquired), unspecified foot (M21.40) Active confirmed Problem Sciatica (43492391) Sciatic leg pain (M54.30) Active confirmed Problem Sciatica (75248122) Sciatica of left side (M54.32) Active confirmed Problem Vitamin D deficiency (02996333) Vitamin D deficiency (E55.9) Active confirmed Encounters Encounter Location Date Provider Diagnosis [facility] [address] [place] [id number] 01/10/2025 Fadia Lyle [facility] [address] [id number] 11/28/2024 Fadia Lyle Plan Of Treatment Pending Test Test Name Order Date Fecal Globin by Immunochemistry (IFOBT) [id number] 01/31/2021 Fecal Globin by Immunochemistry (IFOBT) [id number] 07/29/2021 CBC W/AUTO DIFF 01/31/2021 CMP 01/31/2021 [...] Coverage End Date [employer] [address] [address] [place] [address] [id number] Bob Frank Self - patient is the insured NOT ACCEPTED DENTAL [employer] [address] [address] [place] [address] [phone] [id number] Bob Frank Self - patient is the insured Medicare Part A NGS [address] [place] [address] [id number] Bob Frank Self - patient is the insured Slide Fee C $80 Medical/ $90 Dental Bob Frank Self - patient is the insured Medical (General) History Medical History History ICD Code hypertension Surgical History Surgery Date(Month/Year) right hip replacement 2002 Hospitalization History Reason Date(Month/Year) hip replacement 2002
--- OUTSIDE RECORDS SUMMARY | 2025-04-24 16:05 | XMS_ITS ---
Author Organization [facility] Address [address] [place], [place] [id number] Care Team Providers Care Head Host/Hostess Name Role Phone Fadia Lyle Primary Care Provider DIANE PERERA [phone] REASON FOR VISIT anxiety with stress disorders Social History Sex Assigned At : Social History Observation Description Sex Assigned At Female Encounters Encounter Location Date Provider Diagnosis [facility] [address] [place], [place] [id number] 12/14/2024 DIANE PERERA Plan Of Treatment No Information Progress Notes * Bob HOLLIS JrDOB:[birth year] (64 yo M)Acc No.[id number]:12/14/2024 Health & Behavioral Intake Patient: Kameron WINCHESTERBob Jr Provider: Lee PERERA LPC :1960 A ge:64 Y S ex:Male Date:12/14/2024 Address:[address] [place] [address], [address], [place], [phone] Pcp:Fadia Lyle Subjective: * Chief Complaints: * 1 . Anxiety with stress disorders. * Medical History: Objective: * Vitals: Assessment: Plan: * Treatment: * Billing Information: * Visit Code: * Procedure Codes: Care Plan Details* * Electronic signature of SARITA PERERA LPC on 04/24/2025 at 04:04 PM CDT Sign off status: Pending * Provider: Lee PERERA LPC Date: 0 12/14/2024 Generated for Rajendra juares/Valentina/Rosemarie on: 0 04/24/2025 04:04 PM CDT
--- OUTSIDE RECORDS SUMMARY | 2025-04-24 16:05 | XMS_ITS ---
Author Organization [facility] Address [address] [place], [place] [address] Care Team Providers Care Body Work Auto Trimmer Name Role Phone Fadia Lyle Primary Care Provider [phone] REASON FOR VISIT routine check up Social History Sex Assigned At : Social History Observation Description Sex Assigned At Female Encounters Encounter Location Date Provider Diagnosis [facility] [address] [place], [place] [id number] 02/08/2025 Fadia Lyle Plan Of Treatment No Information Progress Notes * Bob HOLLIS JrDOB:[birth year] (64 yo M)Acc No.[id number]:02/08/2025 Progress Notes Patient: Bob XAVIER Provider: Sudha Lyle MD :1960 A ge:64 Y S ex:Male Date:02/08/2025 Address:[address] [place] [address], [address], [place], [id number] Subjective: * Chief Complaints: * 1 . Routine check up. * Medical History: * Ocular Surgical History: Objective: * Vitals: Vision: Spectacle Rx: Contact Lens: Eye Examination: Special Tests: Assessment: Plan: * Treatment: Care Plan: * Problems: * Billing Information: * Visit Code: * Procedure Codes: * Electronic signature of Ara Lyle MD on 04/24/2025 at 04:05 PM CDT Sign off status: Pending * Provider: Sudha Lyle MD Date: 0 02/08/2025 Generated for Rajendra juares/Valentina/Rosemarie on: 0 04/24/2025 04:05 PM CDT
--- OUTSIDE RECORDS SUMMARY | 2025-04-24 16:05 | XMS_ITS | Patient Health Record ---
Author Organization [facility] Address [address] [place] [address] Care Team Providers Care Segment Producer Name Role Phone Zhang Hallman Unavailable [phone] Reason For Referral No Information Medications Medication [...] oliver l Orally twice a day Active Social History Sex Assigned At : Social History Observation Description Sex Assigned At Male Encounters Encounter Location Date Provider Diagnosis [address] [place] [address] 12/01/2024 Zhang Hallman Plan Of Treatment No Information
--- OUTSIDE RECORDS SUMMARY | 2025-04-24 16:05 | XMS_ITS | Encounter Summary ---
Author Organization [facility] Address [address] [place] [address] Care Team Providers Care Lpn Name Role Phone Fadia Lyle MD Primary Care Provid er No, Physician Primary Care Provider [phone] Encounter Details Date Type Department Care Team (Latest Contact Info) Description 11/27/2023 Documentation Psychiatry Jhonny Lopez Social History Tobacco Use Types Packs/Day Years Used Date Smoking Tobacco: Former Smokeless Tobacco: Never Alcohol Use Standard Drinks/Week Comments No 0 (1 standard drink = 0.6 oz pur e alcohol) [facility] Utilities Answer Date Recorded In the past [...] No 11/23/2023 Social Connection and Isolation Panel Answer Date Recorded In a typical week, how many times do you talk on the phone with family, friends, or neighbors? Once a week 11/23/19 How often do you get togethe r with friends or relatives? Never 11/23/2023 How often do you attend chur ch or anabaptism services? 1 to 4 times per year 11/23/2023 Do you belong to any clubs o r organizations such as lutheran groups, unions, fraternal or athletic groups, or [...] Date Recorded PHQ-2 Total Score 3 10/24/2021 [facility] of Occupat ional [facility] - Occupational Stress Questionnaire Answer Date Recorded [...] place to sleep or slept in a nursing home (including now)? 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
--- OUTSIDE RECORDS SUMMARY | 2025-04-24 16:05 | XMS_ITS | Encounter Summary ---
Author Organization [facility] Address [address] [place] [address] Care Team Providers Care Editor Sound Name Role Phone Rory Moore MD Unavailable Fadia Lyle MD Primary Care Provid er Reason for Visit * Auth/Cert (Routine) Specialty Diagnoses / Procedures Referred By Ruddy forrester Referred To Contact Diagnoses Unspecified Mood Disorder Referral ID Status Reason Start Date Expiration Date Visits Re quested Visits Authorized [id number] 1 1 Encounter Details Date Type Department Care Team (Late st Contact Info) Description 06/22/2024 11:53 PM CDT Hospital Encounter [facility] [address], [place] [address] Ranjan Seaman DO [address] [place] [address] Rayray Cespedes MD [address] [place] [phone] Behavioral Health Social History Tobacco Use Types Packs/Day Years Used Date Smoking Tobacco: Never Assessed AUDIT-C Answer Date Recorded Q1: How often do you have a drink containing alcohol? Never 04/17/2025 Q2: How many drinks containi ng alcohol do you have on a typical day when you are drinking? Patient does not drink Q3: How often do you have si x or more drinks on one occasion? Never 04/17/2025 Overall Financial Resource Strain (CARDIA) Answe r Date Recorded How hard is it for you to pa y for the very basics like food, housing, medical care, and heating? Not hard at all 04/02/2025 PHQ-2 Answer Date Recorded Patient Health Questionnaire-2 Score 3 04/18/2025 [facility] of Occupat ional Health - Occupational Stress Questionnaire Answer Date Recorded Do you feel stress - tense, restless, nervous, or anxious, or unable to sleep at night because your mind is troubled all the time - these days? Not at all 04/02/2025 Hunger Vital Sign Answer Date Recorded Within the past 12 months, y ou worried that your food would run out before you got the money to buy more. Never true 04/02/20 25 Within the past 12 months, t he food you bought just didn't last and you didn't have money to get more. Never true 04/02/2025 PRAPARE - Transportation Answer Date Re corded In the past 12 months, has l ack of transportation kept you from medical appointments or from getting medications? No 03/08 In the past 12 months, has l ack of transportation kept you from meetings, work, or from getting things needed for daily living? No 04/02/2025 Housing Stability Vital Sign Answer Chuck e [...] place to sleep or slept in a penitentiary (including now)? No 12/23/2023 Housing Stability Vital Sign Answer Chuck e Recorded In the last 12 months, was t here a time when you were not able to pay the mortgage or rent on time? No 04/02/2025 In the past 12 months, how m any times have you moved where you were living? 0 04/02/2025 At any time in the past 12 m [facility], were you homeless or living in a penitentiary (including now)? 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 Never 04/17/2025 3:43 PM CDT LorenzoNikkideb Barrie Q2: How many drinks containing alcohol do you have on a typical day when you are drinking? Patient does not drink 04/17/2025 3:43 PM CDT LorenzoNikkideb Barrie Q3: How often do you have six or more drinks on one occasion? Never 04/17/2025 3:43 PM CDT LorenzoCalvinmitzy Barrie * Audit-C Score Answer Date of Assessment Author 0 04/17/2025 3:43 PM CDT LorenzoLorenza * Is person deaf or have serious [...] pleasure in doing things Not at all 04/18/2025 5:29 PM Ed Baeza LPC Feeling down, depressed, or hopeless Nearly every day 04/18/2025 5:29 PM Ed Baeza LPC Patient Health Questionnaire-2 Score 3 04/18/2025 5:29 PM Ed Baeza LPC * Question Answer Date of Assessment Author Trouble falling or staying asleep, or sleeping too much Nearly every day 04/18/2025 5:29 PM Ed Baeza LPC Feeling tired or having little energy Nearly every day 04/18/2025 5:29 PM Ed Baeza LPC Poor appetite or overeating Several days 04/18/2025 5:29 PM Ed Baeza LPC Feeling bad about yourself - or that you are a failure or have let yourself or your family down Not at all 04/18/2025 5:29 PM Ed Baeza LPC Trouble concentrating on things, such as reading the newspaper or watching television Nearly every day 04/18/2025 5:29 PM MARLYNT Ed Burnham LPC Moving or speaking so slowly that other people could have noticed? Or the opposite - being so fidgety or restless that you have been moving around a lot more than usual. Not at all 04/18/2025 5:29 PM Ed Baeza LPC Thoughts that you would be better off or hurting yourself in some way Nearly every day 04/18/2025 5:29 PM Ed Baeza LPC Patient Health Questionnaire-9 Score 16 04/18/2025 5:29 PM Ed Baeza LPC * Actual/Potential Lethality (Most Lethal Attempt) Question Answer Date of Assessment Author Actual Lethality/Medical Dam age Code (Most Lethal Attempt) 3 03/21/2025 3:39 AM CDT Moses Nuñeza R Potential Lethality Code (Mo st Lethal Attempt) 2 03/21/2025 3:39 AM CDT Kiarra Nuñez R * Actual/Potential Lethality (Most Recent Attempt) Question Answer Date of Assessment Author Actual Lethality/Medical Dam age Code (Most Recent Attempt) 3 03/21/2025 3:39 AM CDT Moses Nuñez hristina R Potential Lethality Code (Mo st Recent Attempt) 0 03/21/2025 3:39 AM CDT Kiarra Nuñez R * Actual/Potential Lethality (Initial/First Attempt) Question Answer Date of Assessment Author Actual Lethality/Medical Dam age Code (Initial/First Attempt) 3 03/21/2025 3:39 AM Estella Atkinson Potential Lethality Code (Initial/First Attempt) 1 03/21/2025 3:39 AM CDT Yehuda Nuñez * Calculated C-SSRS Risk Score (Lifetime/Recent) Answer Date of Assessment Author High Risk 04/18/2025 5:27 PM CDT Ed Fraga LPC * If you checked off any problems [...] other people? Answer Date of Assessment Author Very difficult 04/18/2025 5:29 PM CDT Ed Fraga LPC * Suicidal Ideation Question Answer Date of Assessment Author 1. Wish to be (Lifetime) Yes 04/18/2025 5:27 PM CDT Ed Burnham LPC 2. Non-Specific Active Suicidal Thoughts (Lifetime) Yes 04/18/2025 5:27 PM CDT Ed Cardona nd, LPC 3. Active Suicidal Ideation with any Methods (Not Plan) Without Intent to Act (Lifetime) Yes 04/17/2025 3:37 PM CDT Anny Ventura H 4. Active Suicidal Ideation with Some Intent to Act, Without Specific Plan (Lifetime) Yes 04/17/2025 3:37 PM CDT Anny Ventura H 5. Active Suicidal Ideation with Specific Plan and Intent (Lifetime) Yes 04/18/2025 5:27 PM CDT Óscar Burnham LPC 1. Wish to be (Past 1 Month) Yes 04/18/2025 5:27 PM CDT Óscar Burnham LPC 2. Non-Specific Active Suicidal Thoughts (Past 1 Month) Yes 04/17/2025 3:37 PM CDT Nikki Venturawit H 3. Active Suicidal Ideation with any Methods (Not Plan) Without Intent to Act (Past 1 Month) Yes 04/17/2025 3:37 PM CDT Nikki Venturawit H 4. Active Suicidal Ideation with Some Intent to Act, Without Specific Plan (Past 1 Month) Yes 04/17/2025 3:37 PM CDT Calvin Venturat H 5. Active Suicidal Ideation with Specific Plan and Intent (Past 1 Month) Yes 04/18/2025 5:27 PM CDT Óscar Burnham LPC * Intensity of Ideation Question Answer Date of Assessment Author Most Severe Ideation Rating (Lifetime) 5 04/18/2025 5:27 PM CDT Ed Burnham LPC Description of Most Severe Ideation (Lifetime) Chronic SI thoguths with the plan to shoot self with a plan to shoot self or jump from a buildin for the past few months. no previous SA HX 04/17/2025 3:37 PM CDT Lorenzo, Nikkiwit H Frequency (Lifetime) 4 04/18/2025 5:27 PM CDT Ed Burnham LPC Duration (Lifetime) 3 04/18/2025 5 :27 PM CDT Ed Burnham LPC Controllability (Lifetime) 5 04/18 5:27 PM CDT Ed Burnham LPC Deterrents (Lifetime) 5 04/18/2025 5:27 PM CDT Ed Burnham LPC Reasons for Ideation (Lifetime) 5 04/18/2025 5:27 PM CDT Ed Burnham LPC Most Severe Ideation Rating (Past 1 Month) 5 04/18/2025 5:27 PM CDT Ed Burnham LPC Description of Most Severe Ideation (Past 1 Month) Chronic SI thoguths with the plan to shoot self with a plan to shoot self or jump from a buildin for the past few months. no previous SA HX 04/17/2025 3:37 PM CDT Nikki Venturawit H Frequency (Past 1 Month) 4 025 5:27 PM CDT Ed Burnham LPC Duration (Past 1 Month) 3 04/18/20 25 5:27 PM CDT Ed Burnham LPC Controllability (Past 1 Month) 5 04/18/2025 5:27 PM CDT Ed Burnham LPC Deterrents (Past 1 Month) 5 2024 5:27 PM CDT Ed Burnham LPC Reasons for Ideation (Past 1 Month) 5 04/18/2025 5:27 PM CDT Ed Burnham LPC * Suicidal Behavior Question Answer Date of Assessment Author Actual Attempt (Lifetime) No 04/18/2025 5:27 PM CDT Ed Burnham LPC Total Number of Actual Attempts (Lifetime) 2 03/02/2025 9:29 PM CDT Blessing Siddiqui Has subject engaged in non-suicidal self-injurious behavior? (Lifetime) No 04/18/2025 5:27 PM CDT Yehuda Burnham LPC Interrupted Attempts (Lifetime) No 04/18/2025 5:27 PM CDT Óscar Burnham LPC Total Number of Interrupted Attempts (Lifetime) 1 03/02/2025 9:29 PM CDT Blessing Siddiqui Aborted or Self-Interrupted Attempt (Lifetime) No 04/18/2025 5:27 PM CDT Óscar Burnham LPC Preparatory Acts or Behavior (Lifetime) No 04/18/2025 5:27 PM CDT Óscar Burnham LPC Total Number of Preparatory Acts (Lifetime) 1 03/21/2025 3:39 AM CDT Kiarra Nuñez Actual Attempt (Past 3 Months) No 03/21/2025 3:39 AM CDT Kiarra Nuñez Interrupted Attempts (Past 3 Months) No 03/02/2025 9:29 PM CDT Blessing Siddiqui Preparatory Acts or Behavior (Past 3 Months) No 03/21/2025 3:39 AM CDT Kiarra Nuñez documented as of this encounter Mental Status * Does person have difficulty concentrating/remembering/making decisions? Answer Entry Date Author No 06/23/2024 2:55 PM CDT Brandon talamantes, Genevieve Diaz RN documented in this encounter Plan of [...] documented as of this encounter Care Teams Editor Sound Relationship Specialty Start Date End Date Fadia Lyle MD [address] [place] [address] PCP - General Family Medicine 01/12/24 [place] [address] [id number] Intranet Developer Rheumatology 10/14/16 documented as of this encounter
--- OUTSIDE RECORDS SUMMARY | 2025-04-24 16:05 | XMS_ITS | Clinical Summary ---
Author Organization [facility] Address [address] [place] [address] Phone Care Team Providers Care Inspector Welded Parts Name Role Phone Unavailable Primary Care Provider Unavailabl e Social History Tobacco Use Types Packs/Day Years Used Date Smoking Tobacco: Never Assessed Sex and Gender Information Value Date Recorded Sex Assigned at Not on file Legal Sex Male 1:47 PM CDT Gender Identity Not on file Sexual Orientation Not on file Plan of Treatment Not on file Insurance [address] [place] [address] MEDICARE C CIGNA
--- OUTSIDE RECORDS SUMMARY | 2025-04-24 16:05 | XMS_ITS | Clinical Summary ---
Author Organization [facility] [employer] Address [address] [facility] [address] [place] [address] Care Team Providers Care It Applications Developer Name Role Phone Rory Moore MD Unavailable Fadia Lyle MD Primary Care Provid er Ayaan Zavala MD Unavailable [phone] Source Comments [facility] [employer],non-owned Affiliates and Associated Physician Practices is amultiple site organization consisting of ambulatory clinics and hospital sitesin [place], [place], [place] and [place]. This disclosure is being madepursuant to the Care Everywhere program and may not contain all information available regarding this patient. Last updated 18.[facility] Allergies No known active allergies Medications * [...] the Arteries 15 tablet 1 025 Active pregabalin (Lyrica) 50 MG capsuleIndicat ions:Neuropath ic Pain Take 1 (one) capsule by mouth 2 times daily Reasons: Neuropathic Pain 30 capsule 1 025 Active metFORMIN (Glucophage) 500 MG tabletIndicati ons:Type 2 Diabetes Mellitus Take 1 (one) tablet by mouth 2 times daily with morning and evening meal Reasons: Type 2 Diabetes 30 tablet 1 025 Active atorvastatin (Lipitor) 10 MG tabletIndicati ons:Hyperlipid emia Take 1 (one) tablet by mouth at bedtime Reasons: High Amount of Fats in the Blood 15 tablet 1 025 Active losartan (Cozaar) 50 MG tabletIndicati ons:Hypertensi on Take 1 (one) tablet by mouth once daily Reasons: High Blood Pressure 15 tablet 1 025 Active hydroCHLOROthi azide (Hydrodiuril) 25 MG tabletIndicati ons:Hypertensi on Take 1 (one) tablet by mouth once daily Reasons: High Blood Pressure 15 tablet 1 025 Active cyanocobalamin 1000 MCGIndications :Vitamin B12 Deficiency Take 1 (one) tablet by mouth once daily Reasons: Inadequate Vitamin B12 15 tablet 1 025 Active ferrous sulfate 325 (65 FE) MG tabletIndicati ons:Iron Deficiency Anemia Take 1 (one) tablet by mouth 2 times daily with morning and evening meal Reasons: Anemia From Inadequate Iron in the Body 30 tablet 1 025 Active folic acid (Folvite) 1 MG tabletIndicati ons:Nutritiona l support Take 1 (one) tablet by mouth once daily Reasons: Nutritional support 15 tablet 1 025 Active docusate sodium (Colace) 100 MG capsuleIndicat ions:Constipat ion Take 1 (one) capsule by mouth 2 times daily as needed for Constipation Reasons: Constipation 30 capsule 025 Active tamsulosin (Flomax) 0.4 MG capsuleIndicat ions:Benign Prostatic Hypertrophy Take 1 (one) capsule by mouth once daily At the same time every day after a meal. Reasons: Benign Enlargement of Prostate 15 capsule 1 025 Active pantoprazole EC (Protonix) 40 MG tabletIndicati ons:Gastroesop hageal Reflux Disease Take 1 (one) tablet by mouth once daily Reasons: Gastroesophageal Reflux Disease 15 tablet 1 025 Active thiamine (Vitamin B-1) 100 MG tabletIndicati ons:Thiamine Deficiency Take 1 (one) tablet by mouth once daily Reasons: Deficiency of Vitamin B1 15 tablet 1 025 Active vitamin D3 (Cholecalcifer ol) 25 MCG (1000 UNITS) tabletIndicati ons:Vitamin D Deficiency Take 1 (one) tablet by mouth once daily Reasons: Vitamin D Deficiency 15 tablet 1 025 Active FLUoxetine (PROzac) 20 MG capsuleIndicat ions:Major Depressive Disorder Take 1 (one) capsule by mouth once daily Reasons: Major Depressive Disorder 15 capsule 1 Active hydrOXYzine HCl (Atarax) 10 MG tabletIndicati ons:Anxiety Take 1 (one) tablet by mouth 3 times daily Reasons: Feeling Anxious 45 tablet 1 Active hydrOXYzine HCl (Atarax) 25 MG tabletIndicati ons:Anxiety Take 1 (one) tablet by mouth every 6 hours as needed Reasons: Feeling Anxious 30 tablet 1 Active traZODone (Desyrel) 150 MG tabletIndicati ons:Insomnia Take 1 (one) tablet by mouth at bedtime Reasons: Trouble Sleeping 15 tablet 1 Active hydrOXYzine HCl (Atarax) 25 MG tabletIndicati ons:Anxiety Take 1 (one) tablet by mouth every 6 hours as needed Reasons: Feeling Anxious 30 tablet 1 025 2024 Discontinued buPROPion SR 12hr (Wellbutrin-SR ) 150 MG tabletIndicati ons:Major Depressive Disorder Take 1 (one) tablet by mouth once daily Reasons: Major Depressive Disorder 15 tablet 1 2024 Discontinued(L ist Clean-Up) FLUoxetine (PROzac) 20 MG capsuleIndicat ions:Major Depressive Disorder Take 1 (one) capsule by mouth once daily Reasons: Major Depressive Disorder 15 capsule 1 025 2024 Discontinued losartan (Cozaar) 25 MG tabletIndicati ons:Hypertensi on Take 3 (three) tablets by mouth every evening Reasons: High Blood Pressure 45 tablet 1 025 2024 Discontinued(L ist Clean-Up) OLANZapine, disintegrating , (ZyPREXA Zydis) 5 MG tabletIndicati ons:Major Depressive Disorder,Psych otic Depression Take 1 (one) tablet by mouth at bedtime Reasons: Major Depressive Disorder, Psychotic Depressive Illness 15 tablet 1 025 2024 Discontinued(L ist Clean-Up) amLODIPine (Norvasc) 10 MG tabletIndicati ons:Hypertensi on Take 1 (one) tablet by mouth once daily Reasons: High Blood Pressure 15 tablet 1 025 2024 Discontinued(L ist Clean-Up) ferrous sulfate 325 (65 FE) MG tabletIndicati ons:Iron Deficiency Anemia Take 1 (one) tablet by mouth 2 times daily with morning and evening meal Reasons: Anemia From Inadequate Iron in the Body 15 tablet 1 025 2024 Discontinued(L ist Clean-Up) pantoprazole EC (Protonix) 40 MG tabletIndicati ons:Gastroesop hageal Reflux Disease Take 1 (one) tablet by mouth once daily Reasons: Gastroesophageal Reflux Disease 15 tablet 1 025 2024 Discontinued hydrOXYzine HCl (Atarax) 10 MG tabletIndicati ons:Anxiety Take 1 (one) tablet by mouth 3 times daily Reasons: Feeling Anxious 45 tablet 1 025 2024 Discontinued FLUoxetine (PROzac) 20 MG capsuleIndicat ions:Major Depressive Disorder Take 1 (one) capsule by mouth once daily Reasons: Major Depressive Disorder 15 capsule 1 025 2024 Discontinued traZODone (Desyrel) 150 MG tabletIndicati ons:Insomnia Take 1 (one) tablet by mouth at bedtime Reasons: Trouble Sleeping 15 tablet 1 025 2024 Discontinued Active Problems Problem Noted Date Diagnosed Date Severe recurrent major depre ssion without psychotic features 04/02/2025 Severe episode of recurrent major depressive disorder, [...] organization. Date Type Department Care Team Description 04/19/2025 11:08 AM CDT - 04/19/2025 11:50 AM CDT Emergency ER at [address] [address] Jazlyn Mata DO Suicidal ideation Discharge Disposition: Home or Self Care 04/19/2025 Travel 04/18/2025 2:22 PM CDT - 04/19/2025 10:32 AM CDT Emergency ER at [address] [address] Anish Cooley MD Majino, Angela R, MD Sprowls, David, MD Severe recurrent major depression without psychotic features (HCC) (Primary Dx); Suicidal ideation; Antisocial personality disorder (HCC) Discharge Disposition: Home or Self Care 04/18/2025 Travel 04/17/2025 1:27 PM CDT - 04/18/2025 9:57 AM CDT Emergency ER at [facility] [address] [place] [address] Ramandeep Martines DO Ahlering, Christopher P, MD Bohm, Carl P, DO Severe episode of recurrent major depressive disorder, without psychotic features (HCC) Discharge Disposition: Home or Self Care 04/10/2025 Telephone [facility] [address] [place] [address] [address] [place] [phone] Demetrio Mcghee, CORNELL-CHILD ATTENDANT Scheduling 04/02/2025 Travel 04/01/2025 11:10 AM CDT - 04/02/2025 1:24 PM CDT Emergency [facility] EMERGENCY DEPARTMENT [address] [place] [address] Perla Perez MD Suicidal ideation Discharge Disposition: Psychiatric Hospital or Unit 04/01/2025 Travel 03/30/2025 6:26 PM CDT - 03/31/2025 9:59 AM CDT Emergency ER at [address] [address] Husam Mccormick DO Hodges, Harlan D, MD Bao, Jenny Q, MD Mood disorder; Paranoid schizophrenia (HCC); MDD (major depressive disorder), recurrent, severe, with psychosis (HCC) Discharge Disposition: Home or Self Care 03/30/2025 Travel 03/21/2025 2:41 AM CDT - 03/21/2025 8:03 AM CDT Emergency ER at [facility] [address] [place] [id number] Sondra Mays DO Huggins, Matthew G, MD Adjustment disorder, unspecified type (Primary Dx); Current severe episode of major depressive disorder without psychotic features, unspecified whether recurrent (HCC); Substance abuse (HCC) Discharge Disposition: Home or Self Care 03/03/2025 4:45 PM CDT - 03/03/2025 5:15 PM CDT Emergency ER at [facility] [address] [place] [address] Unhoused person Discharge Disposition: Home or Self Care 03/03/2025 3:24 PM CDT - 03/03/2025 4:37 PM CDT Emergency ER at [address] [address] Magdalena Lopez MD Substance induced mood disorder (HCC); Malingering Discharge Disposition: Home or Self Care 03/03/2025 11:23 AM CDT - 03/03/2025 1:40 PM CDT Emergency ER at [address] [address] Rei Rodriguez MD Substance induced mood disorder (HCC) Discharge Disposition: Home or Self Care 03/02/2025 8:25 PM CDT - 03/03/2025 10:49 AM CDT Emergency ER at [address] [address] Jazlyn Mata DO Sprowls, David, MD Severe episode of recurrent major depressive disorder, with psychotic features (HCC); Malingering Discharge Disposition: Home or Self Care 03/02/2025 Travel 02/22/2025 Travel from Last 3 Months Immunizations Immunization Administration Dates Next Due COVID VITOR PRIMARY 18+YR 01/17/2021 COVID MODERNA BIVALENT 12Y+ 50MCG/0.5ML 10/28/19 23 COVID PFIZER 12+YR 30MCG/0.3mL 07/17/2023 INFLUENZA VACCINE [...] Packs/Day Years Used Date Smoking Tobacco: Never Passive Smoke Exposure: Never Smokeless Tobacco: Never Tobacco Cessation:Counseling Given: Not [...] Recorded Patient Health Questionnaire-2 Score 3 04/18/2025 [facility] [place] of Occupat ional Health - Occupational Stress [...] slept in a group home (including now)? No 12/23/2023 Housing Stability Vital Sign Answer Chuck e Recorded In the last 12 months, was t here a time when you were not able to pay the mortgage or rent on time? No 04/02/2025 In the past 12 months, how m any times have you moved where you were living? 0 04/02/2025 At any time in the past 12 m [facility], were you homeless or living in a group home (including now)? No 04/02/2025 Sex and Gender Information Value Date Recorded Sex Assigned at Male 04/02/2025 2:30 PM CDT Legal Sex Male 4:43 AM BEAN WEIGHER Gender Identity Male 09/21/2020 9:51 PM BEAN [employer]IGHER Sexual Orientation Not on file Occupation Industry Job Start Date Job End Date retired [employer] Not on file Not on file Not on file Last Filed Vital Signs Vital Sign Reading Time Taken Comments Blood Pressure 145/92 04/19/2025 11:16 AM CDT Pulse 72 04/19/2025 11:16 AM CDT Temperature 36.9 C (98.5 F) 04/19/2025 11:16 AM CDT Respiratory Rate 16 04/19/2025 11:16 AM CDT Oxygen Saturation 99% 04/19/2025 11:16 AM CDT Inhaled Oxygen Concentration - - Weight 93 kg (205 lb) 04/17/2025 1:30 PM CDT Height 177.8 cm (5' 10) 04/17/2025 1:30 PM CDT Body Mass Index 29.41 04/17/2025 1:30 PM CDT Plan of Treatment Health Maintenance Due Date Last Done Comments COLOGUARD (AGES 45-75) - COLON CA SCREENING 1960 COLON MONITORING 1960 COLONOSCOPY - COLON CA SCREENING 1959 CT COLONOGRAPHY - COLON CA SCREENING 1960 FLEX SIG - COLON CA SCREENING 1959 DTAP/TDAP/TD VACCINES (1 - Tdap) 1978 PNEUMOCOCCAL VACCINE 50+ (1 of 2 - PCV) 1978 ZOSTER VACCINE (1 of 2) 2009 Colorectal Cancer Screening 04/03/2023 FIT - COLON CA SCREENING 04/03/2023 04/03/2022 COVID-19 VACCINE ( season) 2024 07/17/2023, 12/05/2022, 10/28/2022, Additional history exists DIABETES RETINOPATHY SCREENING 06/24/2024 DIABETES-FOOT EXAM WITH MONOFILAMENT 06/24/2024 DIABETES - URINE PROTEIN SCREENING 09/07/2024 INFLUENZA VACCINE (#1) 2025 , 07/17/2023, 10/28/2022, Additional history exists DIABETES-HGB A1C 10/05/2025 04/04/2025, , 06/25/2024, Additional history exists DIABETES-SERUM CREATININE 04/01/20262024, 03/03/2025, 12/28/2024, Additional history exists Respiratory Syncytial Virus (RSV) Vaccine Pt: or over 60 yrs (1 - 1-dose 75+ series) 2034 HEPATITIS C SCREENING Completed 11/05/2018 HIV SCREENING Completed 08/19/2020 DEPRESSION SCREENING Completed 04/02/2025, 01/12/2024, 06/04/2022, Additional history exists HEPATITIS B VACCINE Aged Out No longe [...] Procedure Name Priority Date/Time Associated Diagnosis Comments GLUCOSE - POINT OF CARE Routine 04/08/2025 12:29 PM CDT GLUCOSE - POINT OF CARE Routine 04/08/2025 7:54 AM CDT GLUCOSE - POINT OF CARE Routine 04/07/2025 5:02 PM CDT GLUCOSE - POINT OF CARE Routine 04/07/2025 11:55 AM CDT GLUCOSE - POINT OF CARE Routine 04/07/2025 7:06 AM CDT GLUCOSE - POINT OF CARE Routine 04/06/2025 7:46 PM CDT GLUCOSE - POINT OF CARE Routine 04/06/2025 5:31 PM CDT GLUCOSE - POINT OF CARE Routine 04/06/2025 12:03 PM CDT GLUCOSE - POINT OF CARE Routine 04/06/2025 7:32 AM CDT LIPID PROFILE AM Draw 04/06/2025 5:53 AM CDT TSH REFLEX FREE T4 Routine 04/06/2025 5: 53 AM CDT VITAMIN B12 AM Draw 04/06/2025 5:53 AM CDT FOLATE Routine 04/06/2025 5:53 AM CDT IRON + TRANSFERRIN PANEL Routine 04/06/2025 5:53 AM CDT FERRITIN Routine 04/06/2025 5:53 AM CDT GLUCOSE - POINT OF CARE Routine 04/05/2025 8:16 PM CDT GLUCOSE - POINT OF CARE Routine 04/05/2025 5:14 PM CDT GLUCOSE - POINT OF CARE Routine 04/05/2025 12:27 PM CDT GLUCOSE - POINT OF CARE Routine 04/05/2025 7:30 AM CDT GLUCOSE - POINT OF CARE Routine 04/04/2025 8:53 PM CDT GLUCOSE - POINT OF CARE Routine 04/04/2025 6:58 PM CDT GLUCOSE - POINT OF CARE Routine 04/04/2025 12:37 PM CDT ECHO COMPLETE Routine 04/04/2025 10:14 AM CDT Abnormal ECG GLUCOSE - POINT OF CARE Routine 04/04/2025 9:05 AM CDT HEMOGLOBIN A1C Routine 04/04/2025 7:03 AM CDT GLUCOSE - POINT OF CARE Routine 04/03/2025 8:16 PM CDT GLUCOSE - POINT OF CARE Routine 04/03/2025 5:32 PM CDT EKG 12-LEAD Routine 04/02/2025 9:05 PM CDT Bradycardia URINE DRUG SCREEN IMMUNOASSAY STAT 04/01/2025 1:02 PM CDT COMPREHENSIVE METABOLIC PANEL STAT 04/01/2025 1:02 PM CDT CBC W AUTO DIFFERENTIAL STAT 04/01/2025 1:02 PM CDT ALCOHOL ETHYL BLOOD STAT 04/01/2025 1 :02 PM CDT DRUG SCREEN TOX LIMITED BLD PNL 3 [...] OF CARE Routine 02/23/2025 9:22 AM CDT OCCULT BLOOD FECES FIT SCREEN 04/03/2022 HIV-1 HIV-2 ANTIBODY + HIV P24 AG PANEL STAT 08/19/2020 4:29 PM BEAN [employer]HER COVID-19 HEPATITIS C ANTIBODY Routine 11/05/2018 1:58 PM BEAN [employer]IGHER Wellness examination from Last 3 Months or Most Recently Relevant to Health Maintenance Results * (ABNORMAL) GLUCOSE - POINT OF CARE (04/08/2025 12:29 PM CDT) Only the most recent of27 resultswithin the time period is included. [facility] Glucose WB/POC 124(H) 70 - 99 mg/dL 04/08/2025 2:52 PM CDT [facility] Specimen Type Arterial/C apillary 04/08/2025 2:52 PM CDT [facility] Blood BLOOD SPECIMEN / Unknown 04/08/2025 12:29 PM CDT 04/08/2025 2:52 PM CDT Bob Holguin MD LAB - POINT OF CARE ORDERABL ES Final Result Performing Organization Address City/[facility]/ZIP Co de Phone Number [facility] [address] [place], [place] [phone] * TSH REFLEX FREE T4 (04/06/2025 5:53 AM CDT) [facility] TSH 2.033 0.350 - 4.940 uIU/mL 04/06/2025 7:53 AM CDT [facility] Blood BLOOD SPECIMEN / Unknown Lab Venipuncture / Unknown 04/06/2025 5:53 AM CDT 04/06/2025 6:45 AM CDT Kitty Friedman MD LAB - CHEMISTRY ORDERABLES Final Result Performing Organization Address [facility] Co de Phone Number [facility] [address] [place] [address] * FOLATE (04/06/2025 5:53 AM CDT) [facility] Folate 11.5 7.0 - 31.4 ng/mL 04/06/2025 7:53 AM CDT [facility] Blood BLOOD SPECIMEN / Unknown Lab Venipuncture / Unknown 04/06/2025 5:53 AM CDT 04/06/2025 6:45 AM CDT Kitty Friedman MD LAB - CHEMISTRY ORDERABLES Final Result Performing Organization Address [facility] Co de Phone Number [facility] [address] [place] [phone] * VITAMIN B12 (04/06/2025 5:53 AM CDT) Vitamin B12 288 213 - 816 pg/mL 04/06/2025 7:53 AM CDT [facility] Blood BLOOD SPECIMEN / Unknown Lab Venipuncture / Unknown 04/06/2025 5:53 AM CDT 04/06/2025 6:45 AM CDT Kitty Friedman MD LAB - CHEMISTRY ORDERABLES Final Result Performing Organization Address City/[facility]/ZIP Co de Phone Number [facility] [address] [place] [phone] * (ABNORMAL) IRON + TRANSFERRIN PANEL (04/06/2025 5:53 AM CDT) Pathologist [facility] Iron 44(L) 50 - 175 ug/dL 04/06/2025 7:26 AM CDT [facility] Transferrin 242 174 - 382 mg/dL 04/06/2025 7:26 AM CDT [facility] TIBC Calculated 303 240 - 450 ug/dL 04/06/2025 7:26 AM CDT [facility] Iron Saturation % 15(L) 20 - 50 % 04/06/2025 7:26 AM CDT [facility] Blood BLOOD SPECIMEN / Unknown Lab Venipuncture / Unknown 04/06/2025 5:53 AM CDT 04/06/2025 6:45 AM CDT Kitty Friedman MD LAB - CHEMISTRY ORDERABLES Final Result Performing Organization Address [facility] de Phone Number [facility] [address] [place] [phone] * FERRITIN (04/06/2025 5:53 AM CDT) Pathologist [facility] Ferritin 31 22 - 275 ng/mL 04/06/2025 7:53 AM CDT [facility] Blood BLOOD SPECIMEN / Unknown Lab Venipuncture / Unknown 04/06/2025 5:53 AM CDT 04/06/2025 6:45 AM CDT Kitty Friedman MD LAB - CHEMISTRY ORDERABLES Final Result [facility] [address] [place] [address] * LIPID PROFILE (04/06/2025 5:53 AM CDT) Cholesterol 159 <200 mg/dL 04/06/2025 7:26 AM CDT [facility] Triglycerides 71 <150 mg/dL 04/06/2025 7:26 AM CDT [facility] HDL Cholesterol 53 >40 mg/dL 7:26 AM CDT [facility] LDL Calculated 92 <130 mg/dL 04/06/2025 7:26 AM CDT [facility] Comment:LDL is calculated us ing the Friedewald equation. VLDL Calculated 14 <=30 mg/dL 7:26 AM CDT [facility] Chol HDL Ratio 3.0 <4.5 04/06/2025 7:26 AM CDT [facility] LDL/HDL Ratio 1.7 <5.0 04/06/2025 7:26 AM CDT [facility] Blood BLOOD SPECIMEN / Unknown Lab Venipuncture / Unknown 04/06/2025 5:53 AM CDT 04/06/2025 6:45 AM CDT Kitty Friedman MD LAB - CHEMISTRY ORDERABLES Final Result Performing Organization Address [facility] Co de Phone Number [facility] [address] [place] [address] * ECHO COMPLETE (04/04/2025 10:14 AM CDT) IVSd 2D 1.169 cm SSM CV FUJ I PACS LVIDd 5.084 cm SSM CV FUJ I PACS LVIDs 3.338 cm SSM CV FUJ I PACS LVOT diam 2.017 cm SSM CV FUJ I PACS LVPWd 1.027 cm SSM CV FUJ I PACS LV A2C EF 53.325 % SSM CV FUJ I PACS LV A4C EF 50.603 % SSM CV FUJ I PACS LV EDV A2C 155.848 ml SSM CV FU JI PACS LV EDV A4C 122.116 ml SSM CV FU JI PACS LV ESV A2C 72.742 ml SSM CV FU JI PACS LV ESV A4C 60.322 ml SSM CV FU JI PACS LVOT pk grad 4.973 mmHg SSM CV FUJI PACS LVOT pk prieto 111.505 cm/s SSM CV F UJI PACS LVOT VTI 25.747 cm SSM CV FUJ I PACS LA size 3.52 cm SSM CV FUJ I PACS LA vol BP 95 ml SSM CV FUJ I PACS AV area pk prieto 2.854 cm SSM CV FUJI PACS AV area cont VTI 2.95 cm SSM CV FUJI PACS AV pk grad 6.234 mmHg SSM CV FU JI PACS AV mn grad 3.771 mmHg SSM CV FU JI PACS AV pk prieto 124.839 cm/s SSM CV FUJ I PACS AV VTI 27.893 cm SSM CV FUJ I PACS MV A pk prieto 100.64 cm/s SSM CV F UJI PACS MV E pk prieto 87.886 cm/s SSM CV F UJI PACS MV E' lateral prieto 10.656 cm/s SS M CV FUJI PACS PV pk prieto 94.704 cm/s SSM CV FUJ I PACS TAPSE 2.523 cm SSM CV FUJ I PACS TR pk prieto 247.528 cm/s SSM CV FUJ I PACS AV area index 1.362 cm /m SSM CV FUJI PACS LA vol index 0.044 l/m SSM CV FUJI PACS Dimensionless Index 0.923 unitless SSM CV FUJI PACS LA area A4C 29.1 cm SSM CV FUJI PACS Myocardial strain charge 2 unitless SSM CV FUJI PACS Anatomical Region Laterality Modality Ultrasound 04/04/2025 9:30 AM CDT Narrative 04/04/2025 1:05 PM CDT Summary * The left ventricle is normal in size with normal systolic function and an estimated ejection fraction of 55-60% by visual estimate. Left ventricular wall motion is normal. * There is mildly increased left ventricular wall thickness. * The left ventricular diastolic function is indeterminate. * Right ventricle is dilated with normal systolic function. * The left atrium is moderately dilated with a left atrial volume index of 44 ml/m2 by BP MOD. * The right atrium is mildly dilated. * There is mild mitral valve regurgitation. * There is moderate tricuspid valve regurgitation. * The pulmonary artery systolic pressure is normal, 28 mmHg. Patient Info Name: Bob Frank Age: 64 years : 1960 Gender: Male Ht: 71 in Wt: 203 lb BSA: 2.17 m2 BP: 146 / 84 mmHg Exam Date: 04/04/2025 9:30 AM Patient Status: O Study Site: [facility] Primary Location: [facility] EStudy Info Exam Type: ECHO COMPLETE Indications R94.31 - Abnormal ECG Procedure(s) * A complete 2D, color Doppler, spectral Doppler, and M-Mode transthoracic echocardiogram was performed. Staff Referring Physician: Ayaan Zavala Ordering Provider: Ayaan Zavala Attending Physician: Ayaan Zavala Tank Assembler: Driss Puckett Left Ventricle The left ventricle is normal in size. Left ventricular systolic function is normal with an estimated ejection fraction of 55-60% by visual estimate. There is mildly increased left ventricular wall thickness. The left ventricular mass is normal. Left ventricular segmental wall motion is normal. The left ventricular diastolic function is indeterminate. Diastolic function is indeterminate due to discordant parameters. Right Ventricle The right ventricle is dilated. Right ventricular systolic function is normal. Left Atrium The left atrium is moderately dilated with a left atrial volume index of 44 ml/m2 by BP MOD. Right Atrium The right atrium is mildly dilated. Atrial Septum Intact interatrial septum visualized by 2D and color Doppler imaging. Aortic Valve The aortic valve is trileaflet. There is no aortic valve stenosis. There is no aortic valve regurgitation. Pulmonic Valve The pulmonic valve is normal. There is no pulmonic valve stenosis. There is mild pulmonic regurgitation. Mitral Valve The mitral valve is normal. There is no mitral valve stenosis. There is mild mitral valve regurgitation. Tricuspid Valve The tricuspid valve is normal. There is no tricuspid valve stenosis. There is moderate tricuspid valve regurgitation. The pulmonary artery systolic pressure is normal, 28 mmHg. Inferior Vena Cava The inferior vena cava is normal in size (< 2.1 cm). There is > 50% collapse of the IVC upon inspiration with an estimated right atrial pressure of 3 mmHg. Pericardium/Pleural There is no pericardial effusion. Aorta The aortic root at the sinus of Valsalva is normal in size. The ascending aorta is normal in size. Measurements Left Ventricular Outflow Tract Name Value Normal LVOT 2D LVOT Diameter 2.0 cm LVOT Area 3.2 cm2 LVOT Doppler LVOT Peak Velocity 1.1 m/s LVOT Peak Gradient 5 mmHg LVOT Mean Velocity 78.43 cm/s LVOT Mean Gradient 3 mmHg LVOT VTI 25.7 cm LVOT VTI/AV VTI Ratio 0.9 LVOT Stroke Volume 82 ml LVOT Stroke Volume Index 38 ml/m2 35-58 Pulmonic Valve Name Value Normal PV Doppler PV Peak Velocity 0.9 m/s PV Peak Gradient 4 mmHg PV Accel Time 152.24 ms Mitral Valve Name Value Normal MV Diastolic Function MV E Peak Velocity 0.9 m/sec MV A Peak Velocity 1.0 m/sec MV E/A 0.9 MV Decel Time (PW) 180 ms MV Annular TDI MV Septal e' Velocity 6 cm/s >=8 MV E/e' (Septal) 14 <=8 MV Lateral e' Velocity 11 cm/s >=10 MV E/e' (Lateral) 8 <=8 MV e' Average 8 cm/s MV E/e' (Average) 11 Tricuspid Valve Name Value Normal TV Regurgitation Doppler TR Peak Velocity 2.5 m/s TR Peak Gradient 25 mmHg Estimated PAP/RSVP RA Pressure 3 mmHg <=5 PA Systolic Pressure 28 mmHg <35 RV Systolic Pressure 28 mmHg <36 TV Annular TDI TV Lateral Jessie s' Velocity 14 cm/s 10-19 Aorta Name Value Normal Ascending Aorta Ao Root Diameter (2D) 3.5 cm Ao Root Diam Index (2D) 1.6 cm/m2 Aortic Valve Name Value Normal AV Doppler AV Peak Velocity 1.25 m/s AV Peak Gradient 6 mmHg AV Mean Gradient 4 mmHg AV VTI 28 cm AV Area (Cont Eq VTI) 2.95 cm2 >=2.00 AV Area (Cont Eq Prieto) 2.85 cm2 AV DI (VTI) 0.92 AV DI (Prieto) 0.89 AV Regurgitation 2D LVOT Area 3.19 cm2 Ventricles Name Value Normal LV Dimensions 2D/MM IVS Diastolic Thickness (2D) 1.2 cm 0.6-1.0 LVID Diastole (2D) 5.1 cm 4.2-5.8 LVPW Diastolic Thickness (2D) 1.0 cm 0.6-1.0 LVID Systole (2D) 3.3 cm 2.5-4.0 LV Mass (2D Cubed) 212 g 88-224 LV Mass Index (2D Cubed) 98 g/m2 49-115 Relative Wall Thickness (2D) 0.40 <=0.42 LV Fractional Shortening/Ejection Fraction 2D/MM LV Fractional Shortening (2D) 34 % 25-43 LV EF (2D Teicholz) 63 % 52-72 LV Diastolic Volume (4C MOD) 122 ml LV EF (4C MOD) 51 % LV Diastolic Volume (2C MOD) 156 ml LV EF (2C MOD) 53 % LV Diastolic Volume (BP MOD) 140 ml 62-150 LV Diastolic Volume Index (BP MOD) 65 ml/m2 34-74 LV Systolic Volume (BP MOD) 68 ml 21-61 LV Systolic Volume Index (BP MOD) 31 ml/m2 11-31 LV Diastolic Length (4C) 9.1 cm LV Systolic Length (4C) 7.4 cm LV Stroke Volume (4C MOD) 62 ml RV Dimensions 2D/MM TAPSE 2.5 cm >=1.7 Atria Name Value Normal LA Dimensions LA Dimension (2D) 3.5 cm 3.0-4.1 LA Dimen Index (2D) 1.6 cm/m2 LA Area (4C) 29 cm2 LA Length (4C) 6.4 cm LA Area (2C) 23 cm2 LA Length (2C) 5.9 cm LA Volume (4C MOD) 106 ml LA Volume (2C MOD) 64 ml LA Volume (4C A-L) 112 ml LA Volume (2C A-L) 74 ml LA Volume (BP A-L) 95 ml LA Volume Index (BP A-L) 44 ml/m2 16-34 LA Volume (BP MOD) 95 ml LA Volume Index (BP MOD) 44 ml/m2 16-34 Report Signatures Finalized by Ayaan Zavala on 04/04/2025 01:05 PM Procedure Note Ayaan Zavala MD - 04/04/2025 Summary * The left ventricle is normal in size with normal systolic function andan estimated ejection fraction of 55-60% by visual estimate. Leftventricular wall motion is normal. * There is mildly increased left ventricular wall thickness. * The left ventricular diastolic function is indeterminate. * Right ventricle is dilated with normal systolic function. * The left atrium is moderately dilated with a left atrial volume indexof 44 ml/m2 by BP MOD. * The right atrium is mildly dilated. * There is mild mitral valve regurgitation. * There is moderate tricuspid valve regurgitation. * The pulmonary artery systolic pressure is normal, 28 mmHg. Patient Info Name: Bob Frank Age: 64 years : 1960 Gender: Male Ht: 71 in Wt: 203 lb BSA: 2.17 m2 BP: 146 / 84 mmHg Exam Date: 04/04/2025 9:30 AM Patient Status: O Study Site: [facility] Primary Location: [facility] EStudy Info Exam Type: ECHO COMPLETE Indications R94.31 - Abnormal ECG Procedure(s) * A complete 2D, color Doppler, spectral Doppler, and M-Modetransthoracic echocardiogram was performed. Staff Referring Physician: Ayaan Zavala Ordering Provider: Ayaan Zavala Attending Physician: Ayaan Zavala Tank Assembler: Driss Puckett Left Ventricle The left ventricle is normal in size. Left ventricular systolic functionis normal with an estimated ejection fraction of 55-60% by visual estimate.There is mildly increased left ventricular wall thickness. The left ventricularmass is normal. Left ventricular segmental wall motion is normal. The left ventricular diastolic function is indeterminate. Diastolic function is indeterminate due to discordant parameters. Right Ventricle The right ventricle is dilated. Right ventricular systolic function is normal. Left Atrium The left atrium is moderately dilated with a left atrial volume index of44 ml/m2 by BP MOD. Right Atrium The right atrium is mildly dilated. Atrial Septum Intact interatrial septum visualized by 2D and color Doppler imaging. Aortic Valve The aortic valve is trileaflet. There is no aortic valve stenosis. Thereis no aortic valve regurgitation. Pulmonic Valve The pulmonic valve is normal. There is no pulmonic valve stenosis. Thereis mild pulmonic regurgitation. Mitral Valve The mitral valve is normal. There is no mitral valve stenosis. There ismild mitral valve regurgitation. Tricuspid Valve The tricuspid valve is normal. There is no tricuspid valve stenosis.There is moderate tricuspid valve regurgitation. The pulmonary artery systolic pressure is normal, 28 mmHg. Inferior Vena Cava The inferior vena cava is normal in size (< 2.1 cm). There is > 50%collapse of the IVC upon inspiration with an estimated right atrial pressure of 3mmHg. Pericardium/Pleural There is no pericardial effusion. Aorta The aortic root at the sinus of Valsalva is normal in size. Theascending aorta is normal in size. Measurements Left Ventricular Outflow Tract Name Value Normal LVOT 2D LVOT Diameter 2.0 cm LVOT Area 3.2 cm2 LVOT Doppler LVOT Peak Velocity 1.1 m/s LVOT Peak Gradient 5 mmHg LVOT Mean Velocity 78.43 cm/s LVOT Mean Gradient 3 mmHg LVOT VTI 25.7 cm LVOT VTI/AV VTI Ratio 0.9 LVOT Stroke Volume 82 ml LVOT Stroke Volume Index 38 ml/m2 35-58 Pulmonic Valve Name Value Normal PV Doppler PV Peak Velocity 0.9 m/s PV Peak Gradient 4 mmHg PV Accel Time 152.24 ms Mitral Valve Name Value Normal MV Diastolic Function MV E Peak Velocity 0.9 m/sec MV A Peak Velocity 1.0 m/sec MV E/A 0.9 MV Decel Time (PW) 180 ms MV Annular TDI MV Septal e' Velocity 6 cm/s >=8 MV E/e' (Septal) 14 <=8 MV Lateral e' Velocity 11 cm/s >=10 MV E/e' (Lateral) 8 <=8 MV e' Average 8 cm/s MV E/e' (Average) 11 Tricuspid Valve Name Value Normal TV Regurgitation Doppler TR Peak Velocity 2.5 m/s TR Peak Gradient 25 mmHg Estimated PAP/RSVP RA Pressure 3 mmHg <=5 PA Systolic Pressure 28 mmHg <35 RV Systolic Pressure 28 mmHg <36 TV Annular TDI TV Lateral Jessie s' Velocity 14 cm/s 10-19 Aorta Name Value Normal Ascending Aorta Ao Root Diameter (2D) 3.5 cm Ao Root Diam Index (2D) 1.6 cm/m2 Aortic Valve Name Value Normal AV Doppler AV Peak Velocity 1.25 m/s AV Peak Gradient 6 mmHg AV Mean Gradient 4 mmHg AV VTI 28 cm AV Area (Cont Eq VTI) 2.95 cm2 >=2.00 AV Area (Cont Eq Prieto) 2.85 cm2 AV DI (VTI) 0.92 AV DI (Prieto) 0.89 AV Regurgitation 2D LVOT Area 3.19 cm2 Ventricles Name Value Normal LV Dimensions 2D/MM IVS Diastolic Thickness (2D) 1.2 cm 0.6-1.0 LVID Diastole (2D) 5.1 cm 4.2-5.8 LVPW Diastolic Thickness (2D) 1.0 cm 0.6-1.0 LVID Systole (2D) 3.3 cm 2.5-4.0 LV Mass (2D Cubed) 212 g 88-224 LV Mass Index (2D Cubed) 98 g/m2 49-115 Relative Wall Thickness (2D) 0.40 <=0.42 LV Fractional Shortening/Ejection Fraction 2D/MM LV Fractional Shortening (2D) 34 % 25-43 LV EF (2D Teicholz) 63 % 52-72 LV Diastolic Volume (4C MOD) 122 ml LV EF (4C MOD) 51 % LV Diastolic Volume (2C MOD) 156 ml LV EF (2C MOD) 53 % LV Diastolic Volume (BP MOD) 140 ml 62-150 LV Diastolic Volume Index (BP MOD) 65 ml/m2 34-74 LV Systolic Volume (BP MOD) 68 ml 21-61 LV Systolic Volume Index (BP MOD) 31 ml/m2 11-31 LV Diastolic Length (4C) 9.1 cm LV Systolic Length (4C) 7.4 cm LV Stroke Volume (4C MOD) 62 ml RV Dimensions 2D/MM TAPSE 2.5 cm >=1.7 Atria Name Value Normal LA Dimensions LA Dimension (2D) 3.5 cm 3.0-4.1 LA Dimen Index (2D) 1.6 cm/m2 LA Area (4C) 29 cm2 LA Length (4C) 6.4 cm LA Area (2C) 23 cm2 LA Length (2C) 5.9 cm LA Volume (4C MOD) 106 ml LA Volume (2C MOD) 64 ml LA Volume (4C A-L) 112 ml LA Volume (2C A-L) 74 ml LA Volume (BP A-L) 95 ml LA Volume Index (BP A-L) 44 ml/m2 16-34 LA Volume (BP MOD) 95 ml LA Volume Index (BP MOD) 44 ml/m2 16-34 Report Signatures Finalized by Ayaan Zavala on 04/04/2025 01:05 PM us Ayaan Zavala MD ECHO CUPID Final Result * (ABNORMAL) HEMOGLOBIN A1C (04/04/2025 7:03 AM CDT) Hemoglobin A1c 6.7(H) <5.7 % 04/04/2025 7:30 AM T [facility] Estimated Average Glucose 146 mg/dL 04/04/2025 7:30 AM T [facility] Blood BLOOD SPECIMEN / Unknown Lab Venipuncture / Unknown 04/04/2025 7:03 AM CDT 04/04/2025 7:13 AM CDT Narrative [facility] - 04/04/2025 7:30 AM CDT HbA1c Interpretation: Normal: < 5.7% [...] (HbF) exceeds 5% in the specimen. The Spine Wavenity assay for the measurement of HbA1c is a National Glycohemoglobin Standardization Program (NGSP) certified method. Bernadette Rasheed MD LAB - CHEMISTRY ORDERABLES Brenda l Result Performing Organization Address [facility] Co de Phone Number [facility] [address] [place] [address] * EKG 12-Lead (04/02/2025 9:05 PM CDT) Ventricular Rate 66 BPM [facility] Atrial Rate 66 BPM [facility] P-R Interval 290 ms [facility] QRS Duration ms 88 ms [facility] Q-T Interval ms 392 ms [facility] QTC Calculation (Bezet) 410 ms [facility] Calculated P [place] 41 degrees [facility] Calculated R [place] 6 degrees [facility] Calculated T [place] 63 degrees [facility] Interpretation EKG SINUS RHYTHM WITH 1ST DEGREE A-V BLOCK POOR R WAVE PROGRESSION ABNORMAL ECG Confirmed by MD Lamin, Julio César ([id number]) on 04/03/2025 6:50:44 PM [facility] MUSE 04/02/2025 9:05 PM CDT 04/03/2025 6:50 PM CDT Bernadette Rasheed MD ECG ORDERABLES Edited Result - Final [facility] MUSE * (ABNORMAL) CBC W AUTO DIFFERENTIAL (04/01/2025 1:02 PM T) Only the most recent of2 resultswithin the time period is included. WBC 11.3(H) 4.0 - 10.7 x10E9/L 04/01/2025 1:12 PM [facility] RBC Count 4.19(L) 4.30 - 5.80 x10E12/L 04/01/2025 1:12 PM [facility] Hemoglobin 11.0(L) 13.3 - 17.5 g/dL 04/01/2025 1:12 PM [facility] Hematocrit 33.6(L) 38.7 - 51.1 % 04/01/2025 1:12 PM [facility] MCV 80.2 80.0 - 98.0 fL 04/01/2025 1:12 PM [facility] MCH 26.3(L) 26.7 - 33.6 pg 04/01/2025 1:12 PM [facility] MCHC 32.7 31.7 - 36.3 g/dL 04/01/2025 1:12 PM [facility] RDW-CV 18.0(H) 11.3 - 14.8 % 04/01/2025 1:12 PM [facility] Platelet Count 250 150 - 420 x10E9/L 04/01/2025 1:12 PM [facility] MPV 10.2 7.8 - 11.4 fL 04/01/2025 1:12 PM [facility] Neutrophil % 79.0(H) 41.0 - 74.0 % 04/01/2025 1:12 PM [facility] Lymphocyte % 13.6(L) 17.0 - 47.0 % 04/01/2025 1:12 PM [facility] Monocyte % 5.4 3.0 - 11.0 % 04/01/2025 1:12 PM [facility] Eosinophil % 1.1 0.0 - 7.0 % 04/01/2025 1:12 PM CDT [facility] Basophil % 0.4 0.0 - 1.6 % 04/01/2025 1:12 PM CDT [facility] Immature Granulocytes % 0.5 0.0 - 1.0 % 04/01/2025 1:12 PM CDT [facility] Neutrophil Absolute 8.88(H) 1.60 - 7.50 x10E9/L 04/01/2025 1:12 PM CDT [facility] Lymphocyte Absolute 1.53 1.00 - 4.40 x10E9/L 04/01/2025 1:12 PM T [facility] Monocyte Absolute 0.61 0.15 - 1.00 x10E9/L 04/01/2025 1:12 PM T [facility] Eosinophil Absolute 0.12 0.00 - 0.60 x10E9/L 04/01/2025 1:12 PM T [facility] Basophil Absolute 0.05 0.00 - 0.13 x10E9/L 04/01/2025 1:12 PM [facility] Blood BLOOD SPECIMEN / Unknown Venipuncture / Unknown 04/01/2025 1:02 PM CDT 04/01/2025 1:06 PM CDT us Perla Perez MD LAB - HEMATOLOGY ORDERABLES nal Result Performing Organization Address [facility]/State/ZIP Co de Phone Number [facility] [address] [place] [phone], [facility] [phone] * (ABNORMAL) COMPREHENSIVE METABOLIC PANEL (04/01/2025 1:02 PM CDT) BUN 16 7 - 26 mg/dL 04/01/2025 1:36 PM T [facility] Creatinine 1.00 0.71 - 1.16 mg/dL 04/01/2025 1:36 PM T [facility] Sodium 141 136 - 145 mmol/L 04/01/2025 1:36 PM T [facility] Potassium 4.6(H) 3.5 - 4.5 mmol/L 04/01/2025 1:36 PM T [facility] Chloride 108(H) 98 - 107 mmol/L 04/01/2025 1:36 PM [facility] CO2 24 22 - 29 mmol/L 04/01/2025 1:36 PM [facility] Glucose 78 70 - 99 mg/dL 04/01/2025 1:36 PM [facility] Calcium 9.4 8.4 - 10.2 mg/dL 04/01/2025 1:36 PM [facility] Protein Total 7.6 6.0 - 8.3 g/dL 04/01/2025 1:36 PM [facility] Albumin 4.3 3.4 - 5.0 g/dL 04/01/2025 1:36 PM [facility] Bilirubin Total 0.4 0.2 - 1.2 mg/dL 04/01/2025 1:36 PM [facility] Alkaline Phosphatase 98 40 - 150 U/L 04/01/2025 1:36 PM [facility] ALT 13 5 - 55 U/L 04/01/2025 1:36 PM [facility] AST 20 5 - 34 U/L 04/01/2025 1:36 PM [facility] Anion Gap 9 6 - 16 04/01/2025 1:36 PM [facility] BUN/Creatinine Ratio 16 7 - 23 04/01/2025 1:36 PM [facility] Osmolality Calculated 292 275 - 295 mOsm/kg 04/01/2025 1:36 PM [facility] Albumin/Globulin Ratio 1.3 1.1 - 2.3 04/01/2025 1:36 PM [facility] eGFR by CKD-EPI 84(L) >=90 mL/min/1.7 3 m2 04/01/2025 1:36 PM [facility] Comment:Estimated Glomerular Filtration Rate (eGFR) calculated using the CKD-EPI Creatinine Equation (2020), per the National Kidney Foundation and [place] Society of Nephrology recommendations. Blood BLOOD SPECIMEN / Unknown Venipuncture / Unknown 04/01/2025 1:02 PM CDT 04/01/2025 1:05 PM T us Perla Perez MD LAB - CHEMISTRY ORDERABLES Fin al Result [facility] [address] [place] [address], [facility] [phone] * URINE DRUG SCREEN IMMUNOASSAY (04/01/2025 1:02 PM CDT) [facility] Amphetamines Screen Urine Negative Negative: < 1000 ng/mL 04/01/2025 1:40 PM CDT [facility] Barbiturates Screen Urine Negative Negative: < 200 ng/mL 04/01/2025 1:40 PM CDT [facility] Benzodiazepine Screen Urine Negative Negative: < 200 ng/mL 04/01/2025 1:40 PM CDT [facility] Opiates Urine Negative Negative: < 300 ng/mL 04/01/2025 1:40 PM CDT [facility] Cocaine Metabolites Urine Negative Negative: < 300 ng/mL 04/01/2025 1:40 PM CDT [facility] Phencyclidine Screen Urine Negative Negative: < 25 ng/ml 04/01/2025 1:40 PM CDT [facility] Cannabinoids Screen Urine Negative Negative: <50 ng/mL 04/01/2025 1:40 PM CDT [facility] Methadone Screen Urine Negative Negative: < 300 ng/mL 04/01/2025 1:40 PM T [facility] Fentanyl Screen Urine Negative Negative: <1.5 ng/mL 04/01/2025 1:40 PM T [facility] Urine URINE / Unknown Collection / Unknown 04/01/2025 1:02 PM CDT 04/01/2025 1:04 PM CDT [facility] - 04/01/2025 1:40 PM CDT The Urine Toxicology Screening Panel does not screen for Propoxyphene, Meprobamate, Carisoprodol, Trazodone, cafl-lfe-bcwbchy medications and/or volatiles (Acetone, Isopropanol, Methanol or Ethylene Glycol). Ethanol, Salicylate, Acetaminophen, Tricyclic Antidepressants and several therapeutic drugs may be individually assayed in serum or plasma specimen. Toxicology testing by the [facility] is an aid to medical diagnosis and treatment of patients. No documented chain of custody was maintained. Results are intended to be used for clinical purposes only. us Perla Perez MD LAB - URINE CHEMISTRY ORDERABL ES Final Result [address] [phone], [facility] [phone] * ALCOHOL ETHYL BLOOD (04/01/2025 1:02 PM CDT) Ethanol (mg/dL) <10 <10 mg/dL 1:36 PM CDT [facility] Ethanol Calculated (g/dL) <0.010 <=0.010 g/dL 04/01/2025 1:36 PM CDT [facility] Blood BLOOD SPECIMEN / Unknown Venipuncture / Unknown 04/01/2025 1:02 PM CDT 04/01/2025 1:05 PM CDT Narrative [facility] - 04/01/2025 1:36 PM CDT Ethanol Interp <10: None Detected. Depression of [employer]: >100 mg/dl Potentially Critical: >250 mg/dl Potentially Fatal >400 mg/dl Ethanol in the patient's blood will contribute to the osmolar gap. Ethanol's contribution to the osmolar gap can be estimated by dividing the concentration of ethanol in mg/dL by 4.6. This test is for clinical use only and does not equal a MAGDALENE for legal purposes. Perla Perez MD LAB - CHEMISTRY ORDERABLES Fin al Result Performing Organization Address [facility]/ZIP Co de Phone Number [address] [address], [facility] [phone] * (ABNORMAL) DRUG SCREEN TOX LIMITED BLD PNL 3 INHOUSE (03/03/2025 12:27 AM CDT) Acetaminophen <3.0(L) 10.0 - 30.0 ug/mL 03/03/2025 12:50 AM CDT [facility] Ethanol <10.0 <10 mg/dL 03/03/2025 12:50 AM CDT [facility] Salicylate <5.0(L) 15.0 - 30.0 mg/dL 03/03/2025 12:50 AM CDT [facility] Blood BLOOD SPECIMEN / Unknown Venipuncture / Unknown 03/03/2025 12:27 AM CDT 03/03/2025 12:33 AM CDT Narrative [facility] - 03/03/2025 12:50 AM CDT [facility] [...] may alter the peak level. Contact the [facility] at or reserved for healthcare professionals to assist you in evaluating potentially toxic acetaminophen levels. Anish Cooley MD LAB - CHEMISTRY ORDERABLES nal Result [facility] [address] [place] [address] * (ABNORMAL) BASIC METABOLIC PANEL (CALCIUM TOTAL) (03/03/2025 12:27 AM CDT) Glucose 107(H) 70 - 99 mg/dL 03/03/2025 12:50 AM CDT [facility] Sodium 141 136 - 145 mmol/L 03/03/2025 12:50 AM CDT [facility] Potassium 4.4 3.5 - 5.1 mmol/L 03/03/2025 12:50 AM CDT [facility] Chloride 106 98 - 107 mmol/L 03/03/2025 12:50 AM CDT [facility] CO2 25 22 - 29 mmol/L 03/03/2025 12:50 AM CDT [facility] Calcium 9.7 8.4 - 10.4 mg/dL 03/03/2025 12:50 AM CDT [facility] Anion Gap 10 6 - 16 mmol/L 03/03/2025 12:50 AM CDT [facility] BUN 21 7 - 26 mg/dL 03/03/2025 12:50 AM CDT [facility] Creatinine 0.91 0.72 - 1.25 mg/dL 03/03/2025 12:50 AM CDT [facility] eGFR by CKD-EPI >90 >=90 mL/min/1.7 3 m2 03/03/2025 12:50 AM CDT [facility] Blood BLOOD SPECIMEN / Unknown Venipuncture / Unknown 03/03/2025 12:27 AM CDT 03/03/2025 12:33 AM CDT us Anish Cooley MD LAB - CHEMISTRY ORDERABLES Fi nal Result [facility] [address] [place] [address] * OCCULT BLOOD FECES FIT SCREEN (04/03/2022) 04/03/2022 Narrative 04/03/2022 Ordered by an unspecified provider. us Scanned Document LAB - BODY FLUID ORDERABLES Fin al Result * HIV-1 HIV-2 ANTIBODY + HIV P24 AG PANEL (08/19/2020 4:29 PM BEAN WEIGHER) Pathologist [facility] HIV1/2 Ab + P24 Ag Non Reactive Non Reactive 08/19/2020 5:32 PM BEAN WEIGHER [facility] Blood BLOOD SPECIMEN / Unknown Venipuncture / Unknown 08/19/2020 4:29 PM BEAN WEIGHER 08/19/2020 4:38 PM BEAN WEIGHER Narrative [facility] - 08/19/2020 5:32 PM BEAN WEIGHER No Laboratory evidence of HIV infection. Samm Gregg MD LAB - CHEMISTRY ORDERABLES Final Result Performing Organization Address City/[facility]/ZIP Co de Phone Number [facility] [address] [place] [address] * HEPATITIS C ANTIBODY (11/05/2018 1:58 PM BEAN WEIGHER) Hepatitis C Antibody Non Reactive Non Reactive [facility] INSURANCE BILL Comment: Non Reactive - Antibodies to Hepatitis C virus (HCV) were no t detected, result does not exclude early acute HCV infection. Blood BLOOD SPECIMEN / Unknown 11/05/2018 1:58 PM BEAN WEIGHER 11/05/2018 Narrative Resulting Agency Comment [facility] [address] [facility] [phone] us Gerri Newsome MD LAB - CHEMISTRY ORDERABLES F inal Result [facility] INSURANCE BILL [address] [place] [address] from Last 3 Months or Most Recently Relevant to Health Maintenance Insurance MEDICARE ADVANTAGE [facility] MEDICARE ADVANTAGE [facility] Advance Directives * Full Code (Latest Code Status on File) Date Activated Date Inactivated Comments 04/02/2025 1:57 PM 04/08/2025 3:25 PM * Full Code Date Activated Date Inactivated Comments 02/23/2025 4:20 PM 03/02/2025 2:32 PM * Full Code Date Activated Date Inactivated Comments 06/24/2024 9:08 AM 12/11/2024 4:46 AM * Full Code Date Activated Date Inactivated Comments 06/23/2024 4:40 PM 07/04/2024 11:53 AM * Full Code Date Activated Date Inactivated Comments 12/23/2023 6:06 PM 01/01/2024 10:13 AM Care Teams It Applications Developer Relationship Specialty Start Date End Date Fadia Lyle MD [address] [place] [phone] PCP - General Family Medicine 01/12/24 [place] [address] [phone] Cultural Historian Rheumatology 10/14/16 Ayaan Zavala MD [address] [facility] [address] [place] [phone] Floor Inspector Cardiology 04/03/25
[2025-04-24 16:12] LABS: Hematocrit 36.3 % (42.0-52.0); Hemoglobin 11.5 g/dL (14.0-18.0); Immature Granulocyte Percent A 0.3 % (0-0.5); Lymphocytes Absolute Auto 1.45 K/mm3 (0.9-3.2); Mean Corpuscular HGB Conc 31.7 g/dl (32-36); Mean Corpuscular Hemoglobin 26.2 pg (26-34); Mean Corpuscular Volume 82.7 fl (80-100); Nucleated Red Blood Cells Absolute Auto 0.000 K/mm3 (0.0-0.012); Nucleated Red Blood Cells Perc 0.0 % (0.0-0.2); Platelet Count Result 273 k/mm3 (150-375); Red Blood Count 4.39 M/mm3 (4.6-6.20); White Blood Count 10.1 K/mm3 (4.5-10.0)
[2025-04-24 16:27] LABS: Alanine Aminotransferase 15 U/L (6-50); Albumin Level 4.4 g/dL (3.5-5.1); Alkaline Phosphatase 99 U/L (38-126); Anion Gap 12 mmol/L (4-12); Aspartate Amino Transferase 27 U/L (17-59); Bilirubin,Total 0.3 mg/dL (0.2-1.3); Blood Urea Nitrogen 12 mg/dL (9-20); Calcium 9.9 mg/dL (8.4-10.2); Carbon Dioxide 24 mmol/L (22-30); Chloride 105 mmol/L (98-107); Estimated CRCL calculation 68 ml/min; Estimated Glomerular Filt Rate > 60; Glucose 122 mg/dL (65-110); Potassium 4.3 mmol/L (3.4-5.0); Sodium 141 mmol/L (137-145); Total Protein 8.1 g/dL (6.3-8.2)
[2025-04-24 16:53] LABS: Influenza A QL RT-PCR Negative (Negative); Influenza B QL RT-PCR Negative (Negative); RSV RNA, RT-PCR Negative (Negative); SARS-CoV-2 RNA PCR Negative (Negative)
[2025-04-24 17:10] LABS: Cannabinoid Screen Urine Negative (Negative)
[2025-04-24 17:27] LABS: Add Urine Microscopic? YES; Appearance Urine Clear (Clear); Glucose Urine UA Negative (Negative); Leukocyte Esterase Ur Trace LEU/UL (Negative); Nitrate Urine Negative (Negative); Non Pathogenic Casts 0-2; Specific Grav Ur 1.020 (1.001-1.035)
[2025-04-24 17:30] VITALS: BP 130/93; PULSE 68; RESP 15; O2SAT 100
[2025-04-24 17:44] LABS: Thyroid Stimulating Hormone Reflex 1.700 uIU/mL (0.465-4.68)
[2025-04-24 18:51] VITALS: BP 149/90; PULSE 77; RESP 17; O2SAT 99
--- NOTE | 2025-04-24 19:18 | ED_ITS ---
HPI - Psych General Chief Complaint: Psychiatric Symptoms Stated Complaint: HI and SI due to recent loss Time Seen by Provider: 04/24/25 18:41 History of Present Illness HPI Narrative: This is a 64-year-old male with this extensive psych history consisting of depression, diabetes, hypertension who presents the ED for suicidal and homicidal ideations. Patient states that he has lost multiple family members in the last 9 months. He has been having suicidal thoughts with plans to shoot himself or to jump off a 3 story building. He also has homicidal thoughts for ?people that have wronged me the past?. Related Data Allergies Allergy/AdvReac Type Severity Reaction Status Date / Time No Known Allergies Allergy Verified 04/24/25 16:13 Review of Systems 2 Review of Systems: Gen.: Denies fevers or chills Eyes: Denies eye pain or visual change ENT: Denies congestion Respiratory: Denies shortness of breath or cough CV: Denies chest pain or palpitations GI: Denies abdominal pain nausea, emesis or diarrhea denies burning, urgency, frequency or hematuria Musculoskeletal: Denies back pain or muscle pain Neuro: Denies numbness, tingling, weakness or focal weakness Skin: Denies rash Except as documented, all other systems reviewed and negative [facility] Social History Social History Substance use type: crack/cocaine Exam 2 Narrative: APPEARANCE: No acute distress, nontoxic, resting in bed EYES: EOMI HEENT: Normocephalic, atraumatic, OMM RESPIRATORY: No respiratory distress Clear to auscultation bilaterally with no rhonchi wheezing or rales. CARDIOVASCULAR: Regular rate and rhythm without murmurs rubs or gallops. ABDOMINAL: Soft, nontender, nondistended, no rebound or guarding MUSCULOSKELETAl: Moves all extremities. No clubbing, cyanosis or edema. NEURO: Awake and alert. Following commands, speech normal, no focal deficits SKIN:: Warm, dry. No rashes lesions or abrasions PSYCHIATRIC: Flat affect. Suicidal thought with plan. Homicidal thoughts with plan. No hallucinations. Course Vital Signs Vital signs: Vital Signs Temperature 98.7 F 04/24/25 15:41 Pulse Rate 81 04/24/25 15:41 Respiratory Rate 18 04/24/25 15:41 Blood Pressure 132/91 H 04/24/25 15:41 Pulse Oximetry 100 04/24/25 15:41 Oxygen Delivery Room Air 04/24/25 15:41 Temperature 98 F 04/25/25 08:01 Pulse Rate 65 04/25/25 08:01 Respiratory Rate 16 04/25/25 08:01 Blood Pressure 140/95 H 04/25/25 08:01 Pulse Oximetry 100 04/25/25 08:01 Oxygen Delivery Room Air 04/24/25 15:41 MDM - Psych MDM Narrative Medical decision making narrative: 64-year-old male presenting to the ED for suicidal and homicidal thoughts. Initial vital signs stable. Heart and lungs clear. Abdomen soft and nontender. Patient did have concerning suicidal thoughts and homicidal thoughts with plans. Labs without significant abnormalities. UDS positive for cocaine. Patient is medically cleared for psychiatric evaluation at this time. Crisis evalutated patient and agreed for need for inpatient psychiatric treatment. PAtient pending placement at this time. Signed out to oncoming provider. Lab Data Attestation: I reviewed the patient's lab results. 04/24/25 16:05 04/24/25 16:05 Labs: Lab Results 04/24/25 04/24/25 04/24/25 Range/Units 16:05 16:17 22:23 WBC 10.1 H (4.5-10.0) K/mm3 RBC 4.39 L (4.6-6.20) M/mm3 Hgb 11.5 L (14.0-18.0) g/dL Hct 36.3 L (42.0-52.0) % MCV 82.7 (80-100) fl MCH 26.2 (26-34) pg MCHC 31.7 L (32-36) g/dl RDW 17.9 H (11.5-14.5) % Plt Count 273 (150-375) k/mm3 MPV 9.7 (7.4-10.4) fl Immature Gran % (Auto) 0.3 (0-0.5) % Neut % (Auto) 79.3 H (45.5-73.1) % Lymph % (Auto) 14.3 L (18.3-44.2) % [place] % (Auto) 5.0 (2.6-8.5) % Eos % (Auto) 0.7 (0-4.4) % Baso % (Auto) 0.4 (0.2-1.2) % Lymph # (Auto) 1.45 (0.9-3.2) K/mm3 [place] # (Auto) 0.5 (0.1-0.6) K/mm3 Eos # (Auto) 0.1 (0-0.3) K/mm3 Baso # (Auto) 0.0 (0.0-0.1) K/mm3 Abs Immat Gran (auto) 0.03 (0.00-0.031) K/mm3 Absolute Neuts (auto) 8.0 H (1.3-6.7) K/mm3 Absolute Nucleated RBC 0.000 (0.0-0.012) K/mm3 Nucleated RBC % 0.0 (0.0-0.2) % Sodium 141 (137-145) mmol/L Potassium 4.3 (3.4-5.0) mmol/L Chloride 105 (98-107) mmol/L Carbon Dioxide 24 (22-30) mmol/L Anion Gap 12 (4-12) mmol/L BUN 12 D (9-20) mg/dL Creatinine 0.95 (0.7-1.3) mg/dL Estim Creat Clear Calc 68 ml/min Estimated GFR > 60 (59 - ) Glucose 122 H (65-110) mg/dL POC Capillary Glucose 114 H (65-105) mg/dl Calcium 9.9 (8.4-10.2) mg/dL Total Bilirubin 0.3 (0.2-1.3) mg/dL AST 27 (17-59) U/L ALT 15 (6-50) U/L Alkaline Phosphatase 99 (38-126) U/L Total Protein 8.1 (6.3-8.2) g/dL Albumin 4.4 (3.5-5.1) g/dL TSH (Reflex) 1.700 (0.465-4.68) uIU/mL Urine Color Yellow (Yellow) Urine Appearance Clear (Clear) Urine pH 8.0 (5.0-9.0) Ur Specific [place] 1.020 (1.001-1.035) Urine Protein Negative (Negative) mg/dL Urine Glucose (UA) Negative (Negative) mg/dL Urine Ketones Trace H (Negative) mg/dL Ur Blood (Man) Negative (Negative) Urine Nitrate Negative (Negative) Urine Bilirubin Negative (Negative) Urine Urobilinogen 1.0 (<2.0) mg/dL Leukocyte Esterase Rfl Trace H (Negative) MARIE/UL Urine RBC 0-2 (0-2) /hpf Urine WBC 0-5 (0-3) /hpf Ur Squamous Epith Cells None seen (Few) /hpf Urine Bacteria None seen /hpf Urine Casts 0-2 Urine Opiates Screen Negative (Negative) Urine Methadone Screen Negative (Negative) Ur Barbiturates Screen Negative (Negative) Ur Phencyclidine Scrn Negative (Negative) Ur Amphetamine Screen Negative (Negative) U Benzodiazepines Scrn Negative (Negative) Urine Cocaine Screen Positive A (Negative) U Cannabinoids Screen Negative (Negative) Ethyl Alcohol < 10 (<10) mg/dL Influenza A (RT-PCR) Negative (Negative) Influenza B (RT-PCR) Negative (Negative) RSV (RT-PCR) Negative (Negative) SARS-CoV-2 RNA (RT-PCR) Negative (Negative) Discharge Plan Discharge Clinical Impression: Suicidal ideation, Homicidal ideation Patient Disposition: Psychiatric Hosp Condition: Serious Patient Language: Georgian Follow-up/Referrals: UNKNOWN,DOCTOR [Primary Care Provider]
--- OUTSIDE RECORDS SUMMARY | 2025-04-24 19:32 | XMS_ITS | Encounter Summary ---
Author Organization [facility] Address [address] [place] [address] Care Team Providers Care Human Resources Training Manager Name Role Phone Rory Moore MD Unavailable Fadia Lyle MD Primary Care Provid er Reason for Visit * Auth/Cert (Routine) Specialty Diagnoses / Procedures Referred By Ruddy forrester Referred To Contact Diagnoses Unspecified Mood Disorder Referral ID Status Reason Start Date Expiration Date Visits Re quested Visits Authorized [id number] 1 1 Encounter Details Date Type Department Care Team (Late st Contact Info) Description 06/22/2024 11:53 PM CDT Hospital Encounter [facility] [address] [place], [place] [address] Ranjan Seaman DO [address] [place] [address] Rayray Cespedes MD [address] [place] [phone] Behavioral Health Social History Tobacco Use Types [...] Recorded Patient Health Questionnaire-2 Score 3 04/18/2025 [facility] [place] [facility] Occup[facility] - Occupational Stress [...] place to sleep or slept in a mcc (including now)? No 12/23/2023 Housing Stability Vital Sign Answer Chuck e Recorded In the last 12 months, was t here a time when you were not able to pay the mortgage or rent on time? No 04/02/2025 In the past 12 months, how m any times have you moved where you were living? 0 04/02/2025 [facility] were you [facility] or living in a mcc (including now)? 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 Never 04/17/2025 3:43 PM CDT LorenzoNikkidbe Barrie Q2: How many drinks containing alcohol [...] Month) Yes 04/17/2025 3:37 PM CDT Calvin Ventruat H 5. Active Suicidal Ideation with Specific [...] documented as of this encounter Care Teams Human Resources Training Manager Relationship Specialty Start Date End Date Fadia Lyle MD [address] [place] [address] PCP - General Family Medicine 01/12/24 [place] [address] [address] [phone] Button Maker Rheumatology 10/14/16 documented as of this encounter
--- OUTSIDE RECORDS SUMMARY | 2025-04-24 19:32 | XMS_ITS | Clinical Summary ---
Author Organization [facility] Address [address] [place] [place] [address] Phone Care Team Providers Care Pattern Wheel Maker Name Role Phone Unavailable Primary Care Provider Unavailabl e Social History Tobacco Use Types Packs/Day Years Used Date Smoking Tobacco: Never Assessed Sex and Gender Information Value Date Recorded Sex Assigned at Not on file Legal Sex Male 1:47 PM CDT Gender Identity Not on file Sexual Orientation Not on file Plan of Treatment Not on file Insurance [address] [place] [address] MEDICARE C [employer]
--- OUTSIDE RECORDS SUMMARY | 2025-04-24 19:32 | XMS_ITS | Encounter Summary ---
Author Organization [facility] Healthcare Address [address] [place] [address] Care Team Providers Care Manager Appointment Name Role Phone Fadia Lyle MD Primary Care Provid er No, Physician Primary Care Provider [phone] Encounter Details Date Type Department Care Team (Latest Contact Info) Description 11/27/2023 Documentation Psychiatry Jhonny Lopez Social History Tobacco Use Types Packs/Day Years Used Date Smoking Tobacco: Former Smokeless Tobacco: Never Alcohol Use Standard Drinks/Week Comments No 0 (1 standard drink = 0.6 oz pur e alcohol) [facility] Utilities Answer Date Recorded In [...] often do you attend chur ch or lutheran services? 1 to 4 times per year 11/23/2023 Do you belong to any clubs o r organizations such as buddhism groups, unions, fraternal or athletic groups, or [...] Date Recorded PHQ-2 Total Score 3 10/24/2021 [facility] ional [facility] - Occupational Stress Questionnaire Answer [...] place to sleep or slept in a alf (including now)? 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
--- OUTSIDE RECORDS SUMMARY | 2025-04-24 19:32 | XMS_ITS | Clinical Summary ---
Author Organization [facility] Address [address] [place] [address] Care Team Providers Care Hadoop Consultant Name Role Phone Rory Moore MD Unavailable Fadia Lyle MD Primary Care Provid er Ayaan Zavala MD Unavailable [phone] Source Comments [facility],non-owned Affiliates and Associated Physician Practices is amultiple site organization consisting of ambulatory clinics and hospital sitesin [place], [place], [place] and [place]. This disclosure is being madepursuant to the Care Everywhere program and may not contain all information available regarding this patient. Last updated 18.[facility] Allergies No known active allergies Medications * [...] 04/19/2025 11:50 AM CDT Emergency ER at [address] [address] Jazlyn Mata DO Suicidal ideation Discharge Disposition: Home or Self Care 04/19/2025 Travel 04/18/2025 2:22 PM CDT - 04/19/2025 10:32 AM CDT Emergency ER at [address] [address] Anish Cooley MD Majino, Angela R, MD Sprowls, David, MD Severe recurrent major depression without psychotic features (HCC) (Primary Dx); Suicidal ideation; Antisocial personality disorder (HCC) Discharge Disposition: Home or Self Care 04/18/2025 Travel 04/17/2025 1:27 PM CDT - 04/18/2025 9:57 AM CDT Emergency ER at [facility] [address] [place] [address] Ramandeep Martines DO Ahlering, Christopher P, MD Bohm, Carl P, DO Severe episode of recurrent major depressive disorder, without psychotic features (HCC) Discharge Disposition: Home or Self Care 04/10/2025 Telephone [facility] [address] [place] [address] [address] [place] [phone] Demetrio Mcghee, CORNELL-PRINCIPAL CONSULTING ENGINEER Scheduling 04/02/2025 Travel 04/01/2025 11:10 AM CDT - 04/02/2025 1:24 PM CDT Emergency [facility] [address] [place] [address] Perla Perez MD Suicidal ideation Discharge Disposition: Psychiatric Hospital or Unit 04/01/2025 Travel 03/30/2025 6:26 PM CDT - 03/31/2025 9:59 AM CDT Emergency ER at [address] [address] Husam Mccormick DO Hodges, Harlan D, MD Bao, Jenny Q, MD Mood disorder; Paranoid schizophrenia (HCC); MDD (major depressive disorder), recurrent, severe, with psychosis (HCC) Discharge Disposition: Home or Self Care 03/30/2025 Travel 03/21/2025 2:41 AM CDT - 03/21/2025 8:03 AM CDT Emergency ER at [facility] [address] [place] [address] Sondra Mays DO Huggins, Matthew G, MD Adjustment disorder, unspecified type (Primary Dx); Current severe episode of major depressive disorder without psychotic features, unspecified whether recurrent (HCC); Substance abuse (HCC) Discharge Disposition: Home or Self Care 03/03/2025 4:45 PM CDT - 03/03/2025 5:15 PM CDT Emergency ER at [facility] [address] [place] [address] Unhoused person Discharge Disposition: Home or Self Care 03/03/2025 3:24 PM CDT - 03/03/2025 4:37 PM CDT Emergency ER at [address] [address] Magdalena Lopez MD Substance induced mood disorder (HCC); Malingering Discharge Disposition: Home or Self Care 03/03/2025 11:23 AM CDT - 03/03/2025 1:40 PM CDT Emergency ER at [address] [address] Rei Rodriguez MD Substance induced mood disorder (HCC) Discharge Disposition: Home or Self Care 03/02/2025 8:25 PM CDT - 03/03/2025 10:49 AM CDT Emergency ER at [address] [address] Jazlyn Mata DO Sprowls, David, MD Severe [...] Recorded Patient Health Questionnaire-2 Score 3 04/18/2025 [facility] Occupat ional Health - Occupational Stress [...] place to sleep or slept in a long-term (including now)? No 12/23/2023 Housing Stability Vital Sign Answer Chuck e Recorded In the last 12 months, was t here a time when you were not able to pay the mortgage or rent on time? No 04/02/2025 In the past 12 months, how m any times have you moved where you were living? 0 04/02/2025 At any time in the past 12 m [facility], were you homeless or living in a long-term (including now)? 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 [facility] Glucose WB/POC 124(H) 70 - 99 mg/dL 04/08/2025 2:52 PM CDT [facility] Specimen Type Arterial/C apillary 04/08/2025 2:52 PM CDT [facility] Blood BLOOD SPECIMEN / Unknown 04/08/2025 12:29 PM CDT 04/08/2025 2:52 PM CDT Bob Holguin MD LAB - POINT OF CARE ORDERABL ES Final Result Performing Organization Address City/[facility]/ZIP Co de Phone Number [facility] [address] [place], [place] [phone] * TSH REFLEX FREE T4 (04/06/2025 5:53 AM CDT) [facility] TSH 2.033 0.350 - 4.940 uIU/mL 04/06/2025 7:53 AM CDT [facility] Blood BLOOD SPECIMEN / Unknown Lab Venipuncture / Unknown 04/06/2025 5:53 AM CDT 04/06/2025 6:45 AM CDT Kitty Friedman MD LAB - CHEMISTRY ORDERABLES Final Result Performing Organization Address [facility] Co de Phone Number [facility] [address] [place] [address] * FOLATE (04/06/2025 5:53 AM CDT) [facility] Folate 11.5 7.0 - 31.4 ng/mL 04/06/2025 7:53 AM CDT [facility] Blood BLOOD SPECIMEN / Unknown Lab Venipuncture / Unknown 04/06/2025 5:53 AM CDT 04/06/2025 6:45 AM CDT Kitty Friedman MD LAB - CHEMISTRY ORDERABLES Final Result Performing Organization Address [facility] Co de Phone Number [facility] [address] [place] [phone] * VITAMIN B12 (04/06/2025 5:53 AM CDT) Vitamin B12 288 213 - 816 pg/mL 04/06/2025 7:53 AM CDT [facility] Blood BLOOD SPECIMEN / Unknown Lab Venipuncture / Unknown 04/06/2025 5:53 AM CDT 04/06/2025 6:45 AM CDT Kitty Friedman MD LAB - CHEMISTRY ORDERABLES Final Result Performing Organization Address City/[facility]/ZIP Co de Phone Number [facility] [address] [place] [phone] * (ABNORMAL) IRON + TRANSFERRIN PANEL (04/06/2025 5:53 AM CDT) Pathologist [facility] Iron 44(L) 50 - 175 ug/dL 04/06/2025 7:26 AM CDT [facility] Transferrin 242 174 - 382 mg/dL 04/06/2025 7:26 AM CDT [facility] TIBC Calculated 303 240 - 450 ug/dL 04/06/2025 7:26 AM CDT [facility] Iron Saturation % 15(L) 20 - 50 % 04/06/2025 7:26 AM CDT [facility] Blood BLOOD SPECIMEN / Unknown Lab Venipuncture / Unknown 04/06/2025 5:53 AM CDT 04/06/2025 6:45 AM CDT Kitty Friedman MD LAB - CHEMISTRY ORDERABLES Final Result Performing Organization Address [facility] de Phone Number [facility] [address] [place] [phone] * FERRITIN (04/06/2025 5:53 AM CDT) Pathologist [facility] Ferritin 31 22 - 275 ng/mL 04/06/2025 7:53 AM CDT [facility] Blood BLOOD SPECIMEN / Unknown Lab Venipuncture / Unknown 04/06/2025 5:53 AM CDT 04/06/2025 6:45 AM CDT Kitty Friedman MD LAB - CHEMISTRY ORDERABLES Final Result [facility] [address] [place] [address] * LIPID PROFILE (04/06/2025 5:53 AM CDT) Cholesterol 159 <200 mg/dL 04/06/2025 7:26 AM CDT [facility] Triglycerides 71 <150 mg/dL 04/06/2025 7:26 AM CDT [facility] HDL Cholesterol 53 >40 mg/dL 7:26 AM CDT [facility] LDL Calculated 92 <130 mg/dL 04/06/2025 7:26 AM CDT [facility] Comment:LDL is calculated us ing the Friedewald equation. VLDL Calculated 14 <=30 mg/dL 7:26 AM CDT [facility] Chol HDL Ratio 3.0 <4.5 04/06/2025 7:26 AM CDT [facility] LDL/HDL Ratio 1.7 <5.0 04/06/2025 7:26 AM CDT [facility] Blood BLOOD SPECIMEN / Unknown Lab Venipuncture / Unknown 04/06/2025 5:53 AM CDT 04/06/2025 6:45 AM CDT Kitty Friedman MD LAB - CHEMISTRY ORDERABLES Final Result Performing Organization Address [facility] Co de Phone Number [facility] [address] [place] [address] * ECHO COMPLETE (04/04/2025 10:14 AM CDT) [...] 9:30 AM Patient Status: O Study Site: [facility] Primary Location: [facility] EStudy Info Exam Type: ECHO COMPLETE Indications R94.31 - Abnormal ECG Procedure(s) * A complete 2D, color Doppler, spectral Doppler, and M-Mode transthoracic echocardiogram was performed. Staff Referring Physician: Ayaan Zavala Ordering Provider: Ayaan Zavala Attending Physician: Ayaan Zavala Supply Chain Buyer: Driss Puckett Left Ventricle The left ventricle [...] 9:30 AM Patient Status: O Study Site: [facility] Primary Location: [facility] EStudy Info Exam Type: ECHO COMPLETE Indications R94.31 - Abnormal ECG Procedure(s) * A complete 2D, color Doppler, spectral Doppler, and M-Modetransthoracic echocardiogram was performed. Staff Referring Physician: Ayaan Zavala Ordering Provider: Ayaan Zavala Attending Physician: Ayaan Zavala Supply Chain Buyer: Driss Puckett Left Ventricle The left ventricle [...] 6.7(H) <5.7 % 04/04/2025 7:30 AM T [facility] Estimated Average Glucose 146 mg/dL 04/04/2025 7:30 AM T [facility] Blood BLOOD SPECIMEN / Unknown Lab Venipuncture / Unknown 04/04/2025 7:03 AM CDT 04/04/2025 7:13 AM CDT Narrative [facility] - 04/04/2025 7:30 AM CDT HbA1c [...] (HbF) exceeds 5% in the specimen. The Travtarnity assay for the measurement of HbA1c is a National Glycohemoglobin Standardization Program (NGSP) certified method. Bernadette Rasheed MD LAB - CHEMISTRY ORDERABLES Brenda l Result Performing Organization Address [facility] Co de Phone Number [facility] [address] [place] [address] * EKG 12-Lead (04/02/2025 9:05 PM CDT) Ventricular Rate 66 BPM [facility] Atrial Rate 66 BPM [facility] P-R Interval 290 ms [facility] QRS Duration ms 88 ms [facility] Q-T Interval ms 392 ms [facility] QTC Calculation (Bezet) 410 ms [facility] Calculated P Nemo 41 degrees [facility] Calculated R Nemo 6 degrees [facility] Calculated T Nemo 63 degrees [facility] Interpretation EKG SINUS [...] 4.0 - 10.7 x10E9/L 04/01/2025 1:12 PM [facility] RBC Count 4.19(L) 4.30 - 5.80 x10E12/L 04/01/2025 1:12 PM [facility] Hemoglobin 11.0(L) 13.3 - 17.5 g/dL 04/01/2025 1:12 PM [facility] Hematocrit 33.6(L) 38.7 - 51.1 % 04/01/2025 1:12 PM [facility] MCV 80.2 80.0 - 98.0 fL 04/01/2025 1:12 PM [facility] MCH 26.3(L) 26.7 - 33.6 pg 04/01/2025 1:12 PM [facility] MCHC 32.7 31.7 - 36.3 g/dL 04/01/2025 1:12 PM [facility] RDW-CV 18.0(H) 11.3 - 14.8 % 04/01/2025 1:12 PM [facility] Platelet Count 250 150 - 420 x10E9/L 04/01/2025 1:12 PM [facility] MPV 10.2 7.8 - 11.4 fL 04/01/2025 1:12 PM [facility] Neutrophil % 79.0(H) 41.0 - 74.0 % 04/01/2025 1:12 PM [facility] Lymphocyte % 13.6(L) 17.0 - 47.0 % 04/01/2025 1:12 PM [facility] Monocyte % 5.4 3.0 - 11.0 % 04/01/2025 1:12 PM [facility] Eosinophil % 1.1 0.0 - 7.0 % 04/01/2025 1:12 PM CDT [facility] Basophil % 0.4 0.0 - 1.6 % 04/01/2025 1:12 PM CDT [facility] Immature Granulocytes % 0.5 0.0 - 1.0 % 04/01/2025 1:12 PM CDT [facility] Neutrophil Absolute 8.88(H) 1.60 - 7.50 x10E9/L 04/01/2025 1:12 PM CDT [facility] Lymphocyte Absolute 1.53 1.00 - 4.40 x10E9/L 04/01/2025 1:12 PM T [facility] Monocyte Absolute 0.61 0.15 - 1.00 x10E9/L 04/01/2025 1:12 PM T [facility] Eosinophil Absolute 0.12 0.00 - 0.60 x10E9/L 04/01/2025 1:12 PM T [facility] Basophil Absolute 0.05 0.00 - 0.13 x10E9/L 04/01/2025 1:12 PM [facility] Blood BLOOD SPECIMEN / Unknown Venipuncture / Unknown 04/01/2025 1:02 PM CDT 04/01/2025 1:06 PM CDT us Perla Perez MD LAB - HEMATOLOGY ORDERABLES nal Result Performing Organization Address [facility]/State/ZIP Co de Phone Number [facility] [address] [place] [phone], [facility] [phone] * (ABNORMAL) COMPREHENSIVE METABOLIC PANEL (04/01/2025 1:02 PM CDT) BUN 16 7 - 26 mg/dL 04/01/2025 1:36 PM T [facility] Creatinine 1.00 0.71 - 1.16 mg/dL 04/01/2025 1:36 PM T [facility] Sodium 141 136 - 145 mmol/L 04/01/2025 1:36 PM T [facility] Potassium 4.6(H) 3.5 - 4.5 mmol/L 04/01/2025 1:36 PM T [facility] Chloride 108(H) 98 - 107 mmol/L 04/01/2025 1:36 PM [facility] CO2 24 22 - 29 mmol/L 04/01/2025 1:36 PM [facility] Glucose 78 70 - 99 mg/dL 04/01/2025 1:36 PM [facility] Calcium 9.4 8.4 - 10.2 mg/dL 04/01/2025 1:36 PM [facility] Protein Total 7.6 6.0 - 8.3 g/dL 04/01/2025 1:36 PM [facility] Albumin 4.3 3.4 - 5.0 g/dL 04/01/2025 1:36 PM [facility] Bilirubin Total 0.4 0.2 - 1.2 mg/dL 04/01/2025 1:36 PM [facility] Alkaline Phosphatase 98 40 - 150 U/L 04/01/2025 1:36 PM [facility] ALT 13 5 - 55 U/L 04/01/2025 1:36 PM [facility] AST 20 5 - 34 U/L 04/01/2025 1:36 PM [facility] Anion Gap 9 6 - 16 04/01/2025 1:36 PM [facility] BUN/Creatinine Ratio 16 7 - 23 04/01/2025 1:36 PM [facility] Osmolality Calculated 292 275 - 295 mOsm/kg 04/01/2025 1:36 PM [facility] Albumin/Globulin Ratio 1.3 1.1 - 2.3 04/01/2025 1:36 PM [facility] eGFR by CKD-EPI 84(L) >=90 mL/min/1.7 3 m2 04/01/2025 1:36 PM [facility] Comment:Estimated Glomerular Filtration Rate (eGFR) calculated using the CKD-EPI Creatinine Equation (2020), per the National Kidney Foundation and [place] Society of Nephrology recommendations. Blood BLOOD SPECIMEN / Unknown Venipuncture / Unknown 04/01/2025 1:02 PM CDT 04/01/2025 1:05 PM T us Perla Perez MD LAB - CHEMISTRY ORDERABLES Fin al Result [facility] [address] [place] [address], [facility] [phone] * URINE DRUG SCREEN IMMUNOASSAY (04/01/2025 1:02 PM CDT) [facility] Amphetamines Screen Urine Negative Negative: < 1000 ng/mL 04/01/2025 1:40 PM CDT [facility] Barbiturates Screen Urine Negative Negative: < 200 ng/mL 04/01/2025 1:40 PM CDT [facility] Benzodiazepine Screen Urine Negative Negative: < 200 ng/mL 04/01/2025 1:40 PM CDT [facility] Opiates Urine Negative Negative: < 300 ng/mL 04/01/2025 1:40 PM CDT [facility] Cocaine Metabolites Urine Negative Negative: < 300 ng/mL 04/01/2025 1:40 PM CDT [facility] Phencyclidine Screen Urine Negative Negative: < 25 ng/ml 04/01/2025 1:40 PM CDT [facility] Cannabinoids Screen Urine Negative Negative: <50 ng/mL 04/01/2025 1:40 PM CDT [facility] Methadone Screen Urine Negative Negative: < 300 ng/mL 04/01/2025 1:40 PM T [facility] Fentanyl Screen Urine Negative Negative: <1.5 ng/mL 04/01/2025 1:40 PM T [facility] Urine URINE / Unknown Collection / Unknown 04/01/2025 1:02 PM CDT 04/01/2025 1:04 PM CDT [facility] - 04/01/2025 1:40 PM CDT The Urine Toxicology Screening Panel does not screen for Propoxyphene, Meprobamate, Carisoprodol, Trazodone, xjfk-[id number] medications and/or volatiles (Acetone, Isopropanol, Methanol or Ethylene Glycol). Ethanol, Salicylate, Acetaminophen, Tricyclic Antidepressants and several therapeutic drugs may be individually assayed in serum or plasma specimen. Toxicology testing by the [facility] is an aid to medical diagnosis and treatment of patients. No documented chain of custody was maintained. Results are intended to be used for clinical purposes only. us Perla Perez MD LAB - URINE CHEMISTRY ORDERABL ES Final Result [address] [phone], [facility] [phone] * ALCOHOL ETHYL BLOOD (04/01/2025 1:02 PM CDT) Ethanol (mg/dL) <10 <10 mg/dL 1:36 PM CDT [facility] Ethanol Calculated (g/dL) <0.010 <=0.010 g/dL 04/01/2025 1:36 PM CDT [facility] Blood BLOOD SPECIMEN / Unknown Venipuncture / Unknown 04/01/2025 1:02 PM CDT 04/01/2025 1:05 PM CDT Narrative [facility] - 04/01/2025 1:36 PM CDT Ethanol Interp <10: None Detected. Depression of GILL TENDER: >100 mg/dl Potentially Critical: >250 mg/dl Potentially [...] ORDERABLES Fin al Result Performing Organization Address [facility]/ZIP Co de Phone Number [address] [phone], [facility] [phone] * (ABNORMAL) DRUG SCREEN TOX LIMITED BLD PNL 3 INHOUSE (03/03/2025 12:27 AM CDT) Acetaminophen <3.0(L) 10.0 - 30.0 ug/mL 03/03/2025 12:50 AM CDT [facility] Ethanol <10.0 <10 mg/dL 03/03/2025 12:50 AM CDT [facility] Salicylate <5.0(L) 15.0 - 30.0 mg/dL 03/03/2025 12:50 AM CDT [facility] Blood BLOOD SPECIMEN / Unknown Venipuncture / Unknown 03/03/2025 12:27 AM CDT 03/03/2025 12:33 AM CDT Narrative [facility] - 03/03/2025 12:50 AM CDT [facility] [...] may alter the peak level. Contact the [place] [facility] at or reserved for healthcare professionals to assist you in evaluating potentially toxic acetaminophen levels. Anish Cooley MD LAB - CHEMISTRY ORDERABLES nal Result [facility] [address] [place] [address] * (ABNORMAL) BASIC METABOLIC PANEL (CALCIUM TOTAL) (03/03/2025 12:27 AM CDT) Glucose 107(H) 70 - 99 mg/dL 03/03/2025 12:50 AM CDT [facility] Sodium 141 136 - 145 mmol/L 03/03/2025 12:50 AM CDT [facility] Potassium 4.4 3.5 - 5.1 mmol/L 03/03/2025 12:50 AM CDT [facility] Chloride 106 98 - 107 mmol/L 03/03/2025 12:50 AM CDT [facility] CO2 25 22 - 29 mmol/L 03/03/2025 12:50 AM CDT [facility] Calcium 9.7 8.4 - 10.4 mg/dL 03/03/2025 12:50 AM CDT [facility] Anion Gap 10 6 - 16 mmol/L 03/03/2025 12:50 AM CDT [facility] BUN 21 7 - 26 mg/dL 03/03/2025 12:50 AM CDT [facility] Creatinine 0.91 0.72 - 1.25 mg/dL 03/03/2025 12:50 AM CDT [facility] eGFR by CKD-EPI >90 >=90 mL/min/1.7 3 m2 03/03/2025 12:50 AM CDT [facility] Blood BLOOD SPECIMEN / Unknown Venipuncture / Unknown 03/03/2025 12:27 AM CDT 03/03/2025 12:33 AM CDT us Anish Cooley MD LAB - CHEMISTRY ORDERABLES Fi nal Result [facility] [address] [place] [address] * OCCULT BLOOD FECES FIT SCREEN (04/03/2022) 04/03/2022 Narrative 04/03/2022 Ordered by an unspecified provider. us Scanned Document LAB - BODY FLUID ORDERABLES Fin al Result * HIV-1 HIV-2 ANTIBODY + HIV P24 AG PANEL (08/19/2020 4:29 PM WELDER OPERATOR) Pathologist [facility] HIV1/2 Ab + P24 Ag Non Reactive Non Reactive 08/19/2020 5:32 PM WELDER OPERATOR [facility] Blood BLOOD SPECIMEN / Unknown Venipuncture / Unknown 08/19/2020 4:29 PM WELDER OPERATOR 08/19/2020 4:38 PM WELDER OPERATOR Narrative [facility] - 08/19/2020 5:32 PM WELDER OPERATOR No Laboratory evidence of HIV infection. Samm Gregg MD LAB - CHEMISTRY ORDERABLES Final Result Performing Organization Address City/[facility]/ZIP Co de Phone Number [facility] [address] [place] [address] * HEPATITIS C ANTIBODY (11/05/2018 1:58 PM WELDER OPERATOR) Hepatitis C Antibody Non Reactive Non Reactive [facility] INSURANCE BILL Comment: Non Reactive - Antibodies to Hepatitis C virus (HCV) were no t detected, result does not exclude early acute HCV infection. Blood BLOOD SPECIMEN / Unknown 11/05/2018 1:58 PM WELDER OPERATOR 11/05/2018 Narrative Resulting Agency Comment [facility] [address] [facility] [phone] us Gerri Newsome MD LAB - CHEMISTRY ORDERABLES F inal Result [facility] INSURANCE BILL [address] [place] [phone] from Last 3 Months or Most Recently Relevant to Health Maintenance Insurance MEDICARE [facility] MEDICARE [facility] Advance Directives * Full Code [...] 6:06 PM 01/01/2024 10:13 AM Care Teams Hadoop Consultant Relationship Specialty Start Date End Date Fadia Lyle MD [address] [place] [phone] PCP - General Family Medicine 01/12/24 [place] [address] [phone] Rheumatology 10/14/16 Ayaan Zavala MD [address] [facility] [address] [place] [phone] [facility]yer Cardiology 04/03/25
--- OUTSIDE RECORDS SUMMARY | 2025-04-24 19:33 | XMS_ITS | Clinical Summary ---
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 - SW resources for substance use cessation Assessment & Plan (11/25/2023 9:46 AM CDT): UDS +cocaine on admission. 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 Plan: - continue sertraline 50 mg daily [...] Most recent iron profile revealed Iron 25, [id number], TIBC 311, and iron saturation of 8%and [...] daily Assessment & Plan (10/28/2021 9:38 AM RESIDENTIAL REAL ESTATE APPRAISER): BP 168/114 on admission. Given lisinopril 20 mg in ED (on home meds list). Gave an additional 10 mg hydralazine for spot control of high DBP. Loose amlodipine tablets found in patients belongings (appear to be 10 mg). - c/w amlodipine 10 mg daily Assessment & Plan (10/24/2021 2:08 PM RESIDENTIAL REAL ESTATE APPRAISER): BP 168/114 on admission. Given lisinopril 20 mg in ED (on home meds list). Gave an additional 10 mg hydralazine for spot control of high DBP. Loose amlodipine tablets found in patients belongings (appear to be 10 mg). - start amlodipine 10 mg daily Malingering 10/09/2020 Assessment & Plan (10/09/2020 7:59 AM RESIDENTIAL REAL ESTATE APPRAISER): 59 y.o. single, Black or , disabled, [...] which he has had 3 in the [facility] since mid August. There is high [...] future planning, social support (family and children), islam/spirituality and abstinence from alcohol, cocaine and narcotics [...] 2. Swer to help with dispo 3. [facility] recs apprec Assessment & Plan (12/01/2022 [...] apprec Assessment & Plan (10/31/2021 8:02 AM RESIDENTIAL REAL ESTATE APPRAISER): Pt was accepting of discharge and seems [...] psychiatry Assessment & Plan (10/24/2021 2:09 PM RESIDENTIAL REAL ESTATE APPRAISER): Mr. Bob Hollis is a 61-year-old man [...] Type Department Care Team Description 04/20/2025 Telephone [facility] Specialty Services [address] [place] [address] Nita Herrera RN GI Preprocedure 03/21/2025 9:22 AM CDT - 03/21/2025 2:47 PM CDT Emergency [facility] Emergency Department [address] [place] [id number] Zhang Lang MD Depression, unspecified depression type (Primary Dx); Malingering Discharge Disposition: Discharge to home or self care 03/20/2025 6:48 PM CDT - 03/21/2025 1:[address] [facility] Emergency Department [address] [place] [address] Francis Kruger MD Suicidal thoughts (Primary Dx); Malingering Discharge Disposition: Discharge to home or self care 03/04/2025 5:50 AM CDT - 03/06/2025 6:45 PM CDT Hospital Encounter [facility] [address] [place] [id number] Jarred Bernal MD de Leon, Victoria Carmen, MD Healthcare maintenance (Primary Dx); Malingering [Z76.5] Discharge Disposition: Discharge to home or self care 03/03/2025 6:09 PM CDT - 03/04/2025 5:24 AM CDT Emergency [facility] Emergency Department [address] [place] [address] Les Colorado MD Severe episode of recurrent major depressive disorder, without psychotic features (HCC) (Primary Dx); Suicidal thoughts Discharge Disposition: Discharge to a superintendent terminal care hospital from Last 3 Months Immunizations Immunization Administration Dates Next Due Influenza, Trivalent, High D ose, Split, Preservative Free, Intramuscular 12/03/2024 [employer] SARS-CoV-2 Monovalent Vaccination (12+ Yrs) FINE-READY TO [...] drink = 0.6 oz pur e alcohol) [facility] Utilities Answer Date Recorded In the past 12 months has e [email or web address], gas, oil, or water [employer] threatened to shut off services in your [...] any clubs o r organizations such as gnosticist groups, unions, fraternal or athletic groups, or [...] staff should administer the PHQ-9) 2 03/04/2025 [facility] - Occupational Stress Questionnaire Answer Date [...] place to sleep or slept in a skilled nursing (including now)? Yes 11/23/2023 PHQ-9 Answer Date [...] any time in the past 12 m [facility], were you homeless or living in a skilled nursing (including now)? No 03/04/2025 Personal Safety Answer [...] on file Legal Sex Male 9:36 AM RESIDENTIAL REAL ESTATE APPRAISER Gender Identity Not on file Sexual Orientation [...] CDT PSA SCREEN Routine 07/14/2023 12:18 PM RESIDENTIAL REAL ESTATE APPRAISER Urinary incontinence, unspecified type from Last 3 Months or Most Recently Relevant to Health Maintenance Results * Influenza A/B, RSV, and COVID-19 PCR Nasopharyngeal (03/21/2025 12:10 PM CDT) Pathologist [facility] COVID-19 RNA Negative Negative Influenza A RNA Negative Negative [facility] Influenza B RNA Negative Negative [facility] RSV RNA Negative Negative [facility] Comment: Interpretive data: Testing performed by [facility]. This test is performed using the [employer] Xpert Xpress CoV-2/Flu/RSV plus assay. This is a multiplex, real-time reverse transcriptase PCR assay intended for the qualitative detection of nucleic acid from SARS-CoV-2, influenza A, influenza B, and respiratory syncytial virus. This assay has been cleared by the [place] Food and Drug administration. The performance characteristics have been verified by the [facility]. Results must be considered in the clinical context, and a negative result does not rule out infection. Interpretive Data last revised 2023 Nasopharyngeal 03/21/2025 12 :10 PM CDT 03/21/2025 1:[address] [facility] - 03/21/2025 1:44 PM CDT Is the Patient experiencing symptoms consistent with COVID?->No Zhang Lang MD LAB MICROBIOLOGY - GENERAL ORDERABLES Final Result [facility] [address] Department [place] [address] * Urinalysis reflex to microscopic and culture Urine (03/21/2025 9:47 AM CDT) Color, ur Yellow Yellow Clarity, ur Clear Clear [facility] Specific gravity, ur 1.024 1.003 - 1.030 [facility] pH, urine 7.0 [facility] Comment: Interpretive Data U rine pH is affected by diet, medications, systemic acid-base disturbances, and renal tubular function. pH may affect urinary stone formation. For example, urine pH below 6.0 may help reduce the tendency for calcium phosphate stones and pH greater than 6.0 may reduce the tendency for uric acid stone formation. Source: [facility] Current Interpretive Data was last revised on 2017 Protein, ur ql Trace Negative [facility] Glucose, ur ql Negative Negative [facility] Ketones, ur Negative Negative [facility] Bilirubin, ur Negative Negative [facility] Blood, ur Negative Negative [facility] Urobilinogen, ur <2.0 <2.0 mg/dL [facility] Nitrite, ur Negative Negative [facility] Leukocyte esterase, ur Negative Negative [facility] UA reflex comment Reflex conditions for microscopic UA and culture not met. [facility] Urine 03/21/2025 9:47 AM CDT 03/21/2025 9:47 AM CDT Zhang Lang MD LAB MICROBIOLOGY - GENERAL ORDERABLES Final Result [facility] [address] Department [place] [address] * (ABNORMAL) Drugs of Abuse Screen, Urine [...] 2023. Barbiturates, ur Not Detected CutOff 200ng/mL [facility] Comment: Interpretive Data - Barbiturates: Samples containing greater than 200 ng/mL secobarbital or other cross-reacting barbiturate compounds are reported as positive. False positive and false negative results are possible. Confirmatory testing required for definitive results. Current Interpretive Data was last reviewed 2023. Benzodiazepines, ur Not Detected CutOff 100ng/mL [facility] Comment: Interpretive Data - Benzodiazepines: Samples containing greater than 100 ng/mL nordiazepam or other cross-reacting compounds are reported as positive. False positive and false negative results are possible. Confirmatory testing required for definitive results. Current Interpretive Data was last reviewed 2023. Cannabinoids, ur Not Detected CutOff 50 ng/mL [facility] Comment: Interpretive Data - Cannabinoids: Samples containing greater than 50 ng/mL delta-9 THC -COOH or other cross- reacting compounds are reported as positive. False positive and false negative results are possible. Confirmatory testing required for definitive results. Current Interpretive Data was last reviewed 2023. Cocaine, ur Screen Positive, presumptive (A) CutOff 150ng/mL [facility] Comment: Interpretive Data - Cocaine: Samples containing greater than 150 ng/mL benzoylecgonine or other cross- reacting compounds are reported as positive. False positive and false negative results are possible. Confirmatory testing required for definitive results. Current Interpretive Data was last reviewed 2023. Fentanyl, Ur Not Detected CutOff 5 ng/mL [facility] Comment: Interpretive Data - Fentanyl: Samples containing greater than 5 ng/mL norfentanyl, fentanyl, or other cross-reacting fentanyl compounds are reported as positive. False positive and false negative results are possible. Confirmatory testing required for definitive results. Current Interpretive Data was last reviewed 2023. Methadone, ur Not Detected CutOff 300ng/mL [facility] Comment: Interpretive Data - Methadone: Samples containing greater than 300 ng/mL d,l-methadone or other cross-reacting compounds are reported as positive. False positive and false negative results are possible. Confirmatory testing required for definitive results. Current Interpretive Data was last reviewed 2023. Opiates, ur Not Detected CutOff 300ng/mL [facility] Comment: Interpretive Data - Opiates: Samples containing greater than 300 ng/mL morphine or other cross-reacting compounds are reported as positive. False positive and false negative results are possible. Confirmatory testing required for definitive results. Current Interpretive Data was last reviewed 2023. Oxycodone, ur Not Detected CutOff 100ng/mL [facility] Comment: Interpretive Data - Oxycodone: Samples containing greater than 100 ng/mL oxycodone or other cross-reacting compounds are reported as positive. False positive and false negative results are possible. Confirmatory testing required for definitive results. Current Interpretive Data was last reviewed 2023. Phencyclidine, ur Not Detected CutOff 25 ng/mL [facility] Comment: Interpretive Data - Phencyclidine: Samples containing greater than 25 ng/mL phencyclidine or other cross-reacting compounds are reported as positive. False positive and false negative results are possible. Confirmatory testing required for definitive results. Current Interpretive Data was last reviewed 2023. Urine Creatinine 154 mg/dL [facility] Comment: Interpretive Data Urine Creatinine: < 10 mg/dL is extremely dilute = or > 10 but < 20 mg/dL is dilute = or > 20 mg/dL is normal Current Interpretive Data was last revised on 2017. Urine 03/21/2025 9:47 AM CDT 03/21/2025 10:23 AM CDT Narrative [facility] - 03/21/2025 10:54 AM CDT Drug of Abuse screening is performed by immunoassay for medical purposes only. This is not to be used for Pain Management purposes. Zhang Lang MD LAB URINE ORDERABLES Final Result Performing Organization Address [facility] Co de Phone Number [facility] [address] Department [employer] [place], [place] [id number] * Ethanol (03/21/2025 9:44 AM CDT) Ethanol <10 <=10 mg/dL Comment: Interpretive Data Legal limit of intoxication > or = 80 mg/dL Levels > or = 400 mg/dL are potentially TOXIC. Current interpretive data was last revised on 2018. Blood 03/21/2025 9:44 AM CDT 03/21/2025 10:08 AM CDT Zhang Lang MD LAB BLOOD ORDERABLES Final Result Performing Organization Address [facility] Co de Phone Number [facility] [address] Department [place] [address] * Troponin T high-sensitivity series (baseline, 2hr, [...] MD LAB BLOOD ORDERABLES Final Result [facility] [address] Department [place] [address] * eGFR (03/21/2025 9:32 AM CDT) eGFR [...] Lang MD LAB BLOOD ORDERABLES Final Result [facility] [address] [place] [address] * Differential, auto (03/21/2025 9:32 AM CDT) Neutrophil abs 6.26 1.50 - 6.50 K/cumm Imm gran abs 0.02 0.00 - 0.10 K/cumm [facility] Lymphocyte abs 1.68 0.80 - 3.30 K/cumm [facility] Monocyte abs 0.62 0.20 - 0.80 K/cumm [facility] Eosinophil abs 0.13 0.00 - 0.50 K/cumm [facility] Basophil abs 0.06 0.00 - 0.10 K/cumm [facility] Neutrophil pct 71.3 % [facility] Comment: Interpretive Data Percent cell count reference ranges are not reported, since discordance with absolute values may lead to misinterpretation of CBC data. Current Interpretive Data was last revised on 2017. Imm gran pct 0.2 % [facility] Comment: Interpretive Data Percent cell count reference ranges are not reported, since discordance with absolute values may lead to misinterpretation of CBC data. Current Interpretive Data was last revised on 2017. Lymphocyte pct 19.2 % [facility] Comment: Interpretive Data Percent cell count reference ranges are not reported, since discordance with absolute values may lead to misinterpretation of CBC data. Current Interpretive Data was last revised on 2017. Monocyte pct 7.1 % [facility] Comment: Interpretive Data Percent cell count reference ranges are not reported, since discordance with absolute values may lead to misinterpretation of CBC data. Current Interpretive Data was last revised on 2017. Eosinophil pct 1.5 % [facility] Comment: Interpretive Data Percent cell count reference ranges are not reported, since discordance with absolute values may lead to misinterpretation of CBC data. Current Interpretive Data was last revised on 2017. Basophil pct 0.7 % [facility] Comment: Interpretive Data Percent cell count reference ranges are not reported, since discordance with absolute values may lead to misinterpretation of CBC data. Current Interpretive Data was last revised on 2017. Blood 03/21/2025 9:32 AM CDT 03/21/2025 9:42 AM CDT Zhang Lang MD LAB BLOOD ORDERABLES Final Result Performing Organization Address [facility] Co de Phone Number [facility] [address] Department [place] [address] * (ABNORMAL) CBC with auto differential (03/21/2025 9:32 AM CDT) Pathologist [facility] WBC 8.77 3.80 - 9.90 K/cumm Hgb 11.5(L) 13.0 - 17.5 g/dL [facility] Hct 35.9(L) 38.9 - 50.3 % [facility] Plt 274 150 - 400 K/cumm [facility] MPV 10.1 9.1 - 12.[address] [facility] RBC 4.34 4.30 - 5.80 M/cumm [facility] MCV 82.7 81.3 - 96.[address] [facility] MCH 26.5(L) 27.1 - 33.[address] [facility] MCHC 32.0(L) 32.3 - 35.7 g/dL [facility] RDW CV 16.7(H) 11.1 - 14.9 % [facility] RDW SD 50.3(H) 35.7 - 48.[address] [facility] NRBC abs 0.02(H) 0.00 - 0.01 K/cumm [facility] Blood Venous blood specimen / Unknown 03/21/2025 9:32 AM CDT 03/21/2025 9:42 AM CDT Zhang Lang MD LAB BLOOD ORDERABLES Final Result Performing Organization Address City/[facility]/ZIP Co de Phone Number [facility] [address] Department [place] [address] * Lipase (03/21/2025 9:32 AM CDT) Pathologist [facility] Lipase 47 10 - 99 Units/L Blood Venous blood specimen / Unknown 03/21/2025 9:32 AM CDT 03/21/2025 9:42 AM CDT us Zhang aLng MD LAB BLOOD ORDERABLES Final Result [facility] [address] Department [place] [address] * Comprehensive metabolic panel (03/21/2025 9:32 AM CDT) Sodium 141 135 - 145 mmol/L Potassium, pl 4.4 3.3 - 4.9 mmol/L [facility] Chloride 105 97 - 110 mmol/L [facility] CO2 23 22 - 32 mmol/L [facility] Anion gap 13 2 - 15 mmol/L [facility] BUN 12 6 - 25 mg/dL [facility] Creatinine 0.90 0.80 - 1.30 mg/dL [facility] Glucose 136 70 - 199 mg/dL [facility] Comment: Interpretive Data Fasting glucose >/= [...] 2022. Calcium 9.4 8.5 - 10.3 mg/dL [facility] Bilirubin, total 0.2 0.1 - 1.2 mg/dL [facility] Protein, pl 7.1 6.5 - 8.5 g/dL [facility] Albumin 4.1 3.5 - 5.0 g/dL [facility] Alk phos 109 40 - 130 Units/L [facility] ALT 9 7 - 55 Units/L [facility] AST 19 10 - 50 Units/L [facility] Blood 03/21/2025 9:32 AM CDT 03/21/2025 9:42 AM CDT Zhang Lang MD LAB BLOOD ORDERABLES Final Result Performing Organization Address [facility]/ZIP Co de Phone Number [facility] [address] Department [place] [address] * ECG 12 lead (03/21/2025 9:29 AM CDT) 03/21/2025 9:29 AM CDT Narrative [facility] - 03/21/2025 8:40 PM CDT Vent Rate: 77 bpm RR Interval: 773 msec [place] Interval: 241 msec QRS Duration: 96 msec QT Interval: 364 msec QTC Interval: 396 msec P-R-T [place]: 28 - -11 - 54 degrees IMPRESSION: SINUS RHYTHM WITH FIRST DEGREE AV BLOCK Possible SEPTAL MYOCARDIAL INFARCTION , PROBABLY OLD [40+ ms Q WAVE IN V1/V2] ABNORMAL ECG Electronically Signed By: Ed Sutton MD Zhang Lang MD ECG ORDERABLES Final Resu lt Performing Organization Address [facility] Co de Phone Number [facility] [employer] [facility] * POCT Rapid HIV Antibody Community Screening-Zac Eligible (03/20/2025 7:19 PM CDT) Pathologist [facility] Rapid HIV, POC Negative Negative Lot Number [id number] QC Control Line Acceptable Blood 03/20/2025 7:19 PM CDT Francis Kruger MD POINT OF CARE TEST ORD ERABLES Final Result * Urinalysis reflex to microscopic (03/20/2025 7:16 PM CDT) Color, ur Straw Yellow Clarity, ur Clear Clear [facility] Specific gravity, ur 1.017 1.003 - 1.030 [facility] pH, urine 7.0 [facility] Comment: Interpretive Data U rine pH is affected by diet, medications, systemic acid-base disturbances, and renal tubular function. pH may affect urinary stone formation. For example, urine pH below 6.0 may help reduce the tendency for calcium phosphate stones and pH greater than 6.0 may reduce the tendency for uric acid stone formation. Source: [facility] Current Interpretive Data was last revised on 2017 Protein, ur ql Negative Negative [facility] Glucose, ur ql Negative Negative [facility] Ketones, ur Negative Negative [facility] Bilirubin, ur Negative Negative [facility] Blood, ur Negative Negative [facility] Urobilinogen, ur <2.0 <2.0 mg/dL [facility] Nitrite, ur Negative Negative [facility] Leukocyte esterase, ur Negative Negative [facility] UA reflex comment Reflex conditions for microscopic UA not met. [facility] Urine 03/20/2025 7:16 PM CDT 03/20/2025 7:21 PM CDT Francis Kruger MD LAB URINE ORDERABLES F inal Result [facility] Department [place] [address] * (ABNORMAL) Drugs of Abuse Screen, Urine without Confirmation (03/20/2025 7:16 PM CDT) Pathologist [facility] Amphetamine, ur Not Detected CutOff 500ng/mL Comment: Interpretive Data - Amphetamines: Samples containing greater than 500 ng/mL d-methamphetamine or other cross-reacting amphetamine compounds are reported as positive. Amphetamine immunoassays are subject to significant false positive rates due to cross-reactivity of non-amphetamine drugs. Confirmatory testing required for definitive results. Current Interpretive Data was last reviewed 2023. Barbiturates, ur Not Detected CutOff 200ng/mL [facility] Comment: Interpretive Data - Barbiturates: Samples containing greater than 200 ng/mL secobarbital or other cross-reacting barbiturate compounds are reported as positive. False positive and false negative results are possible. Confirmatory testing required for definitive results. Current Interpretive Data was last reviewed 2023. Benzodiazepines, ur Not Detected CutOff 100ng/mL [facility] Comment: Interpretive Data - Benzodiazepines: Samples containing greater than 100 ng/mL nordiazepam or other cross-reacting compounds are reported as positive. False positive and false negative results are possible. Confirmatory testing required for definitive results. Current Interpretive Data was last reviewed 2023. Cannabinoids, ur Not Detected CutOff 50 ng/mL [facility] Comment: Interpretive Data - Cannabinoids: Samples containing greater than 50 ng/mL delta-9 THC -COOH or other cross- reacting compounds are reported as positive. False positive and false negative results are possible. Confirmatory testing required for definitive results. Current Interpretive Data was last reviewed 2023. Cocaine, ur Screen Positive, presumptive (A) CutOff 150ng/mL [facility] Comment: Interpretive Data - Cocaine: Samples containing greater than 150 ng/mL benzoylecgonine or other cross- reacting compounds are reported as positive. False positive and false negative results are possible. Confirmatory testing required for definitive results. Current Interpretive Data was last reviewed 2023. Fentanyl, Ur Not Detected CutOff 5 ng/mL [facility] Comment: Interpretive Data - Fentanyl: Samples containing greater than 5 ng/mL norfentanyl, fentanyl, or other cross-reacting fentanyl compounds are reported as positive. False positive and false negative results are possible. Confirmatory testing required for definitive results. Current Interpretive Data was last reviewed 2023. Methadone, ur Not Detected CutOff 300ng/mL [facility] Comment: Interpretive Data - Methadone: Samples containing greater than 300 ng/mL d,l-methadone or other cross-reacting compounds are reported as positive. False positive and false negative results are possible. Confirmatory testing required for definitive results. Current Interpretive Data was last reviewed 2023. Opiates, ur Not Detected CutOff 300ng/mL [facility] Comment: Interpretive Data - Opiates: Samples containing greater than 300 ng/mL morphine or other cross-reacting compounds are reported as positive. False positive and false negative results are possible. Confirmatory testing required for definitive results. Current Interpretive Data was last reviewed 2023. Oxycodone, ur Not Detected CutOff 100ng/mL [facility] Comment: Interpretive Data - Oxycodone: Samples containing greater than 100 ng/mL oxycodone or other cross-reacting compounds are reported as positive. False positive and false negative results are possible. Confirmatory testing required for definitive results. Current Interpretive Data was last reviewed 2023. Phencyclidine, ur Not Detected CutOff 25 ng/mL [facility] Comment: Interpretive Data - Phencyclidine: Samples containing greater than 25 ng/mL phencyclidine or other cross-reacting compounds are reported as positive. False positive and false negative results are possible. Confirmatory testing required for definitive results. Current Interpretive Data was last reviewed 2023. Urine Creatinine 91 mg/dL [facility] Comment: Interpretive Data Urine Creatinine: < 10 mg/dL is extremely dilute = or > 10 but < 20 mg/dL is dilute = or > 20 mg/dL is normal Current Interpretive Data was last revised on 2017. Urine 03/20/2025 7:16 PM CDT 03/20/2025 7:30 PM CDT Narrative [facility] - 03/20/2025 8:00 PM CDT Drug of Abuse screening is performed by immunoassay for medical purposes only. This is not to be used for Pain Management purposes. Francis Kruger MD LAB URINE ORDERABLES F inal Result [facility] Department [place] [address] * eGFR (03/20/2025 7:02 PM CDT) eGFR [...] MD LAB BLOOD ORDERABLES F inal Result [facility] [place] [address] * Differential, auto (03/20/2025 7:02 PM CDT) Pathologist [facility] Neutrophil abs 5.92 1.50 - 6.50 K/cumm Imm gran abs 0.03 0.00 - 0.10 K/cumm [facility] Lymphocyte abs 1.55 0.80 - 3.30 K/cumm [facility] Monocyte abs 0.52 0.20 - 0.80 K/cumm [facility] Eosinophil abs 0.09 0.00 - 0.50 K/cumm [facility] Basophil abs 0.08 0.00 - 0.10 K/cumm [facility] Neutrophil pct 72.3 % [facility] Comment: Interpretive Data Percent cell count reference ranges are not reported, since discordance with absolute values may lead to misinterpretation of CBC data. Current Interpretive Data was last revised on 2017. Imm gran pct 0.4 % [facility] Comment: Interpretive Data Percent cell count reference ranges are not reported, since discordance with absolute values may lead to misinterpretation of CBC data. Current Interpretive Data was last revised on 2017. Lymphocyte pct 18.9 % [facility] Comment: Interpretive Data Percent cell count reference ranges are not reported, since discordance with absolute values may lead to misinterpretation of CBC data. Current Interpretive Data was last revised on 2017. Monocyte pct 6.3 % [facility] Comment: Interpretive Data Percent cell count reference ranges are not reported, since discordance with absolute values may lead to misinterpretation of CBC data. Current Interpretive Data was last revised on 2017. Eosinophil pct 1.1 % [facility] Comment: Interpretive Data Percent cell count reference ranges are not reported, since discordance with absolute values may lead to misinterpretation of CBC data. Current Interpretive Data was last revised on 2017. Basophil pct 1.0 % [facility] Comment: Interpretive Data Percent cell count reference ranges are not reported, since discordance with absolute values may lead to misinterpretation of CBC data. Current Interpretive Data was last revised on 2017. Blood 03/20/2025 7:02 PM CDT 03/20/2025 7:29 PM CDT Francis Kruger MD LAB BLOOD ORDERABLES F inal Result Performing Organization Address City/[facility] Co de Phone Number [facility] [place] [address] * Thyroid Function [place] (03/20/2025 7:02 PM CDT) [facility] TSH 1.51 0.30 - 4.20 mcIUnit/mL Blood 03/20/2025 7:02 PM CDT 03/20/2025 7:29 PM CDT Francis Kruger MD LAB BLOOD ORDERABLES F inal Result Performing Organization Address [facility] Co de Phone Number [facility] [place] [address] * (ABNORMAL) CBC with auto differential (03/20/2025 7:02 PM CDT) [facility] WBC 8.19 3.80 - 9.90 K/cumm Hgb 11.5(L) 13.0 - 17.5 g/dL [facility] Hct 36.7(L) 38.9 - 50.3 % [facility] Plt 289 150 - 400 K/cumm [facility] MPV 10.9 9.1 - 12.3 fL [facility] RBC 4.49 4.30 - 5.80 M/cumm [facility] MCV 81.7 81.3 - 96.4 fL [facility] MCH 25.6(L) 27.1 - 33.3 pg [facility] MCHC 31.3(L) 32.3 - 35.7 g/dL [facility] RDW CV 17.1(H) 11.1 - 14.9 % [facility] RDW SD 50.2(H) 35.7 - 48.1 fL [facility] NRBC abs 0.00 0.00 - 0.01 K/cumm [facility] Blood Venous blood specimen / Unknown 03/20/2025 7:02 PM CDT 03/20/2025 7:29 PM CDT Francis Kruger MD LAB BLOOD ORDERABLES F inal Result Performing Organization Address [facility] de Phone Number [facility] [place] [address] * Ethanol (03/20/2025 7:02 PM CDT) Pathologist [facility] Ethanol <10 <=10 mg/dL Comment: Interpretive Data Legal limit of intoxication > or = 80 mg/dL Levels > or = 400 mg/dL are potentially TOXIC. Current interpretive data was last revised on 2018. Blood 03/20/2025 7:02 PM CDT 03/20/2025 7:29 PM CDT Francis Kruger MD LAB BLOOD ORDERABLES F inal Result Performing Organization Address [facility] Co de Phone Number [facility] [place] [address] * (ABNORMAL) Comprehensive metabolic panel (03/20/2025 7:02 PM CDT) Pathologist [facility] Sodium 141 135 - 145 mmol/L Potassium, pl 4.8 3.3 - 4.9 mmol/L [facility] Chloride 105 97 - 110 mmol/L [facility] CO2 28 22 - 32 mmol/L [facility] Anion gap 8 2 - 15 mmol/L [facility] BUN 11 6 - 25 mg/dL [facility] Creatinine 1.01 0.80 - 1.30 mg/dL [facility] Glucose 105 70 - 199 mg/dL [facility] Comment: Interpretive Data Fasting glucose >/= [...] 2022. Calcium 10.4(H) 8.5 - 10.3 mg/dL [facility] Bilirubin, total <0.2 0.1 - 1.2 mg/dL [facility] Protein, pl 8.2 6.5 - 8.5 g/dL [facility] Albumin 4.5 3.5 - 5.0 g/dL [facility] Alk phos 113 40 - 130 Units/L [facility] ALT 10 7 - 55 Units/L [facility] AST 22 10 - 50 Units/L [facility] Blood 03/20/2025 7:02 PM CDT 03/20/2025 7:29 PM CDT Francis Kruger MD LAB BLOOD ORDERABLES F inal Result [facility] [place] [address] * ECG 12 lead (03/03/2025 8:12 PM CDT) 03/03/2025 8:12 PM CDT Narrative [facility] - 03/05/2025 6:51 PM CDT Vent Rate: 79 bpm RR Interval: 751 msec [place] Interval: 213 msec QRS Duration: 91 msec QT Interval: 365 msec QTC Interval: 400 msec P-R-T [place]: 232 - -30 - 46 degrees IMPRESSION: SINUS RHYTHM WITH FIRST DEGREE AV BLOCK POSSIBLE LEFT ATRIAL ENLARGEMENT [-0.1mV P-WAVE IN V1/V2] POSSIBLE ANTERIOR MYOCARDIAL INFARCTION , OF INDETERMINATE AGE [30 ms Q WAVE IN V3/V4, OR R < 0.2 mV IN V4] ABNORMAL ECG Electronically Signed By: Kevyn Gramajo DO, [facility] us Les [place] MD ECG ORDERABLES Final Resul t [facility] * Drugs of Abuse Screen, Urine [...] 2023. Barbiturates, ur Not Detected CutOff 200ng/mL [facility] Comment: Interpretive Data - Barbiturates: Samples containing greater than 200 ng/mL secobarbital or other cross-reacting barbiturate compounds are reported as positive. False positive and false negative results are possible. Confirmatory testing required for definitive results. Current Interpretive Data was last reviewed 2023. Benzodiazepines, ur Not Detected CutOff 100ng/mL [facility] Comment: Interpretive Data - Benzodiazepines: Samples containing greater than 100 ng/mL nordiazepam or other cross-reacting compounds are reported as positive. False positive and false negative results are possible. Confirmatory testing required for definitive results. Current Interpretive Data was last reviewed 2023. Cannabinoids, ur Not Detected CutOff 50 ng/mL [facility] Comment: Interpretive Data - Cannabinoids: Samples containing greater than 50 ng/mL delta-9 THC -COOH or other cross- reacting compounds are reported as positive. False positive and false negative results are possible. Confirmatory testing required for definitive results. Current Interpretive Data was last reviewed 2023. Cocaine, ur Not Detected CutOff 150ng/mL [facility] Comment: Interpretive Data - Cocaine: Samples containing greater than 150 ng/mL benzoylecgonine or other cross- reacting compounds are reported as positive. False positive and false negative results are possible. Confirmatory testing required for definitive results. Current Interpretive Data was last reviewed 2023. Fentanyl, Ur Not Detected Cutoff 1 ng/mL [facility] Comment: Interpretive Data - Fentanyl: Samples containing greater than 1 ng/mL fentanyl or other cross-reacting fentanyl compounds are reported as positive. False positive and false negative results are possible. Confirmatory testing required for definitive results. Current Interpretive Data was last reviewed 2023. Methadone, ur Not Detected CutOff 300ng/mL [facility] Comment: Interpretive Data - Methadone: Samples containing greater than 300 ng/mL d,l-methadone or other cross-reacting compounds are reported as positive. False positive and false negative results are possible. Confirmatory testing required for definitive results. Current Interpretive Data was last reviewed 2023. Opiates, ur Not Detected CutOff 300ng/mL [facility] Comment: Interpretive Data - Opiates: Samples containing greater than 300 ng/mL morphine or other cross-reacting compounds are reported as positive. False positive and false negative results are possible. Confirmatory testing required for definitive results. Current Interpretive Data was last reviewed 2023. Oxycodone, ur Not Detected CutOff 100ng/mL [facility] Comment: Interpretive Data - Oxycodone: Samples containing greater than 100 ng/mL oxycodone or other cross-reacting compounds are reported as positive. False positive and false negative results are possible. Confirmatory testing required for definitive results. Current Interpretive Data was last reviewed 2023. Phencyclidine, ur Not Detected CutOff 25 ng/mL [facility] Comment: Interpretive Data - Phencyclidine: Samples containing greater than 25 ng/mL phencyclidine or other cross-reacting compounds are reported as positive. False positive and false negative results are possible. Confirmatory testing required for definitive results. Current Interpretive Data was last reviewed 2023. Urine Creatinine 115 mg/dL [facility] Comment: Interpretive Data Urine Creatinine: < 10 mg/dL is extremely dilute = or > 10 but < 20 mg/dL is dilute = or > 20 mg/dL is normal Current Interpretive Data was last revised on 2017. Urine 03/03/2025 8:11 PM CDT 03/03/2025 8:25 PM CDT Narrative [facility] - 03/03/2025 9:05 PM CDT Drug of Abuse screening is performed by immunoassay for medical purposes only. This is not to be used for Pain Management purposes. Les Colorado MD LAB URINE ORDERABLES Final Result [address] Department [place] [address] * COVID-19 Coronavirus RNA Nasopharyngeal (03/03/2025 8:08 PM CDT) COVID-19 RNA Negative Negative Nasopharyngeal 03/03/2025 8: 08 PM CDT 03/03/2025 8:25 PM CDT Narrative [facility] - 03/03/2025 9:36 PM CDT Is the patient experiencing any symptoms consistent with COVID (eg. Fever, cough, shortness of breath)?->No What is the reason for testing?->Screening prior to Behavioral health admission Interpretive data Testing performed by [facility]. This test is performed using the Kranem Xpert Xpress CoV-2 plus assay. This is a real-time RT-PCR test intended for the qualitative detection of nucleic acid from the SARS-CoV-2. This assay has been cleared by the [place] Food and Drug administration. The performance characteristics have been verified by the [facility]. Results must be considered in the clinical context, and a negative result does not rule out infection. Interpretive data last revised 2024. Interpretive data Testing performed by [facility]. This test is performed using the Kranem Xpert Xpress CoV-2 plus assay. This is a real-time RT-PCR test intended for the qualitative detection of nucleic acid from the SARS-CoV-2. This assay has been cleared by the [place] Food and Drug administration. The performance characteristics have been verified by the [facility]. Results must be considered in the clinical context, and a negative result does not rule out infection. Interpretive data last revised 2024. Les Colorado MD LAB MICROBIOLOGY - GENERAL ORDERABLES Final Result [facility] [address] [place] [address] * eGFR (03/03/2025 8:08 PM CDT) eGFR [...] MD LAB BLOOD ORDERABLES Final Result [facility] [address] Department [place] [address] * Differential, auto (03/03/2025 8:08 PM CDT) Neutrophil abs 4.45 1.50 - 6.50 K/cumm Imm gran abs 0.01 0.00 - 0.10 K/cumm [facility] Lymphocyte abs 1.23 0.80 - 3.30 K/cumm [facility] Monocyte abs 0.43 0.20 - 0.80 K/cumm [facility] Eosinophil abs 0.14 0.00 - 0.50 K/cumm [facility] Basophil abs 0.05 0.00 - 0.10 K/cumm [facility] Neutrophil pct 70.5 % [facility] Comment: Interpretive Data Percent cell count reference ranges are not reported, since discordance with absolute values may lead to misinterpretation of CBC data. Current Interpretive Data was last revised on 2017. Imm gran pct 0.2 % [facility] Comment: Interpretive Data Percent cell count reference ranges are not reported, since discordance with absolute values may lead to misinterpretation of CBC data. Current Interpretive Data was last revised on 2017. Lymphocyte pct 19.5 % [facility] Comment: Interpretive Data Percent cell count reference ranges are not reported, since discordance with absolute values may lead to misinterpretation of CBC data. Current Interpretive Data was last revised on 2017. Monocyte pct 6.8 % [facility] Comment: Interpretive Data Percent cell count reference ranges are not reported, since discordance with absolute values may lead to misinterpretation of CBC data. Current Interpretive Data was last revised on 2017. Eosinophil pct 2.2 % [facility] Comment: Interpretive Data Percent cell count reference ranges are not reported, since discordance with absolute values may lead to misinterpretation of CBC data. Current Interpretive Data was last revised on 2017. Basophil pct 0.8 % [facility] Comment: Interpretive Data Percent cell count reference ranges are not reported, since discordance with absolute values may lead to misinterpretation of CBC data. Current Interpretive Data was last revised on 2017. Blood 03/03/2025 8:08 PM CDT 03/03/2025 8:25 PM CDT Les Colorado MD LAB BLOOD ORDERABLES Final Result [facility] Department [place] [address] * Urinalysis reflex to microscopic and culture Urine (03/03/2025 8:08 PM CDT) Color, ur Yellow Yellow Clarity, ur Clear Clear [facility] Specific gravity, ur 1.019 1.003 - 1.030 [facility] pH, urine 7.0 [facility] Comment: Interpretive Data U rine pH is affected by diet, medications, systemic acid-base disturbances, and renal tubular function. pH may affect urinary stone formation. For example, urine pH below 6.0 may help reduce the tendency for calcium phosphate stones and pH greater than 6.0 may reduce the tendency for uric acid stone formation. Source: [facility] Current Interpretive Data was last revised on 2017 Protein, ur ql Negative Negative [facility] Glucose, ur ql Negative Negative [facility] Ketones, ur Negative Negative [facility] Bilirubin, ur Negative Negative [facility] Blood, ur Negative Negative [facility] Urobilinogen, ur <2.0 <2.0 mg/dL [facility] Nitrite, ur Negative Negative [facility] Leukocyte esterase, ur Negative Negative [facility] UA reflex comment Reflex conditions for microscopic UA and culture not met. [facility] Urine 03/03/2025 8:08 PM CDT 03/03/2025 8:25 PM CDT Les Coolrado MD LAB MICROBIOLOGY - GENERAL ORDERABLES Final Result Performing Organization Address [facility]/ZIP Co de Phone Number [facility] Department [place] [address] * (ABNORMAL) CBC with auto differential (03/03/2025 8:08 PM CDT) WBC 6.31 3.80 - 9.90 K/cumm Hgb 11.3(L) 13.0 - 17.5 g/dL [facility] Hct 37.2(L) 38.9 - 50.3 % [facility] Plt 384 150 - 400 K/cumm [facility] MPV 10.1 9.1 - 12.3 fL [facility] RBC 4.36 4.30 - 5.80 M/cumm [facility] MCV 85.3 81.3 - 96.4 fL [facility] MCH 25.9(L) 27.1 - 33.3 pg [facility] MCHC 30.4(L) 32.3 - 35.7 g/dL [facility] RDW CV 16.2(H) 11.1 - 14.9 % [facility] RDW SD 50.3(H) 35.7 - 48.1 fL [facility] NRBC abs 0.00 0.00 - 0.01 K/cumm [facility] Blood 03/03/2025 8:08 PM CDT 03/03/2025 8:25 PM CDT Les Colorado MD LAB BLOOD ORDERABLES Final Result Performing Organization Address City/[facility] Co de Phone Number [address] [place] [address] * Ethanol (03/03/2025 8:08 PM CDT) Pathologist [facility] Ethanol <10 <=10 mg/dL Comment: Interpretive Data Legal limit of intoxication > or = 80 mg/dL Levels > or = 400 mg/dL are potentially TOXIC. Current interpretive data was last revised on 2018. Blood 03/03/2025 8:08 PM CDT 03/03/2025 8:25 PM CDT Les Colorado MD LAB BLOOD ORDERABLES Final Result Performing Organization Address City/[facility]/ZIP Co de Phone Number [address] [place] [address] * Acetaminophen level (03/03/2025 8:08 PM CDT) [...] after ingestion Consult toxicology or poison control ([phone]) for unknown ingestion time. Current interpretive data was last revised 2023. Blood 03/03/2025 8:08 PM CDT 03/03/2025 8:25 PM CDT Les Colorado MD LAB BLOOD ORDERABLES Final Result Performing Organization Address [facility]/ZIP Co de Phone Number [address] [place] [address] * Salicylate level (03/03/2025 8:08 PM CDT) Pathologist [facility] Salicylate <0.5 <=0.5 mg/dL Comment: Interpretive Data Toxic: 30 mg/dL or greater. Current interpretive data was last revised 2023. Blood 03/03/2025 8:08 PM CDT 03/03/2025 8:25 PM CDT Les Colorado MD LAB BLOOD ORDERABLES Final Result Performing Organization Address [facility] Co de Phone Number [address] [address] * (ABNORMAL) Comprehensive metabolic panel (03/03/2025 8:08 PM CDT) Sodium 141 135 - 145 mmol/L Potassium, pl 4.7 3.3 - 4.9 mmol/L [facility] Chloride 104 97 - 110 mmol/L [facility] CO2 24 22 - 32 mmol/L [facility] Anion gap 13 2 - 15 mmol/L [facility] BUN 20 6 - 25 mg/dL [facility] Creatinine 1.11 0.80 - 1.30 mg/dL [facility] Glucose 105 70 - 199 mg/dL [facility] Comment: Interpretive Data Fasting glucose >/= [...] 2022. Calcium 9.6 8.5 - 10.3 mg/dL [facility] Bilirubin, total <0.1 0.1 - 1.2 mg/dL [facility] Protein, pl 7.8 6.5 - 8.5 g/dL [facility] Albumin 4.5 3.5 - 5.0 g/dL [facility] Alk phos 114 40 - 130 Units/L [facility] ALT 6(L) 7 - 55 Units/L [facility] AST <5(L) 10 - 50 Units/L [facility] Blood 03/03/2025 8:08 PM CDT 03/03/2025 8:25 PM CDT Les Colorado MD LAB BLOOD ORDERABLES Final Result [facility] [address] [facility] Department [place] [address] * (ABNORMAL) Hemoglobin A1c (12/04/2024 6:18 AM CDT) Hgb A1C 6.5(H) 4.0 - 5.6 % Estimated Average Glucose 140 mg/dL [facility] Comment: The ADA recommends reporting an estimated Average Glucose (eAG) with all Hemoglobin A1c results using the equation derived from a study of 507 normal and diabetic adults. Minority populations were underrepresented and children were not included. (Diabetes Care 31:[id number], 2008). The eAG is not equivalent to a fasting glucose. Blood 12/04/2024 6:18 AM CDT 12/04/2024 6:27 AM CDT Zack Adam MD LAB BLOOD ORDERABLES F inal Result [facility] [address] [place] [address] * Lipid panel (12/04/2024 6:18 AM CDT) [...] on 2018. Triglycerides 83 <=149 mg/dL [facility] Comment: Interpretive Data Ages < [...] on 2018. HDL 61 >=40 mg/dL [facility] Comment: Interpretive Data Ages < [...] on 2018. LDL, calculated 106 <=129 mg/dL [facility] [place]) Comment: Interpretive Data Ages < or [...] revised on 2024. Non-HDL Cholesterol 121 mg/dL [facility]) Comment: Interpretive Data Ages < or [...] on 2018. Chol/HDL ratio 3 MARYELLENNE Ching [facility]) Blood 12/04/2024 6:18 AM CDT 12/04/2024 6:27 AM CDT Zack Adam MD LAB BLOOD ORDERABLES F inal Result [facility] [address] Department [place] [address] * PSA screen (07/14/2023 12:18 PM [facility] [employer] [facility]) PSA-Total 4.92 <=5.40 ng/mL [facility] Comment: Interpretive Data AGE SEX REFERENCE [...] revised 22. Blood 07/14/2023 12:1 8 PM [employer] [facility] 07/14/2023 12:55 PM [employer] [employer] [facility] Magdiel Marin NP LAB BLOOD ORDERABLES F inal Result Performing Organization Address City/[facility] Co de Phone Number [facility] Department [place] [address] from Last 3 Months or Most Recently Relevant to Health Maintenance Insurance [employer] [facility] Advance Directives For more information, please contact: [phone] * Full Code (Latest Code Status on [...] 9:58 AM 12/07/2022 5:47 PM Care Teams Quality Facilitator Relationship Specialty Start Date End Date No, Physician PCP - General 03/03/25
[2025-04-24] MEDS: ACETAMINOPHEN 325 MG TABLET 650 MG PO (20:53)
--- NOTE | 2025-04-24 22:08 | PC.NURSE ---
[facility] rejected pt.
--- NOTE | 2025-04-24 22:25 | ECG_ITS ---
Test Date: 2025-04-24 22:31:20 Measurements Intervals [place] Rate: 71 P: 44 OK: 317 QRS: 7 QRSD: 96 T: 60 QT: 374 QTc: 407 Interpretive Statements SINUS RHYTHM WITH MARKED FIRST DEGREE AV BLOCK NONSPECIFIC T-WAVE ABNORMALITY- HIGH LATERAL LEADS BASELINE ARTIFACT- I, II, AVR, AVL, AVF, V1, V4 ABNORMAL ECG Compared to ECG 06/22/2024 16:50:17 No significant changes Electronically Signed On 04-25-2025 06:10:57 CDT by Landon Rodas D.O.
--- NOTE | 2025-04-24 22:27 | PC.NURSE ---
[facility] needing EKG before placement
--- NOTE | 2025-04-24 22:45 | PC.NURSE ---
This RN faxed over pts EKG to [facility]
[2025-04-25 08:01] VITALS: BP 140/95; PULSE 65; RESP 16; TEMP 36.6; O2SAT 100
[2025-04-25] MEDS: LOSARTAN POTASSIUM 50 MG TABLET PO (08:15)
[2025-04-25] MEDS: PREGABALIN (*CRX) 50 MG CAPSULE PO (08:16)
[2025-04-25] MEDS: IBUPROFEN 400 MG TABLET 800 MG PO (09:16)
== END 2025-04-25 11:41 ==
PROVIDERS: Emergency Provider Student in an Organized Health Care Education/Training Program
DX: R45.851 Suicidal ideations (principal); R45.850 Homicidal ideations; Z20.822 Contact with and (suspected) exposure to COVID-19
CPT/HCPCS: 36415; 80053; 80307; 81001; 82077; 82948; 84443; 85025; 87637; 93005; 99285; A9270

== ENCOUNTER 2025-07-05 15:11 | Emergency (ER) | payer OTHER, SELFPAY ==
--- NOTE | ~2025-07-05 | XR_ITS ---
EXAMINATION: XR knee RT min 4V, 07/05/2025 16:03 CDT HISTORY: pain COMPARISON: No comparisons available. Findings: No acute fracture or malalignment. Moderate to severe tricompartmental degenerative changes, small effusion Soft tissues unremarkable. Impression: No acute fracture or malalignment. Reviewed, dictated and finalized at location P. Impression: No acute fracture or malalignment.
[2025-07-05 15:14] VITALS: BP 143/89; PULSE 109; RESP 20; TEMP 36.4; O2SAT 99
[2025-07-05 16:02] LABS: Add Urine Microscopic? NO; Appearance Urine Clear (Clear); Glucose Urine UA Negative (Negative); Leukocyte Esterase Ur Negative LEU/UL (Negative); Nitrate Urine Negative (Negative); Specific Grav Ur 1.012 (1.001-1.035)
[2025-07-05 16:02] LABS: Hematocrit 35.9 % (42.0-52.0); Hemoglobin 11.4 g/dL (14.0-18.0); Immature Granulocyte Percent A 0.2 % (0-0.5); Lymphocytes Absolute Auto 1.62 K/mm3 (0.9-3.2); Mean Corpuscular HGB Conc 31.8 g/dl (32-36); Mean Corpuscular Hemoglobin 26.8 pg (26-34); Mean Corpuscular Volume 84.3 fl (80-100); Nucleated Red Blood Cells Absolute Auto 0.000 K/mm3 (0.0-0.012); Nucleated Red Blood Cells Perc 0.0 % (0.0-0.2); Platelet Count Result 328 k/mm3 (150-375); Red Blood Count 4.26 M/mm3 (4.6-6.20); White Blood Count 8.2 K/mm3 (4.5-10.0)
[2025-07-05 16:18] LABS: Alanine Aminotransferase 19 U/L (6-50); Albumin Level 4.4 g/dL (3.5-5.1); Alkaline Phosphatase 92 U/L (38-126); Anion Gap 9 mmol/L (4-12); Aspartate Amino Transferase 35 U/L (17-59); Bilirubin,Total 0.3 mg/dL (0.2-1.3); Blood Urea Nitrogen 19 mg/dL (9-20); Calcium 9.4 mg/dL (8.4-10.2); Carbon Dioxide 26 mmol/L (22-30); Chloride 101 mmol/L (98-107); Estimated CRCL calculation 71 ml/min; Estimated Glomerular Filt Rate > 60; Glucose 171 mg/dL (65-110); Potassium 3.8 mmol/L (3.4-5.0); Sodium 136 mmol/L (137-145); Total Protein 8.0 g/dL (6.3-8.2)
[2025-07-05 16:18] LABS: Cannabinoid Screen Urine Negative (Negative)
[2025-07-05 16:45] LABS: SARS-CoV-2 RNA PCR Negative (Negative)
[2025-07-05 16:58] LABS: Thyroid Stimulating Hormone Reflex 1.630 uIU/mL (0.465-4.68)
--- NOTE | 2025-07-05 18:01 | ED_ITS ---
HPI - General Adult General Chief complaint: Psychiatric Symptoms Stated complaint: fall, R leg pain Time Seen by Provider: 07/05/25 17:00 History of Present Illness HPI narrative: 69-year-old male present to the emergency department for evaluation for homicidal and suicidal ideation. Patient states that he has been off of his psychiatric meds for the last 4 days since the medications were in the trunk of his girlfriend's car. Patient also does report having a ground level fall and injuring his right knee. Patient denies striking head denies loss of consciousness. At time of evaluation patient is well-appearing and in no distress. Patient does feel that he needs to be placed for inpatient psychiatric hospitalization. Patient reported that he does have access to a firearm. Patient also provided a false identity upon initial registration Related Data Allergies Allergy/AdvReac Type Severity Reaction Status Date / Time No Known Allergies Allergy Verified 07/05/25 15:44 Review of Systems 2 Review of Systems: All systems reviewed & are unremarkable except as noted in HPI and below PMFSH Social History Social History Substance use type: does not use Exam 2 Narrative: APPEARANCE: Well appearing, no pain, no distress, well-nourished. HEAD: normocephalic, atraumatic. EYES: PERRLA/EOMI, conjunctivae clear. NOSE: Normal no drainage EARS:TMS clear with good light reflex. THROAT: Pharynx clear, no exudate. NECK: Supple. No adenopathy, no masses. RESPIRATORY: Airway patent, respirations nonlabored. Clear to auscultation bilaterally, no rales, rhonchi, wheezing. CARDIOVASCULAR: Regular rate and rhythm without murmurs rubs or gallops. ABDOMINAL: Soft, nontender, nondistended, normal bowel sounds MUSCULOSKELETAL: Normal appearing right knee with no effusion, ecchymosis deformity or tenderness NEURO: Alert. Cranial nerves II through XII intact. Good gait. Good coordination SKIN: Warm, dry. Normal Color PSYCHIATRIC: Flat affect Course Vital Signs Vital signs: Vital Signs Temperature 97.5 F L 07/05/25 15:14 Pulse Rate 109 H 07/05/25 15:14 Respiratory Rate 20 07/05/25 15:14 Blood Pressure 143/89 H 07/05/25 15:14 Pulse Oximetry 99 07/05/25 15:14 Oxygen Delivery Room Air 07/05/25 15:14 Temperature 97.9 F 07/05/25 20:20 Pulse Rate 101 H 07/05/25 20:20 Respiratory Rate 18 07/05/25 20:20 Blood Pressure 128/80 07/05/25 20:20 Pulse Oximetry 100 07/05/25 20:20 Oxygen Delivery Room Air 07/05/25 15:14 Medical Decision Making MDM Narrative Medical decision making narrative: 64-year-old male presents emergency department for evaluation for reported homicidal and suicidal ideation. Patient does report he has access to a firearm. Patient has been noncompliant with his psychiatric medications. Patient also provided a false identity upon arrival to the emergency department. Patient was medically cleared to be evaluated by crisis. Patient is medically cleared for transport inpatient psychiatric hospitalization as needed. Patient was willing to be admitted as voluntary inpatient, placement is pending. Patient did get placement at [facility]. Vital Signs Vital Signs: Vital Signs Temperature 97.5 F L 07/05/25 15:14 Pulse Rate 109 H 07/05/25 15:14 Respiratory Rate 20 07/05/25 15:14 Blood Pressure 143/89 H 07/05/25 15:14 Pulse Oximetry 99 07/05/25 15:14 Oxygen Delivery Room Air 07/05/25 15:14 Temperature 97.9 F 07/05/25 20:20 Pulse Rate 101 H 07/05/25 20:20 Respiratory Rate 18 07/05/25 20:20 Blood Pressure 128/80 07/05/25 20:20 Pulse Oximetry 100 07/05/25 20:20 Oxygen Delivery Room Air 07/05/25 15:14 Lab Data 07/05/25 15:50 07/05/25 15:50 Labs: Lab Results 07/05/25 07/05/25 Range/Units 15:44 15:50 WBC 8.2 (4.5-10.0) K/mm3 RBC 4.26 L (4.6-6.20) M/mm3 Hgb 11.4 L (14.0-18.0) g/dL Hct 35.9 L (42.0-52.0) % MCV 84.3 (80-100) fl MCH 26.8 (26-34) pg MCHC 31.8 L (32-36) g/dl RDW 16.0 H (11.5-14.5) % Plt Count 328 (150-375) k/mm3 MPV 9.3 (7.4-10.4) fl Immature Gran % (Auto) 0.2 (0-0.5) % Neut % (Auto) 72.0 (45.5-73.1) % Lymph % (Auto) 19.7 (18.3-44.2) % [place] % (Auto) 6.6 (2.6-8.5) % Eos % (Auto) 1.0 (0-4.4) % Baso % (Auto) 0.5 (0.2-1.2) % Lymph # (Auto) 1.62 (0.9-3.2) K/mm3 [place] # (Auto) 0.5 (0.1-0.6) K/mm3 Eos # (Auto) 0.1 (0-0.3) K/mm3 Baso # (Auto) 0.0 (0.0-0.1) K/mm3 Abs Immat Gran (auto) 0.02 (0.00-0.031) K/mm3 Absolute Neuts (auto) 5.9 (1.3-6.7) K/mm3 Absolute Nucleated RBC 0.000 (0.0-0.012) K/mm3 Nucleated RBC % 0.0 (0.0-0.2) % Sodium 136 L (137-145) mmol/L Potassium 3.8 (3.4-5.0) mmol/L Chloride 101 (98-107) mmol/L Carbon Dioxide 26 (22-30) mmol/L Anion Gap 9 (4-12) mmol/L BUN 19 (9-20) mg/dL Creatinine 0.90 (0.7-1.3) mg/dL Estim Creat Clear Calc 71 ml/min Estimated GFR > 60 (59 - ) Glucose 171 H (65-110) mg/dL Calcium 9.4 (8.4-10.2) mg/dL Total Bilirubin 0.3 (0.2-1.3) mg/dL AST 35 (17-59) U/L ALT 19 (6-50) U/L Alkaline Phosphatase 92 (38-126) U/L Total Protein 8.0 (6.3-8.2) g/dL Albumin 4.4 (3.5-5.1) g/dL TSH (Reflex) 1.630 (0.465-4.68) uIU/mL Urine Color Yellow (Yellow) Urine Appearance Clear (Clear) Urine pH 6.5 (5.0-9.0) Ur Specific [place] 1.012 (1.001-1.035) Urine Protein Negative (Negative) mg/dL Urine Glucose (UA) Negative (Negative) mg/dL Urine Ketones Negative (Negative) mg/dL Ur Blood (Man) Negative (Negative) Urine Nitrate Negative (Negative) Urine Bilirubin Negative (Negative) Urine Urobilinogen 1.0 (<2.0) mg/dL Leukocyte Esterase Rfl Negative (Negative) MARIE/UL Urine Opiates Screen Negative (Negative) Urine Methadone Screen Negative (Negative) Ur Barbiturates Screen Negative (Negative) Ur Phencyclidine Scrn Negative (Negative) Ur Amphetamine Screen Negative (Negative) U Benzodiazepines Scrn Negative (Negative) Urine Cocaine Screen Negative (Negative) U Cannabinoids Screen Negative (Negative) Ethyl Alcohol < 10 (<10) mg/dL SARS-CoV-2 RNA (RT-PCR) Negative (Negative) Discharge Plan Discharge Clinical Impression: Noncompliance with medication regimen, Homicidal ideation, Suicidal ideation Patient Disposition: Psychiatric Hosp Condition: Stable Patient Language: Greenlandic Follow-up/Referrals: PHYSICIAN,CASHIER OR CHECKER STOCK CLERK [Primary Care Provider, Internal Medicine]
--- NOTE | 2025-07-05 20:15 | PC.NURSE ---
Spoke with Trish aparicio [facility], who is asking for additional information to be faxed, face sheet and xray report. This info faxed.
[2025-07-05 20:20] VITALS: BP 128/80; PULSE 101; RESP 18; TEMP 36.6; O2SAT 100
--- NOTE | 2025-07-05 20:44 | PC.NURSE ---
Per Trish, pt is accepted at [facility] and a nurse will call us for report.
--- NOTE | 2025-07-05 22:19 | PC.NURSE ---
Clear and present danger completed per provider request. Initial report filed under the black Ramirez with 11/30/1955.
== END 2025-07-05 23:01 ==
PROVIDERS: Emergency Provider Emergency Medicine
DX: R45.851 Suicidal ideations (principal); R45.850 Homicidal ideations; M25.561 Pain in right knee; Z91.148 Patient's other noncompliance with medication regimen for other reason; W19.XXXA Unspecified fall, initial encounter
CPT/HCPCS: 36415; 73564; 80053; 80307; 81003; 82077; 84443; 85025; 87635; 99285

== ENCOUNTER 2025-07-07 14:02 | Emergency (ER) | payer OTHER, SELFPAY ==
--- OUTSIDE RECORDS SUMMARY | 2024-01-26 08:00 | XMS_ITS ---
Author Organization [facility] Address [address] [place], [place] [phone] Care Team Providers Care Boulevard Glassware Replacer Name Role Phone Fadia Lyle Primary Care Provider REASON FOR VISIT pt was dischargge from [facility] for major depression Social History Sex Assigned At : Social History Observation Description Sex Assigned At Female Encounters Encounter Location [facility] [address] [place], [place] [id number] 01/26/2024 Fadia Lyle Plan Of Treatment Next Appt Details Provider Name:Yenifer Wadsworth, 07/19/2025 11:00:00 AM, [address], [place], [place], [phone], Provider Name:Robbie Dickey, 09/07/2025 01:00:00 PM, [address], [place], [place], [id number], Progress Notes * Bob HOLLIS JrDOB:[birth year] (64 yo M)Acc No.[id number]:01/26/2024 Patient: Kameron WINCHESTERBob Jr Provider: Sudha Lyle MD :1960 A ge:63 Y S ex:Male Date:01/26/2024 Address:[address] [place] [address], [address] [place], [place] [id number] Subjective: * Chief Complaints: * 1 . Pt was dischargge from [facility] for major depression. * Medical History: Objective: * Vitals: Assessment: Plan: * Treatment: Care Plan: * Problems: * Billing Information: * Visit Code: * Procedure Codes: * Electronic signature of Ara Lyle MD on 07/07/2025 at 02:06 PM CDT Sign off status: Pending * Provider: Sudha Lyle MD Date: 0 01/26/2024 Generated for Rajendra juraes/Valentina/Rosemarie on: 1 02:06 PM CDT
--- OUTSIDE RECORDS SUMMARY | 2024-02-03 08:00 | XMS_ITS ---
Author Organization [facility] Address [address] [place], [place] [address] Care Team Providers Care Telemarketing Fundraiser Name Role Phone Fadia Lyle Primary Care Provider Social History Sex Assigned At : Social History Observation Description Sex Assigned At Female Encounters Encounter Location Date [facility] [address] [place], [place] [id number] 02/03/2024 Fadia Lyle Plan Of Treatment Next Appt Details Provider Name:Yenifer Wadsworth, 07/19/2025 11:00:00 AM, [address], [place], [place], [phone], Provider Name:Robbie Dickey, 09/07/2025 01:00:00 PM, [address], [place], [place], [id number], Progress Notes * Bob HOLLIS JrDOB:[birth year] (64 yo M)Acc No.[id number]:02/03/2024 Patient: Kameron LaraBob NEGRETE Jr Provider: Sudha Lyle MD :1960 A ge:63 Y S ex:Male Date:02/03/2024 Address:[address] [place] [address], [address], [place], [id number] Subjective: * Chief Complaints: * * Medical History: Objective: * Vitals: Assessment: Plan: * Treatment: Care Plan: * Problems: * Billing Information: * Visit Code: * Procedure Codes: * Electronic signature of Ara Lyle MD on 07/07/2025 at 02:05 PM CDT Sign off status: Pending * Provider: Sudha Lyle MD Date: 0 02/03/2024 Generated for Rajendra juares/Valentina/Rosemarie on: 02:05 PM CDT
--- OUTSIDE RECORDS SUMMARY | 2024-04-13 09:30 | XMS_ITS ---
Author Organization [facility] Address [address] [place], [place] [address] Care Team Providers Care Roving Or Yarn Color Checker Name Role Phone Fadia Lyle Primary Care Provider Patricio Kyle [phone] REASON FOR VISIT depression Social History Sex Assigned At : Social History Observation Description Sex Assigned At Female Encounters Encounter Location Date Provider Diagnosis [facility] [address] [place], [place] [phone] 04/13/2024 Patricio Kyle Plan Of Treatment Next Appt Details Provider Name:Yenifer Wadsworth, 07/19/2025 11:00:00 AM, [address], [place], [place], [phone], Provider Name:Robbie Dickey, 09/07/2025 01:00:00 PM, [address], [place], [place], [id number], Progress Notes * Bob HOLLIS JrDOB:[birth year] (64 yo M)Acc No.[id number]:04/13/2024 Health & Behavioral Intake Patient: Kameron WINCHESTERBob Jr Provider: Lorenza Klye LCSW :1960 A ge:63 Y S ex:Male Date:04/13/2024 Address:[address] [place] [address], [address] [place], [place] [phone] Pcp:Fadia Lyle Subjective: * Chief Complaints: * 1 . Depression. * Medical History: Objective: * Vitals: Assessment: Plan: * Treatment: * Billing Information: * Visit Code: * Procedure Codes: Care Plan Details* * Electronic signature of Alexander Kyle LCSW on 07/07/2025 at 02:05 PM CDT Sign off status: Pending * Provider: Lorenza Kyle LCSW Date: 0 04/13/2024 Generated for Rajendra juares/Valentina/Rosemarie on: 02:05 PM CDT
--- OUTSIDE RECORDS SUMMARY | 2024-04-28 04:00 | XMS_ITS ---
Author Organization [employer] Address [address] [place], [place] [phone] Care Team Providers Care Professional Housing Consultant Name Role Phone Fadia Lyle Primary Care Provider REASON FOR VISIT depression, Quality - needs A1c Medications Medication SIG (Take, Route, Frequency, Duration) Notes Start Date End Date Status amLODIPine Besylate 10 MG TAKE 1 TABLET ONE TIME DAILY FOR BLOOD PRESSURE; Duration: 90 Active Lisinopril 20 MG Oral; Duration: 60 Unknown Atorvastatin Calcium 10 MG TAKE 1 TABLET EVERY DAY AT BEDTIME; Duration: 90 Unknown Sildenafil Citrate 100 MG TAKE 1 TABLET ONE TIME DAILY NEEDED. NO MORE THAN 1 TABLET IN 24 HOURS; Duration: 90 Unknown Losartan Potassium 50 MG 1 tablet Orally Once a day; Duration: 30 day(s) STOP LISINOPRIL 03/17/2023 Unknown Lyrica 50 MG 1 capsule Orally Twice a day; Duration: 30 days 02/09/2023 Unknown metFORMIN HCl 500 MG TAKE 1 TABLET ONE TIME DAILY WITH A MEAL; Duration: 90 Unknown metFORMIN HCl 500 MG 1 tablet with a meal orally once a day; Duration: 90 days Unknown Pregabalin 100 MG 1 capsule Orally twice a day. STOP 50 mg dosing; Duration: 30 days 02/20/2023 Unknown Social History Sex Assigned At : Social History Observation Description Sex Assigned At Female Encounters Encounter Location Date Provider Diagnosis [facility] [facility] [address] [place], [place] [phone] 04/28/2024 Fadia Lyle Plan Of Treatment Next Appt Details Provider Name:Yenifer Wadsworth, 07/19/2025 11:00:00 AM, [address], [place], [place], [phone], Provider Name:Robbie Dickey, 09/07/2025 01:00:00 PM, [address], [place], [place], [phone], Progress Notes * BUNNY Bob DOB:[birth year] (64 yo M)Acc No.[id number]:04/28/2024 Patient: Bob XAVIER Jr Provider: Sudha Lyle MD :1960 A ge:63 Y S ex:Male Date:04/28/2024 Address:[address] [place], [place] [id number] Subjective: * Chief Complaints: * 1 . depression, Quality - needs A1c. * Medical History: * Medications: T aking amLODIPine Besylate 10 MG Tablet TAKE 1 TABLET ONE TIME DAILY FOR BLOOD PRESSURE , Unknown metFORMIN HCl 500 MG Tablet TAKE 1 TABLET ONE TIME DAILY WITH A MEAL , Unknown Lyrica 50 MG Capsule 1 capsule Orally Twice a day , Unknown Pregabalin 100 MG Capsule 1 capsule Orally twice a day. STOP 50 mg dosing , Unknown metFORMIN HCl 500 MG Tablet 1 tablet with a meal orally once a day , Unknown Losartan Potassium 50 MG Tablet 1 tablet Orally Once a day , Notes to Pharmacist: STOP LISINOPRIL, Unknown Sildenafil Citrate 100 MG Tablet TAKE 1 TABLET ONE TIME DAILY NEEDED. NO MORE THAN 1 TABLET IN 24 HOURS , Unknown Atorvastatin Calcium 10 MG Tablet TAKE 1 TABLET EVERY DAY AT BEDTIME , Unknown Lisinopril 20 MG Tablet Oral Objective: * Vitals: Assessment: Plan: * Treatment: Care Plan: * Problems: * Billing Information: * Visit Code: * Procedure Codes: * Electronic signature of Ara Lyle MD on 07/07/2025 at 02:06 PM CDT Sign off status: Pending * Provider: Sudha Lyle MD Date: 0 04/28/2024 Generated for Rajendra juares/Valentina/eTransmitting on: 1 02:06 PM CDT
--- OUTSIDE RECORDS SUMMARY | 2024-05-03 08:00 | XMS_ITS ---
Author Organization [facility] Address [address] [place], [place] [phone] Care Team Providers Care Med Spa Manager Name Role Phone Fadia Lyle Primary Care Provider [phone] Patricio Kyle [phone] REASON FOR VISIT depression Social History Sex Assigned At : Social History Observation Description Sex Assigned At Female Encounters Encounter Location Date Provider Diagnosis [facility] [address] [place], [place] [phone] 05/03/2024 Patricio Kyle Plan Of Treatment Next Appt Details Provider Name:Yenifer Wadsworth, 07/19/2025 11:00:00 AM, [address], [place], [place], [id number], Provider Name:Robbie Dickey, 09/07/2025 01:00:00 PM, [address], [place], [place], [phone], Progress Notes * Bob HOLLIS JrDOB:[birth year] (64 yo M)Acc No.[id number]:05/03/2024 Health & Behavioral Intake Patient: Kameron WINCHESTERBob Jr Provider: Lorenza Kyle LCSW :1960 A ge:63 Y S ex:Male Date:05/03/2024 Address:[address] [place] [address], [address] [place], [place] [id number] Pcp:Fadia Lyle Subjective: * Chief Complaints: * 1 . Depression. * Medical History: Objective: * Vitals: Assessment: Plan: * Treatment: * Billing Information: * Visit Code: * Procedure Codes: Care Plan Details* * Electronic signature of Alexander Kyle LCSW on 07/07/2025 at 02:05 PM CDT Sign off status: Pending * Provider: Lorenza Kyle LCSW Date: 0 05/03/2024 Generated for Rajendra juares/Valentina/Rosemarie on: 02:05 PM CDT
--- OUTSIDE RECORDS SUMMARY | 2024-12-08 04:00 | XMS_ITS ---
Author Organization [facility] Address [address] [place], [place] [phone] Care Team Providers Care Bi Tri Operator Name Role Phone Fadia Lyle Primary Care Provider Social History Sex Assigned At : Social History Observation Description Sex Assigned At Female Encounters Encounter Location Date Provider Diagnosis [facility] [address] [place], [place] [id number] 12/08/2024 Fadia Lyle Plan Of Treatment Next Appt Details Provider Name:Yenifer Wadsworth, 07/19/2025 11:00:00 AM, [address], [place], [place], [phone], Provider Name:Robbie Dickey, 09/07/2025 01:00:00 PM, [address], [place], [place], [id number], Progress Notes * Bob HOLLIS JrDOB:[birth year] (64 yo M)Acc No.[id number]:12/08/2024 Patient: Kameron WINCHESTERBob Jr Provider: Sudha Lyle MD :1960 A ge:64 Y S ex:Male Date:12/08/2024 Address:[address] [place] [address], [address], [place], [id number] Subjective: * Chief Complaints: * * Medical History: Objective: * Vitals: Assessment: Plan: * Treatment: Care Plan: * Problems: * Billing Information: * Visit Code: * Procedure Codes: * Electronic signature of Ara Lyle MD on 07/07/2025 at 02:05 PM CDT Sign off status: Pending * Provider: Sudha Lyle MD Date: 0 12/08/2024 Generated for Rajendra juares/Valentina/Rosemarie on: 02:05 PM CDT
--- OUTSIDE RECORDS SUMMARY | 2024-12-14 06:30 | XMS_ITS ---
Author Organization [facility] Address [address] [place], [place] [phone] Care Team Providers Care Postdoctoral Research Associate Name Role Phone Fadia Lyle Primary Care Provider DIANE PERERA [phone] REASON FOR VISIT anxiety with stress disorders Social History Sex Assigned At : Social History Observation Description Sex Assigned At Female Encounters Encounter Location Date Provider Diagnosis [facility] [address] [place], [place] [phone] 12/14/2024 DIANE PERERA Plan Of Treatment Next Appt Details Provider Name:Yenifer Wadsworth, 07/19/2025 11:00:00 AM, [address], [place], [place], [phone], Provider Name:Robbie Dickey, 09/07/2025 01:00:00 PM, [address], [place], [place], [phone], Progress Notes * Bob HOLLIS JrDOB:[birth year] (64 yo M)Acc No.[id number]:12/14/2024 Health & Behavioral Intake Patient: Bob XAVIER Jr Provider: Lee PERERA LPC :1960 A ge:64 Y S ex:Male Date:12/14/2024 Address:[address] [place] [address], [address], [phone] Pcp:Fadia Lyle Subjective: * Chief Complaints: * 1 . Anxiety with stress disorders. * Medical History: Objective: * Vitals: Assessment: Plan: * Treatment: * Billing Information: * Visit Code: * Procedure Codes: Care Plan Details* * Electronic signature of SARITA PERERA LPC on 07/07/2025 at 02:04 PM CDT Sign off status: Pending * Provider: Lee PERERA LPC Date: 0 12/14/2024 Generated for Rajendra juares/Valentina/Rosemarie on: 02:04 PM CDT
--- OUTSIDE RECORDS SUMMARY | 2025-02-08 09:00 | XMS_ITS ---
Author Organization [facility] Address [address] [place], [place] [phone] Care Team Providers Care Trimmer Press Clippings Name Role Phone Fadia Lyle Primary Care Provider REASON FOR VISIT routine check up Social History Sex Assigned At : Social History Observation Description Sex Assigned At Female Encounters Encounter Location Date Provider Diagnosis [facility] [address] [place], [place] [phone] 02/08/2025 Fadia Lyle Plan Of Treatment Next Appt Details Provider Name:Yenifer Wadsworth, 07/19/2025 11:00:00 AM, [address], [place], [place], [phone], Provider Name:Robbie Dickey, 09/07/2025 01:00:00 PM, [address], [place], [place], [phone], Progress Notes * Bob HOLLIS JrDOB:[birth year] (64 yo M)Acc No.[id number]:02/08/2025 Progress Notes Patient: Kameron WINCHESTER Bob Nails Provider: Sudha Lyle MD :1960 A ge:64 Y S ex:Male Date:02/08/2025 Address:[address] [place] [address], [address], [place], [phone] Subjective: * Chief Complaints: * 1 . Routine check up. * Medical History: * Ocular Surgical History: Objective: * Vitals: Vision: Spectacle Rx: Contact Lens: Eye Examination: Special Tests: Assessment: Plan: * Treatment: Care Plan: * Problems: * Billing Information: * Visit Code: * Procedure Codes: * Electronic signature of Ara Lyle MD on 07/07/2025 at 02:05 PM CDT Sign off status: Pending * Provider: Sudha Lyle MD Date: 0 02/08/2025 Generated for Rajendra juares/Valentina/Rosemarie on: 1 02:05 PM CDT
--- OUTSIDE RECORDS SUMMARY | 2025-04-20 19:00 | XMS_ITS | Continuity of Care Document ---
Author Organization [facility] Address [address] [place] [phone] Phone Care Team Providers Care Queen Producer Name Role Phone Horacio FERRERA, FACC, [place] Unavailable Unavail able Procedures Procedure Date ELECTROCARDIOGRAM REPORT Advance Directives Directive Yes / No Effective Date File Name No Information Encounters Encounter Description Practice Location Reason(s) For Visit Diagnoses Date Provider Providers Copied on Encounter [facility], [address] [place] [address], [id number], tel:[phone] [facility] Inpt No Information Horacio Bojorquez. [address] [place] [address], [id number], . tel:[phone] Referring Provider: [place] Justice, [address] [place] [address], [id number]. tel:[phone] Family History Family Member Type Diagnosis Age At Onset No Information Payers Payer name Insurance type Covered republican ID Authoriza tidiana(s) [employer]AGE 16 [id number] Social History Type Description Quantity Date Captured Comments Sex Male Smoking Status No Information Chief Complaint And Reason For Visit No Information Reason For Referral Reason For Referral No Information History Of Present Illness Encounter Date Complaint History Of Prese nt Illness No Information Functional Status Date Functional Assessmen t No Information Instructions Date Instruction Additional Infor mation No Information Assessments Type Assessment Date No Information Patient Care Teams Name Effective Dates (start - stop) Status Members No Information
--- OUTSIDE RECORDS SUMMARY | 2025-07-07 14:05 | XMS_ITS | Clinical Summary ---
Author Organization [facility] Address [address] [facility] [place] [address] Care Team Providers Care Data Processor Name Role Phone Rory Moore MD Unavailable Fadia Lyle MD Primary Care Provid er Ayaan Zavala MD Unavailable [phone] Source Comments [facility],non-owned Affiliates and Associated Physician Practices is amultiple site organization consisting of ambulatory clinics and hospital sitesin [place], [place], [place] and [place]. This disclosure is being madepursuant to the Care Everywhere program and may not contain all information available regarding this patient. Last updated 18.[facility] Allergies No known active allergies Medications * [...] the Blood 15 tablet 1 025 Active cyanocobalamin 1000 [...] needed for Constipation Reasons: Constipation 30 capsule 1 025 Active tamsulosin (Flomax) 0.4 MG capsuleIndicat [...] 15 tablet 1 025 Active FLUoxetine (PROzac) 40 MG capsuleIndicat ions:Major Depressive Disorder Take 1 (one) capsule by mouth once daily Reasons: Major Depressive Disorder 15 capsule 1 07/03/20 25 11:49 AM CDT 025 Active hydroCHLOROthi azide (Hydrodiuril) 25 MG tabletIndicati ons:Hypertensi on Take 1 (one) tablet by mouth once daily Reasons: High Blood Pressure 15 tablet 1 07/03/20 25 11:49 AM CDT 10/27/2 025 Active hydrOXYzine HCl (Atarax) 25 MG tabletIndicati ons:Anxiety Take 1 (one) tablet by mouth every 6 hours as needed Reasons: Feeling Anxious 30 tablet 1 07/03/20 11:49 AM T Active losartan (Cozaar) 25 MG tabletIndicati ons:Hypertensi on Take 3 (three) tablets by mouth once daily Reasons: High Blood Pressure 45 tablet 07/03/20 11:49 AM T 2024 Active traZODone (Desyrel) 100 MG tabletIndicati ons:Insomnia Take 2 (two) tablets by mouth at bedtime Reasons: Trouble Sleeping 30 tablet 1 07/03/20 11:49 AM T Active ARIPiprazole (Abilify) 5 MG tabletIndicati ons:Major Depressive Disorder Take 1 (one) tablet by mouth once daily Reasons: Major Depressive Disorder 15 tablet 1 07/03/20 11:49 AM T Active diclofenac sodium (Voltaren) 1 % gelIndications :Osteoarthriti s Apply 2 (two) g to affected area 4 times daily as needed (for pain) Reasons: Joint Damage causing Pain and Loss of Function 100 g Active melatonin 3 MG tabletIndicati ons:Insomnia Take 1 (one) tablet by mouth at bedtime Reasons: Trouble Sleeping 15 tablet 1 Active losartan (Cozaar) 50 MG tabletIndicati ons:Hypertensi on Take 1 (one) tablet by mouth once daily Reasons: High Blood Pressure 15 tablet 1 2024 Discontinued(L ist Clean-Up) hydroCHLOROthi azide (Hydrodiuril) 25 MG tabletIndicati ons:Hypertensi on Take 1 (one) tablet by mouth once daily Reasons: High Blood Pressure 15 tablet 1 2024 Discontinued FLUoxetine (PROzac) 20 MG capsuleIndicat ions:Major Depressive Disorder Take 1 (one) capsule by mouth once daily Reasons: Major Depressive Disorder 15 capsule 1 2024 Discontinued(L ist Clean-Up) hydrOXYzine HCl (Atarax) 10 MG tabletIndicati ons:Anxiety Take 1 (one) tablet by mouth 3 times daily Reasons: Feeling Anxious 45 tablet 1 025 2024 Discontinued(L ist Clean-Up) hydrOXYzine HCl (Atarax) 25 MG tabletIndicati ons:Anxiety Take 1 (one) tablet by mouth every 6 hours as needed Reasons: Feeling Anxious 30 tablet 1 025 2024 Discontinued traZODone (Desyrel) 150 MG tabletIndicati ons:Insomnia Take 1 (one) tablet by mouth at bedtime Reasons: Trouble Sleeping 15 tablet 1 025 2024 Discontinued(L ist Clean-Up) Active Problems Problem Noted Date Diagnosed Date MDD (major depressive disord er), recurrent, severe, with psychosis 06/24/2025 Severe recurrent major depre ssion without psychotic [...] organization. Date Type Department Care Team Description 07/04/2025 7:08 PM CDT - 07/05/2025 9:38 [place] [address] Demetrio Torres DO Vallot, Patrice L, MD Ahlering, Christopher P, MD Malingering (Primary Dx) Discharge Disposition: Home or Self Care 07/04/2025 Travel 06/22/2025 Travel 04/19/2025 11:08 AM CDT - 04/19/2025 11:50 AM CDT Emergency ER at [address] [address] Jazlyn Mata, Suicidal ideation Discharge Disposition: Home or Self Care 04/19/2025 Travel 04/18/2025 2:22 PM CDT - 04/19/2025 10:32 AM CDT Emergency ER at [address] [address] Anish Cooley MD Majino, MD Michael Almanza David, MD Severe recurrent major depression without psychotic features (HCC) (Primary Dx); Suicidal ideation; Antisocial personality disorder (HCC) Discharge Disposition: Home or Self Care 04/18/2025 Travel 04/17/2025 1:27 PM CDT - 04/18/2025 9:57 AM CDT Emergency ER at [address] [address] Ramandeep Martines DO Ahlering, Christopher P, MD Bohm, Carl P, Severe episode of recurrent major depressive disorder, without psychotic features (HCC) Discharge Disposition: Home or Self Care 04/10/2025 Telephone [facility] [address] [place] [address] [address] [place] [phone] 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 (FLUAD QUADRIVALENT; 65Y+) (AIIV4) 06/26/2025 INFLUENZA VACCINE, CELL CULT URE, QUADR. (FLUCELVAX [...] never smoked Alcohol Use Standard Drinks/Week Comments Yes 0 (1 standard drink = 0.6 oz pur e alcohol) never was much on alcohol PHQ-2 Answer Date Recorded Patient Health Questionnaire-2 Score 3 04/18/2025 PRAPARE - Transportation Answer Date Re corded [...] place to sleep or slept in a fci (including now)? No 12/23/2023 Housing Stability Vital Sign Answer Chuck e Recorded In the last 12 months, was t here a time when you were not able to pay the mortgage or rent on time? No 04/02/2025 In the past 12 months, how m any times have you moved where you were living? 0 04/02/2025 At any time in the past 12 m [facility], were you homeless or living in a fci (including now)? No 04/02/2025 AUDIT-C Answer Date Recorded Q1: How often do you have a drink containing alc ohol? Monthly or less 06/22/2025 Q2: How many drinks containi ng alcohol do you have on a typical day when you are drinking? 1 or 2 06/22/2025 Q3: How often do you have si x or more drinks on one occasion? Never 06/22/2025 Overall Financial Resource Strain (CARDIA) Answe r Date Recorded How hard is it for you to pa y for the very basics like food, housing, medical care, and heating? Somewhat hard 06/24/2025 [facility] Occup[facility] - Occupational Stress Questionnaire Answer Date Recorded Do you feel stress - tense, restless, nervous, or anxious, or unable to sleep at night because your mind is troubled all the time - these days? Not at all 06/24/2025 Hunger Vital Sign Answer Date Recorded Within the past 12 months, y ou worried that your food would run out before you got the money to buy more. Never true 06/24/20 25 Within the past 12 months, t he food you bought just didn't last and you didn't have money to get more. Never true 06/24/2025 PRAPARE - Transportation Answer Date Re corded In the past 12 months, has l ack of transportation kept you from medical appointments or from getting medications? Yes 06/07 In the past 12 months, has l ack of transportation kept you from meetings, work, or from getting things needed for daily living? Yes 06/24/2025 Housing Stability Vital Sign Answer Chuck e Recorded In the last 12 months, was t here a time when you were not able to pay the mortgage or rent on time? No 06/24/2025 In the past 12 months, how m any times have you moved where you were living? 0 06/24/2025 At any time in the past 12 m [facility], were you homeless or living in a fci (including now)? 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 Not on file Not on file Last Filed Vital Signs Vital Sign Reading Time Taken Comments Blood Pressure 117/76 07/05/2025 4:00 AM CDT Pulse 76 07/05/2025 4:00 AM CDT Temperature 36.6 C (97.8 F) 07/05/2025 4:00 AM CDT Respiratory Rate 18 07/05/2025 4:00 AM CDT Oxygen Saturation 100% 07/05/2025 4:00 AM CDT Inhaled Oxygen Concentration - - Weight 93.4 kg (206 lb) 07/04/2025 7:01 PM CDT Height 177.8 cm (5' 10) 07/04/2025 7:01 PM CDT Body Mass Index 29.56 07/04/2025 7:01 PM CDT Plan of Treatment Health Maintenance [...] FIT - COLON CA SCREENING 04/03/2023 04/03/2022 DIABETES RETINOPATHY SCREENING 06/24/2024 DIABETES-FOOT EXAM WITH MONOFILAMENT 06/24/2024 DIABETES - URINE PROTEIN SCREENING 09/07/2024 MEDICARE AWV CALENDAR YEAR 2024 COVID-19 VACCINE ( season) 2025 07/17/2023, 12/05/2022, 10/28/2022, Additional history exists DIABETES-HGB A1C 10/05/2025 04/04/2025, , 12/09/2023, Additional history exists DIABETES-SERUM CREATININE 07/05/20262024, 04/01/2025, 03/03/2025, Additional history exists Respiratory Syncytial Virus (RSV) Vaccine Pt: or over 60 yrs (1 - 1-dose 75+ series) 2034 HEPATITIS C SCREENING Completed 11/05/2018 HIV SCREENING Completed 08/19/2020 DEPRESSION SCREENING Completed 04/02/2025, 01/12/2024, 06/04/2022, Additional history exists INFLUENZA VACCINE Completed 06/26/2025, , 07/17/2023, Additional history exists HEPATITIS B VACCINE Aged [...] Procedure Name Priority Date/Time Associated Diagnosis Comments COMPREHENSIVE METABOLIC PANEL STAT 07/05/2025 1:37 AM CDT CBC W AUTO DIFFERENTIAL STAT 07/05/2025 1:37 AM CDT GLUCOSE - POINT OF CARE Routine 07/03/2025 12:04 PM CDT GLUCOSE - POINT OF CARE Routine 07/03/2025 7:28 AM CDT GLUCOSE - POINT OF CARE Routine 07/02/2025 8:06 PM CDT GLUCOSE - POINT OF CARE Routine 07/02/2025 4:53 PM CDT GLUCOSE - POINT OF CARE Routine 07/02/2025 12:10 PM CDT GLUCOSE - POINT OF CARE Routine 07/02/2025 8:08 AM CDT GLUCOSE - POINT OF CARE Routine 07/02/2025 7:48 AM CDT GLUCOSE - POINT OF CARE Routine 07/01/2025 8:15 PM CDT GLUCOSE - POINT OF CARE Routine 07/01/2025 5:16 PM CDT GLUCOSE - POINT OF CARE Routine 07/01/2025 4:45 PM CDT GLUCOSE - POINT OF CARE Routine 07/01/2025 11:51 AM CDT GLUCOSE - POINT OF CARE Routine 07/01/2025 11:43 AM CDT GLUCOSE - POINT OF CARE Routine 07/01/2025 9:00 AM CDT GLUCOSE - POINT OF CARE Routine 06/30/2025 8:09 PM CDT GLUCOSE - POINT OF CARE Routine 06/30/2025 4:33 PM CDT GLUCOSE - POINT OF CARE Routine 06/30/2025 12:01 PM CDT GLUCOSE - POINT OF CARE Routine 06/30/2025 7:31 AM CDT GLUCOSE - POINT OF CARE Routine 06/29/2025 8:08 PM CDT GLUCOSE - POINT OF CARE Routine 06/29/2025 5:05 PM CDT GLUCOSE - POINT OF CARE Routine 06/29/2025 12:05 PM CDT GLUCOSE - POINT OF CARE Routine 06/29/2025 7:30 AM CDT GLUCOSE - POINT OF CARE Routine 06/28/2025 7:42 PM CDT GLUCOSE - POINT OF CARE Routine 06/28/2025 4:58 PM CDT GLUCOSE - POINT OF CARE Routine 06/28/2025 11:56 AM CDT GLUCOSE - POINT OF CARE Routine 06/28/2025 7:34 AM CDT GLUCOSE - POINT OF CARE Routine 06/27/2025 8:36 PM CDT GLUCOSE - POINT OF CARE Routine 06/27/2025 4:46 PM CDT GLUCOSE - POINT OF CARE Routine 06/27/2025 11:53 AM CDT GLUCOSE - POINT OF CARE Routine 06/27/2025 11:02 AM CDT GLUCOSE - POINT OF CARE Routine 06/27/2025 8:06 AM CDT GLUCOSE - POINT OF CARE Routine 06/26/2025 7:34 PM CDT GLUCOSE - POINT OF CARE Routine 06/26/2025 5:08 PM CDT GLUCOSE - POINT OF CARE Routine 06/26/2025 11:38 AM CDT GLUCOSE - POINT OF CARE Routine 06/26/2025 7:37 AM CDT GLUCOSE - POINT OF CARE Routine 06/25/2025 7:30 PM CDT GLUCOSE - POINT OF CARE Routine 06/25/2025 5:12 PM CDT GLUCOSE - POINT OF CARE Routine 06/25/2025 11:59 AM CDT GLUCOSE - POINT OF CARE Routine 06/25/2025 7:41 AM CDT GLUCOSE - POINT OF CARE Routine 06/24/2025 8:39 PM CDT GLUCOSE - POINT OF CARE Routine 06/24/2025 5:29 PM CDT GLUCOSE - POINT OF CARE Routine 06/24/2025 8:05 AM CDT GLUCOSE - POINT OF CARE Routine 06/23/2025 8:40 PM CDT GLUCOSE - POINT OF CARE Routine 06/23/2025 6:27 PM CDT GLUCOSE - POINT OF CARE Routine 06/23/2025 1:33 PM CDT GLUCOSE - POINT OF CARE Routine 06/23/2025 10:25 AM CDT GLUCOSE - POINT OF CARE Routine 06/22/2025 7:03 PM CDT GLUCOSE - POINT OF CARE [...] CDT FERRITIN Routine 04/06/2025 5:53 AM CDT HEMOGLOBIN A1C Routine 04/04/2025 7:03 AM CDT OCCULT BLOOD FECES FIT SCREEN 04/03/2022 HIV-1 HIV-2 ANTIBODY + HIV P24 AG PANEL STAT 08/19/2020 4:29 PM [employer] COVID-19 HEPATITIS C ANTIBODY Routine 11/05/2018 1:58 PM [employer] Wellness examination from Last 3 Months or Most Recently Relevant to Health Maintenance Results * (ABNORMAL) CBC W AUTO DIFFERENTIAL (07/05/2025 1:37 AM CDT) WBC 7.5 4.0 - 10.7 x10E9/L 07/05/2025 2:42 AM CDT [facility] RBC Count 3.72(L) 4.30 - 5.80 x10E12/L 07/05/2025 2:42 AM CDT [facility] Hemoglobin 10.0(L) 13.3 - 17.5 g/dL 07/05/2025 2:42 AM CDT [facility] Hematocrit 31.0(L) 38.7 - 51.1 % 07/05/2025 2:42 AM CDT [facility] MCV 83.3 80.0 - 98.0 fL 07/05/2025 2:42 AM CDT [facility] MCH 26.9 26.7 - 33.6 pg 07/05/2025 2:42 AM CDT [facility] MCHC 32.3 31.7 - 36.3 g/dL 07/05/2025 2:42 AM CDT [facility] RDW-CV 15.9(H) 11.3 - 14.8 % 07/05/2025 2:42 AM CDT [facility] Platelet Count 286 150 - 420 x10E9/L 07/05/2025 2:42 AM CDT [facility] MPV 9.7 7.8 - 11.4 fL 07/05/2025 2:42 AM CDT [facility] Neutrophil % 67.1 41.0 - 74.0 % 07/05/2025 2:42 AM CDT [facility] Lymphocyte % 21.0 17.0 - 47.0 % 07/05/2025 2:42 AM CDT [facility] Monocyte % 9.9 3.0 - 11.0 % 07/05/2025 2:42 AM CDT [facility] Eosinophil % 1.2 0.0 - 7.0 % 07/05/2025 2:42 AM CDT [facility] Basophil % 0.5 0.0 - 1.6 % 07/05/2025 2:42 AM CDT [facility] Immature Granulocytes % 0.3 0.0 - 1.0 % 07/05/2025 2:42 AM CDT [facility] Neutrophil Absolute 5.00 1.60 - 7.50 x10E9/L 07/05/2025 2:42 AM CDT [facility] Lymphocyte Absolute 1.57 1.00 - 4.40 x10E9/L 07/05/2025 2:42 AM CDT [facility] Monocyte Absolute 0.74 0.15 - 1.00 x10E9/L 07/05/2025 2:42 AM CDT [facility] Eosinophil Absolute 0.09 0.00 - 0.60 x10E9/L 07/05/2025 2:42 AM CDT [facility] Basophil Absolute 0.04 0.00 - 0.13 x10E9/L 07/05/2025 2:42 AM CDT [facility] Blood BLOOD SPECIMEN / Unknown Venipuncture / Unknown 07/05/2025 1:37 AM CDT 07/05/2025 2:35 AM CDT Demetrio Torres DO LAB - HEMATOLOGY ORDERA BLES Final Result [facility] [address] [place] [address] * (ABNORMAL) COMPREHENSIVE METABOLIC PANEL (07/05/2025 1:37 AM CDT) [facility] Glucose 141(H) 70 - 99 mg/dL 07/05/2025 2:52 AM CDT [facility] Sodium 141 136 - 145 mmol/L 07/05/2025 2:52 AM CDT [facility] Potassium 3.8 3.5 - 5.1 mmol/L 07/05/2025 2:52 AM [facility] Chloride 105 98 - 107 mmol/L 07/05/2025 2:52 AM [facility] CO2 28 22 - 29 mmol/L 07/05/2025 2:52 AM [facility] Calcium 8.9 8.4 - 10.4 mg/dL 07/05/2025 2:52 AM [facility] Anion Gap 8 6 - 16 mmol/L 07/05/2025 2:52 AM [facility] BUN 17 7 - 26 mg/dL 07/05/2025 2:52 AM [facility] Creatinine 0.90 0.70 - 1.30 mg/dL 07/05/2025 2:52 AM [facility] Alkaline Phosphatase 80 40 - 150 U/L 07/05/2025 2:52 AM [facility] ALT 12 6 - 57 U/L 07/05/2025 2:52 AM [facility] AST 24 10 - 48 U/L 07/05/2025 2:52 AM [facility] Protein Total 6.7 6.4 - 8.3 gm/dL 07/05/2025 2:52 AM [facility] Albumin 3.5 3.1 - 4.5 gm/dL 07/05/2025 2:52 AM [facility] Bilirubin Total 0.2 0.2 - 1.2 mg/dL 07/05/2025 2:52 AM [facility] eGFR by CKD-EPI >90 >=90 mL/min/1.7 3 m2 07/05/2025 2:52 AM [facility] Comment:Estimated Glomerular Filtration Rate (eGFR) calculated using the CKD-EPI Creatinine Equation (2020), per the National Kidney Foundation and [place] [employer] of Nephrology recommendations. Blood BLOOD SPECIMEN / Unknown Venipuncture / Unknown 07/05/2025 1:37 AM CDT 07/05/2025 2:36 AM T Demetrio Torres DO LAB - CHEMISTRY ORDERAB LES Final Result [facility] [address] [place] [id number] * (ABNORMAL) GLUCOSE - POINT OF CARE (07/03/2025 12:04 PM CDT) Only the most recent of55 resultswithin the time period is included. Pathologist [facility] Glucose WB/POC 161(H) 70 - 99 mg/dL 07/03/2025 12:13 PM CDT [facility] Specimen Type Arterial/C apillary 07/03/2025 12:13 PM CDT [facility] Blood BLOOD SPECIMEN / Unknown 07/03/2025 12:04 PM CDT 07/03/2025 12:13 PM CDT Bob Holguin MD LAB - POINT OF CARE ORDERABL ES Final Result Performing Organization Address [facility]/ZIP Co de Phone Number [facility] [address] [place] [address] * TSH REFLEX FREE T4 (04/06/2025 5:53 AM CDT) [facility] TSH 2.033 0.350 - 4.940 uIU/mL 04/06/2025 7:53 AM CDT [facility] Blood BLOOD SPECIMEN / Unknown Lab Venipuncture / Unknown 04/06/2025 5:53 AM CDT 04/06/2025 6:45 AM CDT us Kitty Friedman MD LAB - CHEMISTRY ORDERABLES Final Result [facility] [address] [place] [phone] * FOLATE (04/06/2025 5:53 AM CDT) Pathologist [facility] Folate 11.5 7.0 - 31.4 ng/mL 04/06/2025 7:53 AM CDT [facility] Blood BLOOD SPECIMEN / Unknown Lab Venipuncture / Unknown 04/06/2025 5:53 AM CDT 04/06/2025 6:45 AM CDT Kitty Friedman MD LAB - CHEMISTRY ORDERABLES Final Result [facility] [address] [place] [address] * VITAMIN B12 (04/06/2025 5:53 AM CDT) Vitamin B12 288 213 - 816 pg/mL 04/06/2025 7:53 AM CDT [facility] Blood BLOOD SPECIMEN / Unknown Lab Venipuncture / Unknown 04/06/2025 5:53 AM CDT 04/06/2025 6:45 AM CDT Kitty Friedman MD LAB - CHEMISTRY ORDERABLES Final Result Performing Organization Address [facility] Co de Phone Number [facility] [address] [place] [phone] * (ABNORMAL) IRON + TRANSFERRIN PANEL (04/06/2025 5:53 AM CDT) Iron 44(L) 50 - 175 ug/dL 04/06/2025 7:26 AM CDT [facility] Transferrin 242 174 - 382 mg/dL 04/06/2025 7:26 AM CDT [facility] TIBC Calculated 303 240 - 450 ug/dL 04/06/2025 7:26 AM CDT [facility] Iron Saturation % 15(L) 20 - 50 % 04/06/2025 7:26 AM CDT [facility] Blood BLOOD SPECIMEN / Unknown Lab Venipuncture / Unknown 04/06/2025 5:53 AM CDT 04/06/2025 6:45 AM CDT Kitty Friedman MD LAB - CHEMISTRY ORDERABLES Final Result Performing Organization Address City/[facility]/ZIP Co de Phone Number [facility] [address] [place] [phone] * FERRITIN (04/06/2025 5:53 AM CDT) Ferritin 31 22 - 275 ng/mL 04/06/2025 7:53 AM CDT [facility] Blood BLOOD SPECIMEN / Unknown Lab Venipuncture / Unknown 04/06/2025 5:53 AM CDT 04/06/2025 6:45 AM CDT Kitty Friedman MD LAB - CHEMISTRY ORDERABLES Final Result Performing Organization Address [facility] de Phone Number [facility] [address] [place] [address] * LIPID PROFILE (04/06/2025 5:53 AM CDT) Cholesterol 159 <200 mg/dL 04/06/2025 7:26 AM CDT [facility] Triglycerides 71 <150 mg/dL 04/06/2025 7:26 AM T [facility] HDL Cholesterol 53 >40 mg/dL 7:26 AM [facility] LDL Calculated 92 <130 mg/dL 04/06/2025 7:26 AM T [facility] Comment:LDL is calculated us ing the Friedewald equation. VLDL Calculated 14 <=30 mg/dL 7:26 AM [facility] Chol HDL Ratio 3.0 <4.5 04/06/2025 7:26 AM [facility] LDL/HDL Ratio 1.7 <5.0 04/06/2025 7:26 AM [facility] Blood BLOOD SPECIMEN / Unknown Lab Venipuncture / Unknown 04/06/2025 5:53 AM CDT 04/06/2025 6:45 AM CDT Kitty Friedman MD LAB - CHEMISTRY ORDERABLES Final Result Performing Organization Address City/[facility] Co de Phone Number [facility] [address] [place] [address] * (ABNORMAL) HEMOGLOBIN A1C (04/04/2025 7:03 AM CDT) Hemoglobin A1c 6.7(H) <5.7 % 04/04/2025 7:30 AM T [facility] Estimated Average Glucose 146 mg/dL 04/04/2025 7:30 AM T [facility] Blood BLOOD SPECIMEN / Unknown Lab Venipuncture / Unknown 04/04/2025 7:03 AM CDT 04/04/2025 7:13 AM CDT Narrative [facility] - 04/04/2025 7:30 AM [...] Glycohemoglobin Standardization Program (NGSP) certified method. us Bernadette Rasheed MD LAB - CHEMISTRY ORDERABLES Brenda l Result Performing Organization Address City/State/[facility] Co de Phone Number [facility] [address] [place] [phone] * OCCULT BLOOD FECES FIT SCREEN (04/03/2022) 04/03/2022 Narrative 04/03/2022 Ordered by an unspecified provider. us Scanned Document LAB - BODY FLUID ORDERABLES Fin al Result * HIV-1 HIV-2 ANTIBODY + HIV P24 AG PANEL (08/19/2020 4:29 PM [facility] [facility]TER) [facility] HIV1/2 Ab + P24 Ag Non Reactive Non Reactive 08/19/2020 5:32 PM [employer] [facility] Blood BLOOD SPECIMEN / Unknown Venipuncture / Unknown 08/19/2020 4:29 PM [employer]TER 08/19/2020 4:38 PM [employer]TER Narrative [facility] - 08/19/2020 5:32 PM [employer]TER No Laboratory evidence of HIV infection. Samm Gregg MD LAB - CHEMISTRY ORDERABLES Final Result [facility] [address] [place] [address] * HEPATITIS C ANTIBODY (11/05/2018 1:58 PM [employer]TER) Hepatitis C Antibody Non Reactive Non Reactive [facility]ANCE BILL Comment: Non Reactive - Antibodies to Hepatitis C virus (HCV) were no t detected, result does not exclude early acute HCV infection. Blood BLOOD SPECIMEN / Unknown 11/05/2018 1:58 PM [employer]TER 11/05/2018 Narrative Resulting Agency Comment [facility] [address] [facility] [phone] us Gerri Newsome MD LAB - CHEMISTRY ORDERABLES F inal Result [facility] INSURANCE BILL [address] [place] [phone] from Last 3 Months or Most Recently Relevant to Health Maintenance Insurance MEDICARE ADVANTAGE [employer] MEDICARE ADVANTAGE Advance Directives * Full Code (Latest Code Status on File) Date Activated Date Inactivated Comments 06/24/2025 1:13 PM 07/03/2025 5:42 PM * Full Code Date Activated Date Inactivated Comments 04/02/2025 1:57 PM 04/08/2025 3:25 PM * Full Code Date Activated Date Inactivated Comments 02/23/2025 4:20 PM 03/02/2025 2:32 PM * Full Code Date Activated Date Inactivated Comments 06/24/2024 9:08 AM 12/11/2024 4:46 AM * Full Code Date Activated Date Inactivated Comments 06/23/2024 4:40 PM 07/04/2024 11:53 AM Care Teams Data Processor Relationship Specialty Start Date End Date Fadia Lyle MD [address] [place] [phone] PCP - General Family Medicine 01/12/24 [place] [address] [place] [address] [place] [phone] 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
--- OUTSIDE RECORDS SUMMARY | 2025-07-07 14:05 | XMS_ITS | Patient Health Record ---
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
--- OUTSIDE RECORDS SUMMARY | 2025-07-07 14:06 | XMS_ITS | Encounter Summary ---
Author Organization [facility] Healthcare Address [address] [place] [address] Care Team Providers Care Consulting Solution Director Name Role Phone Fadia Lyle MD Primary Care Provid er No, Physician Primary Care Provider [phone] Encounter Details Date Type Department Care Team (Latest Contact Info) Description 11/27/2023 Documentation Psychiatry Jhonny Lopez Social History Tobacco Use Types Packs/Day Years Used Date Smoking Tobacco: Former Smokeless Tobacco: Never Alcohol Use Standard Drinks/Week Comments No 0 (1 standard drink = 0.6 oz pur e alcohol) [facility] Utilities Answer Date Recorded In the past 12 months has [employer], gas, oil, or water company threatened [...] often do you attend chur ch or yazidi services? 1 to 4 times per year 11/23/2023 Do you belong to any clubs o r organizations such as mu-ism groups, unions, fraternal or athletic groups, or [...] Date Recorded PHQ-2 Total Score 3 10/24/2021 [facility] - Occupational Stress Questionnaire Answer Date Recorded [...] a senior living (including now)? Yes 11/23/2023 Housing Stability Vital [...] on file Legal Sex Male 9:36 AM [employer] Gender Identity Not on file Sexual Orientation [...] on filedocumented in this encounter Care Teams Consulting Solution Director Relationship Specialty Start Date End Date Fadia Lyle MD PCP - General Family Medicine 02/25/23 03/02/25 No, Physician PCP - General 03/03/25 documented as of this encounter
--- OUTSIDE RECORDS SUMMARY | 2025-07-07 14:06 | XMS_ITS | Clinical Summary ---
Author Organization [facility] Address [address] [place] [address] Phone Care Team Providers Care Cruise Director Name Role Phone Unavailable Primary Care Provider Unavailabl e Social History Tobacco Use Types Packs/Day Years Used Date Smoking Tobacco: Never Assessed Sex and Gender Information Value Date Recorded Sex Assigned at Not on file Legal Sex Male 1:47 PM CDT Gender Identity Not on file Sexual Orientation Not on file Plan of Treatment Not on file Insurance [address] [place] [address] MEDICARE C [employer]
--- OUTSIDE RECORDS SUMMARY | 2025-07-07 14:06 | XMS_ITS | Clinical Summary ---
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 - SW resources for substance use cessation Assessment & Plan (11/25/2023 9:46 AM CDT): UDS +cocaine on admission. 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 Plan: - continue sertraline 50 mg daily [...] Most recent iron profile revealed Iron 25, [id number], TIBC 311, and iron saturation of 8%and [...] daily Assessment & Plan (10/28/2021 9:38 AM BATTERY ASSEMBLER DRY CELL): BP 168/114 on admission. Given lisinopril 20 mg in ED (on home meds list). Gave an additional 10 mg hydralazine for spot control of high DBP. Loose amlodipine tablets found in patients belongings (appear to be 10 mg). - c/w amlodipine 10 mg daily Assessment & Plan (10/24/2021 2:08 PM BATTERY ASSEMBLER DRY CELL): BP 168/114 on admission. Given lisinopril 20 mg in ED (on home meds list). Gave an additional 10 mg hydralazine for spot control of high DBP. Loose amlodipine tablets found in patients belongings (appear to be 10 mg). - start amlodipine 10 mg daily Malingering 10/09/2020 Assessment & Plan (10/09/2020 7:59 AM BATTERY ASSEMBLER DRY CELL): 59 y.o. single, Black or , disabled, [...] which he has had 3 in the [facility] system since mid August. There is [...] future planning, social support (family and children), sikhism/spirituality and abstinence from alcohol, cocaine and narcotics [...] 2. Swer to help with dispo 3. [facility] recs apprec Assessment & Plan (12/01/2022 1:27 [...] apprec Assessment & Plan (10/31/2021 8:02 AM BATTERY ASSEMBLER DRY CELL): Pt was accepting of discharge and seems [...] psychiatry Assessment & Plan (10/24/2021 2:09 PM BATTERY ASSEMBLER DRY CELL): Mr. Bob Hollis is a 61-year-old man [...] Encounters Date Type Department Care Team Description 07/04/2025 6:37 PM CDT - 07/04/2025 11:59 PM CDT Hospital Encounter [facility] [address] [place] [address] Discharge Disposition: Discharge to home or self care 07/04/2025 12:40 PM CDT - 07/04/2025 2:00 PM CDT Emergency [facility] Emergency Department [address] [place] [address] Verbalizes suicidal thoughts (Primary Dx); Type 2 diabetes mellitus without complication, without long-term current use of insulin (HCC); Hypertension, unspecified type Discharge Disposition: Discharge to home or self care 07/03/2025 4:53 PM CDT - 07/04/2025 2:09 AM CDT Emergency [facility] Emergency Department [address] [place] [phone] Cathryn Starr MD Verbalizes suicidal thoughts (Primary Dx) Discharge Disposition: Discharge to home or self care 04/20/2025 Telephone [facility] Specialty Services [address] [place] [address] Nita Herrera, LEONORA GI Preprocedure from Last 3 Months Immunizations Immunization Administration [...] drink = 0.6 oz pur e alcohol) [facility] Utilities Answer Date Recorded In the past 12 months has e [employer], gas, oil, or water [employer] threatened to shut off services in your [...] How often do you attend chur or anabaptism services? 1 to 4 times [...] staff should administer the PHQ-9) 2 03/04/2025 [facility] - Occupational Stress Questionnaire Answer Date Recorded [...] place to sleep or slept in a correction (including now)? Yes 11/23/2023 PHQ-9 Answer Date [...] any time in the past [address] [facility], were you homeless or living in a correction (including now)? No 03/04/2025 Personal Safety Answer Date Recorded Have you ever been in or are you currently in a harmful physical or emotional relationship or is someone making you feel afraid or unsafe? Denies 07/04/2025 Education Answer Date Recorded What is the highest level of school you have completed or the highest degree you have received? Some college, no degree 11/23/2023 Sex and Gender Information Value Date Recorded Sex Assigned at Not on file Legal Sex Male 9:36 AM BATTERY ASSEMBLER DRY CELL Gender Identity Not on file Sexual Orientation Not on file Obstetrics History Last Filed Vital Signs Vital Sign Reading Time Taken Comments Blood Pressure 151/94 07/04/2025 1:40 PM CDT Pulse 80 07/04/2025 1:40 PM CDT Temperature 36.7 C (98.1 F) 07/04/2025 1:40 PM CDT Respiratory Rate 16 07/04/2025 1:40 PM CDT Oxygen Saturation 100% 07/04/2025 1:40 PM CDT Inhaled Oxygen Concentration - - Weight 117 kg (258 lb) 07/04/2025 12:17 PM CDT Height 182.9 cm (6') 07/04/2025 12:17 PM CDT Body Mass Index 34.99 07/04/2025 12:17 PM CDT Plan of Treatment Scheduled Procedures [...] 1978 Zoster Vaccine (1 of 2) 2009 Abdominal Aortic Aneurysm (A AA) Screen 2024 04/20/2020, 03/28/2018 Well Visit 65+ 2024 Covid-19 Vaccine (3 - 2024-2 6 season) 2025 12/05/2022, 01/17/2021 Influenza Vaccine (#1) 2025 , 07/17/2023, 10/28/2022, Additional history exists Prostate Cancer Screening-PSA 07/14/2025, 11/25/2022, 08/06/2017 Hemoglobin A1C 10/05/2025 04/04/2025, 033 , 06/25/2024, Additional history exists Foot Exam 12/03/2025 12/03/2024 Depression Screening 03/04/2026 03/04/2025, 03/04/2025, 12/08/2024, Additional history exists Fall Risk Assessment 03/06/2026 03/06/2025 Lipid Panel 04/06/2026 04/06/2025, 033 , 06/25/2024, Additional history exists eGFR 07/04/2026 07/04/2025, 06/08, 03/21/2025, Additional history exists Procedures Procedure Name Priority Date/Time Associated Diagnosis Comments DRUGS OF ABUSE SCREEN, URINE WITHOUT CONFIRMATION STAT 07/04/2025 12:35 PM CDT URINALYSIS AND REFLEX TO MICROSCOPIC AND CULTURE STAT 07/04/2025 12:35 PM CDT EGFR STAT 07/04/2025 12:20 PM CDT DIFFERENTIAL AUTO STAT 07/04/2025 12: 20 PM CDT ETHANOL STAT 07/04/2025 12:20 PM CDT THYROID FUNCTION CASCADE STAT 07/04/2025 12:20 PM CDT COMPREHENSIVE METABOLIC PANEL STAT 07/04/2025 12:20 PM CDT CBC WITH AUTO DIFFERENTIAL STAT 07/04/2025 12:20 PM CDT INFLUENZA A/B, RSV, AND COVID-19 PCR STAT 07/04/2025 12:20 PM CDT XR HIP RIGHT 2 OR 3 VIEWS ED 07/03/2025 7:25 PM CDT URINALYSIS AND REFLEX TO MICROSCOPIC STAT 07/03/2025 5:09 PM CDT DRUGS OF ABUSE SCREEN, URINE WITHOUT CONFIRMATION STAT 07/03/2025 5:09 PM CDT EGFR STAT 07/03/2025 5:06 PM CDT DIFFERENTIAL AUTO STAT 07/03/2025 5:0 6 PM CDT ETHANOL STAT 07/03/2025 5:06 PM CDT THYROID FUNCTION CASCADE STAT 07/03/2025 5:06 PM CDT COMPREHENSIVE METABOLIC PANEL STAT 07/03/2025 5:06 PM CDT CBC WITH AUTO DIFFERENTIAL STAT 07/03/2025 5:06 PM CDT HEMOGLOBIN A1C Routine 12/04/2024 6:18 AM CDT LIPID PANEL Routine 12/04/2024 6:18 AM CDT PSA SCREEN Routine 07/14/2023 12:18 PM BATTERY ASSEMBLER DRY CELL Urinary incontinence, unspecified type from Last 3 Months or Most Recently Relevant to Health Maintenance Results * Urinalysis reflex to microscopic and culture Urine (07/04/2025 12:35 PM CDT) Color, ur Straw Yellow Clarity, ur Clear Clear [facility] Specific gravity, ur 1.018 1.003 - 1.030 [facility] pH, urine 8.0 [facility] Comment: Interpretive Data U rine pH is affected by diet, medications, systemic acid-base disturbances, and renal tubular function. pH may affect urinary stone formation. For example, urine pH below 6.0 may help reduce the tendency for calcium phosphate stones and pH greater than 6.0 may reduce the tendency for uric acid stone formation. Source: [facility] Current Interpretive Data was last revised on 2017 Protein, ur ql Trace Negative [facility] Glucose, ur ql Negative Negative [facility] Ketones, ur Negative Negative [facility] Bilirubin, ur Negative Negative [facility] Blood, ur Negative Negative [facility] Urobilinogen, ur <2.0 <2.0 mg/dL [facility] Nitrite, ur Negative Negative [facility] Leukocyte esterase, ur Negative Negative [facility] UA reflex comment Reflex conditions for microscopic UA and culture not met. [facility] Urine 07/04/2025 12:3 5 PM CDT 07/04/2025 12:43 PM CDT Julio César Huber MD LAB MICROBIOLOGY - GENERAL ORD ERABLES Final Result [facility] [address] [facility] [place] [address] * Drugs of Abuse Screen, Urine without Confirmation (07/04/2025 12:35 PM CDT) Amphetamine, ur Not Detected CutOff [...] Barbiturates, ur Not Detected CutOff 200ng/mL [facility] Comment: Interpretive Data - Barbiturates: Samples containing greater than 200 ng/mL secobarbital or other cross-reacting barbiturate compounds are reported as positive. False positive and false negative results are possible. Confirmatory testing required for definitive results. Current Interpretive Data was last reviewed 2023. Benzodiazepines, ur Not Detected CutOff 100ng/mL [facility] Comment: Interpretive Data - Benzodiazepines: Samples containing greater than 100 ng/mL nordiazepam or other cross-reacting compounds are reported as positive. False positive and false negative results are possible. Confirmatory testing required for definitive results. Current Interpretive Data was last reviewed 2023. Cannabinoids, ur Not Detected CutOff 50 ng/mL [facility] Comment: Interpretive Data - Cannabinoids: Samples containing greater than 50 ng/mL delta-9 THC -COOH or other cross- reacting compounds are reported as positive. False positive and false negative results are possible. Confirmatory testing required for definitive results. Current Interpretive Data was last reviewed 2023. Cocaine, ur Not Detected CutOff 150ng/mL [facility] Comment: Interpretive Data - Cocaine: Samples containing greater than 150 ng/mL benzoylecgonine or other cross- reacting compounds are reported as positive. False positive and false negative results are possible. Confirmatory testing required for definitive results. Current Interpretive Data was last reviewed 2023. Fentanyl, Ur Not Detected Cutoff 1 ng/mL [facility] Comment: Interpretive Data - Fentanyl: Samples containing greater than 1 ng/mL fentanyl or other cross-reacting fentanyl compounds are reported as positive. False positive and false negative results are possible. Confirmatory testing required for definitive results. Current Interpretive Data was last reviewed 2023. Methadone, ur Not Detected CutOff 300ng/mL [facility] Comment: Interpretive Data - Methadone: Samples containing greater than 300 ng/mL d,l-methadone or other cross-reacting compounds are reported as positive. False positive and false negative results are possible. Confirmatory testing required for definitive results. Current Interpretive Data was last reviewed 2023. Opiates, ur Not Detected CutOff 300ng/mL [facility] Comment: Interpretive Data - Opiates: Samples containing greater than 300 ng/mL morphine or other cross-reacting compounds are reported as positive. False positive and false negative results are possible. Confirmatory testing required for definitive results. Current Interpretive Data was last reviewed 2023. Oxycodone, ur Not Detected CutOff 100ng/mL [facility] Comment: Interpretive Data - Oxycodone: Samples containing greater than 100 ng/mL oxycodone or other cross-reacting compounds are reported as positive. False positive and false negative results are possible. Confirmatory testing required for definitive results. Current Interpretive Data was last reviewed 2023. Phencyclidine, ur Not Detected CutOff 25 ng/mL [facility] Comment: Interpretive Data - Phencyclidine: Samples containing greater than 25 ng/mL phencyclidine or other cross-reacting compounds are reported as positive. False positive and false negative results are possible. Confirmatory testing required for definitive results. Current Interpretive Data was last reviewed 2023. Urine Creatinine 73 mg/dL [facility] Comment: Interpretive Data Urine Creatinine: < 10 mg/dL is extremely dilute = or > 10 but < 20 mg/dL is dilute = or > 20 mg/dL is normal Current Interpretive Data was last revised on 2017. Urine 07/04/2025 12:3 5 PM CDT 07/04/2025 12:43 PM CDT Narrative [facility] - 07/04/2025 1:06 PM CDT Drug of Abuse screening is performed by immunoassay for medical purposes only. This is not to be used for Pain Management purposes. us Julio César Huber MD LAB URINE ORDERABLES Final Res ult [facility] [address] [facility]. [place] [address] * Influenza A/B, RSV, and COVID-19 PCR Nasopharyngeal (07/04/2025 12:20 PM CDT) COVID-19 RNA Negative Negative Influenza A RNA Negative Negative [facility] Influenza B RNA Negative Negative [facility] RSV RNA Negative Negative [facility] Comment: Testing performed by [facility]. This test is performed using the [employer] Xpert Xpress CoV-2/Flu/RSV plus assay. This is a multiplex, real-time reverse transcriptase PCR assay intended for the qualitative detection of nucleic acid from SARS-CoV-2, influenza A, influenza B, and respiratory syncytial virus. This assay has been cleared by the [place] Food and Drug administration. The performance characteristics have been verified by the [facility]. Results must be considered in the clinical context, and a negative result does not rule out infection. Interpretive Data last revised 2023 Nasopharyngeal 07/04/2025 12 :20 PM CDT 07/04/2025 12:43 PM CDT Narrative [facility] - 07/04/2025 1:31 PM CDT Is the Patient experiencing symptoms consistent with COVID?->No Julio César Huber MD LAB MICROBIOLOGY - GENERAL ORD ERABLES Final Result [facility] [address] [facility]. Department [place] [address] * eGFR (07/04/2025 12:20 PM CDT) eGFR >90 >=60 mL/min/1. 73 m2 [...] interpretive data was last reviewed 2021. Blood 07/04/2025 12:2 0 PM CDT 07/04/2025 12:43 PM CDT us Julio César Huber MD LAB BLOOD ORDERABLES Final Res ult [facility] [address] [facility] Department [place] [address] * (ABNORMAL) Differential, auto (07/04/2025 12:20 PM CDT) Neutrophil abs 6.95(H) 1.50 - 6.50 K/cumm Imm gran abs 0.03 0.00 - 0.10 K/cumm [facility] Lymphocyte abs 1.21 0.80 - 3.30 K/cumm [facility] Monocyte abs 0.56 0.20 - 0.80 K/cumm [facility] Eosinophil abs 0.07 0.00 - 0.50 K/cumm [facility] Basophil abs 0.05 0.00 - 0.10 K/cumm [facility] Neutrophil pct 78.4 % [facility] Comment: Interpretive Data Percent cell count reference ranges are not reported, since discordance with absolute values may lead to misinterpretation of CBC data. Current Interpretive Data was last revised on 2017. Imm gran pct 0.3 % [facility] Comment: Interpretive Data Percent cell count reference ranges are not reported, since discordance with absolute values may lead to misinterpretation of CBC data. Current Interpretive Data was last revised on 2017. Lymphocyte pct 13.6 % [facility] Comment: Interpretive Data Percent cell count reference ranges are not reported, since discordance with absolute values may lead to misinterpretation of CBC data. Current Interpretive Data was last revised on 2017. Monocyte pct 6.3 % [facility] Comment: Interpretive Data Percent cell count reference ranges are not reported, since discordance with absolute values may lead to misinterpretation of CBC data. Current Interpretive Data was last revised on 2017. Eosinophil pct 0.8 % [facility] Comment: Interpretive Data Percent cell count reference ranges are not reported, since discordance with absolute values may lead to misinterpretation of CBC data. Current Interpretive Data was last revised on 2017. Basophil pct 0.6 % [facility] Comment: Interpretive Data Percent cell count reference ranges are not reported, since discordance with absolute values may lead to misinterpretation of CBC data. Current Interpretive Data was last revised on 2017. Blood 07/04/2025 12:2 0 PM CDT 07/04/2025 12:43 PM CDT Julio César Huber MD LAB BLOOD ORDERABLES Final Res ult Performing Organization Address [facility] Co de Phone Number [facility] [address] [facility] [employer] [place], [place] [id number] * Thyroid Function [place] (07/04/2025 12:20 PM CDT) Pathologist [facility] TSH 3.47 0.30 - 4.20 mcIUnit/mL Blood 07/04/2025 12:2 0 PM CDT 07/04/2025 12:43 PM CDT Julio César Huber MD LAB BLOOD ORDERABLES Final Res ult Performing Organization Address [facility] Co de Phone Number [facility] [address] [address] [facility] [employer] [place], [place] [phone] * (ABNORMAL) CBC with auto differential (07/04/2025 12:20 PM CDT) WBC 8.87 3.80 - 9.90 K/cumm Hgb 10.9(L) 13.0 - 17.5 g/dL [facility] Hct 34.6(L) 38.9 - 50.3 % [facility] Plt 317 150 - 400 K/cumm [facility] MPV 10.1 9.1 - 12.3 fL [facility] RBC 4.08(L) 4.30 - 5.80 M/cumm [facility] MCV 84.8 81.3 - 96.4 fL [facility] MCH 26.7(L) 27.1 - 33.3 pg [facility] MCHC 31.5(L) 32.3 - 35.7 g/dL [facility] RDW CV 16.0(H) 11.1 - 14.9 % [facility] RDW SD 49.9(H) 35.7 - 48.1 fL [facility] NRBC abs 0.00 0.00 - 0.01 K/cumm [facility] Blood Venous blood specimen / Unknown 07/04/2025 12:20 PM CDT 07/04/2025 12:43 PM CDT Julio César Huber MD LAB BLOOD ORDERABLES Final Res ult Performing Organization Address [facility] de Phone Number [facility] [address] [employer] [place], [place] [phone] * Ethanol (07/04/2025 12:20 PM CDT) Ethanol <10 <=10 mg/dL Comment: Interpretive Data Legal limit of intoxication > or = 80 mg/dL Levels > or = 400 mg/dL are potentially TOXIC. Current interpretive data was last revised on 2018. Blood 07/04/2025 12:2 0 PM CDT 07/04/2025 12:43 PM CDT Julio César Huber MD LAB BLOOD ORDERABLES Final Res ult Performing Organization Address [facility] Co de Phone Number [facility] [address] [facility] [place] [address] * Comprehensive metabolic panel (07/04/2025 12:20 PM CDT) Sodium 139 135 - 145 mmol/L Potassium, pl 4.3 3.3 - 4.9 mmol/L [facility] Chloride 101 97 - 110 mmol/L [facility] CO2 27 22 - 32 mmol/L [facility] Anion gap 11 2 - 15 mmol/L [facility] BUN 16 6 - 25 mg/dL [facility] Creatinine 0.90 0.80 - 1.30 mg/dL [facility] Glucose 131 70 - 199 mg/dL [facility] Comment: Interpretive Data Fasting glucose >/= 126 [...] interpretive data was last revised 2022. Calcium 9.3 8.5 - 10.3 mg/dL [facility] Bilirubin, total 0.2 0.1 - 1.2 mg/dL [facility] Protein, pl 7.2 6.5 - 8.5 g/dL [facility] Albumin 4.2 3.5 - 5.0 g/dL [facility] Alk phos 95 40 - 130 Units/L [facility] ALT 13 7 - 55 Units/L [facility] AST 22 10 - 50 Units/L [facility] Blood 07/04/2025 12:2 0 PM CDT 07/04/2025 12:43 PM CDT us Julio César Huber MD LAB BLOOD ORDERABLES Final Res ult [facility] [address] [facility]. [place] [address] * XR Hip Right 2 or 3 Views (07/03/2025 7:25 PM CDT) Anatomical Region Laterality Modality Lower Extremities, Hip, Pelvis Right C omputed Radiography 07/03/2025 7:30 PM CDT Impressions 07/03/2025 8:46 PM CDT FINDINGS/IMPRESSION: Right hip arthroplasty. No periprosthetic lucency or fracture. No acute fracture or dislocation. Normal alignment. Dictated by: Brisa Lerma MD The radiology attending physician has personally reviewed this study, and had reviewed and/or edited this written report and agrees with it. Electronically signed by: Peter Stubbs M.D. Narrative 07/03/2025 8:46 PM CDT EXAMINATION: XR HIP RIGHT 2 OR 3 VIEWS HISTORY: Trauma, pain COMPARISON: 01/03/2024 Procedure Note Peter Stubbs MD - 07/03/2025 EXAMINATION: XR HIP RIGHT 2 OR 3 VIEWS HISTORY: Trauma, pain COMPARISON: 01/03/2024 IMPRESSION: FINDINGS/IMPRESSION: Right hip arthroplasty. No periprosthetic lucency or fracture. No acute fracture or dislocation. Normal alignment. Dictated by: Brisa Lerma MD The radiology attending physician has personally reviewed this study, and had reviewed and/or edited this written report and agrees with it. Electronically signed by: Peter Stubbs M.D. us Leticia Hanson TOOL SPECIALIST IMG XR PROCEDURES Final Res ult * Urinalysis reflex to microscopic (07/03/2025 5:09 PM CDT) Color, ur Straw Yellow Clarity, ur Clear Clear [facility] Specific gravity, ur 1.017 1.003 - 1.030 [facility] pH, urine 7.0 [facility] Comment: Interpretive Data U rine pH is affected by diet, medications, systemic acid-base disturbances, and renal tubular function. pH may affect urinary stone formation. For example, urine pH below 6.0 may help reduce the tendency for calcium phosphate stones and pH greater than 6.0 may reduce the tendency for uric acid stone formation. Source: [facility]ist Current Interpretive Data was last revised on 2017 Protein, ur ql Negative Negative [facility] Glucose, ur ql Negative Negative [facility] Ketones, ur Negative Negative [facility] Bilirubin, ur Negative Negative [facility] Blood, ur Negative Negative [facility] Urobilinogen, ur <2.0 <2.0 mg/dL [facility] Nitrite, ur Negative Negative [facility] Leukocyte esterase, ur Negative Negative [facility] UA reflex comment Reflex conditions for microscopic UA not met. [facility] Urine 07/03/2025 5:09 PM CDT 07/03/2025 5:30 PM CDT Cathryn Starr MD LAB URINE ORDERABLES Final Result [facility] Department [place] [address] * (ABNORMAL) Drugs of Abuse Screen, Urine without Confirmation (07/03/2025 5:09 PM CDT) Amphetamine, ur Not Detected CutOff 500ng/mL Comment: Interpretive Data - Amphetamines: Samples containing greater than 500 ng/mL d-methamphetamine or other cross-reacting amphetamine compounds are reported as positive. Amphetamine immunoassays are subject to significant false positive rates due to cross-reactivity of non-amphetamine drugs. Confirmatory testing required for definitive results. Current Interpretive Data was last reviewed 2023. Barbiturates, ur Not Detected CutOff 200ng/mL [facility] Comment: Interpretive Data - Barbiturates: Samples containing greater than 200 ng/mL secobarbital or other cross-reacting barbiturate compounds are reported as positive. False positive and false negative results are possible. Confirmatory testing required for definitive results. Current Interpretive Data was last reviewed 2023. Benzodiazepines, ur Not Detected CutOff 100ng/mL [facility] Comment: Interpretive Data - Benzodiazepines: Samples containing greater than 100 ng/mL nordiazepam or other cross-reacting compounds are reported as positive. False positive and false negative results are possible. Confirmatory testing required for definitive results. Current Interpretive Data was last reviewed 2023. Cannabinoids, ur Not Detected CutOff 50 ng/mL [facility] Comment: Interpretive Data - Cannabinoids: Samples containing greater than 50 ng/mL delta-9 THC -COOH or other cross- reacting compounds are reported as positive. False positive and false negative results are possible. Confirmatory testing required for definitive results. Current Interpretive Data was last reviewed 2023. Cocaine, ur Screen Positive, presumptive (A) CutOff 150ng/mL [facility] Comment: Interpretive Data - Cocaine: Samples containing greater than 150 ng/mL benzoylecgonine or other cross- reacting compounds are reported as positive. False positive and false negative results are possible. Confirmatory testing required for definitive results. Current Interpretive Data was last reviewed 2023. Fentanyl, Ur Not Detected CutOff 5 ng/mL [facility] Comment: Interpretive Data - Fentanyl: Samples containing greater than 5 ng/mL norfentanyl, fentanyl, or other cross-reacting fentanyl compounds are reported as positive. False positive and false negative results are possible. Confirmatory testing required for definitive results. Current Interpretive Data was last reviewed 2023. Methadone, ur Not Detected CutOff 300ng/mL [facility] Comment: Interpretive Data - Methadone: Samples containing greater than 300 ng/mL d,l-methadone or other cross-reacting compounds are reported as positive. False positive and false negative results are possible. Confirmatory testing required for definitive results. Current Interpretive Data was last reviewed 2023. Opiates, ur Not Detected CutOff 300ng/mL [facility] Comment: Interpretive Data - Opiates: Samples containing greater than 300 ng/mL morphine or other cross-reacting compounds are reported as positive. False positive and false negative results are possible. Confirmatory testing required for definitive results. Current Interpretive Data was last reviewed 2023. Oxycodone, ur Not Detected CutOff 100ng/mL [facility] Comment: Interpretive Data - Oxycodone: Samples containing greater than 100 ng/mL oxycodone or other cross-reacting compounds are reported as positive. False positive and false negative results are possible. Confirmatory testing required for definitive results. Current Interpretive Data was last reviewed 2023. Phencyclidine, ur Not Detected CutOff 25 ng/mL [facility] Comment: Interpretive Data - Phencyclidine: Samples containing greater than 25 ng/mL phencyclidine or other cross-reacting compounds are reported as positive. False positive and false negative results are possible. Confirmatory testing required for definitive results. Current Interpretive Data was last reviewed 2023. Urine Creatinine 81 mg/dL [facility] Comment: Interpretive Data Urine Creatinine: < 10 mg/dL is extremely dilute = or > 10 but < 20 mg/dL is dilute = or > 20 mg/dL is normal Current Interpretive Data was last revised on 2017. Urine 07/03/2025 5:09 PM CDT 07/03/2025 5:40 PM CDT Narrative [facility]IS CHATTERJEE - 07/03/2025 6:14 PM CDT Drug of Abuse screening is performed by immunoassay for medical purposes only. This is not to be used for Pain Management purposes. us Cathryn Starr MD LAB URINE ORDERABLES Final Result [facility] Department [place] [address] * eGFR (07/03/2025 5:06 PM CDT) eGFR 77 >=60 mL/min/1. 73 m2 Comment: Interpretive Data [...] interpretive data was last reviewed 2021. Blood 07/03/2025 5:06 PM CDT 07/03/2025 5:40 PM CDT us Cathryn Starr MD LAB BLOOD ORDERABLES Final Result [facility] Department [place] [address] * Differential, auto (07/03/2025 5:06 PM CDT) Neutrophil abs 4.55 1.50 - 6.50 K/cumm Imm gran abs 0.02 0.00 - 0.10 K/cumm [facility] Lymphocyte abs 1.36 0.80 - 3.30 K/cumm [facility] Monocyte abs 0.52 0.20 - 0.80 K/cumm [facility] Eosinophil abs 0.10 0.00 - 0.50 K/cumm [facility] Basophil abs 0.05 0.00 - 0.10 K/cumm [facility] Neutrophil pct 68.9 % [facility] Comment: Interpretive Data Percent cell count reference ranges are not reported, since discordance with absolute values may lead to misinterpretation of CBC data. Current Interpretive Data was last revised on 2017. Imm gran pct 0.3 % [facility] Comment: Interpretive Data Percent cell count reference ranges are not reported, since discordance with absolute values may lead to misinterpretation of CBC data. Current Interpretive Data was last revised on 2017. Lymphocyte pct 20.6 % [facility] Comment: Interpretive Data Percent cell count reference ranges are not reported, since discordance with absolute values may lead to misinterpretation of CBC data. Current Interpretive Data was last revised on 2017. Monocyte pct 7.9 % [facility] Comment: Interpretive Data Percent cell count reference ranges are not reported, since discordance with absolute values may lead to misinterpretation of CBC data. Current Interpretive Data was last revised on 2017. Eosinophil pct 1.5 % [facility] Comment: Interpretive Data Percent cell count reference ranges are not reported, since discordance with absolute values may lead to misinterpretation of CBC data. Current Interpretive Data was last revised on 2017. Basophil pct 0.8 % [facility] Comment: Interpretive Data Percent cell count reference ranges are not reported, since discordance with absolute values may lead to misinterpretation of CBC data. Current Interpretive Data was last revised on 2017. Blood 07/03/2025 5:06 PM CDT 07/03/2025 5:40 PM CDT us Cathryn Starr MD LAB BLOOD ORDERABLES Final Result Performing Organization Address City/[facility] Co de Phone Number [facility] Department [place] [address] * Thyroid Function [place] (07/03/2025 5:06 PM CDT) [facility] TSH 2.27 0.30 - 4.20 mcIUnit/mL Blood 07/03/2025 5:06 PM CDT 07/03/2025 5:40 PM CDT Cathryn Starr MD LAB BLOOD ORDERABLES Final Result Performing Organization Address [facility] de Phone Number [facility] Department [place] [address] * (ABNORMAL) CBC with auto differential (07/03/2025 5:06 PM CDT) [facility] WBC 6.60 3.80 - 9.90 K/cumm Hgb 10.1(L) 13.0 - 17.5 g/dL [facility] Hct 31.4(L) 38.9 - 50.3 % [facility] Plt 295 150 - 400 K/cumm [facility] MPV 10.3 9.1 - 12.3 fL [facility] RBC 3.77(L) 4.30 - 5.80 M/cumm [facility] MCV 83.3 81.3 - 96.4 fL [facility] MCH 26.8(L) 27.1 - 33.3 pg [facility] MCHC 32.2(L) 32.3 - 35.7 g/dL [facility] RDW CV 16.0(H) 11.1 - 14.9 % [facility] RDW SD 48.5(H) 35.7 - 48.1 fL [facility] NRBC abs 0.00 0.00 - 0.01 K/cumm [facility] Blood Venous blood specimen / Unknown 07/03/2025 5:06 PM CDT 07/03/2025 5:40 PM CDT Cathryn Starr MD LAB BLOOD ORDERABLES Final Result Performing Organization Address City/[facility] Co de Phone Number [facility] [place] [address] * Ethanol (07/03/2025 5:06 PM CDT) Pathologist [facility] Ethanol <10 <=10 mg/dL Comment: Interpretive Data Legal limit of intoxication > or = 80 mg/dL Levels > or = 400 mg/dL are potentially TOXIC. Current interpretive data was last revised on 2018. Blood 07/03/2025 5:06 PM CDT 07/03/2025 5:40 PM CDT Cathryn Starr MD LAB BLOOD ORDERABLES Final Result Performing Organization Address [facility] de Phone Number [facility] [place] [address] * (ABNORMAL) Comprehensive metabolic panel (07/03/2025 5:06 PM CDT) [facility] Sodium 137 135 - 145 mmol/L Potassium, pl 4.2 3.3 - 4.9 mmol/L [facility] Chloride 100 97 - 110 mmol/L [facility] CO2 25 22 - 32 mmol/L [facility] Anion gap 12 2 - 15 mmol/L [facility] BUN 18 6 - 25 mg/dL [facility] Creatinine 1.07 0.80 - 1.30 mg/dL [facility] Glucose 212(H) 70 - 199 mg/dL [facility] Comment: Interpretive Data Fasting glucose >/= [...] 2022. Calcium 9.4 8.5 - 10.3 mg/dL [facility] Bilirubin, total <0.2 0.1 - 1.2 mg/dL [facility] Protein, pl 7.4 6.5 - 8.5 g/dL [facility] Albumin 3.8 3.5 - 5.0 g/dL [facility] Alk phos 105 40 - 130 Units/L [facility] ALT 16 7 - 55 Units/L [facility] AST 26 10 - 50 Units/L [facility] Blood 07/03/2025 5:06 PM CDT 07/03/2025 5:40 PM CDT Cathryn Starr MD LAB BLOOD ORDERABLES Final Result [facility] Department [place] [address] * (ABNORMAL) Hemoglobin A1c (12/04/2024 6:18 AM CDT) Hgb A1C 6.5(H) 4.0 - 5.6 % Estimated Average Glucose 140 mg/dL [facility] Comment: The ADA recommends reporting an estimated Average Glucose (eAG) with all Hemoglobin A1c results using the equation derived from a study of 507 normal and diabetic adults. Minority populations were underrepresented and children were not included. (Diabetes Care 31:8766-5970, 2008). The eAG is not equivalent to a fasting glucose. Blood 12/04/2024 6:18 AM CDT 12/04/2024 6:27 AM CDT Zack Adam MD LAB BLOOD ORDERABLES F inal Result [facility] [address] Department of Laboratories [place] [address] * Lipid panel (12/04/2024 6:18 AM CDT) [...] on 2018. Triglycerides 83 <=149 mg/dL [facility] Comment: Interpretive Data Ages [...] on 2018. HDL 61 >=40 mg/dL [facility] Comment: Interpretive Data Ages < [...] on 2018. LDL, calculated 106 <=129 mg/dL [facility] [place]) Comment: Interpretive Data Ages < or [...] NCEP Expert Panel. Circulation 2004;110:227 3. Gino Muñoz al. SOTO Cardiol. 2019January 05;5(5):540-548. doi: 10.1001/jamacardio.2020.0013 Current Interpretive Data was last revised on 2024. Non-HDL Cholesterol 121 mg/dL [facility] Comment: Interpretive Data Ages < or [...] 2018. Chol/HDL ratio 3 JOHN PAUL Flower [facility] [place]) Blood 12/04/2024 6:18 AM CDT 12/04/2024 6:27 AM CDT Zack Adam MD LAB BLOOD ORDERABLES F inal Result [facility] [place] [address] [facility] Department [place] [address] * PSA screen (07/14/2023 12:18 PM BATTERY ASSEMBLER DRY CELL) PSA-Total 4.92 <=5.40 ng/mL [facility] Comment: Interpretive Data AGE SEX REFERENCE [...] revised 22. Blood 07/14/2023 12:1 8 PM [employer]TERY ASSEMBLER DRY CELL 07/14/2023 12:55 PM [employer] ASSEM[employer]ER DRY CELL Magdiel Marin NP LAB BLOOD ORDERABLES F inal Result [facility] Department [place] [address] from Last 3 Months or Most Recently Relevant to Health Maintenance Insurance [employer] MEDICARE ADV C[employer] MEDICARE ADV Advance Directives For more information, please contact: [phone] * Full Code (Latest Code Status on [...] 9:58 AM 12/07/2022 5:47 PM Care Teams Sole Conforming Machine Operator Relationship Specialty Start Date End Date No, Physician PCP - General 03/03/25
--- OUTSIDE RECORDS SUMMARY | 2025-07-07 14:06 | XMS_ITS | Patient Health Record ---
Author Organization [facility] Address [address] [place], [place] [id number] Care Team Providers Care Gas Station Supervisor Name Role Phone John Fadia Primary Care Provider Yenifer Wadsworth Unavailable [phone] DILMA DIANE Unavailable [phone] Allergies No Known Allergies Reason For Referral [...] neuropathy associated with type 2 diabetes mellitus (0986460263616) Type 2 diabetes mellitus with diabetic neuropathy, unspecified (E11.40) Active confirmed Problem Disorder due to type 2 diabetes mellitus (632285114) Type 2 diabetes mellitus with unspecified complications (E11.8) Active confirmed Problem Obesity due to excess calories (930440854) Other obesity due to excess calories (E66.09) Active confirmed Problem Mixed hyperlipidemia (613274044) Mixed hyperlipidemia (E78.2) Active confirmed Problem Male erectile disorder (738268209) Male erectile disorder (F52.21) Active confirmed Problem Essential hypertension (10813323) Essential (primary) hypertension (I10) Active confirmed Problem Onychogryphosis (82697651) Onychogryphosis (L60.2) Active confirmed Problem Acquired hallux valgus (06940680) Hallux valgus (acquired), left foot (M20.12) Active confirmed Problem Pes planus (95696036) Flat foot [pes planus] (acquired), unspecified foot (M21.40) Active confirmed Problem Sciatica (41808948) Sciatic leg pain (M54.30) Active confirmed Problem Sciatica (96013176) Sciatica of left side (M54.32) Active confirmed Problem Vitamin D deficiency (14683438) Vitamin D deficiency (E55.9) Active confirmed Encounters Encounter Location Date Provider Diagnosis [facility] [address] [place] [id number] 01/10/2025 Fadia Lyle [facility] [address] [place] [id number] 07/07/2025 Yenifer Wadsworth [facility] [address] [place], [place] [id number] 11/28/2024 Fadia Lyle Plan Of Treatment Pending Test Test Name Order Date Fecal Globin by Immunochemistry (IFOBT) [id number] 01/31/2021 Fecal Globin by Immunochemistry (IFOBT) [id number] 07/29/2021 CBC W/AUTO DIFF 01/31/2021 CMP 01/31/2021 Hemoglobin A1C 01/31/2021 Gonorrhoea /Chlamydia 02/20/2022 MICROALBUMIN, RANDOM URINE (W/CREA) 01/06 Lipid Profile 01/31/2021 PSA, TOTAL 01/31/2021 CBC (H/H, RBC, INDICES, WBC, PLT) 2021 URINALYSIS MICROSCOPIC 02/20/2022 Hemoglobin A1C 12/25/2022 Lipid Panel 02/20/2022 Next Appt Details Provider Name:Yenifer Wadsworth, 07/19/2025 11:00:00 AM, [address], [place], [place], [id number], Provider Name:Robbie Dickey, 09/07/2025 01:00:00 PM, [address], [place], [place], [id number], Insurance Providers Payer Name Payer Address Payer Phone Subscriber Number Group Number Insured Name Patient Relationship to Insured Coverage Start Date Coverage End Date [employer] [address] [address] [place] [address] [id number] Bob Frank Self - patient is the insured [employer] [address] [address] [place] [address] [id number] Bob Frank Self - patient is the insured Medicare Part [facility] [address] [place] [address] [id number] Bob Frank Self - patient is the insured Slide Fee C $80 Medical/ $90 Dental Bob Frank Self - patient is the insured Medical (General) History Medical History History ICD Code hypertension Surgical History Surgery Date(Month/Year) right hip replacement 2002 Hospitalization History Reason Date(Month/Year) hip replacement 2002
[2025-07-07 14:07] VITALS: BP 142/99; PULSE 91; RESP 18; TEMP 36.6; O2SAT 100
--- NOTE | 2025-07-07 15:03 | ED_ITS ---
HPI - Psych General Chief Complaint: Psychiatric Symptoms <Chris Becker APRN - Last Filed: 07/07/25 19:14> Stated Complaint: SI/HI <Chris Becker APRN - Last Filed: 07/07/25 19:14> Time Seen by Provider: 07/07/25 15:02 <Chris Becker APRN - Last Filed: 07/07/25 19:14> Source: patient, EMS, RN notes reviewed and old records reviewed <Chris Becker APRN - Last Filed: 07/07/25 19:14> Mode of arrival: EMS <Chris Becker APRN - Last Filed: 07/07/25 19:14> Limitations: no limitations <Chris Becker APRN - Last Filed: 07/07/25 19:14> History of Present Illness HPI Narrative: Patient is a 64 year old male patient with a reported history of schizophrenia presenting to the ED requesting inpatient behavioral health admission for ?time to redirect my mood.? Patient reports recent brief inpatient admission ?a couple of days ago? but is unable to recall the facility name. Patient indicates he is from [place] and has been coming to this facility over the last few months. Patient currently homeless; patient denies staying with someone locally. Arrival today appears via ambulance; pickup location not provided. Medication history is limited: patient affirms taking ?whatever it is? for schizophrenia but does not have the prescription bottle available and is unable to specify the name. Patient states they have a prescription bottle for some medications but did not bring them; details unspecified. Patient denied any other medical concern at this time. <Chris Becker APRN - Last Filed: 07/07/25 19:14> Related Data Allergies/Adverse Reactions: Allergies Allergy/AdvReac Type Severity Reaction Status Date / Time No Known Allergies Allergy Verified 04/24/25 16:13 <Chris Becker APRN - Last Filed: 07/07/25 19:14> Review of Systems 2 Review of Systems: * Constitutional: Denies acute complaints; no specific fever/chills reported. * HEENT: No complaints reported. * Cardiovascular: No chest pain or palpitations reported. * Respiratory: No shortness of breath or cough reported. * Gastrointestinal: No abdominal pain, nausea, vomiting, or diarrhea reported. * Genitourinary: No complaints reported. * Musculoskeletal: No complaints reported. * Neurological: No headache, focal weakness, or syncope reported. * Psychiatric/Behavioral: Requests inpatient behavioral health; history of schizophrenia. Denies specific current medication details. No suicidal or homicidal ideation reported in the interview; not explicitly assessed. * Endocrine: No complaints reported. * Hematologic/Lymphatic: No complaints reported. * Allergic/Immunologic: No complaints reported. Pertinent negatives and positives are based on patient?s limited responses during interview. <Chris Becker APRN - Last Filed: 07/07/25 19:14> [facility] Social History Social History: Social History Substance use type: does not use <Chris Becker APRN - Last Filed: 07/07/25 19:14> Exam 2 Narrative: GENERAL: Well-appearing, well-nourished, and in no acute distress. HEAD: Normocephalic, atraumatic. ENT:? Mucous membranes moist. CHEST: Clear to auscultation.? No respiratory distress. HEART: Regular rate and rhythm. ? Normal peripheral pulses. ABDOMEN: Soft, nontender, nondistended. EXTREMITIES: Normal range of motion. No peripheral edema. SKIN: Warm dry normal color NEURO: Alert and oriented x3. PSYCH: Reports SI, calm during exam. <Chris Becker APRN - Last Filed: 07/07/25 19:14> Course Course Emergency Course: Patient care signed over by previous provider. Patient is still pending placement with [facility]. Will need repeat evaluation in the morning by crisis if patient is declined from this facility. Patient care signed over to morning physician. No acute overnight events. <Wayne Lang MD - Last Filed: 07/09/25 01:04 CHAR FILTER TANK TENDER HEAD> Vital Signs Vital signs: Vital Signs Temperature 36.6 C 07/07/25 14:07 Pulse Rate 91 07/07/25 14:07 Respiratory Rate 18 07/07/25 14:07 Blood Pressure 142/99 H 07/07/25 14:07 Pulse Oximetry 100 07/07/25 14:07 Oxygen Delivery Room Air 07/07/25 14:07 Temperature 36.7 C 07/08/25 06:38 Pulse Rate 77 07/08/25 06:38 Respiratory Rate 19 07/08/25 06:38 Blood Pressure 139/94 H 07/08/25 06:38 Pulse Oximetry 100 07/08/25 06:38 Oxygen Delivery Room Air 07/07/25 14:07 <Chris Becker APRN - Last Filed: 07/07/25 19:14> Vital Signs Temperature 36.6 C 07/07/25 14:07 Pulse Rate 91 07/07/25 14:07 Respiratory Rate 18 07/07/25 14:07 Blood Pressure 142/99 H 07/07/25 14:07 Pulse Oximetry 100 07/07/25 14:07 Oxygen Delivery Room Air 07/07/25 14:07 Temperature 36.7 C 07/08/25 06:38 Pulse Rate 77 07/08/25 06:38 Respiratory Rate 19 07/08/25 06:38 Blood Pressure 139/94 H 07/08/25 06:38 Pulse Oximetry 100 07/08/25 06:38 Oxygen Delivery Room Air 07/07/25 14:07 <Rashmi Riggins PA-C - Last Filed: 07/08/25 03:18> Vital Signs Temperature 36.6 C 07/07/25 14:07 Pulse Rate 91 07/07/25 14:07 Respiratory Rate 18 07/07/25 14:07 Blood Pressure 142/99 H 07/07/25 14:07 Pulse Oximetry 100 07/07/25 14:07 Oxygen Delivery Room Air 07/07/25 14:07 Temperature 36.7 C 07/08/25 06:38 Pulse Rate 77 07/08/25 06:38 Respiratory Rate 19 07/08/25 06:38 Blood Pressure 139/94 H 07/08/25 06:38 Pulse Oximetry 100 07/08/25 06:38 Oxygen Delivery Room Air 07/07/25 14:07 <Wayne Lang MD - Last Filed: 07/09/25 01:04 CHAR FILTER T[employer] TENDER HEAD> MDM - Psych MDM Narrative Medical decision making narrative: 64-year-old male patient returns to this emergency department complaining of suicidal ideation. His entire examination is benign and nonspecific. Patient does not answer questions clearly. He is reportedly homeless though he would not answer the question during examination. Patient reports that he needs inpatient care to get his mood straightened out and medication restarted. Patient reports a recent brief admission but could not remember where. Labs obtained and are unremarkable. Patient medically cleared for behavioral health assessment and disposition planning. Patient was screened by Behavioral Health with plans for placement. Patient is still voluntary does not currently meet involuntary requirements. He wanted to go only to the [facility] in [place] but that facility declined to accept his admission. Patient was instructed that he would either have to go wherever they could find placement or he would have to be discharged from the emergency department he could not remain here with the restriction of only 1 facility that has already declined to admit him. Patient stated that he would go wherever they could find placement. Sign-out at shift change to SILVINA Anderson pending placement. <Chris Becker, REFERRAL AND INFORMATION AIDE - Last Filed: 07/07/25 19:14> 64-year-old male patient returns to this emergency department complaining of suicidal ideation. His entire examination is benign and nonspecific. Patient does not answer questions clearly. He is reportedly homeless though he would not answer the question during examination. Patient reports that he needs inpatient care to get his mood straightened out and medication restarted. Patient reports a recent brief admission but could not remember where. Labs obtained and are unremarkable. Patient medically cleared for behavioral health assessment and disposition planning. Patient was screened by Behavioral Health with plans for placement. Patient is still voluntary does not currently meet involuntary requirements. He wanted to go only to the [facility] in [place] but that facility declined to accept his admission. Patient was instructed that he would either have to go wherever they could find placement or he would have to be discharged from the emergency department he could not remain here with the restriction of only 1 facility that has already declined to admit him. Patient stated that he would go wherever they could find placement. Sign-out at shift change to SILVINA Anderson pending placement. RG - Patient consistently refusing several inpatient psychiatric placement options. Crisis team came to re-evaluate patient. Discussed that his options are to be placed under involuntary status and he will be placed wherever he is accepted (and will not have a choice to decline) vs safety plan and discharge. Patient states does not want to be under involuntary status. Also refusing to participate/cooperate with a crisis for a safety plan. States he really just wants a place to stay for the night until he can stay with his friend violettaorrow. 0002- Patient was eventually accepted to [facility]. Patient is in agreement with this plan and transfer to [facility]. Awaiting transportation. Has otherwise been calm throughout ED stay. [facility] called back, declined bed/transfer due to patient's insurance. Will continue looking for bed placement to faxed facilities. Care signed out to Dr. Precious WALSHP at shift change pending inpatient psychiatric bed placement/transfer. <Rashmi Riggins PA-C - Last Filed: 07/08/25 03:18> Differential Diagnosis Differential diagnosis: Likely chronic schizophrenia, suicidal ideation, depression and other (fdc seeking behavior) <Chris Becker, REFERRAL AND INFORMATION AIDE - Last Filed: 07/07/25 19:14> Lab Data Result diagrams: 07/07/25 15:12 07/07/25 15:12 <Chris Becker, REFERRAL AND INFORMATION AIDE - Last Filed: 07/07/25 19:14> Labs: Lab Results 07/07/25 Range/Units 15:12 WBC 7.4 (4.5-10.0) K/mm3 RBC 4.04 L (4.6-6.20) M/mm3 Hgb 10.8 L (14.0-18.0) g/dL Hct 34.4 L (42.0-52.0) % MCV 85.1 (80-100) fl MCH 26.7 (26-34) pg MCHC 31.4 L (32-36) g/dl RDW 15.9 H (11.5-14.5) % Plt Count 317 (150-375) k/mm3 MPV 9.6 (7.4-10.4) fl Immature Gran % (Auto) 0.3 (0-0.5) % Neut % (Auto) 71.4 (45.5-73.1) % Lymph % (Auto) 17.5 L (18.3-44.2) % Tama % (Auto) 8.2 (2.6-8.5) % Eos % (Auto) 1.8 (0-4.4) % Baso % (Auto) 0.8 (0.2-1.2) % Lymph # (Auto) 1.29 (0.9-3.2) K/mm3 Tama # (Auto) 0.6 (0.1-0.6) K/mm3 Eos # (Auto) 0.1 (0-0.3) K/mm3 Baso # (Auto) 0.1 (0.0-0.1) K/mm3 Abs Immat Gran (auto) 0.02 (0.00-0.031) K/mm3 Absolute Neuts (auto) 5.3 (1.3-6.7) K/mm3 Absolute Nucleated RBC 0.000 (0.0-0.012) K/mm3 Nucleated RBC % 0.0 (0.0-0.2) % Sodium 136 L (137-145) mmol/L Potassium 4.7 (3.4-5.0) mmol/L Chloride 100 (98-107) mmol/L Carbon Dioxide 31 H (22-30) mmol/L Anion Gap 5 (4-12) mmol/L BUN 19 (9-20) mg/dL Creatinine 1.01 (0.7-1.3) mg/dL Estim Creat Clear Calc 67 ml/min Estimated GFR > 60 (59 - ) Glucose 126 H (65-110) mg/dL Calcium 8.9 (8.4-10.2) mg/dL Total Bilirubin 0.3 (0.2-1.3) mg/dL AST 30 (17-59) U/L ALT 15 (6-50) U/L Alkaline Phosphatase 96 (38-126) U/L Total Protein 7.7 (6.3-8.2) g/dL Albumin 4.3 (3.5-5.1) g/dL TSH 1.620 (0.465-4.680) uIU/mL Urine Color Yellow (Yellow) Urine Appearance Clear (Clear) Urine pH 8.0 (5.0-9.0) Ur Specific [place] 1.015 (1.001-1.035) Urine Protein Negative (Negative) mg/dL Urine Glucose (UA) Negative (Negative) mg/dL Urine Ketones Negative (Negative) mg/dL Ur Blood (Man) Negative (Negative) Urine Nitrate Negative (Negative) Urine Bilirubin Negative (Negative) Urine Urobilinogen 1.0 (<2.0) mg/dL Leukocyte Esterase Rfl Negative (Negative) MARIE/UL Salicylates < 1.0 L (2-20) mg/dL Urine Opiates Screen Negative (Negative) Urine Methadone Screen Negative (Negative) Acetaminophen < 10 L (10-30) ug/mL Ur Barbiturates Screen Negative (Negative) Ur Phencyclidine Scrn Negative (Negative) Ur Amphetamine Screen Negative (Negative) U Benzodiazepines Scrn Negative (Negative) Urine Cocaine Screen Negative (Negative) U Cannabinoids Screen Negative (Negative) Ethyl Alcohol < 10 (<10) mg/dL SARS-CoV-2 RNA (RT-PCR) Negative (Negative) <Chris Becker, REFERRAL AND INFORMATION AIDE - Last Filed: 07/07/25 19:14> Lab Results 07/07/25 Range/Units 15:12 WBC 7.4 (4.5-10.0) K/mm3 RBC 4.04 L (4.6-6.20) M/mm3 Hgb 10.8 L (14.0-18.0) g/dL Hct 34.4 L (42.0-52.0) % MCV 85.1 (80-100) fl MCH 26.7 (26-34) pg MCHC 31.4 L (32-36) g/dl RDW 15.9 H (11.5-14.5) % Plt Count 317 (150-375) k/mm3 MPV 9.6 (7.4-10.4) fl Immature Gran % (Auto) 0.3 (0-0.5) % Neut % (Auto) 71.4 (45.5-73.1) % Lymph % (Auto) 17.5 L (18.3-44.2) % Tama % (Auto) 8.2 (2.6-8.5) % Eos % (Auto) 1.8 (0-4.4) % Baso % (Auto) 0.8 (0.2-1.2) % Lymph # (Auto) 1.29 (0.9-3.2) K/mm3 Tama # (Auto) 0.6 (0.1-0.6) K/mm3 Eos # (Auto) 0.1 (0-0.3) K/mm3 Baso # (Auto) 0.1 (0.0-0.1) K/mm3 Abs Immat Gran (auto) 0.02 (0.00-0.031) K/mm3 Absolute Neuts (auto) 5.3 (1.3-6.7) K/mm3 Absolute Nucleated RBC 0.000 (0.0-0.012) K/mm3 Nucleated RBC % 0.0 (0.0-0.2) % Sodium 136 L (137-145) mmol/L Potassium 4.7 (3.4-5.0) mmol/L Chloride 100 (98-107) mmol/L Carbon Dioxide 31 H (22-30) mmol/L Anion Gap 5 (4-12) mmol/L BUN 19 (9-20) mg/dL Creatinine 1.01 (0.7-1.3) mg/dL Estim Creat Clear Calc 67 ml/min Estimated GFR > 60 (59 - ) Glucose 126 H (65-110) mg/dL Calcium 8.9 (8.4-10.2) mg/dL Total Bilirubin 0.3 (0.2-1.3) mg/dL AST 30 (17-59) U/L ALT 15 (6-50) U/L Alkaline Phosphatase 96 (38-126) U/L Total Protein 7.7 (6.3-8.2) g/dL Albumin 4.3 (3.5-5.1) g/dL TSH 1.620 (0.465-4.680) uIU/mL Urine Color Yellow (Yellow) Urine Appearance Clear (Clear) Urine pH 8.0 (5.0-9.0) Ur Specific [place] 1.015 (1.001-1.035) Urine Protein Negative (Negative) mg/dL Urine Glucose (UA) Negative (Negative) mg/dL Urine Ketones Negative (Negative) mg/dL Ur Blood (Man) Negative (Negative) Urine Nitrate Negative (Negative) Urine Bilirubin Negative (Negative) Urine Urobilinogen 1.0 (<2.0) mg/dL Leukocyte Esterase Rfl Negative (Negative) MARIE/UL Salicylates < 1.0 L (2-20) mg/dL Urine Opiates Screen Negative (Negative) Urine Methadone Screen Negative (Negative) Acetaminophen < 10 L (10-30) ug/mL Ur Barbiturates Screen Negative (Negative) Ur Phencyclidine Scrn Negative (Negative) Ur Amphetamine Screen Negative (Negative) U Benzodiazepines Scrn Negative (Negative) Urine Cocaine Screen Negative (Negative) U Cannabinoids Screen Negative (Negative) Ethyl Alcohol < 10 (<10) mg/dL SARS-CoV-2 RNA (RT-PCR) Negative (Negative) <Rashmi N. Gaudreault, PA-C - Last Filed: 07/08/25 03:18> Lab Results 07/07/25 Range/Units 15:12 WBC 7.4 (4.5-10.0) K/mm3 RBC 4.04 L (4.6-6.20) M/mm3 Hgb 10.8 L (14.0-18.0) g/dL Hct 34.4 L (42.0-52.0) % MCV 85.1 (80-100) fl MCH 26.7 (26-34) pg MCHC 31.4 L (32-36) g/dl RDW 15.9 H (11.5-14.5) % Plt Count 317 (150-375) k/mm3 MPV 9.6 (7.4-10.4) fl Immature Gran % (Auto) 0.3 (0-0.5) % Neut % (Auto) 71.4 (45.5-73.1) % Lymph % (Auto) 17.5 L (18.3-44.2) % Tama % (Auto) 8.2 (2.6-8.5) % Eos % (Auto) 1.8 (0-4.4) % Baso % (Auto) 0.8 (0.2-1.2) % Lymph # (Auto) 1.29 (0.9-3.2) K/mm3 Tama # (Auto) 0.6 (0.1-0.6) K/mm3 Eos # (Auto) 0.1 (0-0.3) K/mm3 Baso # (Auto) 0.1 (0.0-0.1) K/mm3 Abs Immat Gran (auto) 0.02 (0.00-0.031) K/mm3 Absolute Neuts (auto) 5.3 (1.3-6.7) K/mm3 Absolute Nucleated RBC 0.000 (0.0-0.012) K/mm3 Nucleated RBC % 0.0 (0.0-0.2) % Sodium 136 L (137-145) mmol/L Potassium 4.7 (3.4-5.0) mmol/L Chloride 100 (98-107) mmol/L Carbon Dioxide 31 H (22-30) mmol/L Anion Gap 5 (4-12) mmol/L BUN 19 (9-20) mg/dL Creatinine 1.01 (0.7-1.3) mg/dL Estim Creat Clear Calc 67 ml/min Estimated GFR > 60 (59 - ) Glucose 126 H (65-110) mg/dL Calcium 8.9 (8.4-10.2) mg/dL Total Bilirubin 0.3 (0.2-1.3) mg/dL AST 30 (17-59) U/L ALT 15 (6-50) U/L Alkaline Phosphatase 96 (38-126) U/L Total Protein 7.7 (6.3-8.2) g/dL Albumin 4.3 (3.5-5.1) g/dL TSH 1.620 (0.465-4.680) uIU/mL Urine Color Yellow (Yellow) Urine Appearance Clear (Clear) Urine pH 8.0 (5.0-9.0) Ur Specific [place] 1.015 (1.001-1.035) Urine Protein Negative (Negative) mg/dL Urine Glucose (UA) Negative (Negative) mg/dL Urine Ketones Negative (Negative) mg/dL Ur Blood (Man) Negative (Negative) Urine Nitrate Negative (Negative) Urine Bilirubin Negative (Negative) Urine Urobilinogen 1.0 (<2.0) mg/dL Leukocyte Esterase Rfl Negative (Negative) MARIE/UL Salicylates < 1.0 L (2-20) mg/dL Urine Opiates Screen Negative (Negative) Urine Methadone Screen Negative (Negative) Acetaminophen < 10 L (10-30) ug/mL Ur Barbiturates Screen Negative (Negative) Ur Phencyclidine Scrn Negative (Negative) Ur Amphetamine Screen Negative (Negative) U Benzodiazepines Scrn Negative (Negative) Urine Cocaine Screen Negative (Negative) U Cannabinoids Screen Negative (Negative) Ethyl Alcohol < 10 (<10) mg/dL SARS-CoV-2 RNA (RT-PCR) Negative (Negative) <Wayne Lang MD - Last Filed: 07/09/25 01:04 CHAR FILTER TANK TENDER HEAD> Discharge Plan Discharge Clinical Impression: Schizophrenia, Suicidal ideation <Chris Becker APRN - Last Filed: 07/07/25 19:14> Patient Disposition: Psychiatric Hosp <Chris Becker APRN - Last Filed: 07/07/25 19:14> Condition: Stable <Chris Becker APRN - Last Filed: 07/07/25 19:14> Patient Language: Latvian <Chris Becker APRN - Last Filed: 07/07/25 19:14> Follow-up/Referrals: UNKNOWN,DOCTOR [Non-Staff] <Chris Becker APRN - Last Filed: 07/07/25 19:14>
[2025-07-07 15:22] LABS: Hematocrit 34.4 % (42.0-52.0); Hemoglobin 10.8 g/dL (14.0-18.0); Immature Granulocyte Percent A 0.3 % (0-0.5); Lymphocytes Absolute Auto 1.29 K/mm3 (0.9-3.2); Mean Corpuscular HGB Conc 31.4 g/dl (32-36); Mean Corpuscular Hemoglobin 26.7 pg (26-34); Mean Corpuscular Volume 85.1 fl (80-100); Nucleated Red Blood Cells Absolute Auto 0.000 K/mm3 (0.0-0.012); Nucleated Red Blood Cells Perc 0.0 % (0.0-0.2); Platelet Count Result 317 k/mm3 (150-375); Red Blood Count 4.04 M/mm3 (4.6-6.20); White Blood Count 7.4 K/mm3 (4.5-10.0)
[2025-07-07 15:25] LABS: Add Urine Microscopic? NO; Appearance Urine Clear (Clear); Glucose Urine UA Negative (Negative); Leukocyte Esterase Ur Negative LEU/UL (Negative); Nitrate Urine Negative (Negative); Specific Grav Ur 1.015 (1.001-1.035)
[2025-07-07 15:43] LABS: Alanine Aminotransferase 15 U/L (6-50); Albumin Level 4.3 g/dL (3.5-5.1); Alkaline Phosphatase 96 U/L (38-126); Anion Gap 5 mmol/L (4-12); Aspartate Amino Transferase 30 U/L (17-59); Bilirubin,Total 0.3 mg/dL (0.2-1.3); Blood Urea Nitrogen 19 mg/dL (9-20); Calcium 8.9 mg/dL (8.4-10.2); Carbon Dioxide 31 mmol/L (22-30); Chloride 100 mmol/L (98-107); Estimated CRCL calculation 67 ml/min; Estimated Glomerular Filt Rate > 60; Glucose 126 mg/dL (65-110); Potassium 4.7 mmol/L (3.4-5.0); Sodium 136 mmol/L (137-145); Total Protein 7.7 g/dL (6.3-8.2)
[2025-07-07 15:44] LABS: Acetaminophen < 10 ug/mL (10-30); Salicylate < 1.0 mg/dL (2-20)
[2025-07-07 15:50] LABS: Cannabinoid Screen Urine Negative (Negative)
[2025-07-07 15:58] LABS: SARS-CoV-2 RNA PCR Negative (Negative)
[2025-07-07 16:16] LABS: Thyroid Stimulating Hormone 1.620 uIU/mL (0.465-4.680)
--- NOTE | 2025-07-07 18:22 | PC.NURSE ---
sample shoe inspector and reworker here to evaluate the patient. This RN explained the patient situation as is was explained to RN.
[2025-07-07 19:15] VITALS: BP 153/94; PULSE 93; RESP 16; TEMP 36.5; O2SAT 100
--- NOTE | 2025-07-07 19:15 | PC.NURSE ---
Received report from LEONORA Alvarez pt sitting at edge of bed with sitter at bedside, respirations even and unlabored. Pt denies any pain and/or discomfort at this time, pt updated on plan of care.
--- NOTE | 2025-07-07 23:08 | PC.NURSE ---
Pt accepted to [facility] will call back with room #. Report given by this RN to LEONORA Ashby from receiving facility.
--- NOTE | 2025-07-07 23:09 | PC.NURSE ---
EKG faxed to
--- NOTE | 2025-07-07 23:21 | ECG_ITS ---
Test Date: 2025-07-07 23:54:44 Measurements Intervals [place] Rate: 85 P: 0 AK: 0 QRS: -20 QRSD: 96 T: 64 QT: 361 QTc: 431 Interpretive Statements Sinus rhythm with first-degree AV block POSSIBLE ANTERIOR MYOCARDIAL INFARCTION , OF INDETERMINATE AGE [30 ms Q WAVE IN V3/V4, OR R < 0.2 mV IN V4] Compared to ECG 04/24/2025 22:31:20 no significant change Electronically Signed On 07-08-2025 12:01:23 CDT by John Ricketts M.D.
--- NOTE | 2025-07-07 23:43 | PC.NURSE ---
This RN talked to Alexus at [facility], [facility] facility is able to accept at this time
--- NOTE | 2025-07-08 00:15 | PC.NURSE ---
[facility] facility called back to state they are not able to accept pt at this time due to pt's insurance
[2025-07-08 06:38] VITALS: BP 139/94; PULSE 77; RESP 19; TEMP 36.7; O2SAT 100
--- NOTE | 2025-07-08 07:36 | PC.NURSE ---
Breakfast tray ordered
--- NOTE | 2025-07-08 07:51 | PC.NURSE ---
Jodee with [facility] called for triage information. Report given. She states pt is accepted to [facility] by Dr. Bob Ramirez. States pt can arrive to facility at noon or later. Gave the number [phone] for any additional questions.
== END 2025-07-08 11:10 ==
PROVIDERS: Nurse Practitioner; Emergency Provider Physician Assistant
DX: F20.9 Schizophrenia, unspecified (principal); R45.851 Suicidal ideations; Z59.00 Homelessness unspecified; Z11.52 Encounter for screening for COVID-19; Z79.899 Other long term (current) drug therapy; R94.31 Abnormal electrocardiogram [ECG] [EKG]
CPT/HCPCS: 36415; 80053; 80143; 80179; 80307; 81003; 82077; 84443; 85025; 87635; 93005; 99285